=== PATIENT | male | born 1950 | race Caucasian/White ===

== ENCOUNTER → 2024-03-19 09:05 | Outpatient (REF) | payer MEDICARE, SELFPAY | LOC: HWRAD 09:05 | PROVIDERS: ATTENDING PHYSICIAN Internal Medicine Hematology & Oncology; FAMILY PHYSICIAN Family Medicine | DX: C25.3 Malignant neoplasm of pancreatic duct (principal) | CPT/HCPCS: 71260; 74177; Q9967 ==

== ENCOUNTER 2024-04-06 09:09 | Outpatient (REF) | payer MEDICARE, SELFPAY ==
[2024-04-06 10:00] VITALS: BP 138/79; BP_SYST 57
[2024-04-06 10:02] LABS: % Basophils 0.9 % (0-2); % Eosinophils 3.1 % (0-6); % Immature Granulocytes 0.4 % (0-0.5); % Lymphocytes 16.2 % (20.5-51.1); % Monocytes 9.3 % (1.7-9.3); % Neutrophils 70.1 % (42.2-75.2); Absolute Basophils 0.1 10^3/uL (0-0.2); Absolute Eosinophils 0.2 10^3/uL (0-0.7); Absolute Lymphocytes 1.3 10^3/uL (1.2-3.4); Absolute Monocytes 0.7 10^3/uL (0.1-0.6); Absolute Neutrophils 5.4 10^3/uL (1.4-6.5); Hematocrit 39.9 % (39.0-52.0); Hemoglobin 12.7 g/dL (13.0-18.0); Mean Corp Hgb Conc. 31.8 g/dL (33.0-37.0); Mean Corpuscular Hgb 28.9 pg (27.0-31.0); Mean Corpuscular Volume 90.9 fL (80.0-94.0); Mean Platelet Volume 9.2 fL (7.4-10.4); Nucleated Red Blood Cells % 0 % (-); Platelet Count 263 10^3/uL (130-400); Red Blood Cell Count 4.39 10^6/uL (4.70-6.10); Red Cell Dist. Width 13.2 % (11.5-14.5); White Blood Cell Count 7.7 10^3/uL (4.8-10.8)
[2024-04-06 10:07] LABS: INR 1.19; PT 14.9 Sec (11.4-14.6)
[2024-04-06 10:14] LABS: ALT (SGPT) 43 U/L (0-50); AST (SGOT) 41 U/L (17-59); Albumin 3.4 g/dl (3.5-5.0); Alkaline Phosphatase 192 U/L (38-126); Blood Urea Nitrogen 19 mg/dl (9-20); Calcium 8.8 mg/dl (8.4-10.2); Carbon Dioxide 25 mmol/L (22-30); Chloride 111 mmol/L (98-107); Glucose 90 mg/dl (70-99); Potassium 5.1 mmol/L (3.5-5.1); Sodium 139 mmol/L (135-145); Total Bilirubin 0.5 mg/dl (0.2-1.3); Total Protein 5.9 g/dl (6.3-8.2); eGFR > 60.00
[2024-04-06 12:02] VITALS: BP 128/69
[2024-04-06 12:10] VITALS: BP 120/73
[2024-04-06 12:40] VITALS: BP 135/68
[2024-04-06 13:45] VITALS: BP 126/70
== END 2024-04-06 14:30 | disposition home or self-care (01) ==
LOC: RADI 09:09
PROVIDERS: ATTENDING PHYSICIAN Internal Medicine Hematology & Oncology; FAMILY PHYSICIAN Family Medicine; REFERRING PHYSICIAN Physician Assistant
DX: C78.7 Secondary malignant neoplasm of liver and intrahepatic bile duct (principal); C25.3 Malignant neoplasm of pancreatic duct; D68.8 Other specified coagulation defects
CPT/HCPCS: 88307; 36415; 47000; 76942; 77012; 80053; 85025; 85610; 88333; 88341; 88342; 99152

== ENCOUNTER → 2024-04-30 10:45 | Outpatient (REF) | payer MEDICARE, SELFPAY ==
[2024-04-30 11:06] VITALS: BP 110/72; BP_SYST 59
[2024-04-30 11:20] VITALS: BMI 18.6
[2024-04-30] MEDS: ANCEF 10 IV (11:55)
[2024-04-30 12:49] VITALS: BP 120/61; BP_SYST 56
[2024-04-30 13:30] LABS: % Basophils 0.8 % (0-2); % Immature Granulocytes 0.3 % (0-0.5); % Lymphocytes 19.6 % (20.5-51.1); % Monocytes 9.2 % (1.7-9.3); % Neutrophils 67.1 % (42.2-75.2); Absolute Basophils 0.1 10^3/uL (0-0.2); Absolute Eosinophils 0.2 10^3/uL (0-0.7); Absolute Lymphocytes 1.4 10^3/uL (1.2-3.4); Absolute Monocytes 0.7 10^3/uL (0.1-0.6); Absolute Neutrophils 4.9 10^3/uL (1.4-6.5); Hematocrit 35.6 % (39.0-52.0); Hemoglobin 11.2 g/dL (13.0-18.0); Mean Corp Hgb Conc. 31.5 g/dL (33.0-37.0); Mean Corpuscular Hgb 27.8 pg (27.0-31.0); Mean Corpuscular Volume 88.3 fL (80.0-94.0); Mean Platelet Volume 9.5 fL (7.4-10.4); Nucleated Red Blood Cells % 0 % (-); Platelet Count 281 10^3/uL (130-400); Red Blood Cell Count 4.03 10^6/uL (4.70-6.10); Red Cell Dist. Width 13.5 % (11.5-14.5); White Blood Cell Count 7.3 10^3/uL (4.8-10.8)
[2024-04-30 13:39] LABS: ALT (SGPT) 45 U/L (0-50); AST (SGOT) 52 U/L (17-59); Albumin 3.1 g/dl (3.5-5.0); Alkaline Phosphatase 176 U/L (38-126); Blood Urea Nitrogen 30 mg/dl (9-20); Calcium 8.6 mg/dl (8.4-10.2); Carbon Dioxide 18 mmol/L (22-30); Chloride 111 mmol/L (98-107); Estimated Creatinine Clearance 43 ml/min; Glucose 97 mg/dl (70-99); Potassium 4.1 mmol/L (3.5-5.1); Sodium 138 mmol/L (135-145); Total Bilirubin 0.5 mg/dl (0.2-1.3); Total Protein 5.6 g/dl (6.3-8.2); eGFR 58.37
== END ==
LOC: RADI 10:45
PROVIDERS: ATTENDING PHYSICIAN Internal Medicine Hematology & Oncology; FAMILY PHYSICIAN Family Medicine
DX: C25.3 Malignant neoplasm of pancreatic duct (principal)
CPT/HCPCS: 36561; 76937; 77001; 80053; 85025; 99152; C1788

== ENCOUNTER 2024-05-01 14:38 | Emergency (ER) | payer MEDICARE, SELFPAY ==
[2024-05-01 14:41] VITALS: BP 158/64
[2024-05-01 14:42] VITALS: BP 158/62
[2024-05-01 15:00] VITALS: BP 118/55
--- NOTE | 2024-05-01 15:23 | ED.GENMED ---
History of Present Illness
General
Chief Complaint: Numbness
Source: patient and spouse
Exam Limitations: none
Time Seen by Provider: 05/01/24 14:59
Nursing documentation reviewed up to this point in time: agreed with
Travel History
Have you had any contact with someone who has COVID-19?: No
Do you have any symptoms of coronavirus? Fever > 100 degrees, chills, cough, shortness of breath, sore throat, loss of taste or smell, muscle aches, or headache?: No
History of Present Illness
History of Present Illness:
73-year-old male presents emergency department after receiving first time dose of irinotecan and leucovorin. He began to experience numbness in his mouth, and difficulty speaking. He feels he is having trouble controlling his mouth movements.
Infusion center gave him 25 mg Benadryl, 125 mg Solu-Medrol and an EpiPen at 1422 PM. Symptoms feel similar.
Past History
Past History
ED Past Medical History: Cancer (Pancreatic cancer)
ED Past Surgical History: Other (Whipple procedure, pilonidal cyst removed, hernia)
Social History
Tobacco: Non-smoker
Alcohol: None
Drug: None
Personal:
Living: with family
Review of Systems
Review of Systems
Allergies reviewed?: Yes
All Other Systems: Not applicable
Constitutional: Reports no symptoms
EENT: Reports no symptoms
Respiratory: Reports no symptoms
Cardiac: Reports no symptoms
: Reports no symptoms
Musculoskeletal: Reports no symptoms
Skin: Reports no symptoms
Neurological: Reports numbness
Endocrine: Reports no symptoms
Hematologic/Lymphatic: Reports no symptoms
Psychiatric: Reports no symptoms
Phy Exam
Physical Exam
Physical Exam:
Physical Exam
General: no apparent distress, not acutely ill
Neck: supple. no meningeal signs. normal posterior pharynx
Heart: s1/s2 regular rate and rhythm, no murmur. equal radial
pulses.
HEENT: Pupils equal round reactive to light, EOMI
Lungs: no acute respiratory distress. clear bilaterally
Abdomen: normal bowel sounds. not tender. no CVAT
Neuro: alert and oriented. no focal neurological deficits cranial nerves II through XII intact
Skin: no rash
Psychiatric: well kept. interactive and cooperative
Extremities: no edema. no calf tenderness. negative homans. good distal pulses
Course
Orders/Labs/Results
Orders:
Orders
05/01/24 15:16
Electrocardiogram (*1) Stat
Reason for Study: Vertigo / Dizzy
Electrocardiogram (*1) Urgent
Reason for Study: Fatigue / Weakness
EKG- Treatment ONCE
IV Insert/Care/Rem.- Treatment PRN
05/01/24 16:03
Complete Blood Count/With Diff Urgent
Comprehensive Metabolic Panel Urgent
Magnesium Urgent
Abnormal Lab Results
05/01/24
16:03
RBC 4.14 L 10^6/uL
(4.70-6.10)
Hgb 11.6 L g/dL
(13.0-18.0)
Hct 36.6 L %
(39.0-52.0)
MCHC 31.7 L g/dL
(33.0-37.0)
Absolute Neuts (auto) 7.3 H 10^3/uL
(1.4-6.5)
Absolute Lymphs (auto) 0.4 L 10^3/uL
(1.2-3.4)
Absolute Monos (auto) 0.0 L 10^3/uL
(0.1-0.6)
Neutrophils % 93.6 H %
(42.2-75.2)
Lymphocytes % 5.0 L %
(20.5-51.1)
Monocytes % 0.5 L %
(1.7-9.3)
Chloride 109 H mmol/L
(98-107)
Carbon Dioxide 18 L mmol/L
(22-30)
BUN 22 H mg/dl
(9-20)
Glucose 263 H mg/dl
(70-99)
Calcium 8.2 L mg/dl
(8.4-10.2)
Alkaline Phosphatase 212 H U/L
(38-126)
Total Protein 5.6 L g/dl
(6.3-8.2)
Albumin 3.1 L g/dl
(3.5-5.0)
05/01/24 16:03
05/01/24 16:03
Vital Signs
Initial and Last Documented VS:
Initial Vital Signs
BP
158/64
05/01/24 14:41
Last Documented Vital Signs
Temp Pulse Resp BP Pulse Ox
97.2 F 57 18 118/55 97
05/01/24 14:42 05/01/24 14:42 05/01/24 14:42 05/01/24 15:00 05/01/24 15:15
MDM/Problems Addressed
Differential Diagnosis Includes:
CVA, medication reaction
MDM/Problems Addressed:
73-year-old male with paresthesias and dysarthria from medication reaction of chemotherapeutics. Discussed with Dr. Jigna Kate, who agrees with this, and recommends observation. Do not suspect allergic reaction. Patient improved throughout
hospital observation, and stable for charge.
Chronic conditions affecting care: Cancer (Pancreatic cancer)
Acute Exacerbation and/or Progression of Chronic Illness: Cancer
*Pulse Oximetry
Patient hypoxic: no
*EKG
Interpreted by ED Provider?: Yes
EKG Intrepretation Date: 05/01/24
EKG Intrepretation Time: 15:34
Interpretation: normal
Comparison EKG: no comparison EKG present
Heart Rate: 61
Rate: normal
Rhythm: sinus
[place]worth: normal axis
Interval: normal interval
QRS Pattern: normal QRS
Ischemia: no ischemia
*Color Control Supervisor Interpretation
Rate: normal
Interpretation: normal
Heart Rate: 60
Rhythm: sinus
*Critical Care Note
Total Time (30-74mins, 75-104mins- exclusive of procedures): Not Applicable
Data Reviewed
Further Testing Considered But Not Given:
ct head not indicated
Patient Management
Discussion with other providers: Major Account Representative (oncology Dr. Samaria Kate)
Escalation/DeEscalation of care consider admission/obs:
admit not indicated
ED Attending Note
-
Portions of this chart may have been created with voice recognition software.� Occasional wrong word or��sound alike� substitutions may have occurred due to the inherent limitations of voice recognition software.
Discharge Plan
Departure
Patient Disposition: Home (Routine Discharge)
Date of Disposition: 05/01/24
Time of Disposition: 17:46
Patient with high blood pressure during this ER visit?: No
Condition: Good
Discharge Problem:
Chemotherapy adverse reaction
Instructions: Chemotherapy, Paresthesia (DC), BLOOD PRESSURE
Prescriptions:
No Action
Creon 24,000-76,000 -120,000 unit Capsule,Delayed Release(Dr/Ec)
1 cap PO BID
Probiotic 5 billion cell Capsule, Sprinkle
1 cap PO DAILY
Referrals:
Bronson Giraldo, [Active] - Keep scheduled appt
Alex Gunn MD [Family Provider] -
Interventions
Interventions:
*Risk Screen - Suicide Last Done: 05/01/24 14:42
*General Assessment Last Done: 05/01/24 14:42
*Neglect/Abuse Screening Last Done: 05/01/24 14:42
*ED COVID-19 Vaccine History Last Done: 05/01/24 14:42
ED- Neurological Assessment Last Done: 05/01/24 14:42
Discharge Date and Time
Print Language: HUNGARIAN
--- NOTE | 2024-05-01 16:03 | VATNOTE ---
called to draw labs from port accessed in [place] today. Noted 325 PSI negrete needle and port inserted yest. by IR. Unknown length of needle.
[2024-05-01 16:10] LABS: % Basophils 0.5 % (0-2); % Immature Granulocytes 0.4 % (0-0.5); % Monocytes 0.5 % (1.7-9.3); % Neutrophils 93.6 % (42.2-75.2); Absolute Lymphocytes 0.4 10^3/uL (1.2-3.4); Absolute Neutrophils 7.3 10^3/uL (1.4-6.5); Hematocrit 36.6 % (39.0-52.0); Hemoglobin 11.6 g/dL (13.0-18.0); Mean Corp Hgb Conc. 31.7 g/dL (33.0-37.0); Mean Corpuscular Volume 88.4 fL (80.0-94.0); Mean Platelet Volume 9.6 fL (7.4-10.4); Nucleated Red Blood Cells % 0 % (-); Platelet Count 256 10^3/uL (130-400); Red Blood Cell Count 4.14 10^6/uL (4.70-6.10); Red Cell Dist. Width 13.6 % (11.5-14.5); White Blood Cell Count 7.8 10^3/uL (4.8-10.8)
[2024-05-01 16:30] LABS: ALT (SGPT) 38 U/L (0-50); AST (SGOT) 46 U/L (17-59); Albumin 3.1 g/dl (3.5-5.0); Alkaline Phosphatase 212 U/L (38-126); Blood Urea Nitrogen 22 mg/dl (9-20); Calcium 8.2 mg/dl (8.4-10.2); Carbon Dioxide 18 mmol/L (22-30); Chloride 109 mmol/L (98-107); Glucose 263 mg/dl (70-99); Magnesium 1.9 mg/dl (1.6-2.3); Potassium 4.2 mmol/L (3.5-5.1); Sodium 136 mmol/L (135-145); Total Bilirubin 0.4 mg/dl (0.2-1.3); Total Protein 5.6 g/dl (6.3-8.2); eGFR > 60.00
--- NOTE | 2024-05-01 18:48 | VATNOTE ---
right port deaccessed per protocol. brisk blood return noted prior to.
== END 2024-05-01 18:11 | disposition home or self-care (01) ==
LOC: EMR 14:38
PROVIDERS: EMERGENCY PHYSICIAN Emergency Medicine; FAMILY PHYSICIAN Family Medicine
DX: N20.0 Calculus of kidney (principal); T45.1X5A Adverse effect of antineoplastic and immunosuppressive drugs, initial encounter; Z51.11 Encounter for antineoplastic chemotherapy; Z90.49 Acquired absence of other specified parts of digestive tract
CPT/HCPCS: 99283; 96374; 80053; 83735; 85025; 93005

== ENCOUNTER → 2024-05-14 15:33 | Outpatient (REF) | payer MEDICARE, SELFPAY ==
[2024-05-14 10:14] LABS: % Basophils 0.7 % (0-2); % Eosinophils 0.7 % (0-6); % Immature Granulocytes 6.8 % (0-0.5); % Lymphocytes 5.7 % (20.5-51.1); % Monocytes 9.5 % (1.7-9.3); % Neutrophils 76.6 % (42.2-75.2); Absolute Basophils 0.2 10^3/uL (0-0.2); Absolute Eosinophils 0.2 10^3/uL (0-0.7); Absolute Immature Granulocytes 1.6 10^3/uL (0-0.05); Absolute Lymphocytes 1.4 10^3/uL (1.2-3.4); Absolute Monocytes 2.3 10^3/uL (0.1-0.6); Absolute Neutrophils 18.4 10^3/uL (1.4-6.5); Hematocrit 33.4 % (39.0-52.0); Hemoglobin 11.1 g/dL (13.0-18.0); Mean Corp Hgb Conc. 33.2 g/dL (33.0-37.0); Mean Corpuscular Hgb 28.2 pg (27.0-31.0); Mean Platelet Volume 9.8 fL (7.4-10.4); Nucleated Red Blood Cells % 0 % (-); Platelet Count 192 10^3/uL (130-400); Red Blood Cell Count 3.93 10^6/uL (4.70-6.10); Red Cell Dist. Width 14.5 % (11.5-14.5); White Blood Cell Count 24.1 10^3/uL (4.8-10.8)
[2024-05-14 10:28] LABS: ALT (SGPT) 53 U/L (0-50); AST (SGOT) 37 U/L (17-59); Albumin 2.7 g/dl (3.5-5.0); Alkaline Phosphatase 287 U/L (38-126); Blood Urea Nitrogen 16 mg/dl (9-20); Calcium 7.4 mg/dl (8.4-10.2); Carbon Dioxide 23 mmol/L (22-30); Chloride 107 mmol/L (98-107); Glucose 96 mg/dl (70-99); Potassium 3.7 mmol/L (3.5-5.1); Sodium 138 mmol/L (135-145); Total Bilirubin 0.3 mg/dl (0.2-1.3); Total Protein 4.9 g/dl (6.3-8.2); eGFR 58.37
== END ==
LOC: OIDL 15:33
PROVIDERS: ATTENDING PHYSICIAN Internal Medicine Hematology & Oncology
DX: C25.3 Malignant neoplasm of pancreatic duct (principal)
CPT/HCPCS: 80053; 85025

== ENCOUNTER → 2024-05-16 10:36 | Outpatient (REF) | payer MEDICARE, SELFPAY ==
[2024-05-16 10:32] LABS: % Basophils 0.2 % (0-2); % Eosinophils 0.3 % (0-6); % Immature Granulocytes 2.6 % (0-0.5); % Lymphocytes 1.3 % (20.5-51.1); % Monocytes 9.2 % (1.7-9.3); % Neutrophils 86.4 % (42.2-75.2); Absolute Basophils 0.1 10^3/uL (0-0.2); Absolute Eosinophils 0.1 10^3/uL (0-0.7); Absolute Immature Granulocytes 0.9 10^3/uL (0-0.05); Absolute Lymphocytes 0.4 10^3/uL (1.2-3.4); Absolute Monocytes 3.1 10^3/uL (0.1-0.6); Hematocrit 33.9 % (39.0-52.0); Mean Corp Hgb Conc. 32.4 g/dL (33.0-37.0); Mean Corpuscular Hgb 27.7 pg (27.0-31.0); Mean Corpuscular Volume 85.4 fL (80.0-94.0); Mean Platelet Volume 9.5 fL (7.4-10.4); Platelet Count 238 10^3/uL (130-400); Red Blood Cell Count 3.97 10^6/uL (4.70-6.10); Red Cell Dist. Width 14.4 % (11.5-14.5); White Blood Cell Count 33.6 10^3/uL (4.8-10.8)
[2024-05-16 11:25] LABS: D-Dimer 1.28 ug/mlFEU (0.00-0.50)
[2024-05-16 11:29] LABS: ALT (SGPT) 36 U/L (0-50); AST (SGOT) 32 U/L (17-59); Albumin 2.8 g/dl (3.5-5.0); Alkaline Phosphatase 278 U/L (38-126); Blood Urea Nitrogen 18 mg/dl (9-20); Calcium 7.9 mg/dl (8.4-10.2); Carbon Dioxide 22 mmol/L (22-30); Chloride 103 mmol/L (98-107); Glucose 127 mg/dl (70-99); Sodium 135 mmol/L (135-145); Total Bilirubin 0.8 mg/dl (0.2-1.3); Total Protein 4.9 g/dl (6.3-8.2); eGFR 58.37
[2024-05-16 11:48] LABS: Urine Albumin 1+ (Neg - Trace); Urine Bilirubin 1+ (Negative); Urine Character Clear (Clear); Urine Color Yellow; Urine Glucose Negative (Negative); Urine Ketone Trace (Negative); Urine Leukocyte Trace (Negative); Urine Nitrite Negative (Negative); Urine Occult Blood 2+ (Negative); Urine Urobilinogen 1+ (Neg - 1+)
[2024-05-16 12:00] LABS: Urine Mucus Moderate
[2024-05-16 12:02] LABS: Urine Bacteria Moderate (Negative); Urine Red Blood Cell 0-2 /HPF (0-2)
== END ==
LOC: OIDL 10:36
PROVIDERS: ATTENDING PHYSICIAN Nurse Practitioner Adult Health
DX: C25.3 Malignant neoplasm of pancreatic duct (principal)
CPT/HCPCS: 80053; 81003; 81015; 85025; 85379; 87040; 87086

== ENCOUNTER → 2024-05-16 13:43 | Outpatient (REF) | payer MEDICARE, SELFPAY | LOC: RAD 13:43 | PROVIDERS: ATTENDING PHYSICIAN Nurse Practitioner Adult Health | DX: C25.3 Malignant neoplasm of pancreatic duct (principal) | CPT/HCPCS: 71275; Q9967 ==

== ENCOUNTER 2024-05-17 12:55 | Emergency (ER) | payer MEDICARE, SELFPAY ==
[2024-05-17] VITALS (8 sets, daily range): BP systolic 89–130; BP diastolic 50–93
--- NOTE | 2024-05-17 14:03 | ED.GENMED ---
History of Present Illness
General
Chief Complaint: Weakness
Time Seen by Provider: 05/17/24 14:03
History of Present Illness
History of Present Illness:
HPI: Patient has history of pancreatic cancer diagnosed 1 year ago status post Whipple and recently started chemo and had port placed. He was recently at Dr. Giraldo's office for chemo however they did not perform the chemo as he was hypotensive.
His white count continues to rise and he was sent here for further evaluation. The patient has had some chills without definite fever and feels generally weak. He says that the nurse from Dr. Giraldo's office wanted him to come in here for 'more
tests'. The patient did not necessarily want to come in here as he did not have any significant new symptoms.
EXAM:
GENERAL: Appears somewhat weak and debilitated
HEENT: Moist oral mucosa
CARDIOVASCULAR: No murmurs, normal heart rate, regular rhythm, No chest wall tenderness, port noted in the right anterior chest wall
PULMONARY: No respiratory distress, breath sounds are clear and equal
ABDOMEN: Soft with no peritoneal signs, no tenderness
NEUROLOGIC: Excellent strength all extremities, no coordination deficits
PSYCHIATRIC: Appropriate mental status, normal insight and judgement
EXTREMITIES: Nontender, no edema, moves all extremities equally
SKIN: Appears pale
TIME OF INITIAL ENCOUNTER: 2:20 PM
NUMBER AND COMPLEXITY OF PROBLEMS ADDRESSED AT THE ENCOUNTER
� Chronic conditions affecting care: Pancreatic cancer status post Whipple
� Acute Exacerbation and/or Progression of Chronic Illness: This is an acute problem
� Differential Diagnosis includes: Dehydration, electrolyte normality, bacteremia, sepsis
AMOUNT AND/OR COMPLEXITY OF DATA TO BE REVIEWED AND ANALYZED
� I performed an independent evaluation of and my interpretation is:
EKG:
CT:
X-rays:
Laboratory Studies: White count today is 25.6, which is lower than it was yesterday. Hemoglobin 9.0 (down from 11.0 yesterday)�I therefore performed a digital rectal examination which showed heme-negative brown stool. Renal
function has worsened with a creatinine of 1.7 and he was given IV fluids. Lactic 1.4.
Other:
� Review of other/old records: White count was normal on 05/01/2024, on 05/14/2024 was 24.1 and on 05/16/2024 it was 33.6. Yesterday (05/16/2024), CTA showed no PE/dissection and scarring was noted at the right base greater than left.
� Clinical information was obtained by an independent historian: I spoke to the at bedside
� Prescriptions/Medications Considered but not given:
� Further testing considered but not performed: Considered x-ray however the patient just had a CAT scan of the chest yesterday
RISK OF COMPLICATIONS AND/OR MORBIDITY OR MORTALITY OF PATIENT MANAGEMENT
� Social determinants of health affecting care:
� Discussion with other providers: Discussed case with Dr. Giraldo who suggested considering diagnosis of colitis however the patient has no abdominal symptoms; I also discussed case with HENRY Bailon who agrees with plan.
� Escalation of care including admission/observation vs risk of discharge considered: Renal function has worsened�I have given IV fluids. The patient has minimal symptoms he did not feel that he would need to come in here to
begin with.
Past History
Past History
ED Past Medical History: Cancer (Pancreatic cancer)
ED Past Surgical History: Other (Whipple procedure, pilonidal cyst removed, hernia)
Social History
Tobacco: Non-smoker
Alcohol: None
Drug: None
Personal:
Living: with family
Phy Exam
Physical Exam
Physical Exam:
See HPI
Course
Orders/Labs/Results
Orders:
Orders
05/17/24 14:03
Urinalysis Reflex To Culture Urgent
Date Specimen was Collected: 05/17/24
Time Specimen was Collected: 14:05
0.9% Sodium Chloride 1000 ml [Nss] 1,000 ml IV BOLUS
05/17/24 14:26
Complete Blood Count/With Diff Urgent
Comprehensive Metabolic Panel Urgent
Lactic Acid Q4H
Comment: CANCEL 2nd LACTIC ACID IF 1st LACTIC ACID IS LESS THAN 2
05/17/24 14:38
Blood Culture Q30M
MARY GRACE Source: Blood/Venous
Specimen Description:
Blood Culture Q30M
MARY GRACE Source: Blood/Venous
Specimen Description:
05/17/24 16:14
0.9% Sodium Chloride 1000 ml [Nss] 1,000 ml IV BOLUS
05/17/24 18:15
Lactic Acid Q4H
Comment: CANCEL 2nd LACTIC ACID IF 1st LACTIC ACID IS LESS THAN 2
Abnormal Lab Results
05/17/24
14:26
WBC 25.6 H 10^3/uL
(4.8-10.8)
RBC 3.25 L 10^6/uL
(4.70-6.10)
Hgb 9.0 L g/dL
(13.0-18.0)
Hct 28.0 L %
(39.0-52.0)
MCHC 32.1 L g/dL
(33.0-37.0)
RDW 14.7 H %
(11.5-14.5)
Abs Immat Gran (auto) 0.6 H 10^3/uL
(0-0.05)
Absolute Neuts (auto) 21.2 H 10^3/uL
(1.4-6.5)
Absolute Lymphs (auto) 1.0 L 10^3/uL
(1.2-3.4)
Absolute Monos (auto) 2.6 H 10^3/uL
(0.1-0.6)
Immature Gran % 2.5 H %
(0-0.5)
Neutrophils % 82.7 H %
(42.2-75.2)
Lymphocytes % 4.1 L %
(20.5-51.1)
Monocytes % 10.0 H %
(1.7-9.3)
BUN 21 H mg/dl
(9-20)
Creatinine 1.7 H mg/dL
(0.7-1.3)
Glucose 128 H mg/dl
(70-99)
Calcium 7.8 L mg/dl
(8.4-10.2)
Alkaline Phosphatase 214 H U/L
(38-126)
Total Protein 4.4 L g/dl
(6.3-8.2)
Albumin 2.4 L g/dl
(3.5-5.0)
05/17/24 14:26
05/17/24 14:26
Vital Signs
Blood pressure: 95/58
Initial and Last Documented VS:
Initial Vital Signs
Temp Pulse Resp BP Pulse Ox
98 F 85 18 90/50 98
05/17/24 13:16 05/17/24 13:16 05/17/24 13:16 05/17/24 13:16 05/17/24 13:16
Last Documented Vital Signs
Temp Pulse Resp BP Pulse Ox
98 F 63 20 101/60 97
05/17/24 13:16 05/17/24 16:00 05/17/24 16:00 05/17/24 16:00 05/17/24 16:00
*Critical Care Note
Total Time (30-74mins, 75-104mins- exclusive of procedures): Not Applicable
ED Attending Note
-
Portions of this chart may have been created with voice recognition software.� Occasional wrong word or��sound alike� substitutions may have occurred due to the inherent limitations of voice recognition software.
Discharge Plan
Departure
Patient Disposition: Home (Routine Discharge)
Date of Disposition: 05/17/24
Time of Disposition: 16:14
Patient with high blood pressure during this ER visit?: Yes
Discharge Problem:
Dehydration
Prescriptions:
No Action
Creon 24,000-76,000 -120,000 unit Capsule,Delayed Release(Dr/Ec)
1 cap PO AC
Probiotic 5 billion cell Capsule, Sprinkle
1 cap PO DAILY
ondansetron HCl [Zofran] 8 mg Tablet
8 mg PO [id number] PRN (Reason: nausea)
lidocaine-prilocaine 2.5-2.5 % Cream
1 applic TOPICAL DAILYPRN PRN (Reason: port access)
pantoprazole [Protonix] 40 mg Tablet,Delayed Release (Dr/Ec)
40 mg PO DAILY
ibuprofen [Advil] 200 mg Tablet
200 mg PO Q6HPRN PRN (Reason: headache)
loratadine [Claritin] 10 mg Tablet
10 mg PO DAILYPRN PRN (Reason: take for 5 days after chemo)
Referrals:
Garfield Fitzpatrick CRNP [Family Provider] -
Activity Restrictions/Additional Instructions:
Blood cultures from yesterday showed no growth for the first 24 hours. Urine culture from yesterday was negative. Blood cultures were really drawn today which are pending. White count from yesterday is 33.6 and currently is down to 25.6. Lactic
acid level (marker for severity of infectious illness) is normal . Your hemoglobin is a little bit lower than before at 9.0 so we did a rectal examination which showed heme-negative brown stool (no sign of GI bleeding). Creatinine is 1.7 (this
indicates abnormal renal function which can improve with IV fluids).
Interventions
Interventions:
*Risk Screen - Suicide Last Done: 05/17/24 13:16
*General Assessment Last Done: 05/17/24 13:16
*Neglect/Abuse Screening Last Done: 05/17/24 13:16
ED- Fall Risk Assessment Last Done: 05/17/24 14:16
ED- Pulmonary Assessment Last Done: 05/17/24 14:16
ED- Neurological Assessment Last Done: 05/17/24 14:16
ED- Cardiac Assessment Last Done: 05/17/24 14:16
Discharge Date and Time
Print Language: HEBREW
[2024-05-17 14:37] LABS: % Basophils 0.4 % (0-2); % Eosinophils 0.3 % (0-6); % Immature Granulocytes 2.5 % (0-0.5); % Lymphocytes 4.1 % (20.5-51.1); % Neutrophils 82.7 % (42.2-75.2); Absolute Basophils 0.1 10^3/uL (0-0.2); Absolute Eosinophils 0.1 10^3/uL (0-0.7); Absolute Immature Granulocytes 0.6 10^3/uL (0-0.05); Absolute Monocytes 2.6 10^3/uL (0.1-0.6); Absolute Neutrophils 21.2 10^3/uL (1.4-6.5); Mean Corp Hgb Conc. 32.1 g/dL (33.0-37.0); Mean Corpuscular Hgb 27.7 pg (27.0-31.0); Mean Corpuscular Volume 86.2 fL (80.0-94.0); Mean Platelet Volume 9.7 fL (7.4-10.4); Nucleated Red Blood Cells % 0 % (-); Platelet Count 234 10^3/uL (130-400); Red Blood Cell Count 3.25 10^6/uL (4.70-6.10); Red Cell Dist. Width 14.7 % (11.5-14.5); White Blood Cell Count 25.6 10^3/uL (4.8-10.8)
[2024-05-17] MEDS: NSS 1000 IV ×2 (14:48→16:19)
[2024-05-17 14:54] LABS: ALT (SGPT) 33 U/L (0-50); AST (SGOT) 30 U/L (17-59); Albumin 2.4 g/dl (3.5-5.0); Alkaline Phosphatase 214 U/L (38-126); Blood Urea Nitrogen 21 mg/dl (9-20); Calcium 7.8 mg/dl (8.4-10.2); Carbon Dioxide 22 mmol/L (22-30); Chloride 107 mmol/L (98-107); Glucose 128 mg/dl (70-99); Potassium 3.9 mmol/L (3.5-5.1); Sodium 135 mmol/L (135-145); Total Bilirubin 0.9 mg/dl (0.2-1.3); Total Protein 4.4 g/dl (6.3-8.2)
[2024-05-17 15:02] LABS: Lactic Acid 1.4 mmol/L (0.7-2.0)
--- NOTE | 2024-05-17 18:03 | VATNOTE ---
right subq port deaccessed per protocol. brisk blood return noted prior to. at bedside.
== END 2024-05-17 18:18 | disposition home or self-care (01) ==
LOC: EMR 12:55
PROVIDERS: EMERGENCY PHYSICIAN Emergency Medicine; FAMILY PHYSICIAN Nurse Practitioner Adult Health
DX: E86.0 Dehydration (principal); R53.1 Weakness; Z85.07 Personal history of malignant neoplasm of pancreas; Z90.411 Acquired partial absence of pancreas; Z90.49 Acquired absence of other specified parts of digestive tract
CPT/HCPCS: 99283; 96374; 96361; 80053; 83605; 85025; 87040

== ENCOUNTER 2024-05-20 10:54 | Emergency (ER) | payer MEDICARE, SELFPAY ==
[2024-05-20 11:03] VITALS: BP 87/53
[2024-05-20 11:11] VITALS: BP 95/65
[2024-05-20 11:12] VITALS: BMI 19.5
--- NOTE | 2024-05-20 11:21 | ED.GENMED ---
History of Present Illness
General
Chief Complaint: Dizziness
Source: patient, records and family
Exam Limitations: none
Time Seen by Provider: 05/20/24 11:13
Nursing documentation reviewed up to this point in time: agreed with
History of Present Illness
History of Present Illness:
73-year-old male presents to the emergency department complaining of weakness and lightheadedness.
Past History
Past History
ED Past Medical History: Cancer (Pancreatic cancer)
ED Past Surgical History: Other (Whipple procedure, pilonidal cyst removed, hernia)
Social History
Tobacco: Non-smoker
Alcohol: None
Drug: None
Personal:
Living: with family
Review of Systems
Review of Systems
Allergies reviewed?: Yes
All Other Systems: Not applicable
Constitutional: Reports no symptoms
EENT: Reports no symptoms
Respiratory: Reports no symptoms
Cardiac: Reports no symptoms
ABD/GI: Reports no symptoms
: Reports no symptoms
Musculoskeletal: Reports no symptoms
Skin: Reports no symptoms
Neurological: Reports weakness
Endocrine: Reports no symptoms
Hematologic/Lymphatic: Reports no symptoms
Psychiatric: Reports no symptoms
Phy Exam
Physical Exam
Physical Exam:
Physical Exam
General: no apparent distress, not acutely ill
Neck: supple. no meningeal signs. normal posterior pharynx
Heart: s1/s2 regular rate and rhythm, no murmur. equal radial
pulses. Port right upper chest
HEENT: Pupils equal round reactive to light, EOMI
Lungs: no acute respiratory distress. clear bilaterally
Abdomen: normal bowel sounds. not tender. no CVAT
Neuro: alert and oriented. no focal neurological deficits cranial nerves II through XII intact
Skin: no rash
Psychiatric: well kept. interactive and cooperative
Extremities: no edema. no calf tenderness. negative homans. good distal pulses
Course
Orders/Labs/Results
Orders:
Orders
05/20/24 11:20
IV Insert/Care/Rem.- Treatment PRN
0.9% Sodium Chloride 1000 ml [Nss] 1,000 ml IV BOLUS
05/20/24 12:00
Complete Blood Count/With Diff Urgent
Comprehensive Metabolic Panel Urgent
05/20/24 13:08
Heparin Pf [Heparin Lock Flush] 500 unit .ROUTE .STK-MED ONE
Abnormal Lab Results
05/20/24
12:00
WBC 17.4 H 10^3/uL
(4.8-10.8)
RBC 3.18 L 10^6/uL
(4.70-6.10)
Hgb 9.0 L g/dL
(13.0-18.0)
Hct 27.2 L %
(39.0-52.0)
RDW 14.6 H %
(11.5-14.5)
Abs Immat Gran (auto) 0.5 H 10^3/uL
(0-0.05)
Absolute Neuts (auto) 13.6 H 10^3/uL
(1.4-6.5)
Absolute Monos (auto) 2.0 H 10^3/uL
(0.1-0.6)
Immature Gran % 2.8 H %
(0-0.5)
Neutrophils % 78.2 H %
(42.2-75.2)
Lymphocytes % 6.7 L %
(20.5-51.1)
Monocytes % 11.4 H %
(1.7-9.3)
BUN 22 H mg/dl
(9-20)
Glucose 100 H mg/dl
(70-99)
Calcium 7.5 L mg/dl
(8.4-10.2)
Alkaline Phosphatase 227 H U/L
(38-126)
Total Protein 4.5 L g/dl
(6.3-8.2)
Albumin 2.3 L g/dl
(3.5-5.0)
05/20/24 12:00
05/20/24 12:00
Vital Signs
Initial and Last Documented VS:
Initial Vital Signs
Temp Pulse Resp BP Pulse Ox
98.0 F 79 16 87/53 98
05/20/24 11:03 05/20/24 11:03 05/20/24 11:03 05/20/24 11:03 05/20/24 11:03
Last Documented Vital Signs
Temp Pulse Resp BP Pulse Ox
98.0 F 69 20 107/53 95
05/20/24 11:03 05/20/24 13:15 05/20/24 13:15 05/20/24 13:00 05/20/24 13:15
MDM/Problems Addressed
Differential Diagnosis Includes:
Dehydration, electrolyte abnormality
MDM/Problems Addressed:
73-year-old male with mild hypovolemia. Improved after IV fluids. Stable for discharge.
Chronic conditions affecting care: Cancer (Pancreatic cancer)
Acute Exacerbation and/or Progression of Chronic Illness: Cancer (pancreatic cancer)
*Pulse Oximetry
Patient hypoxic: no
*EKG
Interpreted by ED Provider?: NA
*Catalogue Clerk Interpretation
Rate: Catalogue Clerk- N/A
*Critical Care Note
Total Time (30-74mins, 75-104mins- exclusive of procedures): Not Applicable
Data Reviewed
Review of Other/Old Records Reveals: Labs
Patient Management
Social determinants of health affecting care: Living situation
Escalation/DeEscalation of care consider admission/obs:
admit not indicated
ED Attending Note
-
Portions of this chart may have been created with voice recognition software.� Occasional wrong word or��sound alike� substitutions may have occurred due to the inherent limitations of voice recognition software.
Discharge Plan
Departure
Patient Disposition: Home (Routine Discharge)
Date of Disposition: 05/20/24
Time of Disposition: 13:29
Patient with high blood pressure during this ER visit?: No
Condition: Good
Discharge Problem:
Lightheaded, Hypovolemia
Instructions: Dizziness, Nonvertigo, (DC), Hypovolemia in adults
Prescriptions:
No Action
Creon 24,000-76,000 -120,000 unit Capsule,Delayed Release(Dr/Ec)
1 cap PO AC
Probiotic 5 billion cell Capsule, Sprinkle
1 cap PO DAILY
ondansetron HCl [Zofran] 8 mg Tablet
8 mg PO [id number] PRN (Reason: nausea)
lidocaine-prilocaine 2.5-2.5 % Cream
1 applic TOPICAL DAILYPRN PRN (Reason: port access)
pantoprazole [Protonix] 40 mg Tablet,Delayed Release (Dr/Ec)
40 mg PO DAILY
ibuprofen [Advil] 200 mg Tablet
200 mg PO Q6HPRN PRN (Reason: headache)
loratadine [Claritin] 10 mg Tablet
10 mg PO DAILYPRN PRN (Reason: take for 5 days after chemo)
Referrals:
Alex Gunn MD [Family Provider] - Call in 1-3 days for appt
Interventions
Interventions:
*Risk Screen - Suicide Last Done: 05/20/24 11:12
*General Assessment Last Done: 05/20/24 11:12
*Neglect/Abuse Screening Last Done: 05/20/24 11:12
ED- Fall Risk Assessment Last Done: 05/20/24 11:14
*ED COVID-19 Vaccine History Last Done: 05/20/24 11:03
ED- Neurological Assessment Last Done: 05/20/24 11:13
ED- Cardiac Assessment Last Done: 05/20/24 11:13
Discharge Date and Time
Print Language: SPANISH
[2024-05-20 12:00] VITALS: BP 99/61
[2024-05-20] MEDS: NSS 1000 IV (12:08)
[2024-05-20 12:22] LABS: % Basophils 0.6 % (0-2); % Eosinophils 0.3 % (0-6); % Immature Granulocytes 2.8 % (0-0.5); % Lymphocytes 6.7 % (20.5-51.1); % Monocytes 11.4 % (1.7-9.3); % Neutrophils 78.2 % (42.2-75.2); Absolute Basophils 0.1 10^3/uL (0-0.2); Absolute Eosinophils 0.1 10^3/uL (0-0.7); Absolute Immature Granulocytes 0.5 10^3/uL (0-0.05); Absolute Lymphocytes 1.2 10^3/uL (1.2-3.4); Absolute Neutrophils 13.6 10^3/uL (1.4-6.5); Hematocrit 27.2 % (39.0-52.0); Mean Corp Hgb Conc. 33.1 g/dL (33.0-37.0); Mean Corpuscular Hgb 28.3 pg (27.0-31.0); Mean Corpuscular Volume 85.5 fL (80.0-94.0); Mean Platelet Volume 9.8 fL (7.4-10.4); Nucleated Red Blood Cells % 0 % (-); Platelet Count 376 10^3/uL (130-400); Red Blood Cell Count 3.18 10^6/uL (4.70-6.10); Red Cell Dist. Width 14.6 % (11.5-14.5); White Blood Cell Count 17.4 10^3/uL (4.8-10.8)
[2024-05-20 12:30] LABS: ALT (SGPT) 37 U/L (0-50); AST (SGOT) 37 U/L (17-59); Albumin 2.3 g/dl (3.5-5.0); Alkaline Phosphatase 227 U/L (38-126); Blood Urea Nitrogen 22 mg/dl (9-20); Calcium 7.5 mg/dl (8.4-10.2); Carbon Dioxide 24 mmol/L (22-30); Chloride 107 mmol/L (98-107); Estimated Creatinine Clearance 47 ml/min; Glucose 100 mg/dl (70-99); Potassium 4.2 mmol/L (3.5-5.1); Sodium 135 mmol/L (135-145); Total Bilirubin 0.7 mg/dl (0.2-1.3); Total Protein 4.5 g/dl (6.3-8.2); eGFR > 60.00
[2024-05-20 13:00] VITALS: BP 107/53
== END 2024-05-20 14:16 | disposition home or self-care (01) ==
LOC: EMR 10:54
PROVIDERS: EMERGENCY PHYSICIAN Emergency Medicine; FAMILY PHYSICIAN Family Medicine
DX: R42 Dizziness and giddiness (principal); E86.1 Hypovolemia; R53.1 Weakness; Z90.49 Acquired absence of other specified parts of digestive tract
CPT/HCPCS: 99283; 96374; 96361; 80053; 85025

== ENCOUNTER → 2024-05-21 15:33 | Outpatient (REF) | payer MEDICARE, SELFPAY ==
[2024-05-21 11:41] LABS: % Basophils 0.6 % (0-2); % Eosinophils 0.8 % (0-6); % Immature Granulocytes 2.7 % (0-0.5); % Lymphocytes 7.5 % (20.5-51.1); % Monocytes 11.8 % (1.7-9.3); % Neutrophils 76.6 % (42.2-75.2); Absolute Basophils 0.1 10^3/uL (0-0.2); Absolute Eosinophils 0.1 10^3/uL (0-0.7); Absolute Immature Granulocytes 0.4 10^3/uL (0-0.05); Absolute Lymphocytes 1.2 10^3/uL (1.2-3.4); Absolute Monocytes 1.9 10^3/uL (0.1-0.6); Absolute Neutrophils 12.2 10^3/uL (1.4-6.5); Hematocrit 28.3 % (39.0-52.0); Hemoglobin 9.3 g/dL (13.0-18.0); Mean Corp Hgb Conc. 32.9 g/dL (33.0-37.0); Mean Corpuscular Hgb 27.8 pg (27.0-31.0); Mean Corpuscular Volume 84.7 fL (80.0-94.0); Mean Platelet Volume 10.1 fL (7.4-10.4); Nucleated Red Blood Cells % 0 % (-); Platelet Count 481 10^3/uL (130-400); Red Blood Cell Count 3.34 10^6/uL (4.70-6.10); Red Cell Dist. Width 14.9 % (11.5-14.5); White Blood Cell Count 15.9 10^3/uL (4.8-10.8)
[2024-05-21 11:47] LABS: ALT (SGPT) 42 U/L (0-50); AST (SGOT) 37 U/L (17-59); Albumin 2.5 g/dl (3.5-5.0); Alkaline Phosphatase 271 U/L (38-126); Blood Urea Nitrogen 18 mg/dl (9-20); Calcium 7.7 mg/dl (8.4-10.2); Carbon Dioxide 21 mmol/L (22-30); Chloride 109 mmol/L (98-107); Glucose 90 mg/dl (70-99); Sodium 138 mmol/L (135-145); Total Bilirubin 0.3 mg/dl (0.2-1.3); Total Protein 4.9 g/dl (6.3-8.2); eGFR > 60.00
== END ==
LOC: OIDL 15:33
PROVIDERS: ATTENDING PHYSICIAN Internal Medicine Hematology & Oncology
DX: C25.3 Malignant neoplasm of pancreatic duct (principal)
CPT/HCPCS: 80053; 85025

== ENCOUNTER → 2024-06-04 09:36 | Outpatient (REF) | payer MEDICARE, SELFPAY ==
[2024-06-04 10:10] LABS: % Basophils 1.3 % (0-2); % Eosinophils 1.9 % (0-6); % Immature Granulocytes 0.6 % (0-0.5); % Monocytes 8.6 % (1.7-9.3); % Neutrophils 76.6 % (42.2-75.2); Absolute Basophils 0.2 10^3/uL (0-0.2); Absolute Eosinophils 0.2 10^3/uL (0-0.7); Absolute Immature Granulocytes 0.1 10^3/uL (0-0.05); Absolute Lymphocytes 1.4 10^3/uL (1.2-3.4); Absolute Monocytes 1.1 10^3/uL (0.1-0.6); Absolute Neutrophils 9.6 10^3/uL (1.4-6.5); Hemoglobin 10.9 g/dL (13.0-18.0); Mean Corp Hgb Conc. 32.1 g/dL (33.0-37.0); Mean Corpuscular Hgb 27.5 pg (27.0-31.0); Mean Corpuscular Volume 85.9 fL (80.0-94.0); Mean Platelet Volume 9.2 fL (7.4-10.4); Nucleated Red Blood Cells % 0 % (-); Platelet Count 272 10^3/uL (130-400); Red Blood Cell Count 3.96 10^6/uL (4.70-6.10); Red Cell Dist. Width 14.8 % (11.5-14.5); White Blood Cell Count 12.5 10^3/uL (4.8-10.8)
[2024-06-04 10:48] LABS: ALT (SGPT) 50 U/L (0-50); AST (SGOT) 57 U/L (17-59); Albumin 3.3 g/dl (3.5-5.0); Alkaline Phosphatase 255 U/L (38-126); Blood Urea Nitrogen 24 mg/dl (9-20); Calcium 8.3 mg/dl (8.4-10.2); Carbon Dioxide 24 mmol/L (22-30); Chloride 107 mmol/L (98-107); Glucose 105 mg/dl (70-99); Potassium 4.1 mmol/L (3.5-5.1); Sodium 139 mmol/L (135-145); Total Bilirubin 0.4 mg/dl (0.2-1.3); Total Protein 5.8 g/dl (6.3-8.2); eGFR 58.37
== END ==
LOC: OIDL 09:36
PROVIDERS: ATTENDING PHYSICIAN Internal Medicine Hematology & Oncology
DX: C25.3 Malignant neoplasm of pancreatic duct (principal)
CPT/HCPCS: 80053; 85025

== ENCOUNTER → 2024-06-11 15:51 | Outpatient (REF) | payer MEDICARE, SELFPAY ==
[2024-06-11 12:12] LABS: ALT (SGPT) 98 U/L (0-50); AST (SGOT) 75 U/L (17-59); Albumin 2.8 g/dl (3.5-5.0); Alkaline Phosphatase 281 U/L (38-126); Blood Urea Nitrogen 19 mg/dl (9-20); Calcium 7.7 mg/dl (8.4-10.2); Carbon Dioxide 23 mmol/L (22-30); Chloride 107 mmol/L (98-107); Glucose 102 mg/dl (70-99); Magnesium 1.7 mg/dl (1.6-2.3); Potassium 3.9 mmol/L (3.5-5.1); Sodium 137 mmol/L (135-145); Total Bilirubin 0.2 mg/dl (0.2-1.3); Total Protein 5.1 g/dl (6.3-8.2); eGFR > 60.00
[2024-06-11 12:18] LABS: Hematocrit 31.9 % (39.0-52.0); Hemoglobin 10.5 g/dL (13.0-18.0); Mean Corp Hgb Conc. 32.9 g/dL (33.0-37.0); Mean Corpuscular Hgb 27.9 pg (27.0-31.0); Mean Corpuscular Volume 84.8 fL (80.0-94.0); Mean Platelet Volume 9.6 fL (7.4-10.4); Platelet Count 199 10^3/uL (130-400); Red Blood Cell Count 3.76 10^6/uL (4.70-6.10); Red Cell Dist. Width 15.6 % (11.5-14.5); White Blood Cell Count 28.5 10^3/uL (4.8-10.8)
[2024-06-11 12:30] LABS: Absolute Neutrophils -Man Diff 23.3 10^3/uL (1.4-6.5); Band Neutrophils 2 % (0-3); Lymphocytes 12 % (20-51); Monocytes 4 % (2-9); Segmented Neutrophils 80 % (42-75)
[2024-06-11 12:31] LABS: Eosinophils 2 % (0-6); Normal RBC Morphology No; Platelets Checked Yes
[2024-06-11 12:32] LABS: Anisocytosis Slight; Microcytosis Slight; Total Cells Counted 100
[2024-06-13 21:37] LABS: CA 19-9 39 U/mL (<=35)
== END ==
LOC: OIDL 15:51
PROVIDERS: ATTENDING PHYSICIAN Nurse Practitioner Adult Health
DX: C25.3 Malignant neoplasm of pancreatic duct (principal)
CPT/HCPCS: 80053; 83735; 85025; 86301

== ENCOUNTER → 2024-06-25 08:12 | Outpatient (REF) | payer MEDICARE, SELFPAY ==
[2024-06-25 09:17] LABS: % Basophils 0.4 % (0-2); % Eosinophils 1.3 % (0-6); % Immature Granulocytes 1.6 % (0-0.5); % Lymphocytes 10.2 % (20.5-51.1); % Monocytes 9.1 % (1.7-9.3); % Neutrophils 77.4 % (42.2-75.2); Absolute Basophils 0.1 10^3/uL (0-0.2); Absolute Eosinophils 0.2 10^3/uL (0-0.7); Absolute Immature Granulocytes 0.3 10^3/uL (0-0.05); Absolute Lymphocytes 1.7 10^3/uL (1.2-3.4); Absolute Monocytes 1.5 10^3/uL (0.1-0.6); Absolute Neutrophils 12.9 10^3/uL (1.4-6.5); Hematocrit 32.7 % (39.0-52.0); Hemoglobin 10.6 g/dL (13.0-18.0); Mean Corp Hgb Conc. 32.4 g/dL (33.0-37.0); Mean Corpuscular Hgb 27.4 pg (27.0-31.0); Mean Corpuscular Volume 84.5 fL (80.0-94.0); Mean Platelet Volume 9.4 fL (7.4-10.4); Nucleated Red Blood Cells % 0 % (-); Platelet Count 409 10^3/uL (130-400); Red Blood Cell Count 3.87 10^6/uL (4.70-6.10); Red Cell Dist. Width 16.3 % (11.5-14.5); White Blood Cell Count 16.6 10^3/uL (4.8-10.8)
[2024-06-25 09:42] LABS: ALT (SGPT) 33 U/L (0-50); AST (SGOT) 33 U/L (17-59); Albumin 3.1 g/dl (3.5-5.0); Alkaline Phosphatase 290 U/L (38-126); Blood Urea Nitrogen 23 mg/dl (9-20); Calcium 8.6 mg/dl (8.4-10.2); Carbon Dioxide 27 mmol/L (22-30); Chloride 104 mmol/L (98-107); Glucose 106 mg/dl (70-99); Sodium 138 mmol/L (135-145); Total Bilirubin 0.3 mg/dl (0.2-1.3); Total Protein 5.9 g/dl (6.3-8.2); eGFR > 60.00
== END ==
LOC: REG 08:12
PROVIDERS: ATTENDING PHYSICIAN Internal Medicine Hematology & Oncology; FAMILY PHYSICIAN Family Medicine
DX: C25.3 Malignant neoplasm of pancreatic duct (principal)
CPT/HCPCS: 36415; 80053; 85025

== ENCOUNTER → 2024-07-09 10:57 | Outpatient (REF) | payer MEDICARE, SELFPAY ==
[2024-07-09 12:39] LABS: % Basophils 0.8 % (0-2); % Eosinophils 2.9 % (0-6); % Immature Granulocytes 0.6 % (0-0.5); % Lymphocytes 11.2 % (20.5-51.1); % Neutrophils 72.5 % (42.2-75.2); Absolute Basophils 0.1 10^3/uL (0-0.2); Absolute Eosinophils 0.4 10^3/uL (0-0.7); Absolute Immature Granulocytes 0.1 10^3/uL (0-0.05); Absolute Lymphocytes 1.4 10^3/uL (1.2-3.4); Absolute Monocytes 1.5 10^3/uL (0.1-0.6); Absolute Neutrophils 9.2 10^3/uL (1.4-6.5); Hematocrit 35.6 % (39.0-52.0); Hemoglobin 11.3 g/dL (13.0-18.0); Mean Corp Hgb Conc. 31.7 g/dL (33.0-37.0); Mean Corpuscular Hgb 27.6 pg (27.0-31.0); Mean Corpuscular Volume 86.8 fL (80.0-94.0); Mean Platelet Volume 9.7 fL (7.4-10.4); Nucleated Red Blood Cells % 0 % (-); Platelet Count 241 10^3/uL (130-400); Red Cell Dist. Width 16.3 % (11.5-14.5); White Blood Cell Count 12.6 10^3/uL (4.8-10.8)
[2024-07-09 12:53] LABS: ALT (SGPT) 25 U/L (0-50); AST (SGOT) 35 U/L (17-59); Albumin 3.7 g/dl (3.5-5.0); Alkaline Phosphatase 191 U/L (38-126); Blood Urea Nitrogen 18 mg/dl (9-20); Carbon Dioxide 28 mmol/L (22-30); Chloride 103 mmol/L (98-107); Glucose 108 mg/dl (70-99); Iron 35 ug/dl (49-181); Potassium 5.5 mmol/L (3.5-5.1); Sodium 136 mmol/L (135-145); Total Bilirubin 0.4 mg/dl (0.2-1.3); Total Protein 6.3 g/dl (6.3-8.2); eGFR 58.37
[2024-07-09 13:02] LABS: Vitamin D, 25-OH*** 14.6 ng/mL (30-80)
[2024-07-09 13:03] LABS: Percent Saturation 10 % (20-50); Total Iron Binding Capacity 340 ug/dl (261-462)
[2024-07-09 13:13] LABS: TSH 0.34 uIU/ml (0.47-4.68)
[2024-07-09 13:48] LABS: Folate > 20.0 ng/ml (2.76-20); Vitamin B12 > 1000 pg/ml (239-931)
[2024-07-10 21:22] LABS: CA 19-9 19 U/mL (<=35)
== END ==
LOC: REG 10:57
PROVIDERS: ATTENDING PHYSICIAN Nurse Practitioner Adult Health; FAMILY PHYSICIAN Family Medicine
DX: C25.3 Malignant neoplasm of pancreatic duct (principal)
CPT/HCPCS: 36415; 80053; 82306; 82607; 82728; 82746; 83540; 83550; 84443; 85025; 86301

== ENCOUNTER → 2024-07-23 08:39 | Outpatient (REF) | payer MEDICARE, SELFPAY ==
[2024-07-23 09:45] LABS: % Basophils 0.5 % (0-2); % Eosinophils 4.2 % (0-6); % Immature Granulocytes 0.8 % (0-0.5); % Lymphocytes 7.7 % (20.5-51.1); % Monocytes 11.3 % (1.7-9.3); % Neutrophils 75.5 % (42.2-75.2); Absolute Basophils 0.1 10^3/uL (0-0.2); Absolute Eosinophils 0.7 10^3/uL (0-0.7); Absolute Immature Granulocytes 0.1 10^3/uL (0-0.05); Absolute Lymphocytes 1.3 10^3/uL (1.2-3.4); Absolute Monocytes 1.9 10^3/uL (0.1-0.6); Absolute Neutrophils 12.9 10^3/uL (1.4-6.5); Hematocrit 30.9 % (39.0-52.0); Hemoglobin 9.7 g/dL (13.0-18.0); Mean Corp Hgb Conc. 31.4 g/dL (33.0-37.0); Mean Corpuscular Hgb 26.8 pg (27.0-31.0); Mean Corpuscular Volume 85.4 fL (80.0-94.0); Mean Platelet Volume 9.5 fL (7.4-10.4); Nucleated Red Blood Cells % 0 % (-); Platelet Count 153 10^3/uL (130-400); Red Blood Cell Count 3.62 10^6/uL (4.70-6.10); Red Cell Dist. Width 16.8 % (11.5-14.5)
[2024-07-23 10:21] LABS: ALT (SGPT) 17 U/L (0-50); AST (SGOT) 25 U/L (17-59); Blood Urea Nitrogen 19 mg/dl (9-20); Calcium 8.5 mg/dl (8.4-10.2); Carbon Dioxide 25 mmol/L (22-30); Chloride 106 mmol/L (98-107); Glucose 126 mg/dl (70-99); Potassium 5.1 mmol/L (3.5-5.1); Sodium 139 mmol/L (135-145); Total Bilirubin 0.6 mg/dl (0.2-1.3)
[2024-07-23 10:32] LABS: Albumin 3.3 g/dl (3.5-5.0); Alkaline Phosphatase 180 U/L (38-126); Total Protein 5.9 g/dl (6.3-8.2)
== END ==
LOC: REG 08:39
PROVIDERS: ATTENDING PHYSICIAN Internal Medicine Hematology & Oncology; FAMILY PHYSICIAN Family Medicine
DX: C25.3 Malignant neoplasm of pancreatic duct (principal)
CPT/HCPCS: 36415; 80053; 85025

== ENCOUNTER → 2024-08-02 08:26 | Outpatient (REF) | payer MEDICARE, SELFPAY | LOC: RAD 08:26 | PROVIDERS: ATTENDING PHYSICIAN Internal Medicine Hematology & Oncology; FAMILY PHYSICIAN Family Medicine | DX: C25.3 Malignant neoplasm of pancreatic duct (principal) | CPT/HCPCS: 71260; 74177; Q9967 ==

== ENCOUNTER → 2024-08-06 13:55 | Outpatient (REF) | payer MEDICARE, SELFPAY ==
[2024-08-06 16:24] LABS: ALT (SGPT) 39 U/L (0-50); AST (SGOT) 48 U/L (17-59); Albumin 3.4 g/dl (3.5-5.0); Alkaline Phosphatase 197 U/L (38-126); Blood Urea Nitrogen 24 mg/dl (9-20); Calcium 8.4 mg/dl (8.4-10.2); Carbon Dioxide 24 mmol/L (22-30); Chloride 98 mmol/L (98-107); Glucose 111 mg/dl (70-99); Potassium 5.1 mmol/L (3.5-5.1); Sodium 135 mmol/L (135-145); Total Protein 6.3 g/dl (6.3-8.2)
[2024-08-06 16:59] LABS: % Basophils 0.3 % (0-2); % Eosinophils 1.7 % (0-6); % Immature Granulocytes 1.8 % (0-0.5); % Lymphocytes 7.4 % (20.5-51.1); % Monocytes 10.5 % (1.7-9.3); % Neutrophils 78.3 % (42.2-75.2); Absolute Basophils 0.1 10^3/uL (0-0.2); Absolute Eosinophils 0.5 10^3/uL (0-0.7); Absolute Immature Granulocytes 0.5 10^3/uL (0-0.05); Absolute Lymphocytes 1.9 10^3/uL (1.2-3.4); Absolute Monocytes 2.8 10^3/uL (0.1-0.6); Absolute Neutrophils 20.4 10^3/uL (1.4-6.5); Hematocrit 33.3 % (39.0-52.0); Hemoglobin 10.6 g/dL (13.0-18.0); Mean Corp Hgb Conc. 31.8 g/dL (33.0-37.0); Mean Corpuscular Hgb 26.6 pg (27.0-31.0); Mean Corpuscular Volume 83.7 fL (80.0-94.0); Mean Platelet Volume 10.2 fL (7.4-10.4); Nucleated Red Blood Cells % 0 % (-); Platelet Count 242 10^3/uL (130-400); Red Blood Cell Count 3.98 10^6/uL (4.70-6.10); Red Cell Dist. Width 17.4 % (11.5-14.5); White Blood Cell Count 26.1 10^3/uL (4.8-10.8)
== END ==
LOC: REG 13:55
PROVIDERS: ATTENDING PHYSICIAN Internal Medicine Hematology & Oncology; FAMILY PHYSICIAN Family Medicine
DX: C25.3 Malignant neoplasm of pancreatic duct (principal)
CPT/HCPCS: 36415; 80053; 85025

== ENCOUNTER → 2024-08-13 15:47 | Outpatient (REF) | payer MEDICARE, SELFPAY ==
[2024-08-13 10:31] LABS: % Basophils 0.3 % (0-2); % Eosinophils 2.8 % (0-6); % Immature Granulocytes 1.4 % (0-0.5); % Lymphocytes 10.4 % (20.5-51.1); % Monocytes 10.7 % (1.7-9.3); % Neutrophils 74.4 % (42.2-75.2); Absolute Basophils 0.1 10^3/uL (0-0.2); Absolute Eosinophils 0.5 10^3/uL (0-0.7); Absolute Immature Granulocytes 0.2 10^3/uL (0-0.05); Absolute Lymphocytes 1.7 10^3/uL (1.2-3.4); Absolute Monocytes 1.7 10^3/uL (0.1-0.6); Hematocrit 30.3 % (39.0-52.0); Hemoglobin 9.8 g/dL (13.0-18.0); Mean Corp Hgb Conc. 32.3 g/dL (33.0-37.0); Mean Corpuscular Hgb 27.3 pg (27.0-31.0); Mean Corpuscular Volume 84.4 fL (80.0-94.0); Mean Platelet Volume 9.4 fL (7.4-10.4); Nucleated Red Blood Cells % 0 % (-); Platelet Count 321 10^3/uL (130-400); Red Blood Cell Count 3.59 10^6/uL (4.70-6.10); Red Cell Dist. Width 17.2 % (11.5-14.5); White Blood Cell Count 16.2 10^3/uL (4.8-10.8)
[2024-08-13 10:49] LABS: ALT (SGPT) 27 U/L (0-50); AST (SGOT) 34 U/L (17-59); Albumin 3.1 g/dl (3.5-5.0); Alkaline Phosphatase 189 U/L (38-126); Blood Urea Nitrogen 19 mg/dl (9-20); Carbon Dioxide 23 mmol/L (22-30); Chloride 103 mmol/L (98-107); Glucose 111 mg/dl (70-99); Iron 29 ug/dl (49-181); Potassium 4.4 mmol/L (3.5-5.1); Sodium 139 mmol/L (135-145); Total Bilirubin 0.4 mg/dl (0.2-1.3); Total Protein 6.2 g/dl (6.3-8.2); eGFR 58.01
[2024-08-13 10:58] LABS: Percent Saturation 12 % (20-50); Total Iron Binding Capacity 240 ug/dl (261-462)
== END ==
LOC: OIDL 15:47
PROVIDERS: ATTENDING PHYSICIAN Internal Medicine Hematology & Oncology
DX: C25.3 Malignant neoplasm of pancreatic duct (principal)
CPT/HCPCS: 80053; 82728; 83540; 83550; 85025

== ENCOUNTER → 2024-08-20 15:43 | Outpatient (REF) | payer MEDICARE, SELFPAY ==
[2024-08-20 17:42] LABS: Hematocrit 32.5 % (39.0-52.0); Hemoglobin 10.4 g/dL (13.0-18.0); Mean Corpuscular Hgb 27.4 pg (27.0-31.0); Mean Corpuscular Volume 85.8 fL (80.0-94.0); Mean Platelet Volume 9.7 fL (7.4-10.4); Platelet Count 152 10^3/uL (130-400); Red Blood Cell Count 3.79 10^6/uL (4.70-6.10); Red Cell Dist. Width 17.1 % (11.5-14.5); White Blood Cell Count 11.5 10^3/uL (4.8-10.8)
[2024-08-20 17:56] LABS: % Basophils 0.3 % (0-2); % Eosinophils 2.3 % (0-6); % Immature Granulocytes 0.5 % (0-0.5); % Monocytes 2.9 % (1.7-9.3); Absolute Eosinophils 0.3 10^3/uL (0-0.7); Absolute Immature Granulocytes 0.1 10^3/uL (0-0.05); Absolute Lymphocytes 1.3 10^3/uL (1.2-3.4); Absolute Monocytes 0.3 10^3/uL (0.1-0.6); Absolute Neutrophils 9.5 10^3/uL (1.4-6.5); Nucleated Red Blood Cells % 0 % (-)
[2024-08-20 18:00] LABS: ALT (SGPT) 70 U/L (0-50); AST (SGOT) 46 U/L (17-59); Albumin 3.1 g/dl (3.5-5.0); Alkaline Phosphatase 166 U/L (38-126); Blood Urea Nitrogen 26 mg/dl (9-20); Calcium 8.5 mg/dl (8.4-10.2); Carbon Dioxide 22 mmol/L (22-30); Chloride 102 mmol/L (98-107); Glucose 121 mg/dl (70-99); Potassium 4.9 mmol/L (3.5-5.1); Sodium 139 mmol/L (135-145); Total Bilirubin 0.6 mg/dl (0.2-1.3); Total Protein 6.1 g/dl (6.3-8.2); eGFR 58.01
== END ==
LOC: REG 15:43
PROVIDERS: ATTENDING PHYSICIAN Internal Medicine Hematology & Oncology; FAMILY PHYSICIAN Family Medicine
DX: C25.3 Malignant neoplasm of pancreatic duct (principal); D64.81 Anemia due to antineoplastic chemotherapy
CPT/HCPCS: 36415; 80053; 85025

== ENCOUNTER → 2024-08-27 11:54 | Outpatient (REF) | payer MEDICARE, SELFPAY ==
[2024-08-27 13:00] LABS: % Basophils 0.7 % (0-2); % Eosinophils 8.6 % (0-6); % Immature Granulocytes 1.1 % (0-0.5); % Lymphocytes 17.5 % (20.5-51.1); % Monocytes 18.5 % (1.7-9.3); % Neutrophils 53.6 % (42.2-75.2); Absolute Basophils 0.1 10^3/uL (0-0.2); Absolute Eosinophils 0.7 10^3/uL (0-0.7); Absolute Immature Granulocytes 0.1 10^3/uL (0-0.05); Absolute Lymphocytes 1.4 10^3/uL (1.2-3.4); Absolute Monocytes 1.5 10^3/uL (0.1-0.6); Absolute Neutrophils 4.3 10^3/uL (1.4-6.5); Hematocrit 30.9 % (39.0-52.0); Hemoglobin 9.6 g/dL (13.0-18.0); Mean Corp Hgb Conc. 31.1 g/dL (33.0-37.0); Mean Corpuscular Hgb 26.3 pg (27.0-31.0); Mean Corpuscular Volume 84.7 fL (80.0-94.0); Mean Platelet Volume 9.2 fL (7.4-10.4); Nucleated Red Blood Cells % 0 % (-); Platelet Count 169 10^3/uL (130-400); Red Blood Cell Count 3.65 10^6/uL (4.70-6.10); Red Cell Dist. Width 17.9 % (11.5-14.5)
[2024-08-27 13:26] LABS: ALT (SGPT) 26 U/L (0-50); AST (SGOT) 20 U/L (17-59); Albumin 2.9 g/dl (3.5-5.0); Alkaline Phosphatase 191 U/L (38-126); Blood Urea Nitrogen 16 mg/dl (9-20); Calcium 8.2 mg/dl (8.4-10.2); Carbon Dioxide 27 mmol/L (22-30); Chloride 104 mmol/L (98-107); Glucose 113 mg/dl (70-99); Potassium 4.9 mmol/L (3.5-5.1); Sodium 140 mmol/L (135-145); Total Bilirubin 0.6 mg/dl (0.2-1.3); Total Protein 5.8 g/dl (6.3-8.2); eGFR > 60.00
== END ==
LOC: REG 11:54
PROVIDERS: ATTENDING PHYSICIAN Internal Medicine Hematology & Oncology; FAMILY PHYSICIAN Family Medicine
DX: C25.3 Malignant neoplasm of pancreatic duct (principal); D64.81 Anemia due to antineoplastic chemotherapy
CPT/HCPCS: 36415; 80053; 85025

== ENCOUNTER 2024-09-07 16:22 | Inpatient (IN) | payer MEDICARE, SELFPAY ==
[2024-09-07] VITALS (15 sets, daily range): BP systolic 84–152; BP diastolic 52–87; BMI 19.5; BMI 19.2
--- NOTE | 2024-09-07 12:14 | ED.GENMED ---
ED Provider Triage
<Onofre Jo PA-C - Last Filed: 09/07/24 12:16>
-
Patient seen by provider in Triage?: Seen in Triage
Attestation: A medical screening examination has been initiated by a qualified medical provider. Based on the assessment performed at this time, it has been determined that an emergent medical condition may exist and the patient has been informed
that further medical evaluation and possible additional diagnostic testing may be needed.
HPI: 74-year-old male presenting to the emergency department for evaluation after developing flulike symptoms last night, mild cough and fever with a Tmax of around 101. Patient still was feeling unwell today so decided come to the ER. Did take
some Motrin prior to arrival. Noting body aches and chills. Currently being treated for pancreatic cancer. Last chemotherapy session 2 weeks ago. No known sick contacts or recent travel. Patient did not do any testing prior to arrival to the ER.
GENERAL: Alert , in no apparent distress
VITAL SIGNS: Patient is hypotensive, notes baseline is usually around low 100 systolically.
EYE: No visual abnormalities.
NECK: Trachea midline
ENT: No visible abnormalities.
LUNGS: No acute respiratory distress
NEUROLOGICAL: Alert and oriented
SKIN: Skin intact. No visible changes.
MUSCULOSKELETAL: Moving extremities normally
PSYCH: Normal and appropriate interaction.
This is a medical evaluation conducted in person to initiate diagnostic evaluation and provide initial therapeutics. Please see further documentation by the treating clinician.
Labs including lactic acid and blood cultures ordered.
History of Present Illness
<Onofre Jo PA-C - Last Filed: 09/07/24 12:16>
General
Chief Complaint: Fever
Time Seen by Provider: 09/07/24 13:11
<Priyank Winter MD - Last Filed: 09/07/24 19:37>
General
Source: patient and spouse
Exam Limitations: none
History of Present Illness
History of Present Illness:
74-year-old male currently being treated for pancreatic cancer. Last treatment 10 days ago. Developed fever weakness this morning. Has had an ongoing slight cough but worse the last 24 hours. No shortness of breath no abdominal pain no urinary
symptoms.
Past History
<Onofre Jo PA-C - Last Filed: 09/07/24 12:16>
Past History
ED Past Medical History: Cancer (Pancreatic cancer)
ED Past Surgical History: Other (Whipple procedure, pilonidal cyst removed, hernia)
Social History
Tobacco: Non-smoker
Alcohol: None
Drug: None
Personal:
Living: with family
Review of Systems
<Priyank Winter MD - Last Filed: 09/07/24 19:37>
Review of Systems
All Other Systems: Not applicable
Constitutional: Reports fever and chills
Phy Exam
<Priyank Winter MD - Last Filed: 09/07/24 19:37>
Physical Exam
Physical Exam:
GENERAL: Alert and oriented. Initially standing in the room changing but appeared mildly weak
EYE: Orbits normal.
NECK: Supple, no significant adenopathy.
ENT: Pharynx without erythema
CARDIAC: Regular rate and rhythm without any obvious murmurs. Port right upper chest wall
LUNGS: Clear breath sounds,normal
ABDOMEN: Soft, without focal tenderness or distention
NEUROLOGICAL: Alert and oriented , grossly non-focal
SKIN: Warm and dry, no rash or lesion, no discoloration, skin intact.
MUSCULOSKELETAL: No edema,no deformity.Good color
PSYCH: Normal and appropriate interaction.
Course
<Onofre Jo PA-C - Last Filed: 09/07/24 12:16>
Orders/Labs/Results
Orders:
Orders
09/07/24 12:13
Urinalysis Reflex To Culture Urgent
Date Specimen was Collected: 09/07/24
Time Specimen was Collected: 19:20
09/07/24 12:41
CMP [Comprehensive Metabolic Panel] Urgent
COVID-19 Antigen Urgent
Source: Nasal Swab
Complete Blood Count/With Diff Urgent
Lactate Level [Lactic Acid] Urgent
Blood Culture Urgent
MARY GRACE Source: Blood/Venous
Specimen Description:
Influenza A+B Rapid Molecular Urgent
MARY GRACE Source: Nasal Swab
Specimen Description:
09/07/24 13:22
IV Insert/Care/Rem.- Treatment PRN
0.9% Sodium Chloride 1000 ml [Nss] 1,000 ml IV BOLUS
09/07/24 13:30
Piperacillin/Tazo 4.5 Gram [Zosyn] 4.5 gram in 100 ml IV NOW
09/07/24 13:43
Blood Culture Urgent
MARY GRACE Source: Blood/Venous
Specimen Description:
09/07/24 13:52
Blood Culture Routine
MARY GRACE Source: Blood/Venous
Specimen Description:
09/07/24 14:14
CXR Port [CR Chest Portable - 1 View] Urgent
Comment:
Reason For Exam: fever
Reason Study Needs to be Portable: Unable to Transport
09/07/24 14:19
Vancomycin [Vancocin] 1,500 mg 0.9% Sodium Chloride [Nss] 20 ml 0.9% Sodium Chloride 250 ml [Nss] 250 ml IV NOW
09/07/24 14:33
0.9% Sodium Chloride 1000 ml [Nss] 1,000 ml IV BOLUS
09/07/24 Dinner
Regular
At Your Request: Full Participation
09/07/24 15:47
Admit/Transfer Patient As Directed
Co-Sign Provider:
Level of Care: Inpatient admission
Assign to:: Medical/Surgical
Physician / Group: Dr Jakob Anders
Diagnosis: Sepsis/ Hx of pancreatic cancer with liver met
Reason for Hospitalization: Sepsis/ Hx of pancreatic cancer with liver met
Expected length of stay greater than two midnights?: Yes
ELOS- Estimated Length of Stay in days: 3
I certify the patient meets the requirements for IP care: Yes
PRN Pain Medication Management As Directed
May give lesser potent ordered pain med per pt: Yes
preference::
Protocol:: Medication orders for pain may be administered in a
manner that supports deferring to patient preference
when the pt is:
- Requesting an ordered lesser potent pain medication.
Least to most potent pain medications are defined
as: acetaminophen < NSAID < tramadol < opioids
(morphine, oxycodone, hydromorphone).
- Requesting a lesser dose of the same medication IF
ORDERED.
- Requesting a less intrusive route of administration
if both routes are prescribed by the provider (PO <
IV).
09/07/24 15:57
Code Status As Directed
Resuscitation Status: Full Code
09/07/24 17:31
Bisacodyl [Dulcolax] 10 mg RECTAL [id number] PRN
Docusate W/Senna [Senokot-S] 1 tablet PO BIDPRN PRN
Polyethylene Glycol Powder [Miralax] 17 grams PO DAILYPRN PRN
glucos sul [id number]-[id number]-C-Mn [Glucosamine Chondroitin] 1 cap PO DAILYPRN PRN
09/07/24 17:31
Consult Infectious Disease [INFECTIOUS DISEASE CONSULT] Routine
Consulting Provider: Annia Johnson
Was physician already notified: Yes
Procalcitonin Routine
PCT Algorithmm Indication: Sepsis
Sputum Culture [Respiratory Culture/Gram Stain] Routine
MARY GRACE Source: Sputum
Specimen Description:
Activity As Directed
Activity Level: Ambulate
Vital Signs As Directed
Frequency: Per unit guidelines
DX Deep Vein Thrombosis Video Routine
09/07/24 17:45
Pancrelipase [Zenpep Delayed Release Capsule] 1 capsule PO AC
09/07/24 18:00
Enoxaparin Sodium [Lovenox] 40 mg SC QPM
09/07/24 20:00
Cefepime HCl [Maxipime] 1,000 mg IV Q12H
Gabapentin [Neurontin] 300 mg PO BID
09/08/24 06:00
Complete Blood Count/No Diff IN AM
Comprehensive Metabolic Panel IN AM
PTT IN AM
Prothrombin Time IN AM
09/08/24 08:00
Cholecalciferol (Vitamin D3) [VITAMIN D3 (cholecalciferol)] 25 mcg PO DAILY
Lactobac/Bifidobac [Visbiome] 1 cap PO DAILY
Pantoprazole [Protonix] 40 mg PO DAILY
Psyllium [Metamucil, Konsyl] 1 packet PO DAILY
Abnormal Lab Results
09/07/24
12:41
WBC 34.5 H 10^3/uL
(4.8-10.8)
RBC 3.40 L 10^6/uL
(4.70-6.10)
Hgb 8.9 L g/dL
(13.0-18.0)
Hct 27.6 L %
(39.0-52.0)
MCH 26.2 L pg
(27.0-31.0)
MCHC 32.2 L g/dL
(33.0-37.0)
RDW 19.7 H %
(11.5-14.5)
Plt Count 71 L 10^3/uL
(130-400)
Abs Immat Gran (auto) 1.7 H 10^3/uL
(0-0.05)
Absolute Neuts (auto) 28.6 H 10^3/uL
(1.4-6.5)
Absolute Lymphs (auto) 0.5 L 10^3/uL
(1.2-3.4)
Absolute Monos (auto) 3.5 H 10^3/uL
(0.1-0.6)
Immature Gran % 4.9 H %
(0-0.5)
Neutrophils % 83.0 H %
(42.2-75.2)
Lymphocytes % 1.5 L %
(20.5-51.1)
Monocytes % 10.1 H %
(1.7-9.3)
Sodium 134 L mmol/L
(135-145)
Carbon Dioxide 20 L mmol/L
(22-30)
Glucose 169 H mg/dl
(70-99)
Lactic Acid 4.5 H* mmol/L
(0.7-2.0)
Calcium 7.8 L mg/dl
(8.4-10.2)
Alkaline Phosphatase 215 H U/L
(38-126)
Total Protein 5.2 L g/dl
(6.3-8.2)
Albumin 2.7 L g/dl
(3.5-5.0)
09/07/24 12:41
09/07/24 12:41
Vital Signs
Initial and Last Documented VS:
Initial Vital Signs
Temp Pulse Resp BP Pulse Ox
98.6 F 125 18 88/55 97
09/07/24 12:02 09/07/24 12:02 09/07/24 12:02 09/07/24 12:02 09/07/24 12:02
Last Documented Vital Signs
Temp Pulse Resp BP Pulse Ox
97.4 F 74 18 103/52 98
09/07/24 18:00 09/07/24 18:00 09/07/24 18:00 09/07/24 18:00 09/07/24 18:15
<Priyank Winter MD - Last Filed: 09/07/24 19:37>
Orders/Labs/Results
Orders:
Orders
09/07/24 12:13
Urinalysis Reflex To Culture Urgent
Date Specimen was Collected: 09/07/24
Time Specimen was Collected: 19:20
09/07/24 12:41
CMP [Comprehensive Metabolic Panel] Urgent
COVID-19 Antigen Urgent
Source: Nasal Swab
Complete Blood Count/With Diff Urgent
Lactate Level [Lactic Acid] Urgent
Blood Culture Urgent
MARY GRACE Source: Blood/Venous
Specimen Description:
Influenza A+B Rapid Molecular Urgent
MARY GRACE Source: Nasal Swab
Specimen Description:
09/07/24 13:22
IV Insert/Care/Rem.- Treatment PRN
0.9% Sodium Chloride 1000 ml [Nss] 1,000 ml IV BOLUS
09/07/24 13:30
Piperacillin/Tazo 4.5 Gram [Zosyn] 4.5 gram in 100 ml IV NOW
09/07/24 13:43
Blood Culture Urgent
MARY GRACE Source: Blood/Venous
Specimen Description:
09/07/24 13:52
Blood Culture Routine
MARY GRACE Source: Blood/Venous
Specimen Description:
09/07/24 14:14
CXR Port [CR Chest Portable - 1 View] Urgent
Comment:
Reason For Exam: fever
Reason Study Needs to be Portable: Unable to Transport
09/07/24 14:19
Vancomycin [Vancocin] 1,500 mg 0.9% Sodium Chloride [Nss] 20 ml 0.9% Sodium Chloride 250 ml [Nss] 250 ml IV NOW
09/07/24 14:33
0.9% Sodium Chloride 1000 ml [Nss] 1,000 ml IV BOLUS
09/07/24 Dinner
Regular
At Your Request: Full Participation
09/07/24 15:47
Admit/Transfer Patient As Directed
Co-Sign Provider:
Level of Care: Inpatient admission
Assign to:: Medical/Surgical
Physician / Group: Dr Jakob Anders
Diagnosis: Sepsis/ Hx of pancreatic cancer with liver met
Reason for Hospitalization: Sepsis/ Hx of pancreatic cancer with liver met
Expected length of stay greater than two midnights?: Yes
ELOS- Estimated Length of Stay in days: 3
I certify the patient meets the requirements for IP care: Yes
PRN Pain Medication Management As Directed
May give lesser potent ordered pain med per pt: Yes
preference::
Protocol:: Medication orders for pain may be administered in a
manner that supports deferring to patient preference
when the pt is:
- Requesting an ordered lesser potent pain medication.
Least to most potent pain medications are defined
as: acetaminophen < NSAID < tramadol < opioids
(morphine, oxycodone, hydromorphone).
- Requesting a lesser dose of the same medication IF
ORDERED.
- Requesting a less intrusive route of administration
if both routes are prescribed by the provider (PO <
IV).
09/07/24 15:57
Code Status As Directed
Resuscitation Status: Full Code
09/07/24 17:31
Bisacodyl [Dulcolax] 10 mg RECTAL [id number] PRN
Docusate W/Senna [Senokot-S] 1 tablet PO BIDPRN PRN
Polyethylene Glycol Powder [Miralax] 17 grams PO DAILYPRN PRN
glucos sul [id number]-xlx-hvxna-C-Mn [Glucosamine Chondroitin] 1 cap PO DAILYPRN PRN
09/07/24 17:31
Consult Infectious Disease [INFECTIOUS DISEASE CONSULT] Routine
Consulting Provider: Annia Johnson
Was physician already notified: Yes
Procalcitonin Routine
PCT Algorithmm Indication: Sepsis
Sputum Culture [Respiratory Culture/Gram Stain] Routine
MARY GRACE Source: Sputum
Specimen Description:
Activity As Directed
Activity Level: Ambulate
Vital Signs As Directed
Frequency: Per unit guidelines
DX Deep Vein Thrombosis Video Routine
09/07/24 17:45
Pancrelipase [Zenpep Delayed Release Capsule] 1 capsule PO AC
09/07/24 18:00
Enoxaparin Sodium [Lovenox] 40 mg SC QPM
09/07/24 20:00
Cefepime HCl [Maxipime] 1,000 mg IV Q12H
Gabapentin [Neurontin] 300 mg PO BID
09/08/24 06:00
Complete Blood Count/No Diff IN AM
Comprehensive Metabolic Panel IN AM
PTT IN AM
Prothrombin Time IN AM
09/08/24 08:00
Cholecalciferol (Vitamin D3) [VITAMIN D3 (cholecalciferol)] 25 mcg PO DAILY
Lactobac/Bifidobac [Visbiome] 1 cap PO DAILY
Pantoprazole [Protonix] 40 mg PO DAILY
Psyllium [Metamucil, Konsyl] 1 packet PO DAILY
Abnormal Lab Results
09/07/24
12:41
WBC 34.5 H 10^3/uL
(4.8-10.8)
RBC 3.40 L 10^6/uL
(4.70-6.10)
Hgb 8.9 L g/dL
(13.0-18.0)
Hct 27.6 L %
(39.0-52.0)
MCH 26.2 L pg
(27.0-31.0)
MCHC 32.2 L g/dL
(33.0-37.0)
RDW 19.7 H %
(11.5-14.5)
Plt Count 71 L 10^3/uL
(130-400)
Abs Immat Gran (auto) 1.7 H 10^3/uL
(0-0.05)
Absolute Neuts (auto) 28.6 H 10^3/uL
(1.4-6.5)
Absolute Lymphs (auto) 0.5 L 10^3/uL
(1.2-3.4)
Absolute Monos (auto) 3.5 H 10^3/uL
(0.1-0.6)
Immature Gran % 4.9 H %
(0-0.5)
Neutrophils % 83.0 H %
(42.2-75.2)
Lymphocytes % 1.5 L %
(20.5-51.1)
Monocytes % 10.1 H %
(1.7-9.3)
Sodium 134 L mmol/L
(135-145)
Carbon Dioxide 20 L mmol/L
(22-30)
Glucose 169 H mg/dl
(70-99)
Lactic Acid 4.5 H* mmol/L
(0.7-2.0)
Calcium 7.8 L mg/dl
(8.4-10.2)
Alkaline Phosphatase 215 H U/L
(38-126)
Total Protein 5.2 L g/dl
(6.3-8.2)
Albumin 2.7 L g/dl
(3.5-5.0)
09/07/24 12:41
09/07/24 12:41
Vital Signs
Initial and Last Documented VS:
Initial Vital Signs
Temp Pulse Resp BP Pulse Ox
98.6 F 125 18 88/55 97
09/07/24 12:02 09/07/24 12:02 09/07/24 12:02 09/07/24 12:02 09/07/24 12:02
Last Documented Vital Signs
Temp Pulse Resp BP Pulse Ox
97.4 F 74 18 103/52 98
09/07/24 18:00 09/07/24 18:00 09/07/24 18:00 09/07/24 18:00 09/07/24 18:15
<Priyank Winter MD - Last Filed: 09/07/24 19:37>
MDM/Problems Addressed
Differential Diagnosis Includes:
Patient with fever. History of chemotherapy. No obvious clinical source except for a mild cough. Blood pressure low. Lactic acid elevated. Sepsis workup. Clearly warrants admission. Will cover with antibiotics
<Priyank Winter MD - Last Filed: 09/07/24 19:37>
*Pulse Oximetry
Patient hypoxic: no
*Critical Care Note
Total Time (30-74mins, 75-104mins- exclusive of procedures): Not Applicable
Data Reviewed
Review of Other/Old Records Reveals: Labs, Records and Testing
ED Attending Note
<Onofre Jo PA-C - Last Filed: 09/07/24 12:16>
-
Portions of this chart may have been created with voice recognition software.� Occasional wrong word or��sound alike� substitutions may have occurred due to the inherent limitations of voice recognition software.
Discharge Plan
Departure
Patient Disposition: Admit
Date of Disposition: 09/07/24
Time of Disposition: 14:41
Presentation/result/management discussed w/ accepting MD/DO: Hospitalist
Discharge Problem:
Fever/sepsis, History of pancreatic CA
Interventions
Interventions:
*Risk Screen - Suicide Last Done: 09/07/24 17:52
*General Assessment Last Done: 09/07/24 12:05
*Neglect/Abuse Screening Last Done: 09/07/24 14:39
*ED COVID-19 Vaccine History Last Done: 09/07/24 17:52
*Nursing Disposition Last Done: 09/07/24 17:32
ED- Neurological Assessment Last Done: 09/07/24 14:48
ED-Skin Assessment Last Done: 09/07/24 14:49
Discharge Date and Time
Discharge Date/Time: 09/07/24 17:33
[2024-09-07 13:09] LABS: AST (SGOT) 24 U/L (17-59); Albumin 2.7 g/dl (3.5-5.0); Alkaline Phosphatase 215 U/L (38-126); Blood Urea Nitrogen 15 mg/dl (9-20); Calcium 7.8 mg/dl (8.4-10.2); Carbon Dioxide 20 mmol/L (22-30); Chloride 101 mmol/L (98-107); Glucose 169 mg/dl (70-99); Sodium 134 mmol/L (135-145); Total Protein 5.2 g/dl (6.3-8.2); eGFR > 60.00
[2024-09-07 13:11] LABS: COVID-19 Antigen Negative (Negative)
[2024-09-07 13:19] LABS: Hematocrit 27.6 % (39.0-52.0); Hemoglobin 8.9 g/dL (13.0-18.0); Mean Corp Hgb Conc. 32.2 g/dL (33.0-37.0); Mean Corpuscular Hgb 26.2 pg (27.0-31.0); Mean Corpuscular Volume 81.2 fL (80.0-94.0); Red Cell Dist. Width 19.7 % (11.5-14.5); White Blood Cell Count 34.5 10^3/uL (4.8-10.8)
[2024-09-07 13:28] LABS: Lactic Acid 4.5 mmol/L (0.7-2.0)
[2024-09-07] MEDS: NSS 1000 IV ×3 (13:40→21:55)
[2024-09-07] MEDS: ZOSYN 100 IV (13:40)
[2024-09-07 14:13] LABS: % Basophils 0.1 % (0-2); % Eosinophils 0.4 % (0-6); % Immature Granulocytes 4.9 % (0-0.5); % Lymphocytes 1.5 % (20.5-51.1); % Monocytes 10.1 % (1.7-9.3); Absolute Eosinophils 0.1 10^3/uL (0-0.7); Absolute Immature Granulocytes 1.7 10^3/uL (0-0.05); Absolute Lymphocytes 0.5 10^3/uL (1.2-3.4); Absolute Monocytes 3.5 10^3/uL (0.1-0.6); Absolute Neutrophils 28.6 10^3/uL (1.4-6.5); Mean Platelet Volume 8.7 fL (7.4-10.4); Nucleated Red Blood Cells % 0 % (-); Platelet Count 71 10^3/uL (130-400)
[2024-09-07] MEDS: VANCOCIN 300 ML IV (14:40)
[2024-09-07] MEDS: VANCOCIN 300 MG IV (14:40)
[2024-09-07 14:58] LABS: ALT (SGPT) 38 U/L (0-50)
--- NOTE | 2024-09-07 15:03 | W.PN.UPDATE ---
Update Note
Progress Note Update
I personally performed a history and physical exam of the patient and discussed management with the resident. I reviewed the resident's note and agree with the documented findings and plan of care HPI/CC. except changes in my documentation
74-year-old male presented to the ER with fever of 101 at home took Motrin prior to coming in.
Patient denies dysuria, abdomen pain, diarrhea, rashes, headache, nausea or vomiting. He has been feeling really weak
Chest x-ray no acute changes. COPD
# Fever With lactic acidosis
Recent
Leukocytosis could likely be secondary to Neulasta
COVID serology negative. Blood cultures, urinalysis and urine culture
No abdominal pain
If develops diarrhea check C. difficile
If no clear source then may need CT of the abdomen and pelvis
Give Vanco and Cefepime.
Infectious disease and hematology oncology consultation
# Pancreatic adenocarcinoma initially diagnosed 03/28/2023 8 did not follow-up with hematology oncology until 06/03/2023.
Then seen at [place] by Underwent Mini Whipple surgery with perforation of stomach on 07/27/2023
Start chemotherapy 6 months ago, 3 months ago found out about hepatic mets
Now with biopsy proven hepatic metastasis
Was on chemotherapy got it 2 weeks ago? FOLFIRINOX
# Emphysema
# Enlarged thyroid with nodules
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
# Thrombocytopenia-likely secondary to chemo
# Hypoalbuminemia
# ex-smoker
# DVT prophylaxis-Lovenox
# CODE STATUS-Full code
D/W ER attending
D/W at bed side
--- NOTE | 2024-09-07 16:46 | HPS.HSE ---
Family Physician
-
Family Physician: Alex Gunn
Chief Complaint
-
Feeling weakness, Coughing, fever
History of Present Illness
The patient is a 74 year-old male who has PMH of pancreatic cancer met to liver presented to ER complaining from coughing more, having a fever spike at 101 and feeling generalized weakness. The patient has his pancreatic cancer diagnosis about 1.5
year ago and had Whipple surgery and her pancreas removed. He has a port on his right side and was started on chemotherapeutic treatment about 6 months ago. He received his last chemo treatment about 10 days ago.
Medical History
Past Medical History
Past Medical History: Reports Other (Pancreatic cancer with liver met )
Past Surgical History: Reports Cholecystectomy
Additional Past Surgical History:
Whipple surgery
Social History
Tobacco: Non-smoker
Alcohol: None
Drug: None
Personal:
Living: With Family
Employment: Retired
Family History
Family History: Not pertinent
Allergies / Home Medications
Allergies reflects when Allergies were last updated in [facility].
Home Medications with original date entered in [facility]
Allergy/Medication List:
Allergies
Allergy/AdvReac Type Severity Reaction Status Date / Time
No Known Allergies Allergy Verified 09/07/24 12:05
Home Medications
Lactobacil.acidophilus-Bifido.animalis 5 billion cell sprinkle capsule (Probiotic) 1 cap PO DAILY 04/06/24
wgfmhr-rlsmvatk-njejexj 24,000-76,000-120,000 unit capsule,delayed rel (Creon) 1 cap PO AC 04/06/24
ibuprofen 200 mg tablet (Advil) 200 mg PO Q6HPRN PRN headache 05/17/24
pantoprazole 40 mg tablet,delayed release (Protonix) 40 mg PO DAILY 05/17/24
cholecalciferol (vitamin D3) 25 mcg (1,000 unit) tablet (Vitamin D3) 25 mcg PO DAILY 09/07/24
gabapentin 300 mg capsule 300 mg PO BID 09/07/24
glucosamine sulf dipot chlr,msm,chond 550 mg-C 30 mg-jeffrey 1 mg capsule (Glucosamine Chondroitin) 1 cap PO DAILYPRN PRN supplement 09/07/24
psyllium 1 packet PO DAILY 09/07/24
Review of Systems
-
History Source: Patient
EENT: Reports No Symptoms
Respiratory: Reports Cough
Cardiac: Reports No Symptoms
Abdomen/GI: Reports No Symptoms
: Reports No Symptoms
Musculoskeletal: Reports Other (Generalized weakness )
Skin: Reports No Symptoms
Neurological: Reports No Symptoms
Physical Exam
Vital Signs
Vital Signs
Temp Pulse Resp BP Pulse Ox
98.8 F 78 23 99/60 94
09/07/24 12:05 09/07/24 16:00 09/07/24 14:30 09/07/24 16:00 09/07/24 14:00
Physical Exam
General: Comfortable, Conversant and Appears Chronically Ill
HEENT: NormoCephalic
Respiratory: Clear
Cardiac: S1/S2 and Regular Rhythm
GI: Soft and Non Tender
Genito-urinary: Deferred by me
Musculoskeletal: No Clubbing, No Cyanosis and No Edema
Skin: Warm
Neuro: Awake, Alert, Oriented, AO x 3 and Nonfocal/grossly intact
Laboratory Results
-
09/07/24 12:41
09/07/24 12:41
Laboratory Results
Lactic Acid 4.5 mmol/L (0.7-2.0) H* 09/07/24 12:41
Total Bilirubin 1.0 mg/dl (0.2-1.3) 09/07/24 12:41
AST 24 U/L (17-59) 09/07/24 12:41
ALT 38 U/L (0-50) 09/07/24 12:41
Alkaline Phosphatase 215 U/L (38-126) H 09/07/24 12:41
Impression/Plan
-
IMPRESSION:
The patient is 74 year old male with a PMH of metastatic pancreatic cancer to liver presented ER complaining from one time fever this morning, generalized weakness and coughing. He denies other symptoms. Reports he started on chemotherapeutic
treatment about 6 months ago and his last taking was about 10 days ago through his port. Denies other symptoms like abdominal pain, diarrhea and dysuria.
PLAN:
# Fever With lactic acidosis
-Had fever one this morning
-Leukocytosis likely be secondary to Neulasta
-COVID serology negative. -Influenza was ordered
- Blood cultures, urinalysis and urine culture were ordered
-CXR: Non remarkable
-Procalcitonin was ordered
- He was started on prophylactic cefepime and vanco
-If develops diarrhea check C. difficile
-ID was consulted
-Hematology oncology was consulted
# Pancreatic adenocarcinoma
- initially diagnosed 03/28/2023 8 did not follow-up with hematology oncology until 06/03/2023.
Then seen at [place] by Underwent Mini Whipple surgery with perforation of stomach on 07/27/2023
-Start chemotherapy 6 months ago, 3 months ago found out about hepatic mets
-Was on chemotherapy got it 2 weeks ago? FOLFIRINOX
#Anemia
-Hgb 8.9
-Follow up CBC
#Hyponatremia
-Na: 134
-Follow CMP
#CKD
-Creatinine 1.2 ( Basal 1.3-1.4)
# Emphysema
# Enlarged thyroid with nodules
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
# Thrombocytopenia-likely secondary to chemo
# Hypoalbuminemia
# ex-smoker
# DVT prophylaxis-Lovenox
# CODE STATUS-Full code
D/W ER attending
D/W at bed side
--- NOTE | 2024-09-07 17:49 | PTCARENOTE ---
Received pt from ED, pt ambulated with minimal assistance of one with no assistive devices to scale/bed, VSS, pt resting comfortably in bed with at bedside.
--- NOTE | 2024-09-07 17:58 | PHA.VAN.IN ---
Assessment
- Assessment
Renal Function: Appears similar to baseline (08/27/24 BASELINE SCR: 08/27/24)
Concomitant Antimicrobials: CEFEPIME
- Previous Dosing Experience
Previous Regimen: NONE
AUC Dosing Plan
- Dosing Variables
Dosing Weight (kg): 70.7
Dosing CrCl (ml/min): 55
Vd coefficient (L/kg): 0.7
- Empiric Dosing
Initial / Loading Dose: 1500MG
Maintenance Regimen: 1250MG IV Q24H
Estimated AUC (mcg*h/mL): 524
Estimated Peak (mcg*h/mL): 36.1
Estimated Trough (mcg/ml): 11.7
Estimated Half Life (H): 13.8
Pharmacokinetics Vancomycin I
- -
Patient Age: 74
Patient Sex: Male
Vancomycin Day #: 1
Indication: Pulmonary/Respiratory
Requesting Provider: JEFEROSN
Height / Weight:
Height 5 ft 9 in
Actual Weight 58.922 kg
IBW in k.7
Pertinent Past Medical History: PANCREATIC CA WITH METS
- Vital Signs / Lab Results
Temp Pulse Resp BP Pulse Ox
98.8 F 71 19 90/53 94
09/07/24 12:05 09/07/24 17:30 09/07/24 17:30 09/07/24 17:00 09/07/24 14:00
Lab Results - Hematology
09/07/24
12:41
WBC 34.5 H
Lab Results - Chemistry
09/07/24
12:41
BUN 15
Creatinine 1.2
Albumin 2.7 L
09/07/24
12:41
Lactic Acid 4.5 H*
Microbiology Results
09/07/24 12:41 Influenza Types A & B (SARA) - Final
Nasal Swab Negative for Influenza A & B, NAAT
Negative results must be combined with clinical observations
and patient history.
Nucleic Acid Amplification test (NAAT)performed on the
[employer] platform.
[2024-09-07] MEDS: ZENPEP DELAYED RELEASE CAPSULE 1 CAPSULE PO (18:10)
[2024-09-07] MEDS: LOVENOX 40 MG SC (19:14)
[2024-09-07] MEDS: STERILE WATER FOR INJECTION 10 ML IV (19:15)
[2024-09-07] MEDS: MAXIPIME 1000 MG IV (19:15)
[2024-09-07] MEDS: NEURONTIN 300 MG PO (19:15)
[2024-09-07 19:46] LABS: Urine Albumin Negative (Neg - Trace); Urine Bilirubin Negative (Negative); Urine Character Clear (Clear); Urine Color Yellow; Urine Glucose Negative (Negative); Urine Ketone Negative (Negative); Urine Leukocyte Negative (Negative); Urine Nitrite Negative (Negative); Urine Occult Blood Trace (Negative); Urine Urobilinogen Negative (Neg - 1+)
[2024-09-07 19:54] LABS: Urine Bacteria Few (Negative)
--- NOTE | 2024-09-07 21:00 | PTCARENOTE ---
Pt noted very tremulous, c/o nausea w/o emesis, VS 152/87, 154, RR 26, Pox 93% RA, rectal temp 104.3. score caller SERVICE RIG OPERATOR made aware, new order to repeat lactic acid, IV tylenol and cooling blanket ordered. 2 boluses of 500 cc NSS given. Pt on telemetry
monitoring.
[2024-09-07 21:09] LABS: Procalcitonin 4.04 ng/ml (0.0-0.25)
--- NOTE | 2024-09-07 21:15 | PTCARENOTE ---
Procalcitonin results critical at 4.04 at this time. call center director [employer] made aware.
[2024-09-07] MEDS: OFIRMEV 100 IV (22:10)
[2024-09-07] MEDS: NSS 500 IV ×2 (22:10→22:46)
[2024-09-07 22:20] LABS: Lactic Acid 6.4 mmol/L (0.7-2.0)
[2024-09-08] VITALS (8 sets, daily range): BP systolic 97–148; BP diastolic 54–80
--- NOTE | 2024-09-08 03:38 | W.PN.UPDATE ---
Addendum entered and electronically signed by HENRY Ontiveros (Linda) 09/08/24 03:48:
0300 lactic 2.5
Original Note:
Update Note
Progress Note Update
Notified by RN patient's procal elevated at 4.04. Patient developed rigors and spiked temperature max of 104.3, with tachycardia in 150s. Rx STAT 1g IV Tylenol, 1L bolus + maintenance IVF NS 100ml/hr, and lactic acid.
Repeat lactic elevated at 6.4 from 4.5 earlier in the afternoon. Patient temperature down 98.9, HR 85 BP118/59. Another repeat Lactic ordered for 0300. Nursing continue to monitor.
[2024-09-08 03:45] LABS: Lactic Acid 2.5 mmol/L (0.7-2.0)
[2024-09-08] MEDS: VANCOCIN 275 MG IV (05:27)
[2024-09-08 07:28] LABS: APTT 42.5 Sec (23.4-35.0)
[2024-09-08 07:40] LABS: Hematocrit 24.8 % (39.0-52.0); Hemoglobin 7.9 g/dL (13.0-18.0); Mean Corp Hgb Conc. 31.9 g/dL (33.0-37.0); Mean Corpuscular Hgb 27.1 pg (27.0-31.0); Mean Corpuscular Volume 84.9 fL (80.0-94.0); Mean Platelet Volume 9.6 fL (7.4-10.4); Platelet Count 66 10^3/uL (130-400); Red Blood Cell Count 2.92 10^6/uL (4.70-6.10); Red Cell Dist. Width 19.7 % (11.5-14.5); White Blood Cell Count 32.3 10^3/uL (4.8-10.8)
[2024-09-08 07:55] LABS: ALT (SGPT) 23 U/L (0-50); AST (SGOT) 18 U/L (17-59); Albumin 2.3 g/dl (3.5-5.0); Alkaline Phosphatase 197 U/L (38-126); Blood Urea Nitrogen 16 mg/dl (9-20); Calcium 7.5 mg/dl (8.4-10.2); Carbon Dioxide 22 mmol/L (22-30); Chloride 109 mmol/L (98-107); Estimated Creatinine Clearance 46 ml/min; Glucose 145 mg/dl (70-99); Potassium 4.1 mmol/L (3.5-5.1); Sodium 141 mmol/L (135-145); Total Bilirubin 0.3 mg/dl (0.2-1.3); Total Protein 4.6 g/dl (6.3-8.2); eGFR > 60.00
[2024-09-08] MEDS: NSS 1000 IV ×2 (07:56→15:10)
[2024-09-08] MEDS: VISBIOME 1 CAP PO (07:58)
[2024-09-08] MEDS: NEURONTIN 300 MG PO ×2 (07:58→20:55)
[2024-09-08] MEDS: PROTONIX 40 MG PO (07:58)
[2024-09-08] MEDS: VITAMIN D3 (cholecalciferol) 25 MCG PO (07:58)
[2024-09-08] MEDS: ZENPEP DELAYED RELEASE CAPSULE 1 CAPSULE PO (07:58)
[2024-09-08] MEDS: METAMUCIL, KONSYL 1 PACKET PO (07:59)
--- NOTE | 2024-09-08 08:56 | PHA.VAN.FU ---
Vancomycin Assessment / Plan
- Assessment
Renal Function: Stable
WBC's are: Trending Down
In the past 24 hrs, patient has been: Febrile (Tmax = 104.3)
Concomitant Antimicrobials: Cefepime
- Dosing Plan
Continue: Vanc 1250mg IV Q24H
- Monitoring Plan
No level(s) ordered at this time: Consider levels after 09/10 1800 dose
- Follow Up
Pharmacy will continue to follow.
Vancomycin Follow UP
- -
Patient Age: 74
Patient Sex: Male
Vancomycin Day #: 2
Indication: Pulmonary/Respiratory
Requesting Provider: JEFERSON
Height / Weight:
Height 5 ft 9 in
Actual Weight 58.922 kg
IBW in k.7
Pertinent Past Medical History: PANCREATIC CA WITH METS
- Vital Signs / Lab Results
Temp Pulse Resp BP Pulse Ox
97.3 F 74 16 124/65 95
09/08/24 08:21 09/08/24 08:21 09/08/24 08:21 09/08/24 08:21 09/08/24 08:44
Lab Results - Hematology
09/07/24 09/08/24
12:41 06:25
WBC 34.5 H 32.3 H
Lab Results - Chemistry
09/07/24 09/08/24
12:41 06:25
BUN 15 16
Creatinine 1.2 1.2
Estimated Creat Clear 46
Albumin 2.7 L 2.3 L
09/07/24 09/07/24 09/08/24
12:41 22:02 03:25
Lactic Acid 4.5 H* 6.4 H* 2.5 H
Lab Results - Urine
09/07/24
19:23
Urine Nitrite (Reflex) Negative
Leukocyte Esterase Rfl Negative
Ur Squamous Epith Cells 6-10
Microbiology Results
09/07/24 12:41 Influenza Types A & B (SARA) - Final
Nasal Swab Negative for Influenza A & B, NAAT
Negative results must be combined with clinical observations
and patient history.
Nucleic Acid Amplification test (NAAT)performed on the
[employer] platform.
[2024-09-08] MEDS: ZOFRAN 4 MG IV (09:22)
[2024-09-08] MEDS: OFIRMEV 100 IV (09:43)
[2024-09-08] MEDS: STERILE WATER FOR INJECTION 10 ML IV ×2 (09:45→20:55)
[2024-09-08] MEDS: MAXIPIME 1000 MG IV ×2 (09:46→20:55)
--- NOTE | 2024-09-08 10:19 | CM ---
CM met with pt and spouse at bedside.
Confirmed PCP is Alex Gunn and pharmacy is [facility] in [place]. Reports + prescription plan.
Prior to admission pt lives with suppportive spouse in a 2[address] with 5 colette and a First Floor set up.
Ind with ambulation. Owns a RW but uses PRN. Ind with ADL's.
Has no HC or SNF history.
CM explained different levels of rehab at time of discharge. Pt agreeable to VN if recc'd however would like to see how hospital stay progresses.
CM to follow and watch for needs.
--- NOTE | 2024-09-08 10:34 | W.PN.HOSP.TC ---
Addendum entered and electronically signed by Jakob Anders MD 09/08/24 10:58:
Will obtain x-ray of the chest and abdomen
CT scan when patient is not nauseous later
EKG and troponins with chest pain which is likely secondary to acid reflux from vomiting
updated.
Original Note:
Today's Communication/Plan
-
Follow cultures
X-ray of the abdomen followed by CAT scan
Infectious disease consultation
Continue antibiotics
Hematology oncology evaluation
Assessment / Plan
Assessment / Plan
74-year-old male presented to the ER with fever of 101 at home took Motrin prior to coming in. has been having fevers
Patient denies dysuria, abdomen pain, diarrhea, rashes, headache, nausea or vomiting. He has been feeling really weak
Chest x-ray no acute changes. COPD
CVS: S1-S2 normal
Chest: CTA B/L
Abdomen: Soft, NT / Bowel sounds present
Extremities: No edema
# Fever With lactic acidosis
Sepsis picture-present on admission
Lactate trending down
Leukocytosis could likely be secondary to Neulasta
COVID serology negative. Blood cultures, urine culture pending
Urinalysis 6-10 white counts-antibiotic should cover If UTI ,wait for culture .
No abdominal pain
If develops diarrhea check C. difficile
If no clear source then may need CT of the abdomen and pelvis
Continue Vanco and Cefepime.
With vomiting check x-ray of the abdomen first followed by CT scan of the abdomen pelvis protein with p.o. and IV contrast
Zofran as needed
Infectious disease and hematology oncology consultation
# Pancreatic adenocarcinoma initially diagnosed 03/28/2023 8 did not follow-up with hematology oncology until 06/03/2023.
Then seen at [place] by Underwent Mini Whipple surgery with perforation of stomach on 07/27/2023
Start chemotherapy 6 months ago, 3 months ago found out about hepatic mets
Now with biopsy proven hepatic metastasis
Was on chemotherapy got it 2 weeks ago? FOLFIRINOX
# Emphysema-stable
# Enlarged thyroid with nodules
# Anemia likely secondary to malignancy/chemo-follow counts
# Thrombocytopenia-likely secondary to chemo
# Hypoalbuminemia
# Ex-smoker
# DVT prophylaxis-Lovenox
# CODE STATUS-Full code
D/W nursing at bedside
Anticipated Discharge: > 48 hours
Subjective/Interval History
-
Date of Service: September 08, 2024
Objective Data
-
Labs:
Laboratory Results
09/08/24
06:25
WBC 32.3 H
Hgb 7.9 L
Hct 24.8 L
Plt Count 66 L
PT 17.0 H
INR 1.40
APTT 42.5 H
Sodium 141
Potassium 4.1
Chloride 109 H
Carbon Dioxide 22
BUN 16
Creatinine 1.2
Glucose 145 H
Calcium 7.5 L
Total Bilirubin 0.3
AST 18
ALT 23
Alkaline Phosphatase 197 H
Vital Signs:
Vital Signs
Temp Pulse Resp BP Pulse Ox
102.7 F H 74 16 124/65 95
09/08/24 10:25 09/08/24 08:21 09/08/24 08:21 09/08/24 08:21 09/08/24 08:44
I&O
09/07/24 09/08/24 09/09/24
06:59 06:59 06:59
Intake Total 2555 / 2555
Output Total 650 / 650
Balance 1904 / 190
[2024-09-08 10:48] LABS: Glucose - Point of Care 169 mg/dl (70-99)
[2024-09-08] MEDS: NSS (PRESERVATIVE FREE) 10 ML IV (10:53)
[2024-09-08] MEDS: PROTONIX IV 40 MG IV (10:53)
--- NOTE | 2024-09-08 11:28 | CON.ID ---
Consultation
-
Date/Time Consultation Requested: September 07, 2024 1731
Date/Time Consultation Performed: September 08, 2024 1130
Requesting Provider: Dr. Jakob Anders
Performing Provider: Dr. Annia Johnson
Reason for Consultation: Fever
Chief Complaint / Past History
Chief Complaint
fever
History of Present Illness
History obtained from the patient as well as from his at bedside. He is a 74-year-old male with history of COPD, pancreatic cancer diagnosed in 2022 status post mini Whipple's August 2023, develop liver metastases diagnosed March 2024, port
placed April 2024, chemotherapy started last given August 29 followed by pegfilgrastim on 08/30 who came to the ER September 07 due to fever and malaise. Fever started yesterday with associated shaking chills. He also felt very weak. His called
his oncologist who recommended evaluation in the ER. In the ED white count 34.5, lactic acid 6.4. Chest x-ray negative. Patient started on vancomycin and cefepime. Last night he had rigors and temperature 104.3. He continued to be febrile
throughout the night. Patient with chronic cough from COPD which is stable, however he has worsening shortness of breath. Cough productive of light yellow sputum. No headache or sore throat. Positive rhinorrhea of clear fluid. Had episode of
emesis last night. No abdominal pain. No diarrhea. No urinary symptoms. No flank pain. No ill contacts. No recent travel. He feels a little bit better today.
Past History
Additional Past Medical History:
Pancreatic cancer s/p mini Whipple (06/2023), with liver mets on chemo
COPD
Port placement 04/2024
Allergy History:
No Known Allergies Allergy (Verified 09/07/24 12:05)
Medications Reviewed: Yes
Current Antibiotics:
Cefepime
Vancomycin
Social History
Tobacco: Former Smoker
Alcohol: None
Drug: None
Personal:
Living: With Family
Family History
Family History: Not Pertinent
Review of Systems
Review of Systems
General: Fever, Chills and Change in Appetite
HEENT: Negative Stiff Neck, Sinus Problems, Headache or Pharyngitis
Cardiovascular: Negative Chest Pain
Respiratory: Dyspnea
Gasteroenterology: Nausea and Vomiting; Negative Diarrhea
Endocrine: Weakness
Skin / Hair / Nails: Negative Rash
Neurological: Negative Headache or Dizziness
All systems: All other systems were reviewed and were negative
Vital Signs
Temp Pulse Resp BP Pulse Ox
102.5 F H 113 18 148/75 93
09/08/24 11:00 09/08/24 10:50 09/08/24 10:50 09/08/24 10:50 09/08/24 10:50
Physical Exam
Physical Exam
Constitutional: No Acute Distress and Comfortable
Head: Other (No frontal or max or sinus tenderness)
Eyes: No Conjunctival Hemorrhage and Sclera Anicteric
Pharynx: Benign
Cardiovascular: Regular Rate and S1/S2
Pulmonary: Clear
Gastrointestinal: Soft, Non Tender, Non Distended and Normal Bowel Sounds
Genito-Urinary: Negative CVA Tenderness
Extremities: Negative Edema
Skin: Negative Rash
Neurological: AO x 3
Lines: Port (Right chest wall without erythema)
Lab / Diagnostic Study Results
09/08/24 06:25
09/08/24 06:25
Abs Immat Gran (auto) 1.7 10^3/uL (0-0.05) H 09/07/24 12:41
Absolute Neuts (auto) 28.6 10^3/uL (1.4-6.5) H 09/07/24 12:41
Absolute Lymphs (auto) 0.5 10^3/uL (1.2-3.4) L 09/07/24 12:41
Absolute Monos (auto) 3.5 10^3/uL (0.1-0.6) H 09/07/24 12:41
Absolute Basos (auto) 0.0 10^3/uL (0-0.2) 09/07/24 12:41
Immature Gran % 4.9 % (0-0.5) H 09/07/24 12:41
Neutrophils % 83.0 % (42.2-75.2) H 09/07/24 12:41
Lymphocytes % 1.5 % (20.5-51.1) L 09/07/24 12:41
Monocytes % 10.1 % (1.7-9.3) H 09/07/24 12:41
Eosinophils % 0.4 % (0-6) 09/07/24 12:41
Basophils % 0.1 % (0-2) 09/07/24 12:41
PT 17.0 Sec (11.4-14.6) H 09/08/24 06:25
INR 1.40 09/08/24 06:25
Lactic Acid 2.5 mmol/L (0.7-2.0) H 09/08/24 03:25
Procalcitonin 4.04 ng/ml (0.0-0.25) H* 09/07/24 20:22
Ur Squamous Epith Cells 6-10 /LPF (Few) 09/07/24 19:23
Microbiology Results
Micro:
09/08/24 03:36 Respiratory Culture - Pending
Sputum Gram Stain - Pending
09/07/24 19:23 MRSA Screen - Pending
Nose
09/07/24 13:43 Blood Culture - Pending
Blood/Venous
09/07/24 12:41 Influenza Types A & B (SARA) - Final
Nasal Swab Negative for Influenza A & B, NAAT
Negative results must be combined with clinical observations
and patient history.
Nucleic Acid Amplification test (NAAT)performed on the
[employer] platform.
09/07/24 12:41 Blood Culture - Pending
Blood/Venous
09/07/24 CXR: No acute cardiopulmonary process. Chronic obstructive pulmonary disease.
Assessment / Plan
#Fever
#Leukocytosis, partially from recent pegfilgrastim
# Pancreatic CA with hepatic mets on chemo, last received 08/29
# thrombocytopenia
- Port can be potential source of sepsis
-Await blood cx's
- UA neg, CXR neg.
- Continue cefepime and Vancomycin pending further work-up.
- Trend temps/wbc.
[2024-09-08] MEDS: ZENPEP DELAYED RELEASE CAPSULE PO ×2 (11:46→17:41)
--- NOTE | 2024-09-08 11:50 | CON.ONC ---
Impression
Impression
Fever
metastatic pancreas cancer, last chemo 08/29 (gem/abraxane) and GCSF 08/30
leukocytosis, likely from GCSF + infection
Plan
Plan
Continue abx
ID consult pending
Monitor cultures, CBC, fever curve
Next chemo likely to be postponed (scheduled for 09/12 currently)
Patient History
History of Present Illness
This is a 74yo M w/ pancreas cancer, metastatic to liver, who recently started chemo with gem/abraxane/GCSF after progression on FOLFOX. He received C1D8 chemo on 08/29, with GCSF on 08/30. Yesterday, he developed fever and weakness, and was brought
to the ER for evaluation. CXR shows no acute findings. Hendrix cultures pending. No pain/redness at port. N/V this am after breakfast, no diarrhea, cough, rash, joint pain, sore throat. CT A/P has been ordered. Broad spectrum abx ordered.
Past-Medical/Surgical History
PMH/PSH - as per the HPI, also Whipple surgery
SH: former smoker, rare alcohol,
FH: N/C
Patient Medication
�Medication �Instructions �Recorded �Confirmed �Last Taken �Type
Lactobacil.acidophilus-Bifido.animalis 1 cap PO DAILY Supplement 04/06/24 09/07/24 09/07/24 History
5 billion cell sprinkle capsule
(Probiotic)
yedvur-punscrue-ekhijtv 1 cap PO AC DIGESTION 04/06/24 09/07/24 09/07/24 History
24,000-76,000-120,000 unit
capsule,delayed rel (Creon)
ibuprofen 200 mg tablet (Advil) 200 mg PO Q6HPRN PRN headache 05/17/24 09/07/24 05/17/24 History
pantoprazole 40 mg tablet,delayed 40 mg PO DAILY Gastrointestinal 05/17/24 09/07/24 09/07/24 History
release (Protonix) Issue
cholecalciferol (vitamin D3) 25 25 mcg PO DAILY Supplement 09/07/24 09/07/24 09/07/24 History
mcg (1,000 unit) tablet (Vitamin
D3)
gabapentin 300 mg capsule 300 mg PO BID Pain 09/07/24 09/07/24 09/07/24 History
glucosamine sulf dipot 1 cap PO DAILYPRN PRN supplement 09/07/24 09/07/24 Unknown History
chlr,msm,chond 550 mg-C 30 mg-jeffrey
1 mg capsule (Glucosamine
Chondroitin)
psyllium 1 packet PO DAILY Constipation 09/07/24 09/07/24 09/07/24 History
Active Medications
Generic Name Dose Route Start Last Admin
Trade Name Freq PRN Reason Stop Dose Admin
Acetaminophen 325 mg 09/07/24 16:45
Acetaminophen 325 Mg Tablet PO 10/05/24 16:44
Q4HPRN PRN
mild pain
Bisacodyl 10 mg 09/07/24 17:31
Bisacodyl 10 Mg Rectal Suppository RECTAL 10/05/24 17:30
[id number] PRN
constipation
Cefepime HCl 1,000 mg 09/07/24 20:00 09/08/24 09:46
Cefepime Hcl 1,000 Mg/11.3 Ml Vial IV 1,000 mg
Q12H SHERLEY Administration
Cholecalciferol 25 mcg 09/08/24 08:00 09/08/24 07:58
Cholecalciferol (Vitamin D3) 25 Mcg Tablet (1,000 Units) PO 10/06/24 07:59 25 mcg
DAILY SHERLEY Administration
Enoxaparin Sodium 40 mg 09/07/24 18:00 09/07/24 19:14
Enoxaparin Sodium 40 Mg/0.4 Ml Syringe SC 10/05/24 17:59 40 mg
QPM SHERLEY Administration
Gabapentin 300 mg 09/07/24 20:00 09/08/24 07:58
Gabapentin 300 Mg Capsule PO 10/05/24 19:59 300 mg
BID SHERLEY Administration
Heparin Sodium (Porcine) 500 unit 09/08/24 11:45
Heparin Flush Pf (100 Unit/Ml) 5 Ml Syringe IV 10/06/24 11:44
PER PROTOCOL SHERLEY
Vancomycin HCl 1,250 mg/ 275 mls @ 183.33 mls/hr 09/08/24 06:00 09/08/24 05:27
Sodium Chloride IV 275 mls
Q24H SHERLEY Administration
Protocol
Sodium Chloride 1,000 mls @ 100 mls/hr 09/07/24 21:45 09/08/24 07:56
Nss IV 1,000 mls
.Q10H SHERLEY Administration
Lactobacillus/Bifidobacterium 1 cap 09/08/24 08:00 09/08/24 07:58
Lactobac/Bifidobac (Visbiome) PO 10/06/24 07:59 1 cap
DAILY SHERLEY Administration
Ondansetron HCl 4 mg 09/08/24 10:32
Ondansetron 4 Mg/2 Ml Vial IV 10/06/24 10:31
Q6HPRN PRN
NAUSEA/VOMITING
Pancrelipase 1 capsule 09/07/24 17:45 09/08/24 11:46
Pancrelipase (Zenpep) Delayed Release Capsule PO 10/05/24 17:44 Not Given
AC SHERLEY
Pantoprazole Sodium 40 mg 09/08/24 08:00 09/08/24 07:58
Pantoprazole 40 Mg Delayed Release Tablet PO 10/06/24 07:59 40 mg
DAILY SHERLEY Administration
Polyethylene Glycol 17 grams 09/07/24 17:31
Polyethylene Glycol Powder 17 Grams Packet PO 10/05/24 17:30
DAILYPRN PRN
constipation
Psyllium Hydrophilic Mucilloid 1 packet 09/08/24 08:00 09/08/24 07:59
Psyllium Packet PO 10/06/24 07:59 1 packet
DAILY SHERLEY Administration
Senna/Docusate Sodium 1 tablet 09/07/24 17:31
Docusate W/Senna (Ebony-Colace) Tablet PO 10/05/24 17:30
BIDPRN PRN
constipation
Sodium Chloride 0 flush 09/07/24 17:00
Sodium Chloride 0.9% (Flush) Syringe IV 10/05/24 16:59
PER PROTOCOL SHERLEY
Sterile Water 10 ml 09/07/24 20:00 09/08/24 09:45
Sterile Water For Injection 10 Ml Vial IV 10/05/24 19:59 10 ml
Q12 SHERLEY Administration
Review of Systems
-
All Other Systems: Not reviewed unless documented
Physical Exam
-
General: Well Developed, Well Nourished, No Apparent Distress and Conversant
HEENT: Moist Mucous Membranes; Negative Jaundice
Cardiology: Normal Sinus Rhythm
Pulmonary: Clear
GI: Soft and Normal Bowel Sounds
Musculoskeletal: No Clubbing, No Cyanosis and No Edema
Extremities: No C/C/E
Neurology: Non Focal
Skin: Warm and Dry
Hematologic / Lymphatic: No Lymphadenopathy
Psych: Calm and Intact Judgement/Insight
Labs
Lab Results
WBC 32.3 10^3/uL (4.8-10.8) H 09/08/24 06:25
RBC 2.92 10^6/uL (4.70-6.10) L 09/08/24 06:25
Hgb 7.9 g/dL (13.0-18.0) L 09/08/24 06:25
Hct 24.8 % (39.0-52.0) L 09/08/24 06:25
MCV 84.9 fL (80.0-94.0) 09/08/24 06:25
MCH 27.1 pg (27.0-31.0) 09/08/24 06:25
MCHC 31.9 g/dL (33.0-37.0) L 09/08/24 06:25
RDW 19.7 % (11.5-14.5) H 09/08/24 06:25
Plt Count 66 10^3/uL (130-400) L 09/08/24 06:25
MPV 9.6 fL (7.4-10.4) 09/08/24 06:25
Abs Immat Gran (auto) 1.7 10^3/uL (0-0.05) H 09/07/24 12:41
Absolute Neuts (auto) 28.6 10^3/uL (1.4-6.5) H 09/07/24 12:41
Absolute Lymphs (auto) 0.5 10^3/uL (1.2-3.4) L 09/07/24 12:41
Absolute Monos (auto) 3.5 10^3/uL (0.1-0.6) H 09/07/24 12:41
Absolute Eos (auto) 0.1 10^3/uL (0-0.7) 09/07/24 12:41
Absolute Basos (auto) 0.0 10^3/uL (0-0.2) 09/07/24 12:41
Immature Gran % 4.9 % (0-0.5) H 09/07/24 12:41
Neutrophils % 83.0 % (42.2-75.2) H 09/07/24 12:41
Lymphocytes % 1.5 % (20.5-51.1) L 09/07/24 12:41
Monocytes % 10.1 % (1.7-9.3) H 09/07/24 12:41
Eosinophils % 0.4 % (0-6) 09/07/24 12:41
Basophils % 0.1 % (0-2) 09/07/24 12:41
Creatinine 1.2 mg/dL (0.7-1.3) 09/08/24 06:25
Vital Signs
Vital Signs
Temp Pulse Resp BP Pulse Ox
98.2 F 89 16 107/59 94
09/08/24 11:45 09/08/24 11:45 09/08/24 11:45 09/08/24 11:45 09/08/24 11:45
[2024-09-08 14:02] LABS: Lactic Acid 2.1 mmol/L (0.7-2.0)
--- NOTE | 2024-09-08 14:30 | W.PN.UPDATE ---
Addendum entered and electronically signed by Jakob Anders MD 09/08/24 14:35:
Patient still nauseous. I will hold off on abdominal pelvic CT as he is not able to drink p.o. contrast.
X-ray of the abdomen without any obstruction
Original Note:
Update Note
Progress Note Update
EKG without any ischemia.
Tachycardia noted but patient is febrile
Heart rate has improved
Troponin came back as 1.24
Check routine echo, cardiology consultation and follow troponin
I will also add a PE study
I did not order aspirin as his platelets are already low we will contact hematology oncology regarding opinion.
--- NOTE | 2024-09-08 15:45 | PTCARENOTE ---
Went in to pt call at 0900 to find pt shivering uncontrollably, nauseous and vomiting. Oral temp 97.9, HR sustaining in 140s, MD made aware. IV tylenol and zofran ordered, both medications administered. Pt ordered abd CT with PO and IV contrast,
rescheduled for tomorrow due to inability to tolerate PO contrast. Pt spiked fever of 102.7 rectally at 1000 after tylenol and zofran, MD made aware, cooling blanket reapplied at 1015. Pt then c/o burning chest pain, rectal temp risen to 103.0, RR
called on pt at 1035. Before RR team could arrive, MD on the floor (not the attending assigned to this pt) came in when they heard the rapid being called, spoke with pt, told this RN to cancel the rapid and that he was going to call the MD in charge
of this pt. Attending for this pt ordered xray of abdomen and chest as well as stat IV protonix. EKG performed, see reports. Accucheck 169, VSS with slight elevation in BP at 148/75. Pt's temperature came down to 99.6 rectally with cooling blanket
on, removed at 1500. Serial troponins/EKGs/echo/PE study all ordered following troponin critical of 1.24, MD aware. Pts current BP is 97/54, per this is his baseline BP. No new orders for this pt at this time.
[2024-09-08] MEDS: LOVENOX 40 MG SC (17:38)
[2024-09-08] MEDS: TYLENOL 325 MG PO (20:55)
[2024-09-08 21:58] LABS: Lactic Acid 5.1 mmol/L (0.7-2.0)
[2024-09-08] MEDS: NSS 500 IV (22:33)
[2024-09-09] VITALS (7 sets, daily range): BP systolic 97–160; BP diastolic 55–89
[2024-09-09 04:08] LABS: Lactic Acid 1.1 mmol/L (0.7-2.0)
--- NOTE | 2024-09-09 05:16 | PTCARENOTE ---
Patient w/elevated HR, no temp, patient shaking in bed. Repeat lactic drawn, result 5.1. Repeat troponin draw 2.080. House provider notified at 22:14. Repeat labs ordered, IV fluid bolus given, see MAR. Repeat labs at 0300, Lactic 1.1 and troponin
2.870, house provider notified at 5:15. Repeat labs ordered.
[2024-09-09] MEDS: VANCOCIN 275 MG IV (05:51)
[2024-09-09] MEDS: TYLENOL 650 MG PO ×3 (05:57→23:11)
[2024-09-09] MEDS: NSS 1000 IV ×2 (08:22→15:12)
[2024-09-09] MEDS: METAMUCIL, KONSYL 1 PACKET PO (08:23)
[2024-09-09] MEDS: STERILE WATER FOR INJECTION 10 ML IV ×3 (08:23→20:55)
[2024-09-09] MEDS: VITAMIN D3 (cholecalciferol) 25 MCG PO (08:23)
[2024-09-09] MEDS: ZENPEP DELAYED RELEASE CAPSULE 1 CAPSULE PO ×3 (08:23→17:18)
[2024-09-09] MEDS: NEURONTIN 300 MG PO ×2 (08:23→20:56)
[2024-09-09] MEDS: PROTONIX 40 MG PO (08:23)
[2024-09-09] MEDS: MAXIPIME 1000 MG IV ×3 (08:23→20:55)
[2024-09-09] MEDS: VISBIOME 1 CAP PO (08:23)
[2024-09-09 08:57] LABS: Hemoglobin 7.5 g/dL (13.0-18.0); Mean Corp Hgb Conc. 32.6 g/dL (33.0-37.0); Mean Corpuscular Hgb 26.5 pg (27.0-31.0); Mean Corpuscular Volume 81.3 fL (80.0-94.0); Mean Platelet Volume 11.6 fL (7.4-10.4); Platelet Count 109 10^3/uL (130-400); Red Blood Cell Count 2.83 10^6/uL (4.70-6.10); Red Cell Dist. Width 19.9 % (11.5-14.5); White Blood Cell Count 33.7 10^3/uL (4.8-10.8)
[2024-09-09 09:16] LABS: Blood Urea Nitrogen 17 mg/dl (9-20); Calcium 7.7 mg/dl (8.4-10.2); Carbon Dioxide 20 mmol/L (22-30); Chloride 111 mmol/L (98-107); Estimated Creatinine Clearance 50 ml/min; Glucose 87 mg/dl (70-99); Magnesium 1.4 mg/dl (1.6-2.3); Sodium 139 mmol/L (135-145); eGFR > 60.00
--- NOTE | 2024-09-09 09:53 | CON.CAR ---
Consultation
Consultation Request
Date/Time Consultation Requested: September 08, 2024
Date/Time Consultation Performed: September 09, 2024
Requesting Provider: Hospitalist
Performing Provider: Diane
Reason for Consultation: Chest burning and positive troponin
Medical History
-
Chief Complaint: Chest burning
History of Present Illness:
74-year-old male with metastatic pancreatic cancer status post Whipple in 2022 who we are him consulted for chest burning after vomiting and a positive troponin. His ECG is sinus rhythm and sinus tachycardia with nonspecific ST-T changes. When
seen the morning of September 09 he was chest pain-free and resting comfortably. His troponin has peaked so far at 3.0. Importantly he has no active chest pain or pressure. He has fever, marked leukocytosis, anemia and thrombocytopenia which is
likely related to his recent chemotherapy regimens as delineated. He also had a CT scan which did not demonstrate a pulmonary embolus.
Past medical history is extensive:
Current fever
Leukocytosis
Pancreatic cancer
Metastatic pancreatic cancer status post Whipple
Ongoing chemotherapy
Fever
Port for chemotherapy
Past Medical History
Past Medical History: Cancer
Past Surgical History: Bowel Resection
Social History
Tobacco: Non-Smoker
Alcohol: None
Drug: None
Personal:
Living: With Family
Employment: Not Employed
Family History
Family History: Reviewed & Not Pertinent
Allergies / Home Medications
Allergy/AdvReac Type Severity Reaction Status Date / Time
No Known Allergies Allergy Verified 09/07/24 12:05
�Medication �Instructions �Recorded �Confirmed �Type
Lactobacil.acidophilus-Bifido.animalis 1 cap PO DAILY Supplement 04/06/24 09/07/24 History
5 billion cell sprinkle capsule
(Probiotic)
qwjhnt-tbcaxade-cmaggao 1 cap PO AC DIGESTION 04/06/24 09/07/24 History
24,000-76,000-120,000 unit
capsule,delayed rel (Creon)
ibuprofen 200 mg tablet (Advil) 200 mg PO Q6HPRN PRN headache 05/17/24 09/07/24 History
pantoprazole 40 mg tablet,delayed 40 mg PO DAILY Gastrointestinal 05/17/24 09/07/24 History
release (Protonix) Issue
cholecalciferol (vitamin D3) 25 25 mcg PO DAILY Supplement 09/07/24 09/07/24 History
mcg (1,000 unit) tablet (Vitamin
D3)
gabapentin 300 mg capsule 300 mg PO BID Pain 09/07/24 09/07/24 History
glucosamine sulf dipot 1 cap PO DAILYPRN PRN supplement 09/07/24 09/07/24 History
chlr,msm,chond 550 mg-C 30 mg-jeffrey
1 mg capsule (Glucosamine
Chondroitin)
psyllium 1 packet PO DAILY Constipation 09/07/24 09/07/24 History
Review of Systems
-
All other systems: Negative unless noted
Cardiac: No Symptoms
Physical Exam
Vital Signs
Temp Pulse Resp BP Pulse Ox
98.0 F 80 14 103/60 94
09/09/24 07:35 09/09/24 07:35 09/09/24 07:35 09/09/24 07:35 09/09/24 07:35
Lab Results
09/09/24 08:11
09/09/24 08:11
Troponin I 3.030 ng/ml H* 09/09/24 08:11
Physical Exam
General: Well Developed and Well Nourished
HEENT: Normocephalic
Respiratory: Clear
Cardiac: S1/S2 and Regular Rhythm
Breast: Deferred by me
GI: Soft, Non Tender and Non Distended
Rectal: Deferred by Provider
Musculoskeletal: No Clubbing and No Cyanosis
Skin: Warm and Dry
Neuro: Awake, Alert and Oriented
Hematologic/Lymphatic: No Lymphadenopathy
Psych: Calm
Impression / Plan
-
Impression:
Fever
Lactic acidosis
Sepsis picture-present on admission
Lactate trending down
Leukocytosis could likely be secondary to Neulasta
COVID serology negative
Vomiting
Chest pain after vomiting
Nonspecific ST-T changes on ECG
Positive troponin
Pancreatic adenocarcinoma
Mini Whipple surgery with perforation of stomach on 07/27/2023
Hepatic metastasis despite FOLFOX
Emphysema-stable
Prior tobacco history
Enlarged thyroid with nodules
Anemia likely secondary to malignancy/chemo-follow counts
Thrombocytopenia-likely secondary to chemo
Hypoalbuminemia
PE CT scan negative for pulmonary embolus
Recommendations:
-Given his past medical history I would expect that he has significant coronary artery disease. Currently he is chest pain-free so we are not obligated to pursue ischemic workup on an urgent or emergent basis. He has nonspecific ST-T changes on
his ECGs in the setting of pain and would trend serial troponins for now
-Check echocardiogram
-I have no objection to aspirin if okay from an oncologic perspective
-If he has further pain would consider heparin drip for 48 to 72 hours
-I have no objection to low-dose metoprolol to decrease myocardial oxygen demand
-Aim to keep hemoglobin greater than 8 and I have no objection to transfusion if this is considered
-Maintain telemetry
-We will follow with you
Data Reviewed
-
EKG: Tracing Personally Visualized and interpreted
CT Scan: Report Reviewed by me
Medical Tests (Nuc Med, Echo etc): Report Reviewed by me
Labs: Labs Reviewed by me and Discussed with Physician
Old Records: Reviewed
[2024-09-09] MEDS: OMNIPAQUE 50 ML PO (09:57)
--- NOTE | 2024-09-09 10:01 | PHA.VAN.FU ---
Vancomycin Assessment / Plan
- Assessment
Renal Function: Stable
WBC's are: Trending Up
In the past 24 hrs, patient has been: Febrile (Tmax = 103)
Concomitant Antimicrobials: Cefepime
- Dosing Plan
Continue: Vanc 1250mg IV Q24H
- Monitoring Plan
Peak Level: 14 at 0900
Trough Level: 15 at 0530
- Follow Up
Pharmacy will continue to follow.
Vancomycin Follow UP
- -
Patient Age: 74
Patient Sex: Male
Vancomycin Day #: 3
Indication: Pulmonary/Respiratory
Requesting Provider: JEFERSON
Height / Weight:
Height 5 ft 9 in
Actual Weight 58.922 kg
IBW in k.7
Pertinent Past Medical History: PANCREATIC CA WITH METS
- Vital Signs / Lab Results
Temp Pulse Resp BP Pulse Ox
98.0 F 80 14 103/60 94
09/09/24 07:35 09/09/24 07:35 09/09/24 07:35 09/09/24 07:35 09/09/24 07:35
Lab Results - Hematology
09/07/24 09/08/24 09/09/24
12:41 06:25 08:11
WBC 34.5 H 32.3 H 33.7 H
Lab Results - Chemistry
09/07/24 09/08/24 09/09/24
12:41 06:25 08:11
BUN 15 16 17
Creatinine 1.2 1.2 1.1
Estimated Creat Clear 46 50
Albumin 2.7 L 2.3 L
09/07/24 09/07/24 09/08/24
12:41 22:02 03:25
Lactic Acid 4.5 H* 6.4 H* 2.5 H
09/08/24 09/08/24 09/09/24
13:36 21:04 03:27
Lactic Acid 2.1 H 5.1 H* 1.1
Microbiology Results
09/08/24 03:36 Respiratory Culture - Preliminary
Sputum Usual Respiratory Jeannine
Gram Stain - Preliminary
09/07/24 19:23 MRSA Screen - Final
Nose No Methicillin Resistant Staphylococcus aureus isolated.
09/07/24 13:43 Blood Culture - Preliminary
Blood/Venous No Growth in 24 hours- Final report to follow
09/07/24 12:41 Blood Culture - Preliminary
Blood/Venous No Growth in 24 hours- Final report to follow
09/07/24 12:41 Influenza Types A & B (SARA) - Final
Nasal Swab Negative for Influenza A & B, NAAT
Negative results must be combined with clinical observations
and patient history.
Nucleic Acid Amplification test (NAAT)performed on the
[employer] platform.
[2024-09-09] MEDS: MAGNESIUM SULFATE 50 IV (10:19)
[2024-09-09] MEDS: ASPIR LOW (ENTERIC COATED) 81 MG PO (10:24)
[2024-09-09] MEDS: TOPROL XL PO (10:38)
[2024-09-09 10:44] LABS: % Basophils 0.1 % (0-2); % Eosinophils 0.6 % (0-6); % Immature Granulocytes 3.8 % (0-0.5); % Lymphocytes 2.9 % (20.5-51.1); % Monocytes 6.9 % (1.7-9.3); % Neutrophils 85.7 % (42.2-75.2); Absolute Eosinophils 0.2 10^3/uL (0-0.7); Absolute Immature Granulocytes 1.3 10^3/uL (0-0.05); Absolute Monocytes 2.3 10^3/uL (0.1-0.6); Absolute Neutrophils 28.9 10^3/uL (1.4-6.5); Nucleated Red Blood Cells % 0 % (-)
--- NOTE | 2024-09-09 11:04 | W.PN.HOSP.TC ---
Today's Communication/Plan
-
continue Cefepime
ECHO in am
Watch symptoms
Assessment / Plan
Assessment / Plan
74-year-old male presented to the ER with fever of 101 at home took Motrin prior to coming in. has been having fevers
CT A/P-moderate elevation in right hemidiaphragm, small bilateral pleural effusions with adjacent atelectasis. Bullous changes in the both lower lungs. Status post reported seizure. Pneumobilia. Multiple hepatic metastatic lesions increased send
July 2024. Splenic metastatic disease increased. Right upper quadrant prominent air-fluid density. Delayed images awaited to make sure this is colon. Moderate subcutaneous edema. Focal lytic lesion medial iliac bone and L2 vertebra
PE study-no PE. Says severe centrilobular emphysema. Small right pleural effusion. Minimal left pleural effusion. Large hepatic tumor. Pneumobilia. Thyroid gland 2.5 cm mass in the left lobe
Late documentation
CVS: S1-S2 normal
Chest: CTA B/L
Abdomen: Soft, NT / Bowel sounds present
Extremities: No edema
# Elevated troponin. Cardiology feels this is nonischemic myocardial injury secondary to fever. Aspirin started after discussion with hematology oncology.
Plan is to hold off on heparin drip.
Echo routine
Troponin is trending down now
Cardiology evaluation appreciated
I discussed with the patient and regarding blood transfusion given elevated troponin and also hemoglobin of 7.5 this morning. Consent given to them to think about it and sign. Patient is hesitant in getting blood. Repeat hemoglobin came back
as 8.0 and troponin is trending down also. Benefits and risks of blood transfusion was discussed in detail with both of them.
Patient initially did not want to take beta-blockers either. After I explained the rationale he agreed.
# Fever With lactic acidosis
Sepsis picture-present on admission- but no clear source of infection.
Lactate trending down
Leukocytosis could likely be secondary to Neulasta
COVID serology negative. Blood cultures, urine culture pending
Urinalysis 6-10 white counts-antibiotic should cover If UTI ,wait for culture .
No abdominal pain
If develops diarrhea check C. difficile
Continue Cefepime. Vanco stopped
With vomiting check x-ray of the abdomen first followed by CT scan of the abdomen pelvis protein with p.o. and IV contrast
Zofran as needed
Infectious disease and hematology oncology following.
# Pancreatic adenocarcinoma initially diagnosed 03/28/2023 8 did not follow-up with hematology oncology until 06/03/2023.
Then seen at [place] by Underwent Mini Whipple surgery with perforation of stomach on 07/27/2023
Start chemotherapy 6 months ago, 3 months ago found out about hepatic mets
Now with biopsy proven hepatic metastasis
Was on chemotherapy got it 2 weeks ago? FOLFIRINOX
# Hypomagnesemia- Replace
# Emphysema-stable
# Enlarged thyroid with nodules. 2.5 cm mass in the left lobe. Family made aware. Needs ultrasound as outpatient
# Anemia likely secondary to malignancy/chemo-follow counts
# Thrombocytopenia-likely secondary to chemo
# Hypoalbuminemia
# Ex-smoker
# DVT prophylaxis-Lovenox
# CODE STATUS-Full code
D/W nursing at bedside
Discussed with cardiology and oncology
Discussed with patient's at bedside
Total time spent today more than 50 minutes
Anticipated Discharge: > 48 hours
Subjective/Interval History
-
Date of Service: September 09, 2024
Objective Data
-
Labs:
Laboratory Results
09/09/24
08:11
WBC 33.7 H
Hgb 7.5 L
Hct 23.0 L
Plt Count 109 L D
Sodium 139
Potassium 4.0
Chloride 111 H
Carbon Dioxide 20 L
BUN 17
Creatinine 1.1
Glucose 87
Calcium 7.7 L
Vital Signs:
Vital Signs
Temp Pulse Resp BP Pulse Ox
98.0 F 86 14 121/68 94
09/09/24 07:35 09/09/24 10:47 09/09/24 07:35 09/09/24 10:47 09/09/24 07:35
I&O
09/08/24 09/09/24 09/10/24
06:59 06:59 06:59
Intake Total 2555 / 2555 4450 / 4450
Output Total 650 / 650 200 / 200
Balance 1905 / 1905 4250 / 4250
--- NOTE | 2024-09-09 12:00 | W.PN.ID1 ---
Date of Service
Date of Service: September 09, 2024
Today's Communication
DC vanco. Continue cefepime.
Await CT a/p.
Assessment / Plan
#Fever- trending down
#Leukocytosis, partially from recent pegfilgrastim
# Pancreatic CA with hepatic mets on chemo, last received 08/29
# thrombocytopenia
# COPD
-blood cx's neg to date
- UA neg, CXR neg.
-CT chest no PE, no infiltrates
- For CT a/p
- Continue cefepime
-DC Vancomycin
- Trend temps/wbc.
Chief Complaint
-: Fever and Leukocytosis
Subjective / Review of Systems
Drinking oral contrast.
Having chills. Per , pt has chronic intermittent chills that last about 2 hours.
No new specific symptoms.
Vital Signs / Physical Exam
Vital Signs
Vital Signs
Temp Pulse Resp BP Pulse Ox
98.0 F 86 14 121/68 94
09/09/24 07:35 09/09/24 10:47 09/09/24 07:35 09/09/24 10:47 09/09/24 07:35
Physical Exam
Constitutional: No Acute Distress
Head: Other (No frontal or maxillary sinus tenderness)
Eyes: No Conjunctival Hemorrhage and Sclera Anicteric
Oropharyngeal: Exudate
Cardiovascular: Regular Rate and S1/S2
Pulmonary: Other (Decreased BS bases)
Gastrointestinal: Soft, Non Tender, Non Distended and Normal Bowel Sounds
Genito-Urinary: Negative CVA Tenderness
Extremities: Negative Edema
Musculoskeletal: Negative Spinal Tenderness
Neurological: AO x 3
Lines: Port (RCW no erythema)
Objective Data
Lab Data
Lab Results
09/09/24 08:11
PT 17.0 Sec (11.4-14.6) H 09/08/24 06:25
INR 1.40 09/08/24 06:25
APTT 42.5 Sec (23.4-35.0) H 09/08/24 06:25
Estimated Creat Clear 50 ml/min 09/09/24 08:11
Lactic Acid 1.1 mmol/L (0.7-2.0) 09/09/24 03:27
Total Bilirubin 0.3 mg/dl (0.2-1.3) 09/08/24 06:25
AST 18 U/L (17-59) 09/08/24 06:25
ALT 23 U/L (0-50) 09/08/24 06:25
Alkaline Phosphatase 197 U/L (38-126) H 09/08/24 06:25
Most recent labs reviewed.
Micro Results:
09/08/24 03:36 Respiratory Culture - Preliminary
Sputum Usual Respiratory Jeannine
Gram Stain - Preliminary
09/07/24 19:23 MRSA Screen - Final
Nose No Methicillin Resistant Staphylococcus aureus isolated.
09/07/24 13:43 Blood Culture - Preliminary
Blood/Venous No Growth in 24 hours- Final report to follow
09/07/24 12:41 Blood Culture - Preliminary
Blood/Venous No Growth in 24 hours- Final report to follow
09/07/24 12:41 Influenza Types A & B (SARA) - Final
Nasal Swab Negative for Influenza A & B, NAAT
Negative results must be combined with clinical observations
and patient history.
Nucleic Acid Amplification test (NAAT)performed on the
[employer] platform.
09/07/24 CXR: No acute cardiopulmonary process. Chronic obstructive pulmonary disease.
09/08/[address]: There is no pulmonary embolism. Severe centrilobular emphysema. Small right pleural effusion with compressive atelectasis at the right lung base. Minimal left pleural effusion. Large hepatic tumor. Pneumobilia
[2024-09-09] MEDS: TOPROL XL 12.5 MG PO (12:38)
[2024-09-09] MEDS: ZENPEP DELAYED RELEASE CAPSULE PO ×2 (12:39→13:49)
--- NOTE | 2024-09-09 13:50 | PTCARENOTE ---
Zenpep given at 1349. Patient requested at this time in order to eat his sandwhich his brought in.
[2024-09-09] MEDS: LOVENOX 40 MG SC (17:18)
[2024-09-10] VITALS (7 sets, daily range): BP systolic 99–149; BP diastolic 60–101; BMI 21.3
[2024-09-10 00:44] LABS: Glucose - Point of Care 120 mg/dl (70-99)
[2024-09-10] MEDS: MAXIPIME 1000 MG IV ×2 (02:25→08:54)
[2024-09-10] MEDS: STERILE WATER FOR INJECTION 10 ML IV ×2 (02:25→08:54)
[2024-09-10] MEDS: NSS 1000 IV (02:55)
--- NOTE | 2024-09-10 07:03 | W.PN.HOSP.TC ---
Addendum entered and electronically signed by Ezra Easley MD 09/10/24 14:55:
Pancytopenia due to chemo
Original Note:
Today's Communication/Plan
-
-Follow up BNP, Echo results
-Follow up Mg, BMP and diarrhea
Assessment / Plan
Assessment / Plan
Impression: 74-year-old male presented to the ER with fever of 101 at home took Motrin prior to coming in. has been having fever spikes since last day. Reported having chills last night but denied any new symptoms. Patient has fever spikes since
admission.
09/07/24 CXR: No acute cardiopulmonary process. Chronic obstructive pulmonary disease.
09/08/[address]: There is no pulmonary embolism. Severe centrilobular emphysema. Small right pleural effusion with compressive atelectasis at the right lung base. Minimal left pleural effusion. Large hepatic tumor. Pneumobilia
CT A/P on 09/09 -moderate elevation in right hemidiaphragm, small bilateral pleural effusions with adjacent atelectasis. Bullous changes in the both lower lungs. Status post reported seizure. Pneumobilia. Multiple hepatic metastatic lesions
increased send July 2024. Splenic metastatic disease increased. Right upper quadrant prominent air-fluid density. Delayed images awaited to make sure this is colon. Moderate subcutaneous edema. Focal lytic lesion medial iliac bone and L2
vertebra
PE study-no PE. Says severe centrilobular emphysema. Small right pleural effusion. Minimal left pleural effusion. Large hepatic tumor. Pneumobilia. Thyroid gland 2.5 cm mass in the left lobe
Assessment/Plan
# Elevated troponin
-Cardiology feels this is nonischemic myocardial injury secondary to fever.
-Aspirin started after discussion with hematology oncology.
-Plan is to hold off on heparin drip.
-Echo was ordered on 09/10
-Troponin is trending down now- ordered on 09/10 to follow up
-Bilateral lower extremity edema: Pro BNP was ordered, echo was ordered
-Cardiology evaluation appreciated
- Patient is hesitant in getting blood. Repeat hemoglobin came back as 8.1 on 09/10. Benefits and risks of blood transfusion was discussed in detail with both of them.
-Patient initially did not want to take beta-blockers either. After I explained the rationale he agreed.
# Fever With lactic acidosis
-Sepsis picture-present on admission- but no clear source of infection.
-Lactate trending down 1.1 on 09/09 / Fever- trending down
-Leukocytosis could likely be secondary to Neulasta WBC:34.2
-COVID serology negative
- Blood cultures: cx's neg to date / UA neg, no dysuria (Urinalysis 6-10 white counts-antibiotic should cover If UTI)
-No abdominal pain
-If develops diarrhea check C. difficile
-Continue Cefepime. Vanco stopped
-With vomiting check x-ray of the abdomen first followed by CT scan of the abdomen pelvis protein with p.o. and IV contrast
-Zofran as needed
-Infectious disease and hematology oncology following.
# Pancreatic adenocarcinoma
-initially diagnosed 03/28/2023 8 did not follow-up with hematology oncology until 06/03/2023. Then seen at [place] by Underwent Mini Whipple surgery with perforation of stomach on 07/27/2023
-Start chemotherapy 6 months ago, 3 months ago found out about hepatic mets
-Now with biopsy proven hepatic metastasis
-Was on chemotherapy got it 2 weeks ago? FOLFIRINOX
# Hypomagnesemia
- Follow up and Replace
# Emphysema-stable
# Enlarged thyroid with nodules. 2.5 cm mass in the left lobe. Family made aware. Needs ultrasound as outpatient
# Anemia likely secondary to malignancy/chemo-follow counts
# Thrombocytopenia-likely secondary to chemo
# Hypoalbuminemia
# Ex-smoker
# DVT prophylaxis-Lovenox
# CODE STATUS-Full code
Anticipated Discharge: 24 - 48 hours
Subjective/Interval History
-
Date of Service: September 10, 2024
The patient was seen in his bed, reporting he started to feel better today comparing to last 2 days. Reported having some burning sensation on his chest this morning. Denied SOB, urinary burning, abdominal/chest pain. Reported he developed diarrhea
which started yesterday evening and this morning he did not have any.
Objective Data
-
Labs:
Laboratory Results
09/10/24
06:00
WBC Pending
Hgb Pending
Hct Pending
Plt Count Pending
Sodium Pending
Potassium Pending
Chloride Pending
Carbon Dioxide Pending
BUN Pending
Creatinine Pending
Glucose Pending
Calcium Pending
Vital Signs:
Vital Signs
Temp Pulse Resp BP Pulse Ox
100.0 F 96 16 106/61 95
09/10/24 03:08 09/10/24 03:08 09/10/24 03:08 09/10/24 03:08 09/10/24 03:08
I&O
09/09/24 09/10/24 09/11/24
06:59 06:59 06:59
Intake Total 4450 / 4450 1920 / 1920
Output Total 200 / 200 400 / 400
Balance 4250 / 4250 1520 / 1520
Review of Systems
-
EENT: Reports No Symptoms Reported
Respiratory: Reports No Symptoms
Cardiac: Reports No Symptoms
Abdomen/GI: Reports No Symptoms
Genitourinary: Reports No Symptoms
Musculoskeletal: Reports Other (Generalized weakness)
Skin: Reports No Symptoms
Neuro: Reports No Symptoms
Physical Exam
-
General: Comfortable, Conversant and Appears Chronically Ill
HEENT: Normocephalic and Atraumatic
Respiratory: Clear to Auscultation
Cardiac: Regular Rhythm and S1/S2
GI: Soft, Nontender and Nondistended
Musculoskeletal: Edema, Right Lower Extrem and Edema, Left Lower Extrem
Neuro: Awake, Alert, Oriented, AO x 3 and Nonfocal/Grossly Intact
[2024-09-10 08:30] LABS: Hemoglobin 8.1 g/dL (13.0-18.0); Mean Corp Hgb Conc. 32.4 g/dL (33.0-37.0); Mean Corpuscular Volume 83.3 fL (80.0-94.0); Mean Platelet Volume 9.9 fL (7.4-10.4); Platelet Count 151 10^3/uL (130-400); Red Cell Dist. Width 19.8 % (11.5-14.5); White Blood Cell Count 34.2 10^3/uL (4.8-10.8)
[2024-09-10] MEDS: TOPROL XL 12.5 MG PO (08:44)
[2024-09-10] MEDS: ASPIR LOW (ENTERIC COATED) 81 MG PO (08:44)
[2024-09-10] MEDS: NEURONTIN 300 MG PO ×2 (08:44→20:43)
[2024-09-10] MEDS: ZENPEP DELAYED RELEASE CAPSULE 1 CAPSULE PO ×3 (08:45→17:21)
[2024-09-10] MEDS: VISBIOME 1 CAP PO (08:45)
[2024-09-10] MEDS: VITAMIN D3 (cholecalciferol) 25 MCG PO (08:45)
[2024-09-10] MEDS: PROTONIX 40 MG PO (08:45)
[2024-09-10 08:53] LABS: Blood Urea Nitrogen 17 mg/dl (9-20); Calcium 7.5 mg/dl (8.4-10.2); Carbon Dioxide 18 mmol/L (22-30); Chloride 111 mmol/L (98-107); Estimated Creatinine Clearance 50 ml/min; Glucose 84 mg/dl (70-99); Magnesium 1.9 mg/dl (1.6-2.3); Potassium 3.9 mmol/L (3.5-5.1); Sodium 139 mmol/L (135-145); eGFR > 60.00
[2024-09-10] MEDS: TYLENOL 650 MG PO ×2 (08:54→15:52)
[2024-09-10] MEDS: METAMUCIL, KONSYL 1 PACKET PO (08:55)
--- NOTE | 2024-09-10 09:10 | W.PN.UPDATE ---
Update Note
Progress Note Update
I saw and evaluated the patient. I reviewed the resident�s note and agree with findings and plan as documented in the resident�s note.
Denies chest pain, shortness breath, abdominal pain.
Gen: NAD, AAOx3.
Eyes: EOMI, PERRLA, no scleral icterus.
Neck: supple.
CV: tachy, reg rhythm, +S1/S2, no m/r/g.
Resp: CTAB, no rales, wheezes, or rhonchi.
Abd: +BS, soft, NT, ND
Skin: No rashes.
Neuro: CN 2-12 intact, non-focal.
Psych: Normal mood and affect.
09/07/24 13:43 Blood/Venous Blood Culture - Preliminary
No Growth in 48 hours- Final report to follow
09/07/24 12:41 Blood/Venous Blood Culture - Preliminary
No Growth in 48 hours- Final report to follow
09/08/24 03:36 Sputum Respiratory Culture - Preliminary
Usual Respiratory Jeannine
09/08/24 03:36 Sputum Gram Stain - Preliminary
09/07/24 19:23 Nose MRSA Screen - Final
No Methicillin Resistant Staphylococcus aureus isolated.
09/07/24 12:41 Nasal Swab Influenza Types A & B (SARA) - Final
Negative for Influenza A & B, NAAT
Negative results must be combined with clinical observations
and patient history.
Nucleic Acid Amplification test (NAAT)performed on the
[employer] platform.
CT A/P-moderate elevation in right hemidiaphragm, small bilateral pleural effusions with adjacent atelectasis. Bullous changes in the both lower lungs. Status post reported seizure. Pneumobilia. Multiple hepatic metastatic lesions increased send
July 2024. Splenic metastatic disease increased. Right upper quadrant prominent air-fluid density. Delayed images awaited to make sure this is colon. Moderate subcutaneous edema. Focal lytic lesion medial iliac bone and L2 vertebra
CTA chest: no PE. Severe centrilobular emphysema. Small right pleural effusion. Minimal left pleural effusion. Large hepatic tumor. Pneumobilia. Thyroid gland 2.5 cm mass in the left lobe.
Elevated troponin
-likely nonischemic myocardial injury secondary to fever
-ASA started
-cards following, no need for heparin gtt at this time
-check echo
-cont BB
SIRS:
-Fever, tachycardia, leukocytosis, lactic acidosis
-Leukocytosis could likely be secondary to Neulasta
-Currently no source of infection has been found
-COVID/Flu NEG
-all Cx data NEG today
-cont empiric Cefepime
Pancreatic adenocarcinoma:
-initially diagnosed 03/28/2023, pt did not follow-up with oncology until 06/03/23
-s/p Mini Whipple surgery with perforation of stomach on 07/27/23
-started chemotherapy 6 months ago, 3 months ago found to have hepatic mets (Bx proven)
-recent chemo approx 2 weeks [employer]
Hypomagnesemia, resolved
Emphysema, not in acute exac
Enlarged thyroid with nodules. 2.5 cm mass in the left lobe. Family made aware. Needs ultrasound as outpatient
Anemia, likely secondary to malignancy/chemo, follow counts
Thrombocytopenia, likely secondary to chemo
FULL/Lovenox
Total time spent on today's encounter was 51 minutes which included time spent in counseling the patient/family regarding diagnosis and treatment plan as listed above, goals of care, and symptom management. Case was discussed with nursing staff,
specialists, and care coordinators/case management. All labs and imaging personally reviewed by me. Remainder the time spent in detailed review of previous records, lab data, imaging, and other medical provider documentation.
[2024-09-10 10:00] LABS: NT-proBNP 17300 pg/ml
[2024-09-10 10:07] LABS: % Basophils 0.5 % (0-2); % Eosinophils 1.3 % (0-6); % Immature Granulocytes 3.3 % (0-0.5); % Lymphocytes 3.7 % (20.5-51.1); % Monocytes 7.5 % (1.7-9.3); % Neutrophils 83.7 % (42.2-75.2); Absolute Basophils 0.2 10^3/uL (0-0.2); Absolute Eosinophils 0.5 10^3/uL (0-0.7); Absolute Immature Granulocytes 1.1 10^3/uL (0-0.05); Absolute Lymphocytes 1.3 10^3/uL (1.2-3.4); Absolute Monocytes 2.6 10^3/uL (0.1-0.6); Absolute Neutrophils 28.6 10^3/uL (1.4-6.5); Nucleated Red Blood Cells % 0 % (-)
--- NOTE | 2024-09-10 10:20 | W.PN.CARDCBS ---
Addendum entered and electronically signed by Irwin Flowers MD 09/10/24 11:34:
74-year-old man now with a peak troponin of [address] segment elevation in the setting of metastatic pancreatic cancer following Whipple in 2022 with fever, leukocytosis and anemia/thrombocytopenia
Currently he feels better, no fever, may have mild dyspnea
PMH/PSH:Pancreatic cancer, now metastatic to liver, status post Whipple
Allergies: None
Outpatient medications: Reviewed
Current medications: Gabapentin, pancrelipase, pantoprazole, psyllium, heparin, aspirin 81 mg daily, metoprolol ER 12.5 mg daily
106/61, pulse 96, intake and output +2.1 L, weight is 58.9 kg, on July 08 current weight pending, no acute distress, head neck exam unremarkable, lungs with few crackles in bases, relatively tachycardic, no obvious murmurs, JVD may be somewhat
elevated, 1+ edema, abdomen benign
Hemoglobin 8.1, platelets 151, potassium 3.9, BUN and creatinine 17 and 1.1, proBNP and troponin are pending
EKG from the subtle ST segment elevation laterally, cannot rule out anterior WI
CT of abdomen and pelvis small effusions, hepatic mets, new splenic mets, subcu edema
Chest x-ray reviewed
Echo pending
Impression:
Acute heart failure related to fluid resuscitation, EF
Non-ST segment elevation WI
Metastatic pancreatic cancer
SIRS/clinical sepsis
COPD
Anemia/thrombocytopenia
Plan:
He seems relatively stable from the standpoint of his non ST segment elevation myocardial infarction. Subtle lateral ST segment elevation on his EKG from yesterday.
He may be volume overloaded, Intake and output is roughly 8 L positive over the last 3 days. proBNP is greater than 17,000
Will give furosemide 40 mg IV x 1 now
Increase carvedilol
Await echo
Cap IV fluid
He may need IV furosemide, await labs and echo
Will increase metoprolol ER
Original Note:
Today's Communication / Plan
-
Consider a dose of Lasix IV
Check CVE and consider starting statin
Consult cardiac rehab
Impression / Plan
-
PCP: Dr. Gunn
Cardiology: None prior to admission
Impression:
Admitted with fever 09/07/24
SIRS on admission
Leukocytosis s/p Neulasta
Lactic acidosis
Vomiting
Chest pain after vomiting
Elevated Troponin
Pancreatic adenocarcinoma
s/p Mini Whipple surgery with perforation of stomach on 07/27/2023
Hepatic metastasis despite FOLFOX
Emphysema
Prior tobacco history
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
Thrombocytopenia
Echo 09/10/24: Study pending
Plan:
-Patient came to [facility] with fever and was admitted with SIRS. ID following
-Heme/Onc also following for known pancreatic cancer with liver mets. Leukocytosis possibly from Neulasta
-From a cardiac standpoint, patient with chest pain after vomiting. ECG with nonspecific ST changes. Troponin peaked at 3.03. Will manage as a NSTEMI.
-New to aspirin 81 mg daily. Patient was not started on Plavix due to anemia
-Check CVE. Patient was not taking a statin prior to admission and should be started on high dose statin.
-New to Toprol XL 12.5 mg BID
-Will consult cardiac rehab, but patient might not be a candidate due to generalized weakness from pancreatic cancer and treatments.
-Hgb improved to 8.1 on 09/10/24. Recommend Hgb greater than 8 and transfuse as needed.
-Patient with risk factors for CAD. Invasive evaluation deferred currently due to pancreatic cancer, but pending echo results might reconsider.
-pro-BNP [id number] without previous for comparison. Small B/L pleural effusions on CT abd/pelvis 09/09/24. Cre 1.1 and BP 120/73. Patient was not taking a diuretic prior to admission.
Progress Note - [employer]
Subjective
Date of Service: September 10, 2024
No recurrence of chest pain
Objective
Labs:
09/10/24 08:10
09/10/24 08:10
Labs
Hgb 8.1 g/dL (13.0-18.0) L 09/10/24 08:10
Hct 25.0 % (39.0-52.0) L 09/10/24 08:10
Plt Count 151 10^3/uL (130-400) D 09/10/24 08:10
PT 17.0 Sec (11.4-14.6) H 09/08/24 06:25
INR 1.40 09/08/24 06:25
APTT 42.5 Sec (23.4-35.0) H 09/08/24 06:25
Sodium 139 mmol/L (135-145) 09/10/24 08:10
Potassium 3.9 mmol/L (3.5-5.1) 09/10/24 08:10
BUN 17 mg/dl (9-20) 09/10/24 08:10
Creatinine 1.1 mg/dL (0.7-1.3) 09/10/24 08:10
Glucose 84 mg/dl (70-99) 09/10/24 08:10
Troponins
09/08/24 09/08/24 09/08/24
11:00 13:36 21:04
Troponin I Cancelled 1.240 H* 2.080 H* D
09/09/24 09/09/24 09/09/24
03:27 08:11 13:25
Troponin I 2.870 H* D 3.030 H* 2.670 H*
09/10/24
09:06
Troponin I 1.210 H*
Vital Signs and I&O:
Vital Signs
Temp Pulse Resp BP Pulse Ox
99.7 F 87 16 120/73 95
09/10/24 07:35 09/10/24 07:35 09/10/24 07:35 09/10/24 08:44 09/10/24 09:02
Vital Signs
Temp Pulse Resp BP Pulse Ox
99.7 F 87 16 120/73 95
09/10/24 07:35 09/10/24 07:35 09/10/24 07:35 09/10/24 08:44 09/10/24 09:02
Intake & Output
09/08/24 09/09/24 09/10/24 09/11/24
06:59 06:59 06:59 06:59
Intake Total 2555 / 2555 4450 / 4450 2520 / 2520
Output Total 650 / 650 200 / 200 400 / 400
Balance 1905 / 1905 4250 / 4250 2120 / 2120
Physical Exam
Physical Exam
GEN: AAOx3
HEENT: MMM
LUNGS: No audible wheeze
CV: SR on tele
ABD: ND
EXT: +1 B/L LE edema
NEURO: Gross non-focal
SKIN: No rash
[2024-09-10] MEDS: KCL 40 MEQ PO (10:36)
[2024-09-10] MEDS: LASIX 40 MG IV (10:37)
--- NOTE | 2024-09-10 11:20 | PN.CDI ---
CDI
- -
CDI:
Physician Documentation Request
Admit Date: 09/07/24 16:22
Dear Doctor,
Please review the following and provide your response in the progress notes.
Clinical Indicators:
- Patient with history of pancreatic cancer
- 09/07 H&P 'started on chemotherapeutic treatment about 6 months ago. He received his last chemo treatment about 10 days ago.'
- 09/08 Oncology 'recently started chemo with gem/abraxane/GCSF after progression on FOLFOX'
Laboratory Tests
09/07/24 09/08/24 09/09/24
12:41 06:25 08:11
WBC 34.5 H 32.3 H 33.7 H
RBC 3.40 L 2.92 L 2.83 L
Plt Count 71 L 66 L 109 L D
Please provide a diagnosis that supports the above lab abnormalities and evaluation/monitoring.
Pancytopenia due to chemo
Pancytopenia due to other medication (please specify)
Pancytopenia
Other
Use of terms such as suspected, likely, concern for, or probable (associated with a specific diagnosis that is being evaluated, monitored, or treated as if it exists) are acceptable and can be coded in the inpatient setting, when documented at the
time of discharge.
Thank you,
Madeline Sotelo RN
CDI Specialist
Please use your independent medical judgment in providing your response.
--- NOTE | 2024-09-10 11:46 | W.PN.ID1 ---
Date of Service
Date of Service: September 10, 2024
Today's Communication
DC abx. See below.
Assessment / Plan
#Fever persists; likely tumor fever
#Leukocytosis, partially from recent pegfilgrastim
# Pancreatic CA with hepatic mets on chemo, last received 08/29.
-CT a/p shows progression of disease with increase in hepatic and splenic mets, and lytic lesions suspicious for bone mets
# thrombocytopenia - resolved
# COPD
- No infectious source identified.
blood cx's neg to date
UA neg, CXR neg.
CT chest no PE, no infiltrates
CT a/p, no abscess
COIVD/flu negative.
DC cefepime.
- Suspect tumor fevers (especially ins setting of heaptic mets)
Consider NSAID around the clock (or colchicine if unable to take NSAID)
- Pt contemplating stopping further treatment for metastatic pancreatic cancer.
Chief Complaint
-: Fever and Leukocytosis
Subjective / Review of Systems
+ chronic cough stable. Some SOB.
+ chills last night.
Vital Signs / Physical Exam
Vital Signs
Vital Signs
Temp Pulse Resp BP Pulse Ox
99.7 F 87 16 120/73 95
09/10/24 07:35 09/10/24 07:35 09/10/24 07:35 09/10/24 10:37 09/10/24 09:02
Selected Entries
09/09/24
23:36
Temp 102.8 F H
Physical Exam
Constitutional: Comfortable
Eyes: No Conjunctival Hemorrhage and Sclera Anicteric
Cardiovascular: Regular Rate, S1/S2 and Other
Pulmonary: Other (right base crackles, left base decreased breath sounds)
Gastrointestinal: Soft, Non Tender, Non Distended and Normal Bowel Sounds
Genito-Urinary: Negative CVA Tenderness
Extremities: Negative Edema
Neurological: AO x 3
Objective Data
Lab Data
Lab Results
09/10/24 08:10
09/10/24 08:10
PT 17.0 Sec (11.4-14.6) H 09/08/24 06:25
INR 1.40 09/08/24 06:25
APTT 42.5 Sec (23.4-35.0) H 09/08/24 06:25
Estimated Creat Clear 50 ml/min 09/10/24 08:10
Lactic Acid 1.1 mmol/L (0.7-2.0) 09/09/24 03:27
Total Bilirubin 0.3 mg/dl (0.2-1.3) 09/08/24 06:25
AST 18 U/L (17-59) 09/08/24 06:25
ALT 23 U/L (0-50) 09/08/24 06:25
Alkaline Phosphatase 197 U/L (38-126) H 09/08/24 06:25
Most recent labs reviewed.
Micro Results:
09/08/24 03:36 Respiratory Culture - Final
Sputum Usual Respiratory Jeannine
Gram Stain - Final
09/07/24 13:43 Blood Culture - Preliminary
Blood/Venous No Growth in 48 hours- Final report to follow
09/07/24 12:41 Blood Culture - Preliminary
Blood/Venous No Growth in 48 hours- Final report to follow
09/07/24 19:23 MRSA Screen - Final
Nose No Methicillin Resistant Staphylococcus aureus isolated.
09/07/24 12:41 Influenza Types A & B (SARA) - Final
Nasal Swab Negative for Influenza A & B, NAAT
Negative results must be combined with clinical observations
and patient history.
Nucleic Acid Amplification test (NAAT)performed on the
[employer] platform.
09/07/24 CXR: No acute cardiopulmonary process. Chronic obstructive pulmonary disease.
09/08/[address]: There is no pulmonary embolism. Severe centrilobular emphysema. Small right pleural effusion with compressive atelectasis at the right lung base. Minimal left pleural effusion. Large hepatic tumor. Pneumobilia
09/09/24 CT a/p: Multiple hepatic metastatic lesions. Dominant hepatic metastatic lesion has increased in size since examination of August 02, 2024. Splenic metastatic disease, also increased from previous examination. Focal lytic lesion within
the medial left iliac bone. Small focal lytic lesion within the right side of the L2 vertebral body. These are likely bony metastatic lesions.
Care Review
Plan reviewed with: Physician (Dr. Easley)
[2024-09-10 12:52] LABS: HDL Cholesterol 17 mg/dl; LDL Cholesterol, Calculated 28 mg/dl; Total Cholesterol 64 mg/dl (50-199); Triglyceride 97 mg/dl (10-149); Very Low Density Lipoprotein 19 mg/dl (0-30)
--- NOTE | 2024-09-10 15:54 | W.PN.ONC2 ---
Today's Communication / Plan
-
ordered NSAIDs qid - on PPI
US RLE
We reviewed palliative vs comfort focused care -he does not feel like he can make a decision at this time. He would like to maintain palliative care with restorative goals.
Impression
Impression
Fever unclear etiology, infectious w/u NTD, possible tumor fever
metastatic pancreas cancer, last chemo 08/29 (gem/abraxane) and GCSF 08/30
leukocytosis, likely from GCSF + infection
RLE edema
Plan
Plan
ABX per ID
Monitor cultures, CBC, fever curve
check RLE US
Next chemo likely to be postponed (scheduled for 09/12 currently)
Subjective/Objective
Chief Complaint
chills
Subjective
tmax 102.4F,no hypotension or hypoxia
using Tylenol q6 hours prn
Vital Signs:
Vital Signs
Temp Pulse Resp BP Pulse Ox
98.2 F 88 16 99/61 96
09/10/24 11:55 09/10/24 11:55 09/10/24 11:55 09/10/24 11:55 09/10/24 13:22
Lab Results:
Laboratory Data
WBC 34.2 10^3/uL (4.8-10.8) H 09/10/24 08:10
Hgb 8.1 g/dL (13.0-18.0) L 09/10/24 08:10
Plt Count 151 10^3/uL (130-400) D 09/10/24 08:10
PT 17.0 Sec (11.4-14.6) H 09/08/24 06:25
INR 1.40 09/08/24 06:25
APTT 42.5 Sec (23.4-35.0) H 09/08/24 06:25
eGFR > 60.00 09/10/24 08:10
Physical Exam
General: no acute distress
HEENT: Moist Mucous Membranes; Negative Jaundice
Cardiology: Normal Sinus Rhythm
Pulmonary: Clear
GI: Soft and Normal Bowel Sounds
Musculoskeletal: No Clubbing, No Cyanosis and No Edema
Extremities: RLE edema
Neurology: Non Focal
Hematologic / Lymphatic: No Lymphadenopathy
Psych: Calm and Intact Judgement/Insight
Refused to show me mediport
Review of Systems
Review of Systems
ROS notable for subjective, otherwise negative
--- NOTE | 2024-09-10 16:07 | CM ---
Reviewed the chart notes and spoke with the patient at the bedside. CM continues to be available to patient/family and is monitoring medical plan for needs at discharge.
Plan: Discharge plans will depend on the patient's progress. Discussed possibility of VN services, patient does not feel he will need at discharge.
[2024-09-10] MEDS: MOTRIN 200 MG PO ×2 (17:20→22:49)
[2024-09-10] MEDS: LOVENOX 40 MG SC (17:20)
[2024-09-11 02:47] VITALS: BP 107/58
[2024-09-11 06:00] VITALS: BMI 20.8
[2024-09-11] MEDS: MOTRIN 200 MG PO ×4 (06:05→22:40)
--- NOTE | 2024-09-11 06:54 | W.PN.HOSP.TC ---
Addendum entered and electronically signed by Angelica Simeon MD, Resident 09/11/24 16:00:
In clarification to my note,
The patient has presumably Acute heart failure due to fluid resuscitation.
Addendum entered and electronically signed by Ezra Easley MD 09/11/24 11:03:
I saw and evaluated the patient. I reviewed the resident�s note and agree with findings and plan as documented in the resident�s note.
Denies chest pain, shortness breath, abdominal pain.
Gen: NAD, AAOx3.
Eyes: EOMI, PERRLA, no scleral icterus.
Neck: supple.
CV: Remains tachy, reg rhythm, +S1/S2, no m/r/g.
Resp: Remains CTAB, no rales, wheezes, or rhonchi.
Abd: Remains +BS, soft, NT, ND
Skin: No rashes.
Neuro: CN 2-12 intact, non-focal.
Psych: Normal mood and affect.
09/07/24 13:43 Blood/Venous Blood Culture - Preliminary
No Growth in 72 hours- Final report to follow
09/07/24 12:41 Blood/Venous Blood Culture - Preliminary
No Growth in 72 hours- Final report to follow
09/08/24 03:36 Sputum Respiratory Culture - Final
Usual Respiratory Jeannine
09/08/24 03:36 Sputum Gram Stain - Final
09/07/24 19:23 Nose MRSA Screen - Final
No Methicillin Resistant Staphylococcus aureus isolated.
09/07/24 12:41 Nasal Swab Influenza Types A & B (SARA) - Final
Negative for Influenza A & B, NAAT
Negative results must be combined with clinical observations
and patient history.
Nucleic Acid Amplification test (NAAT)performed on the
[employer] platform.
CT A/P-moderate elevation in right hemidiaphragm, small bilateral pleural effusions with adjacent atelectasis. Bullous changes in the both lower lungs. Status post reported seizure. Pneumobilia. Multiple hepatic metastatic lesions increased send
July 2024. Splenic metastatic disease increased. Right upper quadrant prominent air-fluid density. Delayed images awaited to make sure this is colon. Moderate subcutaneous edema. Focal lytic lesion medial iliac bone and L2 vertebra
CTA chest: no PE. Severe centrilobular emphysema. Small right pleural effusion. Minimal left pleural effusion. Large hepatic tumor. Pneumobilia. Thyroid gland 2.5 cm mass in the left lobe.
Echo: Normal left ventricular size and wall thickness. Low normal to moderately
reduced left ventricular systolic function. Moderate hypokinesis of the mid to
distal anteroseptal, distal inferior, and distal inferoapical davis.. LV
ejection fraction is 45-50% by visual estimate. Stage I diastolic dysfunction
suggestive of abnormal relaxation. Global longitudinal strain -10.9%.
Normal right ventricular size and function.
Mild mitral regurgitation.
Aortic sclerosis without stenosis.
Mild tricuspid regurgitation. Estimated pulmonary artery pressure of 25-30
mmHg. Assuming a right atrial pressure of 3 mmHg.
No prior study available for comparison.
Acute NSTEMI
Acute heart failure due to fluid resuscitation
-ASA started
-cards following, no need for heparin gtt at this time
-Echo above, notable for EF 45-50%, moderate hypokinesis of the mid to distal anteroseptal, distal inferior, and distal inferoapical davis. G1DD. Mild MR/TR.
-cont BB with holding parameters
SIRS:
-Fever, tachycardia, leukocytosis, lactic acidosis
-Leukocytosis could likely be secondary to Neulasta
-Currently no source of infection has been found
-COVID/Flu NEG
-all Cx data NEG today
-empiric Cefepime stopped 09/10/24
-cont standing ibuprofen. If the patient continues on standing NSAID he will need weekly BMP. cont PPI for GI proph.
Pancreatic adenocarcinoma:
-initially diagnosed 03/28/2023, pt did not follow-up with oncology until 06/03/23
-s/p Mini Whipple surgery with perforation of stomach on 07/27/23
-started chemotherapy 6 months ago, 3 months ago found to have hepatic mets (Bx proven)
-recent chemo approx 2 weeks [employer]
Hypomagnesemia, resolved
Emphysema, not in acute exac
Enlarged thyroid with nodules. 2.5 cm mass in the left lobe. Family made aware. Needs ultrasound as outpatient
Anemia, likely secondary to malignancy/chemo, follow counts
Thrombocytopenia, likely secondary to chemo
Case discussed with oncology, cardiology, infectious disease.
Total time spent on today's encounter was 50 minutes which included time spent in counseling the patient/family regarding diagnosis and treatment plan as listed above, goals of care, and symptom management. Case was discussed with nursing staff,
specialists, and care coordinators/case management. All labs and imaging personally reviewed by me. Remainder the time spent in detailed review of previous records, lab data, imaging, and other medical provider documentation.
Original Note:
Today's Communication/Plan
-
-Follow BP/HR
Assessment / Plan
Assessment / Plan
Impression: 74-year-old male presented to the ER with fever of 101 at home took Motrin prior to coming in. has been having fever spikes since last day. Reported having chills last night but denied any new symptoms. Patient has fever spikes since
admission. He also reported chest pain after the admission and was seen by cardiology. Cardiology ordered echo and he was stated on beta-blockers, IV heparin and IV furosemide with a concern of acute heart failure and Non-ST segment elevated MT. He
was found bilateral lower 2+ pitting edema and was ordered bilateral lower Doppler US which did not show any DVT. He was obtained Echo on 09/10.
09/07/24 CXR: No acute cardiopulmonary process. Chronic obstructive pulmonary disease.
09/08/[address]: There is no pulmonary embolism. Severe centrilobular emphysema. Small right pleural effusion with compressive atelectasis at the right lung base. Minimal left pleural effusion. Large hepatic tumor. Pneumobilia
CT A/P on 09/09 -moderate elevation in right hemidiaphragm, small bilateral pleural effusions with adjacent atelectasis. Bullous changes in the both lower lungs. Status post reported seizure. Pneumobilia. Multiple hepatic metastatic lesions
increased send July 2024. Splenic metastatic disease increased. Right upper quadrant prominent air-fluid density. Delayed images awaited to make sure this is colon. Moderate subcutaneous edema. Focal lytic lesion medial iliac bone and L2
vertebra
PE study-no PE. Says severe centrilobular emphysema. Small right pleural effusion. Minimal left pleural effusion. Large hepatic tumor. Pneumobilia. Thyroid gland 2.5 cm mass in the left lobe
ECHO 09/10: Normal left ventricular size and wall thickness. Low normal to moderately reduced left ventricular systolic function. Moderate hypokinesis of the mid to distal anteroseptal, distal inferior, and distal inferoapical davis.LV ejection
fraction is 45-50% by visual estimate. Stage I diastolic dysfunction suggestive of abnormal relaxation.
BILATERAL LOWER EXTREMITY VENOUS DUPLEX on 09/10: No sonographic evidence for lower extremity venous thrombosis.
Assessment/Plan
# Elevated troponin
-Aspirin started after discussion with hematology oncology.
-Plan is to hold off on heparin drip.
-Echo:LV ejection fraction is 45-50% by visual estimate. Stage I diastolic dysfunction
-Troponin is trending down
-Cardiology evaluation appreciated: Intake and output is roughly 8 L positive over the last 3 days. proBNP is greater than 17,000,started furosemide 40 mg IV x 1 on 09/10, increased metoprolol
-Hemoglobin came back as 8.1 on 09/10. Benefits and risks of blood transfusion was discussed in detail. Patient is hesitant
-Patient initially did not want to take beta-blockers either. After I explained the rationale he agreed.
#Low BP
-Hold Lasix
-Hold metoprolol until SBP>90/60
-Continue IV
-Follow up I-O
# Fever With lactic acidosis
-Sepsis picture-present on admission- but no clear source of infection.
-Appreciate ID assessment: DC cefepime
-Leukocytosis could likely be secondary to Neulasta
-COVID serology negative
- Blood cultures: cx's neg to date / UA neg, no dysuria (Urinalysis 6-10 white counts-antibiotic should cover If UTI)
-Zofran as needed
-Infectious disease and hematology oncology following.
# Pancreatic adenocarcinoma
-initially diagnosed 03/28/2023 8 did not follow-up with hematology oncology until 06/03/2023. Then seen at [facility] by Underwent Mini Whipple surgery with perforation of stomach on 07/27/2023
-Start chemotherapy 6 months ago, 3 months ago found out about hepatic mets
-Now with biopsy proven hepatic metastasis
-Was on chemotherapy got it 2 weeks ago? FOLFIRINOX
# Hypomagnesemia
- Follow up and Replace
-M.6 on 09/11
# Emphysema-stable
# Enlarged thyroid with nodules. 2.5 cm mass in the left lobe. Family made aware. Needs ultrasound as outpatient
# Anemia likely secondary to malignancy/chemo-follow counts
# Thrombocytopenia
-Resolved
-PLT 233
# Hypoalbuminemia
# Ex-smoker
# DVT prophylaxis-Lovenox
# CODE STATUS-Full code
Anticipated Discharge: 24 - 48 hours
Subjective/Interval History
-
Date of Service: September 11, 2024
The patient reported that he is feels okay. He denied pain on chest or abdominal area. His NF reported low SBP and tachycardia which developed this morning.
Objective Data
-
Labs:
Laboratory Results
09/11/24
05:41
WBC Pending
Hgb Pending
Hct Pending
Plt Count Pending
Sodium Pending
Potassium Pending
Chloride Pending
Carbon Dioxide Pending
BUN Pending
Creatinine Pending
Glucose Pending
Calcium Pending
Total Bilirubin Pending
AST Pending
ALT Pending
Alkaline Phosphatase Pending
Vital Signs:
Vital Signs
Temp Pulse Resp BP Pulse Ox
97.3 F 69 16 107/58 96
09/11/24 02:47 09/11/24 02:47 09/11/24 02:47 09/11/24 02:47 09/11/24 04:43
I&O
09/09/24 09/10/24 09/11/24
06:59 06:59 06:59
Intake Total 4450 / 4450 2520 / 2520 1200 / 1200
Output Total 200 / 200 400 / 400 2175 / 2175
Balance 4250 / 4250 2120 / 2120 -975 / -975
Review of Systems
-
EENT: Reports No Symptoms Reported
Respiratory: Reports No Symptoms
Cardiac: Reports No Symptoms and Other
Abdomen/GI: Reports No Symptoms
Genitourinary: Reports No Symptoms
Musculoskeletal: Reports No Symptoms and Other (Generalized weakness)
Skin: Reports No Symptoms
Neuro: Reports No Symptoms
Physical Exam
-
General: Conversant and Appears Chronically Ill
HEENT: Normocephalic and Atraumatic
Respiratory: Clear to Auscultation
Cardiac: Regular Rhythm and S1/S2
GI: Soft and Nontender
Musculoskeletal: No Cyanosis, Edema, Right Lower Extrem and Edema, Left Lower Extrem
Skin: Warm
Neuro: Awake, Alert, Oriented and AO x 3
[2024-09-11 07:15] LABS: ALT (SGPT) 23 U/L (0-50); AST (SGOT) 22 U/L (17-59); Albumin 2.3 g/dl (3.5-5.0); Alkaline Phosphatase 233 U/L (38-126); Blood Urea Nitrogen 18 mg/dl (9-20); Calcium 7.7 mg/dl (8.4-10.2); Carbon Dioxide 18 mmol/L (22-30); Chloride 111 mmol/L (98-107); Estimated Creatinine Clearance 49 ml/min; Glucose 76 mg/dl (70-99); Potassium 3.7 mmol/L (3.5-5.1); Sodium 141 mmol/L (135-145); Total Bilirubin 0.8 mg/dl (0.2-1.3); Total Protein 4.8 g/dl (6.3-8.2); eGFR > 60.00
[2024-09-11 07:35] VITALS: BP 82/44
[2024-09-11 07:40] LABS: % Basophils 0.6 % (0-2); % Eosinophils 1.4 % (0-6); % Immature Granulocytes 2.9 % (0-0.5); % Lymphocytes 2.8 % (20.5-51.1); % Monocytes 5.6 % (1.7-9.3); % Neutrophils 86.7 % (42.2-75.2); Absolute Basophils 0.2 10^3/uL (0-0.2); Absolute Eosinophils 0.4 10^3/uL (0-0.7); Absolute Immature Granulocytes 0.8 10^3/uL (0-0.05); Absolute Lymphocytes 0.8 10^3/uL (1.2-3.4); Absolute Monocytes 1.6 10^3/uL (0.1-0.6); Absolute Neutrophils 23.9 10^3/uL (1.4-6.5); Hematocrit 25.6 % (39.0-52.0); Hemoglobin 8.1 g/dL (13.0-18.0); Mean Corp Hgb Conc. 31.6 g/dL (33.0-37.0); Mean Corpuscular Hgb 25.9 pg (27.0-31.0); Mean Corpuscular Volume 81.8 fL (80.0-94.0); Mean Platelet Volume 10.7 fL (7.4-10.4); Nucleated Red Blood Cells % 0 % (-); Platelet Count 223 10^3/uL (130-400); Red Blood Cell Count 3.13 10^6/uL (4.70-6.10); White Blood Cell Count 27.5 10^3/uL (4.8-10.8)
[2024-09-11 07:49] LABS: Magnesium 1.6 mg/dl (1.6-2.3)
[2024-09-11] MEDS: PROTONIX 40 MG PO (08:35)
[2024-09-11] MEDS: NEURONTIN 300 MG PO ×2 (08:35→19:48)
[2024-09-11] MEDS: ZENPEP DELAYED RELEASE CAPSULE 1 CAPSULE PO ×3 (08:35→16:56)
[2024-09-11] MEDS: ASPIR LOW (ENTERIC COATED) 81 MG PO (08:35)
[2024-09-11] MEDS: METAMUCIL, KONSYL 1 PACKET PO (08:35)
[2024-09-11] MEDS: VITAMIN D3 (cholecalciferol) 25 MCG PO (08:35)
[2024-09-11] MEDS: VISBIOME 1 CAP PO (08:35)
--- NOTE | 2024-09-11 11:23 | W.PN.CARDCBS ---
Addendum entered and electronically signed by Neil Salinas MD 09/11/24 15:14:
I saw and examined the patient.
The Men'S Designer's note was reviewed and I agree with the note.
Comment: Briefly, 74-year-old man past medical history of metastatic pancreatic cancer status post Whipple who presented with fever and nausea/vomiting found to have lactic acidosis (6.4).
Cardiology was consulted after troponin was found to be mildly elevated at 2.8 after patient reported chest burning. ECG around that time with nonspecific ST/T wave changes.
Subsequent transthoracic echocardiogram with mildly reduced left ventricular systolic function, EF 45 to 50%
Discussed with patient and , they are not planning to pursue further chemotherapy treatment. We discussed risk/benefits of invasive coronary angiography and agree that empiric medical therapy would be more appropriate at this time.
Given anemia and thrombocytopenia we are somewhat limited in his antiplatelet�platelet count 66 earlier this admission�plan to discharge on aspirin 81 mg daily
Start high intensity statin and beta-doug
Given his mildly reduced LVEF would ideally also be started on DAVINA inhibitor however his blood pressure is unlikely to tolerate this
Was receiving IV diuresis for acute heart failure with mildly reduced ejection fraction, okay to transition to oral Lasix from my perspective, plan for Lasix 20 mg daily as needed, I am hesitant to recommend standing diuretic given the risk for
dehydration with his nausea and vomiting and poor p.o. intake
We will sign off, please recall as needed
Outpatient follow-up to be arranged
Recommended cardiac meds on discharge:
Aspirin 81 mg daily
Toprol XL 12.5 mg daily
Atorvastatin 40 mg daily
Lasix 20 mg daily as needed for weight gain and edema
Original Note:
Today's Communication / Plan
-
med mgmt of NSTEMI with asa, statin
decrease toprol to 12.5mg daily and give when SBP>100
lasix 20mg po PRN for weight gain, SOB, worsening LE edema when SBP also >100
follow hgb
would not aggressively restrict fluid or salt
current plan for palliative care. will arrange OP follow up
Impression / Plan
-
PCP: Dr. Gunn
Cardiology: None prior to admission
Impression:
Admitted with fever 09/07/24
SIRS on admission
Leukocytosis s/p Neulasta
Lactic acidosis
Vomiting
NSTEMI
Pancreatic adenocarcinoma
s/p Mini Whipple surgery with perforation of stomach on 07/27/2023
Hepatic metastasis despite FOLFOX
Emphysema
Prior tobacco history
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
Thrombocytopenia
Echo 09/10/24: EF 45 to 50%, moderate hypokinesis of mid to distal anteroseptal, distal inferior, and distal inferoapical davis, stage I diastolic dysfunction, GLS -10.9%, mild MR, aortic sclerosis, mild TR, PAP 25 to 30 mmHg
Plan:
-Patient came to [facility] with fever and was admitted with SIRS. ID following
-he has metastatic pancreatic cancer to liver and bone. oncology following. patient has expressed he no longer wishes to continue chemotherapy.
-patient had chest pain after vomiting with ECG changes and trop up to 3. managing as NSTEMI, however not felt to be clinical laboratory assistant candidate given comorbid conditions including met cancer
-presently CP free
-New to aspirin 81 mg daily. Patient was not started on Plavix due to anemia. hgb 8.1. transfuse as needed
-LDL 28. lipitor 40mg QPM started 09/11
-New to Toprol XL 12.5 mg BID, however has not received any doses due to hypotension, will reduce to 12.5mg daily with hold parameters for DC
-patient not felt to be candidate for cardiac rehab
-pro-BNP [id number] without previous for comparison. Small B/L pleural effusions on CT abd/pelvis 09/09/24. Patient was not taking a diuretic prior to admission. Further diuresis presently limited by hypotension. would plan to DC on po lasix 20mg daily
PRN for weight gain of 2-3 pounds in 1 day or 5 pounds in 1 week or for worsening SOB/LE edema in setting of SBP>100. difficult scenario as unclear how much of edema is acute CHF and how much is cancer/third spacing.
-would not restrict fluid or salt heavily given reduced caloric intake in setting of metastatic cancer. could consider 4 gram sodium diet for DC.
-current plan for palliative care upon DC, however hospice would appear appropriate
-will arrange OP cardiac follow up
-d/w at bedside
Progress Note - Sustainable Landscape Architect
Subjective
Date of Service: September 11, 2024
No present chest pain. Reports no shortness of breath
Objective
Labs:
09/11/24 05:41
09/11/24 05:41
Labs
Hgb 8.1 g/dL (13.0-18.0) L 09/11/24 05:41
Hct 25.6 % (39.0-52.0) L 09/11/24 05:41
Plt Count 223 10^3/uL (130-400) D 09/11/24 05:41
PT 17.0 Sec (11.4-14.6) H 09/08/24 06:25
INR 1.40 09/08/24 06:25
APTT 42.5 Sec (23.4-35.0) H 09/08/24 06:25
Sodium 141 mmol/L (135-145) 09/11/24 05:41
Potassium 3.7 mmol/L (3.5-5.1) 09/11/24 05:41
BUN 18 mg/dl (9-20) 09/11/24 05:41
Creatinine 1.2 mg/dL (0.7-1.3) 09/11/24 05:41
Glucose 76 mg/dl (70-99) 09/11/24 05:41
Troponins
09/08/24 09/08/24 09/08/24
11:00 13:36 21:04
Troponin I Cancelled 1.240 H* 2.080 H* D
09/09/24 09/09/24 09/09/24
03:27 08:11 13:25
Troponin I 2.870 H* D 3.030 H* 2.670 H*
09/10/24
09:06
Troponin I 1.210 H*
Vital Signs and I&O:
Vital Signs
Temp Pulse Resp BP Pulse Ox
99.0 F 95 16 82/52 96
09/11/24 07:35 09/11/24 07:35 09/11/24 07:35 09/11/24 08:50 09/11/24 09:27
Vital Signs
Temp Pulse Resp BP Pulse Ox
99.0 F 95 16 82/52 96
09/11/24 07:35 09/11/24 07:35 09/11/24 07:35 09/11/24 08:50 09/11/24 09:27
Intake & Output
09/09/24 09/10/24 09/11/24 09/12/24
07:59 07:59 07:59 07:59
Intake Total 4450 / 4450 2520 / 2520 1200 / 1200
Output Total 200 / 200 400 / 400 2175 / 2175 200 / 200
Balance 4250 / 4250 2120 / 2120 -975 / -975 -200 / -200
Physical Exam
Physical Exam
GEN: No distress, awake, alert, oriented x3
HEENT: supple, anicteric, mmm, eomi
LUNGS: Few wheezes B/L bases
CV: Reg, S1/S2, no murmur
ABD: soft, BS+, NT/ND
EXT: No cyanosis, clubbing. 1+ edema of B/L LE
NEURO: Gross non-focal
SKIN: Warm, pink, dry. No rash. R chest port
--- NOTE | 2024-09-11 11:24 | W.PN.ID1 ---
Date of Service
Date of Service: September 11, 2024
Today's Communication
ID will sign off.
Assessment / Plan
#Tumor fever (especially in setting of hepatic mets)
#Leukocytosis, partially from recent pegfilgrastim, trending down
# Pancreatic CA with hepatic mets on chemo, last received 08/29.
-CT a/p shows progression of disease with increase in hepatic and splenic mets, and lytic lesions suspicious for bone mets
# thrombocytopenia - resolved
# COPD
- No infectious source identified.
blood cx's neg to date
UA neg, CXR neg.
CT chest no PE, no infiltrates
CT a/p, no abscess
COIVD/flu negative.
Observe off abx.
- Fever resolved on around the clock NSAID.
ID will sign off.
Chief Complaint
-: Fever and Leukocytosis
Subjective / Review of Systems
no new complaints.
Vital Signs / Physical Exam
Vital Signs
Vital Signs
Temp Pulse Resp BP Pulse Ox
99.0 F 95 16 82/52 96
09/11/24 07:35 09/11/24 07:35 09/11/24 07:35 09/11/24 08:50 09/11/24 09:27
Physical Exam
Constitutional: No Acute Distress and Comfortable
Eyes: No Conjunctival Hemorrhage and Sclera Anicteric
Cardiovascular: Regular Rate and S1/S2
Pulmonary: Other (right base crackles, left base decreased breath sounds)
Gastrointestinal: Soft, Non Tender, Non Distended and Normal Bowel Sounds
Genito-Urinary: Negative CVA Tenderness
Neurological: AO x 3
Objective Data
Lab Data
Lab Results
09/11/24 05:41
09/11/24 05:41
PT 17.0 Sec (11.4-14.6) H 09/08/24 06:25
INR 1.40 09/08/24 06:25
APTT 42.5 Sec (23.4-35.0) H 09/08/24 06:25
Estimated Creat Clear 49 ml/min 09/11/24 05:41
Lactic Acid 1.1 mmol/L (0.7-2.0) 09/09/24 03:27
Total Bilirubin 0.8 mg/dl (0.2-1.3) 09/11/24 05:41
AST 22 U/L (17-59) 09/11/24 05:41
ALT 23 U/L (0-50) 09/11/24 05:41
Alkaline Phosphatase 233 U/L (38-126) H 09/11/24 05:41
Most recent labs reviewed.
Micro Results:
09/07/24 13:43 Blood Culture - Preliminary
Blood/Venous No Growth in 72 hours- Final report to follow
09/07/24 12:41 Blood Culture - Preliminary
Blood/Venous No Growth in 72 hours- Final report to follow
09/08/24 03:36 Respiratory Culture - Final
Sputum Usual Respiratory Jeannine
Gram Stain - Final
09/07/24 19:23 MRSA Screen - Final
Nose No Methicillin Resistant Staphylococcus aureus isolated.
09/07/24 12:41 Influenza Types A & B (SARA) - Final
Nasal Swab Negative for Influenza A & B, NAAT
Negative results must be combined with clinical observations
and patient history.
Nucleic Acid Amplification test (NAAT)performed on the
[employer] platform.
09/07/24 CXR: No acute cardiopulmonary process. Chronic obstructive pulmonary disease.
09/08/[address]: There is no pulmonary embolism. Severe centrilobular emphysema. Small right pleural effusion with compressive atelectasis at the right lung base. Minimal left pleural effusion. Large hepatic tumor. Pneumobilia
09/09/24 CT a/p: Multiple hepatic metastatic lesions. Dominant hepatic metastatic lesion has increased in size since examination of August 02, 2024. Splenic metastatic disease, also increased from previous examination. Focal lytic lesion within
the medial left iliac bone. Small focal lytic lesion within the right side of the L2 vertebral body. These are likely bony metastatic lesions.
Care Review
Plan reviewed with: Physician (Dr. Easley)
[2024-09-11 11:44] VITALS: BP 101/59
--- NOTE | 2024-09-11 11:54 | W.PN.ONC ---
Today's Communication / Plan
-
Continue NSAIDs for tumor fever. Ibuprofen 200mg q6h seems to be helping.
He wants no further chemo. agrees.
Discussed hospice. /patient are not interested. states that she's praying and open to a miracle.
Discussed and recommended palliative care - /patient feel they don't need add'l support.
Will arrange f/u with Dr. Giraldo in next week or so, to continue Procrit as requested, and discuss further mgmt.
Okay for d/c
Impression
Impression
Fever unclear etiology, infectious w/u NTD, suspect tumor fever
metastatic pancreas cancer, last chemo 08/29 (gem/abraxane) and GCSF 08/30
leukocytosis, likely from GCSF + infection
RLE edema
Plan
Plan
Continue NSAIDs for tumor fever. Ibuprofen 200mg q6h seems to be helping.
He wants no further chemo. agrees.
Discussed hospice. /patient are not interested. states that she's praying and open to a miracle.
Discussed and recommended palliative care - /patient feel they don't need add'l support.
Will arrange f/u with Dr. Giraldo in next week or so, to continue Procrit as requested, and discuss further mgmt.
Okay for d/c
Subjective/Objective
Subjective/Objective
no new complaints, at bedside
Ibuprofen 200mg q6h is helping suppress tumor fevers
Vital Signs:
Vital Signs
Temp Pulse Resp BP Pulse Ox
98.1 F 81 16 101/59 95
09/11/24 11:44 09/11/24 11:44 09/11/24 11:44 09/11/24 11:44 09/11/24 11:44
Lab Results:
Laboratory Data
WBC 27.5 10^3/uL (4.8-10.8) H 09/11/24 05:41
Hgb 8.1 g/dL (13.0-18.0) L 09/11/24 05:41
Plt Count 223 10^3/uL (130-400) D 09/11/24 05:41
PT 17.0 Sec (11.4-14.6) H 09/08/24 06:25
INR 1.40 09/08/24 06:25
APTT 42.5 Sec (23.4-35.0) H 09/08/24 06:25
eGFR > 60.00 09/11/24 05:41
--- NOTE | 2024-09-11 13:49 | CM ---
Reviewed the chart notes and spoke with the patient and his spouse at the bedside. IMM reviewed. The patient declined VN services. Spouse is a nurse. CM continues to be available to patient/family and is monitoring medical plan for needs at
discharge.
Plan: Discharge to home when medically stable. No needs identified at this time.
--- NOTE | 2024-09-11 14:28 | PN.CDI ---
CDI
- -
CDI:
Physician Documentation Request
Admit Date: 09/07/24 16:22
Dear Doctor,
Please review the following and provide your response in the progress notes.
Clinical Indicators:
- 09/11 PN 'Acute heart failure due to fluid resuscitation'
- 09/10 Echo EF 45-50%
- proBNP 64129
- 40mg IV Lasix given x 1
Please provide further specificity regarding the most likely type of CHF you are evaluating, treating or monitoring.
Acute HFmrEF
Acute HFrEF
Other
Use of terms such as suspected, likely, concern for, or probable (associated with a specific diagnosis that is being evaluated, monitored, or treated as if it exists) are acceptable and can be coded in the inpatient setting, when documented at the
time of discharge.
Thank you,
Madeline Sotelo RN
CDI Specialist
Please use your independent medical judgment in providing your response.
[2024-09-11 15:00] VITALS: BP 101/59
[2024-09-11] MEDS: LIPITOR 40 MG PO (16:55)
[2024-09-11] MEDS: LOVENOX 40 MG SC (16:56)
[2024-09-11 19:19] VITALS: BP 136/73
[2024-09-11] MEDS: TYLENOL 650 MG PO (19:52)
[2024-09-11 23:12] VITALS: BP 99/61
[2024-09-12] MEDS: MOTRIN 200 MG PO ×4 (04:46→23:32)
--- NOTE | 2024-09-12 04:52 | DOWNTIME ---
There was a [employer] Downtime on 09/12/2024 from 0100 to 09/12/2024 at 0355. Downtime documentation of patient's care, including medication administrations, has been reconciled in the electronic record per guidelines. Refer to the
patient's paper chart under the miscellaneous tab to see printed paper medication records and downtime forms.
[2024-09-12 05:13] VITALS: BMI 21.1
[2024-09-12 06:31] LABS: % Basophils 0.4 % (0-2); % Eosinophils 1.6 % (0-6); % Immature Granulocytes 3.1 % (0-0.5); % Lymphocytes 3.6 % (20.5-51.1); % Monocytes 9.4 % (1.7-9.3); % Neutrophils 80.1 % (42.2-75.2); Absolute Basophils 0.1 10^3/uL (0-0.2); Absolute Eosinophils 0.3 10^3/uL (0-0.7); Absolute Immature Granulocytes 0.7 10^3/uL (0-0.05); Absolute Lymphocytes 0.8 10^3/uL (1.2-3.4); Absolute Monocytes 2.1 10^3/uL (0.1-0.6); Absolute Neutrophils 17.6 10^3/uL (1.4-6.5); Hematocrit 21.4 % (39.0-52.0); Hemoglobin 6.7 g/dL (13.0-18.0); Mean Corp Hgb Conc. 31.3 g/dL (33.0-37.0); Mean Corpuscular Hgb 25.6 pg (27.0-31.0); Mean Corpuscular Volume 81.7 fL (80.0-94.0); Mean Platelet Volume 10.2 fL (7.4-10.4); Nucleated Red Blood Cells % 0 % (-); Platelet Count 247 10^3/uL (130-400); Red Blood Cell Count 2.62 10^6/uL (4.70-6.10)
[2024-09-12 06:37] LABS: ALT (SGPT) 26 U/L (0-50); AST (SGOT) 37 U/L (17-59); Albumin 1.9 g/dl (3.5-5.0); Alkaline Phosphatase 226 U/L (38-126); Blood Urea Nitrogen 18 mg/dl (9-20); Calcium 7.3 mg/dl (8.4-10.2); Carbon Dioxide 20 mmol/L (22-30); Chloride 111 mmol/L (98-107); Estimated Creatinine Clearance 50 ml/min; Glucose 114 mg/dl (70-99); Sodium 140 mmol/L (135-145); Total Bilirubin 0.4 mg/dl (0.2-1.3); Total Protein 4.2 g/dl (6.3-8.2); eGFR > 60.00
--- NOTE | 2024-09-12 07:09 | W.PN.HOSP.TC ---
Addendum entered and electronically signed by Ezra Easley MD 09/12/24 12:27:
I saw and evaluated the patient. I reviewed the resident�s note and agree with findings and plan as documented in the resident�s note.
Denies chest pain, abdominal pain. State's SOB is at baseline.
Gen: NAD, AAOx3.
Eyes: EOMI, PERRLA, no scleral icterus.
Neck: supple.
CV: RRR, +S1/S2, no m/r/g.
Resp: CTAB anteriorly, no rales, wheezes, or rhonchi.
Abd: continues to remain +BS, soft, NT, ND
Skin: No rashes.
Neuro: CN 2-12 intact, non-focal.
Psych: Normal mood and affect.
09/07/24 13:43 Blood/Venous Blood Culture - Preliminary
No Growth in 4 days- Final report to follow
09/07/24 12:41 Blood/Venous Blood Culture - Preliminary
No Growth in 4 days- Final report to follow
09/08/24 03:36 Sputum Respiratory Culture - Final
Usual Respiratory Jeannine
09/08/24 03:36 Sputum Gram Stain - Final
09/07/24 19:23 Nose MRSA Screen - Final
No Methicillin Resistant Staphylococcus aureus isolated.
09/07/24 12:41 Nasal Swab Influenza Types A & B (SARA) - Final
Negative for Influenza A & B, NAAT
Negative results must be combined with clinical observations
and patient history.
Nucleic Acid Amplification test (NAAT)performed on the
[employer] platform.
CT A/P-moderate elevation in right hemidiaphragm, small bilateral pleural effusions with adjacent atelectasis. Bullous changes in the both lower lungs. Status post reported seizure. Pneumobilia. Multiple hepatic metastatic lesions increased send
July 2024. Splenic metastatic disease increased. Right upper quadrant prominent air-fluid density. Delayed images awaited to make sure this is colon. Moderate subcutaneous edema. Focal lytic lesion medial iliac bone and L2 vertebra
CTA chest: no PE. Severe centrilobular emphysema. Small right pleural effusion. Minimal left pleural effusion. Large hepatic tumor. Pneumobilia. Thyroid gland 2.5 cm mass in the left lobe.
Echo: Normal left ventricular size and wall thickness. Low normal to moderately
reduced left ventricular systolic function. Moderate hypokinesis of the mid to
distal anteroseptal, distal inferior, and distal inferoapical davis.. LV
ejection fraction is 45-50% by visual estimate. Stage I diastolic dysfunction
suggestive of abnormal relaxation. Global longitudinal strain -10.9%.
Normal right ventricular size and function.
Mild mitral regurgitation.
Aortic sclerosis without stenosis.
Mild tricuspid regurgitation. Estimated pulmonary artery pressure of 25-30
mmHg. Assuming a right atrial pressure of 3 mmHg.
No prior study available for comparison.
Acute NSTEMI
Acute heart failure due to fluid resuscitation
-ASA started
-cards following, no need for heparin gtt at this time
-Echo above, notable for EF 45-50%, moderate hypokinesis of the mid to distal anteroseptal, distal inferior, and distal inferoapical davis. G1DD. Mild MR/TR.
-cont BB with holding parameters
Sepsis secondary to PNA:
-Fever, tachycardia, leukocytosis, lactic acidosis
-Leukocytosis could likely be secondary to Neulasta
-COVID/Flu NEG
-all Cx data NEG to date
-empiric Cefepime stopped 09/10/24
-cont standing ibuprofen (he will need weekly BMP after discharge if he remains on standing NSAID). cont PPI for GI proph.
-CXR 09/12/24 with mild new interstitial airspace disease of the left lung base and mild- moderate worsening interstitial airspace disease of the right lung base suggesting bilateral pneumonia with small right pleural effusion
-case discussed with pulm and ID. Restarting broad spectrum abx.
-I suspect that based on these chest x-ray findings that sepsis was present on admission and due to pneumonia that was not visualized at that time.
Pancreatic adenocarcinoma:
-initially diagnosed 03/28/2023, pt did not follow-up with oncology until 06/03/23
-s/p Mini Whipple surgery with perforation of stomach on 07/27/23
-started chemotherapy 6 months ago, 3 months ago found to have hepatic mets (Bx proven)
-recent chemo approx 2 weeks [employer]
Hypomagnesemia, resolved
Emphysema, not in acute exac
Enlarged thyroid with nodules. 2.5 cm mass in the left lobe. Family made aware. Needs ultrasound as outpatient
Anemia, likely secondary to malignancy/chemo, follow counts
Thrombocytopenia, likely secondary to chemo
Case discussed with oncology and infectious disease.
Total time spent on today's encounter was 52 minutes which included time spent in counseling the patient/family regarding diagnosis and treatment plan as listed above, goals of care, and symptom management. Case was discussed with nursing staff,
specialists, and care coordinators/case management. All labs and imaging personally reviewed by me. Remainder the time spent in detailed review of previous records, lab data, imaging, and other medical provider documentation.
Original Note:
Today's Communication/Plan
-
-Follow up Hgb
-Chest X ray ordered
Assessment / Plan
Assessment / Plan
Impression: 74-year-old male presented to the ER with fever of 101 at home took Motrin prior to coming in. has been having fever spikes since last day. Reported having chills last night but denied any new symptoms. Patient has fever spikes since
admission. He also reported chest pain after the admission and was seen by cardiology. Cardiology ordered echo and he was stated on beta-blockers, IV heparin and IV furosemide with a concern of acute heart failure and Non-ST segment elevated OR. He
was found bilateral lower 2+ pitting edema and was ordered bilateral lower Doppler US which did not show any DVT. He was obtained Echo on 09/10. Cardio saw the patient on 09/11 and discussed with the patient risk/benefits of invasive coronary
angiography and patient agreed that empiric medical therapy would be more appropriate at this time. Given anemia and thrombocytopenia (plt:66) earlier this admission�planned to discharge on aspirin 81 mg daily. On 09/12, the Hgb level of the
patient resulted as 6.7 and another lab was resent. The patient was discussed for a possible RBC transfusion and he stated he will think about it.
09/07/24 CXR: No acute cardiopulmonary process. Chronic obstructive pulmonary disease.
09/08/[address]: There is no pulmonary embolism. Severe centrilobular emphysema. Small right pleural effusion with compressive atelectasis at the right lung base. Minimal left pleural effusion. Large hepatic tumor. Pneumobilia
CT A/P on 09/09 -moderate elevation in right hemidiaphragm, small bilateral pleural effusions with adjacent atelectasis. Bullous changes in the both lower lungs. Status post reported seizure. Pneumobilia. Multiple hepatic metastatic lesions
increased send July 2024. Splenic metastatic disease increased. Right upper quadrant prominent air-fluid density. Delayed images awaited to make sure this is colon. Moderate subcutaneous edema. Focal lytic lesion medial iliac bone and L2
vertebra
PE study-no PE. Says severe centrilobular emphysema. Small right pleural effusion. Minimal left pleural effusion. Large hepatic tumor. Pneumobilia. Thyroid gland 2.5 cm mass in the left lobe
ECHO 09/10: Normal left ventricular size and wall thickness. Low normal to moderately reduced left ventricular systolic function. Moderate hypokinesis of the mid to distal anteroseptal, distal inferior, and distal inferoapical davis.LV ejection
fraction is 45-50% by visual estimate. Stage I diastolic dysfunction suggestive of abnormal relaxation.
BILATERAL LOWER EXTREMITY VENOUS DUPLEX on 09/10: No sonographic evidence for lower extremity venous thrombosis.
Assessment/Plan
# Elevated troponin
-Aspirin started after discussion with hematology oncology.
-Plan is to hold off on heparin drip.
-Echo:LV ejection fraction is 45-50% by visual estimate. Stage I diastolic dysfunction
-Troponin is trending down
-Cardiology follow up and discharge recc appreciated:
Aspirin 81 mg daily
Toprol XL 12.5 mg daily
Atorvastatin 40 mg daily
Lasix 20 mg daily as needed for weight gain and edema
-Hemoglobin came back as 6.7 on 09/12. Benefits and risks of blood transfusion was discussed in detail. Patient is hesitant and will think about it.
# Anemia likely secondary to malignancy/chemo-follow counts
-Hgb on 09/12: 6.7 dropped from 81.
-Occult blood was ordered
-Patient denies stool color change/ vomiting/ sputum with blood
-Transfusion of RBC was discussed and another lab was ordered
#SOB due HF vs Atelectasis vs PNA
-The patient reported having SOB this morning
-Chest X ray ordered
-WBC trending down but still high at 22.0
-Diastolic Stage 1 HF
-Chest CT: 09/09/24:Small bilateral pleural effusions with adjacent atelectasis
#Low BP
-Hold Lasix
-Hold metoprolol until SBP>90/60
-Continue IV
-Follow up I-O
# Fever With lactic acidosis
-Sepsis picture-present on admission- but no clear source of infection.
-Appreciate ID assessment: DC cefepime
-Leukocytosis could likely be secondary to Neulasta
-COVID serology negative
- Blood cultures: cx's neg to date / UA neg, no dysuria (Urinalysis 6-10 white counts-antibiotic should cover If UTI)
-Infectious disease signed off: Tumor fever (especially in setting of hepatic mets)
# Pancreatic adenocarcinoma
-initially diagnosed 03/28/2023 8 did not follow-up with hematology oncology until 06/03/2023. Then seen at [facility] by Underwent Mini Whipple surgery with perforation of stomach on 07/27/2023
-Start chemotherapy 6 months ago, 3 months ago found out about hepatic mets
-Now with biopsy proven hepatic metastasis
-Was on chemotherapy got it 2 weeks ago? FOLFIRINOX
-Patient does not want further chemo. agrees.
-Discussed hospice. /patient are not interested
# Hypomagnesemia
-Follow up
-M.6 on 09/11
# Emphysema-stable
# Enlarged thyroid with nodules. 2.5 cm mass in the left lobe. Family made aware. Needs ultrasound as outpatient
# Thrombocytopenia
-Resolved
-PLT 247 on 09/12/24
# Hypoalbuminemia
# Ex-smoker
# DVT prophylaxis-Lovenox
# CODE STATUS-Full code
Anticipated Discharge: 24 - 48 hours
Subjective/Interval History
-
Date of Service: September 12, 2024
The patient reported some SOB which he started to feel this morning. His Hgb resulted as 6.7 which dropped from 8.1 since yesterday. A repeat test ordered. Patient denies any bleeding form rectal area and any color change with stool. He denies
abdominal pain, chest pain and feeling dizziness.
Objective Data
-
Labs:
Laboratory Results
09/12/24
05:38
WBC 22.0 H
Hgb 6.7 L*
Hct 21.4 L
Plt Count 247
Sodium 140
Potassium 4.0
Chloride 111 H
Carbon Dioxide 20 L
BUN 18
Creatinine 1.2
Glucose 114 H
Calcium 7.3 L
Total Bilirubin 0.4
AST 37
ALT 26
Alkaline Phosphatase 226 H
Vital Signs:
Vital Signs
Temp Pulse Resp BP Pulse Ox
100.0 F 99 16 99/61 94
09/11/24 23:12 09/11/24 23:12 09/11/24 23:12 09/11/24 23:12 09/11/24 23:12
I&O
09/11/24 09/12/24 09/13/24
06:59 06:59 06:59
Intake Total 1200 / 1200 960 / 960
Output Total 2175 / 2175 425 / 425
Balance -975 / -975 535 / 535
Review of Systems
-
EENT: Reports No Symptoms Reported
Respiratory: Reports Other (SOB )
Cardiac: Reports No Symptoms
Abdomen/GI: Reports No Symptoms
Genitourinary: Reports No Symptoms
Musculoskeletal: Reports Other (Generalized weakness)
Skin: Reports No Symptoms
Neuro: Reports No Symptoms
Physical Exam
-
General: No Apparent Distress, Conversant and Appears Chronically Ill
HEENT: Normocephalic and Atraumatic
Respiratory: Rales (On the right lung basal area )
Cardiac: Regular Rhythm and S1/S2
GI: Soft and Nontender
Musculoskeletal: Edema, Right Lower Extrem and Edema, Left Lower Extrem
Skin: Warm
Neuro: Awake, Alert, Oriented and AO x 3
Psych: Calm
--- NOTE | 2024-09-12 07:33 | W.PN.ONC2 ---
Today's Communication / Plan
-
Nothing further to do in hospital.
Reviewed that hospice appropriate as he is not wanting further chemo. Says 'that is what people do who are dying'. He is hopeful for a miracle.
Says 'I have a lot to think about.'
Support given.
D/C Home approved per my speciality.
Impression
Impression
Fever unclear etiology, infectious w/u NTD, suspect tumor fever
metastatic pancreas cancer, last chemo 08/29 (gem/abraxane) and GCSF 08/30
leukocytosis, likely from GCSF + infection
RLE edema
Plan
Plan
Continue NSAIDs for tumor fever. Ibuprofen 200mg q6h seems to be helping.
He wants no further chemo. agrees.
Discussed hospice. /patient are not interested. states that she's praying and open to a miracle.
Discussed and recommended palliative care - /patient feel they don't need add'l support.
Will arrange f/u with Dr. Giraldo in next week or so, to continue Procrit as requested, and discuss further mgmt.
Okay for d/c
Subjective/Objective
Chief Complaint
ACS Heme Onc
Subjective
Says he does not want any more chemotherapy. Says it is 'killing him.'
Vital Signs:
Vital Signs
Temp Pulse Resp BP Pulse Ox
100.0 F 99 16 99/61 94
09/11/24 23:12 09/11/24 23:12 09/11/24 23:12 09/11/24 23:12 09/11/24 23:12
Lab Results:
Laboratory Data
WBC 22.0 10^3/uL (4.8-10.8) H 09/12/24 05:38
Hgb 6.7 g/dL (13.0-18.0) L* 09/12/24 05:38
Plt Count 247 10^3/uL (130-400) 09/12/24 05:38
PT 17.0 Sec (11.4-14.6) H 09/08/24 06:25
INR 1.40 09/08/24 06:25
APTT 42.5 Sec (23.4-35.0) H 09/08/24 06:25
eGFR > 60.00 09/12/24 05:38
Physical Exam
Cardiology: S1 and S2
Pulmonary: Rhonchi and Other (pulmonary gurgling)
[2024-09-12 07:35] VITALS: BP 114/74
[2024-09-12] MEDS: METAMUCIL, KONSYL 1 PACKET PO (08:35)
[2024-09-12] MEDS: VISBIOME 1 CAP PO (08:36)
[2024-09-12] MEDS: NEURONTIN 300 MG PO ×2 (08:36→21:27)
[2024-09-12] MEDS: ASPIR LOW (ENTERIC COATED) 81 MG PO (08:36)
[2024-09-12] MEDS: ZENPEP DELAYED RELEASE CAPSULE 1 CAPSULE PO ×2 (08:36→17:16)
[2024-09-12] MEDS: TOPROL XL 12.5 MG PO (08:36)
[2024-09-12] MEDS: PROTONIX 40 MG PO (08:37)
[2024-09-12] MEDS: VITAMIN D3 (cholecalciferol) 25 MCG PO (08:37)
--- NOTE | 2024-09-12 11:02 | VATNOTE ---
After blood draw, port flushed with 500 units in 5 mL heparin per protocol. Unable to scan.
[2024-09-12 11:06] LABS: Magnesium 1.7 mg/dl (1.6-2.3)
[2024-09-12 11:10] LABS: Hematocrit 24.5 % (39.0-52.0); Hemoglobin 7.8 g/dL (13.0-18.0)
[2024-09-12 11:30] VITALS: BP 110/64
[2024-09-12] MEDS: ZENPEP DELAYED RELEASE CAPSULE PO (12:00)
--- NOTE | 2024-09-12 12:05 | W.DCSUMMARY ---
Discharge Summary
Discharge Data
Date of Admission: 09/07/24
Date of Discharge: 09/15/24
-
Pending Results: No
Additional Pending Results:
Discharging Physician : Ezra Easley MD
Disposition : Home
Primary care physician : Alex Gunn MD
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
Hospital Course : The patient is a 74-year-old male with a PMH of pancreatic adenocarcinoma, GERD, CKD, and keratoacanthoma s/p excision who presents with fevers, generalized weakness and cough. Patient has been on chemotherapy for pancreatic
cancer and last taking was about 2 weeks ago through his port. He had a fever at home to 101.8 �F and started to feel weakness and presented to ER on 09/07/24. In the ER he was afebrile to 98.6 �F, tachycardic to 125, breathing at 18 breaths
minute, hypotensive to 88/55 and saturating 97% on room air. Labs showed leukocytosis to 34.5, anemia to 8.9, thrombocytopenia to 71, mild hyponatremia to 134, low serum bicarbonate level of 20, lactate 4.5, ALP 215, albumin level 2.7, urinalysis
negative for UTI and COVID antigen came negative.He was initially given 2 L NS 0.9% in the ER in addition to Zosyn/vancomycin, and admitted to the hospitalist service for further care. Flu A/B swab was negative, and blood cultures resulted
negative. Initial CXR showed no acute cardiopulmonary process. ID recommended to discontinue antibiotic treatment. Oncology was also consulted and there was concern for tumor fever, and ibuprofen 200 mg every 6 hours was started to help reduce his
febrile syndrome. The patient developed bilateral lower extremity edema and Lower extremity duplex was performed on 09/10/2024 which was negative for DVT. He did develop burning chest pain and found to have an elevated troponin and cardiology was
consulted. Cardio saw the patient on 09/11 and discussed with the patient risk/benefits of invasive coronary angiography and patient agreed that empiric medical therapy would be more appropriate at this time. Given anemia and thrombocytopenia
(plt:[id number]) earlier this admission�planned to discharge on aspirin 81 mg daily. On 09/12, the Hgb level of the patient resulted as 6.7 and another lab was resent. The patient was discussed for a possible RBC transfusion and he stated he will think
about it. The repeated test for Hgb resulted as 7.8 on 09/12. On 09/12, The patient reported some worsening SOB on 09/12 and CXR was obtained which showed: worsening interstitial airspace disease of the right lung base suggesting bilateral
pneumonia with small right pleural effusion. Pulmonology and ID was consulted on 09/12. He was started on antibiotic with cefepime and Doxycycline due his new onset PNA. On 09.13 The patient reported having sore throat and had a temp of 100.8.
Ordered COVID19 ag test, rapid srep screen, throat cx, and bcx by ID. The patient had a follow up visit on 09/15 by ED with a recommendation to continue antibiotic treatment transitioning to levofloxacin 750mg po daily through 09/18/24. On
09/15/24, Patient`s hgb result came back 7.5 and he is not willing a RBC transfusion at this point. He is not interested in hospice/palliative care and willing to be discharged to home.
Important imaging findings :
09/07/24 Chest XR
FINDINGS:
Right Port-A-Cath with the catheter tip at the cavoatrial junction. The lungs are symmetrically hyperinflated. Subsegmental atelectasis versus scarring in the right lung base. Mild elevation of the right hemidiaphragm. No pleural effusion or
pneumothorax. The cardiomediastinal silhouette is normal. Chronic degenerative changes of the spine.
IMPRESSION:
No acute cardiopulmonary process. Chronic obstructive pulmonary disease.
Abd XR 09/08
IMPRESSION:
Nonspecific bowel gas pattern without evidence of obstruction or perforation
Small right pleural effusion
09/08/24 Chest XR
IMPRESSION:
Moderate emphysema
Minimal new right pleural effusion
09/08/[address]
IMPRESSION:
There is no pulmonary embolism
Severe centrilobular emphysema
Small right pleural effusion with compressive atelectasis at the right lung base
Minimal left pleural effusion
Large hepatic tumor
Pneumobilia
The thyroid gland is enlarged with 2.5 cm low-density mass in the left lobe of the thyroid which, if clinically indicated, could be best further evaluated and followed with thyroid ultrasound .
Abd CT 09/09/24
IMPRESSION: Moderate elevation right hemidiaphragm, stable.
Small bilateral pleural effusions with adjacent atelectasis. Bullous changes in both lower lungs.
Status post Whipple procedure. Pneumobilia is present.
Multiple hepatic metastatic lesions. Dominant hepatic metastatic lesion has increased in size since examination of August 02, 2024.
Splenic metastatic disease, also increased from previous examination.
In the right upper quadrant, there is prominent air and fluid density off the anterior margin of the liver, most likely within the right colon. I have asked for additional delayed images of the abdomen with attention to the right upper quadrant,
where hopefully GI luminal contrast agent reached the colon in the right upper quadrant, for better evaluation.
Normal appearance of the appendix.
Moderate subcutaneous edema, increased from examination of August 02, 2024.
Focal lytic lesion within the medial left iliac bone. Small focal lytic lesion within the right side of the L2 vertebral body. These are likely bony metastatic lesions.
US Periph Venous LOWER Ext Esteban 09/10/24
IMPRESSION:
No sonographic evidence for lower extremity venous thrombosis.
09/12/24 Chest XR
IMPRESSION:
There is mild new interstitial airspace disease of the left lung base and mild- moderate worsening interstitial airspace disease of the right lung base suggesting bilateral pneumonia with small right pleural effusion
Discharge Plan
-
Patient Disposition: Home (Routine Discharge)
Discharge Diagnosis/Procedures: Metastatic Pancreatic adenocarcinoma
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
Tumor fever
Leukocytosis (likely from pegfilgrastim)
Chronic Kidney Disease
Hyponatremia
Thyroid nodules
Emphysema
Diet: Regular
Activity: No restrictions and As tolerated
Driving Restrictions: As prior to admission
Bathing Restrictions: None
Specialty Instructions: Weigh Daily- Call MD for wt gain/loss 3 lbs overnight/5 lbs in 1 week
Activity Restrictions/Additional Instructions:
BMP and CBC in 1 week, script from PCP
Referrals:
Alex Gunn MD [Family Provider] -
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
Enlarged thyroid with nodules. 2.5 cm mass in the left lobe. Family made aware. Needs ultrasound as outpatient
Needs CBP and CMP repeat in 2-3 days upon discharge. )
José Crystal MD [Active] - in three to four weeks (full PFTs on day of office visit)
Casandra Zavala PA-C [Specified Professional Personl] - 09/28/24 1:40 pm (You have a cardiology follow up appointment at the [place] office. Please call with questions. )
Additional Discharge Medication Instructions: Take lasix 20mg once daily as needed for 3 pound weight gain in 24 hours or 5 pound weight gain in 1 week.
Take toprol 12.5mg daily so long as systolic blood pressure greater than 100.
Prescriptions:
New
aspirin 81 mg Tablet,Delayed Release (Dr/Ec)
81 mg PO DAILY 30 Days Qty: 30 0RF
atorvastatin 40 mg Tablet
40 mg PO QPM 30 Days Qty: 30 0RF
metoprolol succinate 25 mg Tablet Extended Release 24 Hr
12.5 mg PO DAILY 30 Days Qty: 15 0RF
ipratropium-albuterol 0.5 mg-3 mg(2.5 mg base)/3 mL Solution For Nebulization
3 ml inhalation R TID 20 Days Qty: 60 0RF
furosemide 20 mg Tablet
20 mg PO DAILY PRN (Reason: EDEMA) 30 Days Qty: 30 0RF
levofloxacin 750 mg tablet
750 mg PO DAILY MDD 750 mg Qty: 4 0RF
Continued
Creon 24,000-76,000 -120,000 unit Capsule,Delayed Release(Dr/Ec)
1 cap PO AC
Probiotic 5 billion cell Capsule, Sprinkle
1 cap PO DAILY
pantoprazole [Protonix] 40 mg Tablet,Delayed Release (Dr/Ec)
40 mg PO DAILY
ibuprofen [Advil] 200 mg Tablet
200 mg PO Q6HPRN PRN (Reason: headache)
Metamucil Packet
1 packet PO DAILY
gabapentin 300 mg Capsule
300 mg PO BID
cholecalciferol (vitamin D3) [Vitamin D3] 25 mcg (1,000 unit) Tablet
25 mcg PO DAILY
Glucosamine Chondroitin 550-30-1 mg Capsule
1 cap PO DAILYPRN PRN (Reason: supplement)
Discharge Date and Time
Print Language: ALGERIAN
--- NOTE | 2024-09-12 12:34 | PHA.VAN.IN ---
Assessment
- Assessment
Renal Function: Appears similar to baseline
Concomitant Antimicrobials: piperacillin/tazobactam
AUC Dosing Plan
- Dosing Variables
Dosing Weight (kg): 65
Dosing CrCl (ml/min): 50
Vd coefficient (L/kg): 0.7
- Empiric Dosing
Maintenance Regimen: Vanc 1000mg Q24H - first dose now then 0600 in lieu of loading dose
Estimated AUC (mcg*h/mL): 490
Estimated Peak (mcg*h/mL): 32.9
Estimated Trough (mcg/ml): 11.5
Estimated Half Life (H): 15.1
- Monitoring
No levels ordered at this time: consider levels in next few days
MRSA Screen: Ordered per protocol
Pharmacokinetics Vancomycin I
- -
Patient Age: 74
Patient Sex: Male
Vancomycin Day #: 1
Indication: Pulmonary/Respiratory
Requesting Provider: Dr. Simeon (resident)
Pertinent Antimicrobial Allergies:
NKDA
Height / Weight:
Height 5 ft 9 in
Actual Weight 64.773 kg
Pertinent Past Medical History: Metastatic pancreatic cancer
- Vital Signs / Lab Results
Temp Pulse Resp BP Pulse Ox
98.3 F 93 18 110/64 95
09/12/24 11:30 09/12/24 11:30 09/12/24 11:30 09/12/24 11:30 09/12/24 11:30
Lab Results - Hematology
09/10/24 09/11/24 09/12/24
08:10 05:41 05:38
WBC 34.2 H 27.5 H 22.0 H
Lab Results - Chemistry
09/10/24 09/11/24 09/12/24
08:10 05:41 05:38
BUN 17 18 18
Creatinine 1.1 1.2 1.2
Estimated Creat Clear 50 49 50
Albumin 2.3 L 1.9 L
Microbiology Results
09/07/24 13:43 Blood Culture - Preliminary
Blood/Venous No Growth in 4 days- Final report to follow
09/07/24 12:41 Blood Culture - Preliminary
Blood/Venous No Growth in 4 days- Final report to follow
09/08/24 03:36 Respiratory Culture - Final
Sputum Usual Respiratory Jeannine
Gram Stain - Final
--- NOTE | 2024-09-12 12:40 | W.PN.ID1 ---
Addendum entered and electronically signed by Annia Johnson MD 09/12/24 14:23:
IV team requesting if procalcitonin can be drawn in am. OK to draw in am.
In the meantime will add cefepime to doxy pending procal.
Original Note:
Date of Service
Date of Service: September 12, 2024
Today's Communication
See below.
Assessment / Plan
# Pancreatic CA with hepatic mets on chemo, last received 08/29.
-CT a/p shows progression of disease with increase in hepatic and splenic mets, and lytic lesions suspicious for bone mets
- Pt no longer wants further tx.
-Declined hospice and palliative care, per Hem/Onc.
#Tumor fever (especially in setting of hepatic mets)
-Fever resolved on around the clock NSAID.
-Infectious disease work-up negative.
#Leukocytosis, partially from recent pegfilgrastim
-Continues to trend down
# Worsening right base interstitial airspace infiltrates with small pleural effusion and new mild left base interstitial infiltrate. Previous chest CT also with minimal left pl effusion.
- Interstitial edema vs PNA.
EF 45 to 50%, BNP >39622, s/p Furosemide X1 on 09/10/24 as per Cardiology.
Pt reports cough has improved, WBC trending down; both whild off abx.
- Check procalcitonin. If neg, helpful in ruling out bacterial PNA. If positive, not specific test especially in setting of metastatic cancer with false positivity.
- Start empiric doxycycline for now pending procalcitonin result.
-DC Vanco and Zosyn.
# COPD
Chief Complaint
-: Fever and Leukocytosis
Subjective / Review of Systems
Reconsulted for CXR findings.
Today, pt reports chronic cough is better.
Per he had episode of increased work in breathing this am, which resolved.
No further fevers or chills on since being on round the clock ibuprofen.
Vital Signs / Physical Exam
Vital Signs
Vital Signs
Temp Pulse Resp BP Pulse Ox
98.3 F 93 18 110/64 95
09/12/24 11:30 09/12/24 11:30 09/12/24 11:30 09/12/24 11:30 09/12/24 11:30
Physical Exam
Constitutional: Comfortable
Eyes: No Conjunctival Hemorrhage and Sclera Anicteric
Cardiovascular: Regular Rate and S1/S2
Pulmonary: Coarse (mild crackles right base)
Gastrointestinal: Soft, Non Tender and Non Distended
Extremities: Edema (trace ankle edema bilaterally)
Neurological: AO x 3
Lines: Port (no erythema)
Objective Data
Lab Data
Lab Results
09/12/24 10:58
09/12/24 05:38
PT 17.0 Sec (11.4-14.6) H 09/08/24 06:25
INR 1.40 09/08/24 06:25
APTT 42.5 Sec (23.4-35.0) H 09/08/24 06:25
Estimated Creat Clear 50 ml/min 09/12/24 05:38
Lactic Acid 1.1 mmol/L (0.7-2.0) 09/09/24 03:27
Total Bilirubin 0.4 mg/dl (0.2-1.3) 09/12/24 05:38
AST 37 U/L (17-59) 09/12/24 05:38
ALT 26 U/L (0-50) 09/12/24 05:38
Alkaline Phosphatase 226 U/L (38-126) H 09/12/24 05:38
Most recent labs reviewed.
Micro Results:
09/07/24 13:43 Blood Culture - Preliminary
Blood/Venous No Growth in 4 days- Final report to follow
09/07/24 12:41 Blood Culture - Preliminary
Blood/Venous No Growth in 4 days- Final report to follow
09/08/24 03:36 Respiratory Culture - Final
Sputum Usual Respiratory Jeannine
Gram Stain - Final
09/07/24 19:23 MRSA Screen - Final
Nose No Methicillin Resistant Staphylococcus aureus isolated.
09/07/24 12:41 Influenza Types A & B (SARA) - Final
Nasal Swab Negative for Influenza A & B, NAAT
Negative results must be combined with clinical observations
and patient history.
Nucleic Acid Amplification test (NAAT)performed on the
[employer] platform.
09/07/24 CXR: No acute cardiopulmonary process. Chronic obstructive pulmonary disease.
09/08/[address]: There is no pulmonary embolism. Severe centrilobular emphysema. Small right pleural effusion with compressive atelectasis at the right lung base. Minimal left pleural effusion. Large hepatic tumor. Pneumobilia
09/09/24 CT a/p: Multiple hepatic metastatic lesions. Dominant hepatic metastatic lesion has increased in size since examination of August 02, 2024. Splenic metastatic disease, also increased from previous examination. Focal lytic lesion within
the medial left iliac bone. Small focal lytic lesion within the right side of the L2 vertebral body. These are likely bony metastatic lesions.
09/10/24 CXR: There is mild new interstitial airspace disease of the left lung base and mild- moderate worsening interstitial airspace disease of the right lung base suggesting bilateral pneumonia with small right pleural effusion
Care Review
Plan reviewed with: Physician (Dr. Easley)
--- NOTE | 2024-09-12 12:44 | CM ---
Reviewed the chart notes. The patient declined VN services. Spouse is a nurse. CM continues to be available to patient/family and is monitoring medical plan for needs at discharge.
Plan: Discharge to home when medically stable. No needs identified at this time.
[2024-09-12] MEDS: VIBRAMYCIN 100 MG PO ×2 (13:14→21:27)
--- NOTE | 2024-09-12 13:47 | CON.PUL ---
Consultation
Consultation Request
Date/Time Consultation Requested: 09/12/2024 - 1219
Date/Time Consultation Performed: 09/12/2024 - 2
Requesting Provider: Dr. Simeon
Performing Provider: Dr. Crystal
Reason for Consultation: Bilateral pneumonia
Medical History
-
Chief Complaint: Fever, generalized weakness and cough
History of Present Illness:
74-year-old male with a past medical history of pancreatic cancer, GERD and keratoacanthoma s/p excision who presents with fevers, generalized weakness and cough. Patient currently is on chemotherapy for pancreatic cancer. He had a fever at home
to 101.8 �F. In the ER he was afebrile to 98.6 �F, tachycardic to 125, breathing at 18 breaths minute, hypotensive to 88/55 and saturating 97% on room air. Labs showed leukocytosis to 34.5, anemia to 8.9, thrombocytopenia to 71, mild hyponatremia
to 134, low serum bicarbonate level of 20, lactate 4.5, ALP 215, albumin level 2.7, urinalysis negative for UTI and COVID antigen negative. Flu A/B swab was negative, and blood cultures were collected. Initial CXR showed no acute cardiopulmonary
process. He was initially given 2 L NS 0.9% in the ER in addition to Zosyn/vancomycin, and admitted to the hospitalist service for further care. Antibiotics were continued as he continued to spike fevers with lactic acidosis. He did develop
burning chest pain and found to have an elevated troponin and cardiology was consulted. Echo was obtained on 09/10/2024 showing mildly reduced LVEF at 45-50% with moderate hypokinesis of the mid to distal anteroseptal, distal inferior and distal
inferoapical davis. RV size and function was normal with mild pulmonary hypertension. Oncology was also consulted and there was concern for tumor fever, and ibuprofen 200 mg every 6 hours was started to help reduce his febrile syndrome. Hospice
was recommended however the patient is not ready for this yet. The patient does say that he is no longer interested in additional chemotherapy going forward. Lower extremity duplex was performed on 09/10/2024 which was negative for DVT. CXR
performed on 09/12/2024 which shows bilateral lower lobe opacification concerning for bilateral pneumonia. Pulmonary service now consulted for additional management/recommendations.
When I saw the patient, he was resting in bed in no acute distress with , Kennedi, at bedside - all questions were answered. Patient has been endorsing shortness of breath with activity and coughing up loose, yellow phlegm. He says he has been
feeling like this for about 1-1/2 years but it has been worsening over the last 5 days. He currently feels well with his breathing at rest but feels very weak overall. He is currently on room air breathing comfortably. He denies chest pain, KC,
abdominal pain, diarrhea, fevers or chills.
PMHx: History of pancreatic cancer s/p Whipple procedure, GERD, keratoacanthoma s/p excision
PSHx: Pancreatic biopsy, Whipple procedure
Past Medical History
Past Medical History: Other (Above as per HPI)
Past Surgical History: Other (Above as per HPI)
Social History
Tobacco: Former Smoker
Alcohol: None
Drug: None
Personal:
Living: With Family
Employment: Employed ([employer])
Family History
Family History: Cancer (Father: Colon cancer)
Allergies / Home Medications
Allergies
Allergy/AdvReac Type Severity Reaction Status Date / Time
No Known Allergies Allergy Verified 09/07/24 12:05
Home Medications
�Medication �Instructions �Recorded �Confirmed �Last Taken �Type
Lactobacil.acidophilus-Bifido.animalis 1 cap PO DAILY Supplement 04/06/24 09/07/24 09/07/24 History
5 billion cell sprinkle capsule
(Probiotic)
ywwzfc-fbidptml-vmkpqnu 1 cap PO AC DIGESTION 04/06/24 09/07/24 09/07/24 History
24,000-76,000-120,000 unit
capsule,delayed rel (Creon)
ibuprofen 200 mg tablet (Advil) 200 mg PO Q6HPRN PRN headache 06/20/24 10/11/24 06/20/24 History
pantoprazole 40 mg tablet,delayed 40 mg PO DAILY Gastrointestinal 05/17/24 09/07/24 09/07/24 History
release (Protonix) Issue
cholecalciferol (vitamin D3) 25 25 mcg PO DAILY Supplement 09/07/24 09/07/24 09/07/24 History
mcg (1,000 unit) tablet (Vitamin
D3)
gabapentin 300 mg capsule 300 mg PO BID Pain 09/07/24 09/07/24 09/07/24 History
glucosamine sulf dipot 1 cap PO DAILYPRN PRN supplement 09/07/24 09/07/24 Unknown History
chlr,msm,chond 550 mg-C 30 mg-jeffrey
1 mg capsule (Glucosamine
Chondroitin)
psyllium 1 packet PO DAILY Constipation 09/07/24 09/07/24 09/07/24 History
Review of Systems
-
History Source: Patient
All other systems: Negative unless noted
Vitals / Labs / Diagnostic Testing
Vital Signs
Temp Pulse Resp BP Pulse Ox
98.3 F 93 18 110/64 95
09/12/24 11:30 09/12/24 11:30 09/12/24 11:30 09/12/24 11:30 09/12/24 11:30
Lab Data
09/12/24 10:58
09/12/24 05:38
Microbiology
09/07/24 12:41 Blood/Venous Blood Culture - Final
No Growth - Final Report
09/07/24 13:43 Blood/Venous Blood Culture - Preliminary
No Growth in 4 days- Final report to follow
09/08/24 03:36 Sputum Respiratory Culture - Final
Usual Respiratory Jeannine
09/08/24 03:36 Sputum Gram Stain - Final
Diagnostic Testing:
Physical Exam
-
HEENT: Normocephalic and Anicteric
Cardiovascular: S1/S2, Peripheral Edema (+2 lower extremity pitting edema bilaterally) and Other (Distant heart sounds)
Respiratory: Wheeze (negative), Rales (Bibasilar), Rhonchi ([place] bilaterally during expiration) and Non-Labored Respirations
GI: Soft, Non Distended, Non Tender and Normal Bowel Sounds
Neurology: AO x 3 and Tremors (negative)
Skin: Warm and Dry
General: Respiratory Distress (negative), Comfortable, Fever (negative) and Chills (negative)
Assessment
-
Assessment: 74-year-old male with a PMHx of pancreatic cancer s/p Whipple procedure, GERD and keratoacanthoma s/p excision who presents with fevers, generalized weakness and cough. Patient currently is on chemotherapy for pancreatic cancer with
last chemo given on 08/29/2024. He had a fever at home to 101.8 �F. In the ER he was afebrile to 98.6 �F, tachycardic to 125, breathing at 18 breaths minute, hypotensive to 88/55 and saturating 97% on room air. Labs showed leukocytosis to 34.5,
anemia to 8.9, thrombocytopenia to 71, mild hyponatremia to 134, low serum bicarbonate level of 20, lactate 4.5, ALP 215, albumin level 2.7, urinalysis negative for UTI and COVID antigen negative. Flu A/B swab was negative, and blood cultures were
collected. Initial CXR showed no acute cardiopulmonary process. Antibiotics were started and he was admitted to the hospitalist service for further care. He continued to spike fevers, and had lactic acidosis. He also developed burning chest pain
with elevated troponin and cardiology was consulted. Found to have mildly reduced LVEF on echo with wall motion abnormalities. Oncology was consulted and given concern for tumor fever, q6hr Motrin was started. Hospice was discussed with the
patient however he is not ready to transition to comfort care/hospice at this point. CXR was performed on 09/12/2024 showing concern for bilateral pneumonia and now pulmonary service consulted for additional management/recommendations.
Chronic conditions C[employer]: History of pancreatic cancer s/p Whipple procedure, GERD, keratoacanthoma s/p excision
Impression:
#Abnormal CXR with linear/patchy infiltrate in the left lower lobe + consolidative opacity in the right middle lobe/right lower lobe concerning for bilateral pneumonia
#Sepsis without shock due to pneumonia
#Metabolic acidosis with normal anion gap
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
#Elevated ALP likely due to metastatic pancreatic cancer
#Hypoalbuminemia due to malnutrition/active malignancy
#Elevated troponin (peaked at 3.03 on 09/09/2024)
#COPD/centrilobular emphysema
#Acute on chronic anemia (baseline Hb 9.5 - 11g/L)
#Metastatic pancreatic cancer with liver mets on chemotherapy + G-CSF with Hx of mini Whipple surgery c/b stomach perforation (06/2023)
#Febrile illness suspected to be from tumor fever however given concern for pneumonia bilaterally, sepsis is also high on differential
#Immunocompromised state due to chemotherapy for pancreatic cancer (Dx about 1.5 years ago with last chemo on 08/29/2024)
Plan:
- He does have a history of linear scarring which was seen on CT chest from 08/02/2024, however these pleural effusions (albeit small) and bibasilar atelectasis is worsened compared to prior CT chest last month
- He appears to have increased fullness with worsening opacification in the RML + LLL seen on most recent CXR from 09/12/2024
- ID on board and defer antibiotics to them - currently on doxy s/p cefepime (09/07 - 09/10) and s/p Zosyn (given on 09/07), and IV vanco (09/07 - 09/09)
- Follow up procal
- Follow up sputum Cx and blood Cx X2 (collected 09/07/2024)
- Check urine antigens for Legionella + strep pneumonia
- Maintain SpO2 88-95% with supplemental O2 as needed - currently on room air
- Start DuoNebs with prn doses in between for breakthrough symptoms
- Mucolytics with mucinex and anitussants prn
- Patient not currently on oxygen and not bronchospastic so no need for systemic steroids. Continue to monitor with low threshold to start steroids if deteriorates respiratory-han
- Lactate has now normalized, hence no longer need to trend; troponin has also peaked at 3.03 on 09/09/2024, no longer need to trend this as well unless chest pain occurs/arrhythmia develops
- Keep MAP>65
- Defer GDMT to cardiology and monitor I/O and maintain net neutral-slightly net negative fluid balance as tolerated
- Incentive spirometer encouraged
- Monitor H/H and transfuse if needed to keep Hb>7g/dL
- Replete electrolytes with K>4, Mg>2
- Maintain euglycemia with goal BG >100 and <180
- DVT ppx: LMWH
Poor prognosis - he had previously declined hospice. Consider palliative care consult to discuss GOC
Pulmonary service will continue to follow along. He will need outpatient imaging with repeat CXR versus CT chest in 4 to 6 weeks to follow-up pneumonia resolution. I will arrange for outpatient follow-up for full PFTs and COPD management.
Data:
CXR 09/12/2024:
There is mild new interstitial airspace disease of the left lung base and mild- moderate worsening interstitial airspace disease of the right lung base suggesting bilateral pneumonia with small right pleural effusion
Transthoracic echocardiogram 09/10/2024:
Normal left ventricular size and wall thickness. Low normal to moderately
reduced left ventricular systolic function. Moderate hypokinesis of the mid to
distal anteroseptal, distal inferior, and distal inferoapical davis.. LV
ejection fraction is 45-50% by visual estimate. Stage I diastolic dysfunction
suggestive of abnormal relaxation. Global longitudinal strain -10.9%.
Normal right ventricular size and function.
Mild mitral regurgitation.
Aortic sclerosis without stenosis.
Mild tricuspid regurgitation. Estimated pulmonary artery pressure of 25-30
mmHg. Assuming a right atrial pressure of 3 mmHg.
No prior study available for comparison.
Total time spent today was 58 minutes for this encounter. Time includes reviewing laboratory test/imaging results, reviewing pertinent medical records, obtaining and reviewing medical history, performing an appropriate exam, ordering medications,
tests and procedures. Time also includes documentation of this encounter, coordinating patient care and communicating with other healthcare professionals. Total time does not include separately billed tests performed on this date of service.
[2024-09-12 15:40] VITALS: BP 137/68
[2024-09-12] MEDS: LOVENOX 40 MG SC (17:19)
[2024-09-12] MEDS: LIPITOR 40 MG PO (17:19)
[2024-09-12] MEDS: STERILE WATER FOR INJECTION 10 ML IV ×2 (17:22→23:33)
[2024-09-12] MEDS: MAXIPIME 1000 MG IV ×2 (17:22→23:34)
--- NOTE | 2024-09-12 18:28 | PTCARENOTE ---
wireless consultant hospitalist notified HR 110-120 no PRN available. pt offer no complaints. has had previous sinus tach periods with activity, although no sustained
[2024-09-12 19:36] VITALS: BP 129/68
[2024-09-12] MEDS: DUONEB 3 ML INH (21:07)
[2024-09-12] MEDS: MUCINEX 1200 MG PO (21:27)
[2024-09-12 23:12] VITALS: BP 126/71
[2024-09-13] VITALS (7 sets, daily range): BP systolic 115–130; BP diastolic 63–78; BMI 21.1
[2024-09-13 05:01] LABS: % Basophils 0.5 % (0-2); % Eosinophils 1.4 % (0-6); % Immature Granulocytes 3.3 % (0-0.5); % Lymphocytes 3.7 % (20.5-51.1); % Monocytes 11.3 % (1.7-9.3); % Neutrophils 79.8 % (42.2-75.2); Absolute Basophils 0.1 10^3/uL (0-0.2); Absolute Eosinophils 0.3 10^3/uL (0-0.7); Absolute Immature Granulocytes 0.8 10^3/uL (0-0.05); Absolute Lymphocytes 0.9 10^3/uL (1.2-3.4); Absolute Monocytes 2.8 10^3/uL (0.1-0.6); Absolute Neutrophils 19.5 10^3/uL (1.4-6.5); Hematocrit 21.7 % (39.0-52.0); Hemoglobin 7.2 g/dL (13.0-18.0); Mean Corp Hgb Conc. 33.2 g/dL (33.0-37.0); Mean Corpuscular Hgb 27.2 pg (27.0-31.0); Mean Corpuscular Volume 81.9 fL (80.0-94.0); Mean Platelet Volume 9.8 fL (7.4-10.4); Nucleated Red Blood Cells % 0 % (-); Platelet Count 262 10^3/uL (130-400); Red Blood Cell Count 2.65 10^6/uL (4.70-6.10); Red Cell Dist. Width 20.1 % (11.5-14.5); White Blood Cell Count 24.4 10^3/uL (4.8-10.8)
[2024-09-13] MEDS: MAXIPIME 1000 MG IV ×3 (05:16→17:32)
[2024-09-13] MEDS: MOTRIN 200 MG PO ×3 (05:16→17:31)
[2024-09-13] MEDS: STERILE WATER FOR INJECTION 10 ML IV ×3 (05:16→17:33)
[2024-09-13 05:27] LABS: ALT (SGPT) 34 U/L (0-50); AST (SGOT) 30 U/L (17-59); Alkaline Phosphatase 242 U/L (38-126); Blood Urea Nitrogen 16 mg/dl (9-20); Calcium 7.7 mg/dl (8.4-10.2); Carbon Dioxide 21 mmol/L (22-30); Chloride 109 mmol/L (98-107); Estimated Creatinine Clearance 60 ml/min; Glucose 94 mg/dl (70-99); Potassium 4.1 mmol/L (3.5-5.1); Sodium 138 mmol/L (135-145); Total Bilirubin 0.6 mg/dl (0.2-1.3); Total Protein 4.3 g/dl (6.3-8.2); eGFR > 60.00
[2024-09-13 05:43] LABS: Procalcitonin 3.77 ng/ml (0.0-0.25)
--- NOTE | 2024-09-13 05:45 | PTCARENOTE ---
House provider notified of pt's critical procalcitonin= 3.77.
--- NOTE | 2024-09-13 06:57 | W.PN.HOSP.TC ---
Addendum entered and electronically signed by Ezra Easley MD 09/13/24 10:12:
Gen: NAD, AAOx3.
Eyes: EOMI, PERRLA, no scleral icterus.
Neck: supple.
CV: remains RRR, +S1/S2, no m/r/g.
Resp: remains CTAB anteriorly, no rales, wheezes, or rhonchi.
Abd: +BS, soft, NT, ND
Skin: No rashes.
Neuro: remains CN 2-12 intact, non-focal.
Psych: Normal mood and affect.
09/07/24 13:43 Blood/Venous Blood Culture - Final
No Growth - Final Report
09/07/24 12:41 Blood/Venous Blood Culture - Final
No Growth - Final Report
09/08/24 03:36 Sputum Respiratory Culture - Final
Usual Respiratory Jeannine
09/08/24 03:36 Sputum Gram Stain - Final
09/07/24 19:23 Nose MRSA Screen - Final
No Methicillin Resistant Staphylococcus aureus isolated.
09/07/24 12:41 Nasal Swab Influenza Types A & B (SARA) - Final
Negative for Influenza A & B, NAAT
Negative results must be combined with clinical observations
and patient history.
Nucleic Acid Amplification test (NAAT)performed on the
[employer] NOW platform.
CT A/P-moderate elevation in right hemidiaphragm, small bilateral pleural effusions with adjacent atelectasis. Bullous changes in the both lower lungs. Status post reported seizure. Pneumobilia. Multiple hepatic metastatic lesions increased send
July 2024. Splenic metastatic disease increased. Right upper quadrant prominent air-fluid density. Delayed images awaited to make sure this is colon. Moderate subcutaneous edema. Focal lytic lesion medial iliac bone and L2 vertebra
CTA chest: no PE. Severe centrilobular emphysema. Small right pleural effusion. Minimal left pleural effusion. Large hepatic tumor. Pneumobilia. Thyroid gland 2.5 cm mass in the left lobe.
Echo: Normal left ventricular size and wall thickness. Low normal to moderately
reduced left ventricular systolic function. Moderate hypokinesis of the mid to
distal anteroseptal, distal inferior, and distal inferoapical davis.. LV
ejection fraction is 45-50% by visual estimate. Stage I diastolic dysfunction
suggestive of abnormal relaxation. Global longitudinal strain -10.9%.
Normal right ventricular size and function.
Mild mitral regurgitation.
Aortic sclerosis without stenosis.
Mild tricuspid regurgitation. Estimated pulmonary artery pressure of 25-30
mmHg. Assuming a right atrial pressure of 3 mmHg.
No prior study available for comparison.
Acute NSTEMI
Acute heart failure due to fluid resuscitation
-ASA started
-cards following, no need for heparin gtt at this time
-Echo above, notable for EF 45-50%, moderate hypokinesis of the mid to distal anteroseptal, distal inferior, and distal inferoapical davis. G1DD. Mild MR/TR.
-cont BB with holding parameters
Sepsis secondary to PNA:
-Fever, tachycardia, leukocytosis, lactic acidosis
-Leukocytosis could likely be secondary to Neulasta
-COVID/Flu NEG
-all Cx data NEG to date
-empiric Cefepime stopped 09/10/24
-cont standing ibuprofen (he will need weekly BMP after discharge if he remains on standing NSAID). cont PPI for GI proph.
-CXR 09/12/24 with mild new interstitial airspace disease of the left lung base and mild-moderate worsening interstitial airspace disease of the right lung base suggesting bilateral pneumonia with small right pleural effusion
-case discussed with pulm and ID and pt restarted on abx on 09/12/24, Doxy/Cefepime
-I suspect that based on these chest x-ray findings that sepsis was present on admission and due to pneumonia that was not visualized at that time.
Pancreatic adenocarcinoma:
-initially diagnosed 03/28/2023, pt did not follow-up with oncology until 06/03/23
-s/p Mini Whipple surgery with perforation of stomach on 07/27/23
-started chemotherapy 6 months ago, 3 months ago found to have hepatic mets (Bx proven)
-recent chemo approx 2 weeks [employer]
Hypomagnesemia, resolved
Emphysema, not in acute exac
Enlarged thyroid with nodules. 2.5 cm mass in the left lobe. Family made aware. Needs ultrasound as outpatient
Anemia, likely secondary to malignancy/chemo: transfuse 1U pRBCs
Thrombocytopenia, likely secondary to chemo
Case discussed with oncology.
Pt's updated at beside.
Original Note:
Today's Communication/Plan
-
-Trend fever
-Follow up Legionella Urinary Antigen, Strep pneumoniae Antigen
Assessment / Plan
Assessment / Plan
Impression: 74-year-old male presented to the ER with fever of 101 at home took Motrin prior to coming in. has been having fever spikes since last day. Reported having chills last night but denied any new symptoms. Patient has fever spikes since
admission. He also reported chest pain after the admission and was seen by cardiology. Cardiology ordered echo and he was stated on beta-blockers, IV heparin and IV furosemide with a concern of acute heart failure and Non-ST segment elevated WI. He
was found bilateral lower 2+ pitting edema and was ordered bilateral lower Doppler US which did not show any DVT. He was obtained Echo on 09/10. Cardio saw the patient on 09/11 and discussed with the patient risk/benefits of invasive coronary
angiography and patient agreed that empiric medical therapy would be more appropriate at this time. Given anemia and thrombocytopenia (plt:66) earlier this admission�planned to discharge on aspirin 81 mg daily. On 09/12, the Hgb level of the
patient resulted as 6.7 and another lab was resent. The patient was discussed for a possible RBC transfusion and he stated he will think about it. The repeated test for Hgb resulted as 7.8 on 09/12. The patient reported some worsening SOB on 09/12
and CXR was obtained which showed: worsening interstitial airspace disease of the right lung base suggesting bilateral pneumonia with small right pleural effusion. Pulmonology and ID was consulted on 09/12.
09/07/24 CXR: No acute cardiopulmonary process. Chronic obstructive pulmonary disease.
09/08/[address]: There is no pulmonary embolism. Severe centrilobular emphysema. Small right pleural effusion with compressive atelectasis at the right lung base. Minimal left pleural effusion. Large hepatic tumor. Pneumobilia
CT A/P on 09/09 -moderate elevation in right hemidiaphragm, small bilateral pleural effusions with adjacent atelectasis. Bullous changes in the both lower lungs. Status post reported seizure. Pneumobilia. Multiple hepatic metastatic lesions
increased send July 2024. Splenic metastatic disease increased. Right upper quadrant prominent air-fluid density. Delayed images awaited to make sure this is colon. Moderate subcutaneous edema. Focal lytic lesion medial iliac bone and L2
vertebra
PE study-no PE. Says severe centrilobular emphysema. Small right pleural effusion. Minimal left pleural effusion. Large hepatic tumor. Pneumobilia. Thyroid gland 2.5 cm mass in the left lobe
ECHO 09/10: Normal left ventricular size and wall thickness. Low normal to moderately reduced left ventricular systolic function. Moderate hypokinesis of the mid to distal anteroseptal, distal inferior, and distal inferoapical davis.LV ejection
fraction is 45-50% by visual estimate. Stage I diastolic dysfunction suggestive of abnormal relaxation.
CXR 09/12: There is mild new interstitial airspace disease of the left lung base and mild- moderate worsening interstitial airspace disease of the right lung base suggesting bilateral pneumonia with small right pleural effusion
BILATERAL LOWER EXTREMITY VENOUS DUPLEX on 09/10: No sonographic evidence for lower extremity venous thrombosis.
Assessment/Plan
# Elevated troponin
-Aspirin started after discussion with hematology oncology.
-Discontinued heparin
-Echo:LV ejection fraction is 45-50% by visual estimate. Stage I diastolic dysfunction
-Troponin trended down
-Cardiology follow up and discharge recc appreciated:
Aspirin 81 mg daily
Toprol XL 12.5 mg daily
Atorvastatin 40 mg daily
Lasix 20 mg daily as needed for weight gain and edema
-Hemoglobin came back as 7.2 on 09/13. Benefits and risks of blood transfusion was discussed in detail.
# Anemia likely secondary to malignancy/chemo-follow counts
-Hgb on 09/13 7.2
-Occult blood was ordered
-Patient denies stool color change/ vomiting/ sputum with blood
-Transfusion of RBC was discussed
#SOB due HF vs Atelectasis vs PNA
-The patient reported having SOB and not worsening
-Chest X R 09/12: worsening interstitial airspace disease of the right lung base suggesting bilateral pneumonia with small right pleural effusion.
--Chest CT: 09/09/24:Small bilateral pleural effusions with adjacent atelectasis
-Appreciated ID and pulmonology involvement:
-Preprocalcitonin: 3.77
-Legionella Urinary Antigen, Strep pneumoniae Antigen ordered
-Continue Cefepime
-WBC 22.4 on 09/13 could likely be secondary to Neulasta
-Diastolic Stage 1 HF
#Low BP
-Hold Lasix
-Hold metoprolol until SBP>90/60
-Continue IV
-Follow up I-O
# Fever With lactic acidosis at admission
-Sepsis picture-present on admission- but no clear source of infection.
-Appreciate ID assessment
-Leukocytosis could likely be secondary to Neulasta
-COVID serology negative
- Blood cultures: cx's neg to date / UA neg, no dysuria (Urinalysis 6-10 white counts-antibiotic should cover If UTI)
-Infectious disease signed off: Tumor fever (especially in setting of hepatic mets)
-ID was consulted again on 09/12 due possible PNA
# Pancreatic adenocarcinoma
-initially diagnosed 03/28/2023 8 did not follow-up with hematology oncology until 06/03/2023. Then seen at [place] by Underwent Mini Whipple surgery with perforation of stomach on 07/27/2023
-Start chemotherapy 6 months ago, 3 months ago found out about hepatic mets
-Now with biopsy proven hepatic metastasis
-Was on chemotherapy got it 2 weeks ago? FOLFIRINOX
-Patient does not want further chemo. agrees.
-Discussed hospice. /patient are not interested
# Hypomagnesemia
-Follow up
-M.7 on 09/12
# Emphysema-stable
# Enlarged thyroid with nodules. 2.5 cm mass in the left lobe. Family made aware. Needs ultrasound as outpatient
# Thrombocytopenia
-Resolved
-PLT 262 on 09/13/24
# Hypoalbuminemia
# Ex-smoker
# DVT prophylaxis-Lovenox
# CODE STATUS-Full code
Anticipated Discharge: 24 - 48 hours
Subjective/Interval History
-
Date of Service: September 13, 2024
The patient was seen in his bed resting and reported no worsening with his symptoms. He reported having some fever yesterday night. Denied chest pain, increased SOB, abdominal pain, diarrhea, stool color change.
Objective Data
-
Labs:
Laboratory Results
09/13/24
04:51
WBC 24.4 H
Hgb 7.2 L
Hct 21.7 L
Plt Count 262
Sodium 138
Potassium 4.1
Chloride 109 H
Carbon Dioxide 21 L
BUN 16
Creatinine 1.0
Glucose 94
Calcium 7.7 L
Total Bilirubin 0.6
AST 30
ALT 34
Alkaline Phosphatase 242 H
Vital Signs:
Vital Signs
Temp Pulse Resp BP Pulse Ox
100.2 F 97 18 126/70 92
09/13/24 03:31 09/13/24 03:31 09/13/24 03:31 09/13/24 03:31 09/13/24 03:31
I&O
09/11/24 09/12/24 09/13/24
06:59 06:59 06:59
Intake Total 1200 / 1200 960 / 960 960 / 960
Output Total 2175 / 2175 425 / 425 975 / 975
Balance -975 / -975 535 / 535 -15 / -15
Review of Systems
-
EENT: Reports No Symptoms Reported
Respiratory: Reports Other (SOB )
Cardiac: Reports No Symptoms
Abdomen/GI: Reports No Symptoms
Genitourinary: Reports No Symptoms
Musculoskeletal: Reports Other (Generalized weakness)
Skin: Reports No Symptoms
Neuro: Reports No Symptoms
Physical Exam
-
General: No Apparent Distress, Conversant and Appears Chronically Ill
HEENT: Normocephalic and Atraumatic
Respiratory: Rales (On the right lung basal area)
Cardiac: Regular Rhythm and S1/S2
GI: Soft and Nontender
Musculoskeletal: Edema, Right Lower Extrem and Edema, Left Lower Extrem
Skin: Warm and Dry
Neuro: Awake, Alert, Oriented and AO x 3
Psych: Calm
[2024-09-13] MEDS: DUONEB 3 ML INH ×3 (07:19→19:31)
--- NOTE | 2024-09-13 08:12 | W.PN.ONC2 ---
Today's Communication / Plan
-
continue antipyretics
agreeable to meet with palliative care
Impression
Impression
Fever unclear etiology, infectious w/u NTD, suspect tumor fever
metastatic pancreas cancer, last chemo 08/29 (gem/abraxane) and GCSF 08/30
leukocytosis, likely from GCSF + infection
RLE edema -LE US negative for DVT
suspected PNA on CXR
Plan
Plan
Continue NSAIDs for tumor fever. Ibuprofen 200mg q6h seems to be helping.
He wants no further chemo. agrees.
/patient are not interested in hospice at this time. states that she's praying and open to a miracle.
Recommended palliative care - /patient feel agreeable to meeting
PNA management per ID/pulmonary
Will arrange f/u with Dr. Giraldo in next week or so, to continue Procrit as requested, and discuss further mgmt.
Subjective/Objective
Chief Complaint
cough, 100.2F
Subjective
no hypoxia
taking acetaminophen and ibuprofen
Vital Signs:
Vital Signs
Temp Pulse Resp BP Pulse Ox
100.2 F 81 18 126/70 95
09/13/24 03:31 09/13/24 07:22 09/13/24 07:22 09/13/24 03:31 09/13/24 07:22
Lab Results:
Laboratory Data
WBC 24.4 10^3/uL (4.8-10.8) H 09/13/24 04:51
Hgb 7.2 g/dL (13.0-18.0) L 09/13/24 04:51
Plt Count 262 10^3/uL (130-400) 09/13/24 04:51
PT 17.0 Sec (11.4-14.6) H 09/08/24 06:25
INR 1.40 09/08/24 06:25
APTT 42.5 Sec (23.4-35.0) H 09/08/24 06:25
eGFR > 60.00 09/13/24 04:51
Physical Exam
General: no acute distress
HEENT: Moist Mucous Membranes; Negative Jaundice
Cardiology: Normal Sinus Rhythm
Pulmonary: Clear
GI: Soft and Normal Bowel Sounds
Musculoskeletal: No Clubbing, No Cyanosis and No Edema
Extremities: RLE edema
Neurology: Non Focal
Hematologic / Lymphatic: No Lymphadenopathy
Psych: Calm and Intact Judgement/Insight
Review of Systems
Review of Systems
ROS notable for subjective, otherwise negative
[2024-09-13] MEDS: ASPIR LOW (ENTERIC COATED) 81 MG PO (09:43)
[2024-09-13] MEDS: NEURONTIN 300 MG PO ×2 (09:43→21:05)
[2024-09-13] MEDS: TOPROL XL 12.5 MG PO (09:43)
[2024-09-13] MEDS: VIBRAMYCIN 100 MG PO ×2 (09:43→21:03)
[2024-09-13] MEDS: METAMUCIL, KONSYL 1 PACKET PO (09:43)
[2024-09-13] MEDS: PROTONIX 40 MG PO (09:43)
[2024-09-13] MEDS: ZENPEP DELAYED RELEASE CAPSULE PO ×2 (09:43→09:53)
[2024-09-13] MEDS: VITAMIN D3 (cholecalciferol) 25 MCG PO (09:44)
[2024-09-13] MEDS: VISBIOME 1 CAP PO (09:44)
[2024-09-13] MEDS: MUCINEX 1200 MG PO ×2 (09:44→21:04)
--- NOTE | 2024-09-13 09:51 | W.PN.ID1 ---
Date of Service
Date of Service: September 13, 2024
Today's Communication
At time of discharge, can transition to levofloxacin 750mg po daily through 09/18/24.
Assessment / Plan
# Pancreatic CA with hepatic mets on chemo, last received 08/29.
-CT a/p shows progression of disease with increase in hepatic and splenic mets, and lytic lesions suspicious for bone mets
- Pt no longer wants further tx.
-Declined hospice and palliative care, per Hem/Onc.
#Tumor fever (especially in setting of hepatic mets)
-Fever resolved on around the clock NSAID.
-Infectious disease work-up was negative.
#Leukocytosis, partially from recent pegfilgrastim
-Overall trending down
# Possible PNA, new
-Worsening right base interstitial airspace infiltrates with small pleural effusion and new mild left base interstitial infiltrate. Previous chest CT also with minimal left pl effusion.
- Procalcitonin positive but not specific test for bacterial PNA in setting of metastatic cancer with high false positivity rate
- Can continue doxycycline and cefepime day 2
- At time of discharge, can transition to levofloxacin 750mg po daily through 09/18/24.
# COPD
Chief Complaint
-: Fever and Leukocytosis
Subjective / Review of Systems
Asking if he can go home.
He feels well today. No SOB. +cough
Vital Signs / Physical Exam
Vital Signs
Vital Signs
Temp Pulse Resp BP Pulse Ox
98.4 F 87 16 119/63 92
09/13/24 07:35 09/13/24 07:35 09/13/24 07:35 09/13/24 07:35 09/13/24 07:35
Physical Exam
Constitutional: No Acute Distress and Comfortable
Pulmonary: Coarse (right crackles)
Gastrointestinal: Soft, Non Tender and Non Distended
Extremities: Edema (bilateral ankle and hand edema)
Neurological: AO x 3
Lines: Port (RCW no erythema)
Objective Data
Lab Data
Lab Results
09/13/24 04:51
09/13/24 04:51
PT 17.0 Sec (11.4-14.6) H 09/08/24 06:25
INR 1.40 09/08/24 06:25
APTT 42.5 Sec (23.4-35.0) H 09/08/24 06:25
Estimated Creat Clear 60 ml/min 09/13/24 04:51
Lactic Acid 1.1 mmol/L (0.7-2.0) 09/09/24 03:27
Total Bilirubin 0.6 mg/dl (0.2-1.3) 09/13/24 04:51
AST 30 U/L (17-59) 09/13/24 04:51
ALT 34 U/L (0-50) 09/13/24 04:51
Alkaline Phosphatase 242 U/L (38-126) H 09/13/24 04:51
Most recent labs reviewed.
Micro Results:
09/07/24 13:43 Blood Culture - Final
Blood/Venous No Growth - Final Report
09/07/24 12:41 Blood Culture - Final
Blood/Venous No Growth - Final Report
09/08/24 03:36 Respiratory Culture - Final
Sputum Usual Respiratory Jeannine
Gram Stain - Final
09/07/24 19:23 MRSA Screen - Final
Nose No Methicillin Resistant Staphylococcus aureus isolated.
09/07/24 12:41 Influenza Types A & B (SARA) - Final
Nasal Swab Negative for Influenza A & B, NAAT
Negative results must be combined with clinical observations
and patient history.
Nucleic Acid Amplification test (NAAT)performed on the
[employer] platform.
09/07/24 CXR: No acute cardiopulmonary process. Chronic obstructive pulmonary disease.
09/08/[address]: There is no pulmonary embolism. Severe centrilobular emphysema. Small right pleural effusion with compressive atelectasis at the right lung base. Minimal left pleural effusion. Large hepatic tumor. Pneumobilia
09/09/24 CT a/p: Multiple hepatic metastatic lesions. Dominant hepatic metastatic lesion has increased in size since examination of August 02, 2024. Splenic metastatic disease, also increased from previous examination. Focal lytic lesion within
the medial left iliac bone. Small focal lytic lesion within the right side of the L2 vertebral body. These are likely bony metastatic lesions.
09/10/24 CXR: There is mild new interstitial airspace disease of the left lung base and mild- moderate worsening interstitial airspace disease of the right lung base suggesting bilateral pneumonia with small right pleural effusion
[2024-09-13] MEDS: ZENPEP DELAYED RELEASE CAPSULE 1 CAPSULE PO ×2 (11:57→17:32)
--- NOTE | 2024-09-13 12:28 | W.CON.PAL ---
Consultation
-
Date/Time Consultation Requested: 09/13
Date/Time Consultation Performed: 09/13
Requesting Provider: Oncology
Performing Provider: Clarita FIGUEROA
Reason for Consult: Goals of Care Discussion, Advanced Care Planning and Symptom & Pain Management
Primary Diagnosis: metastatic pancreatic cancer to liver
Consult Requested By: Patient's Physician
Reason for Admission
Illness Course/HPI
74 year old M with PMH of metastatic pancreatic cancer to the liver s/p whipple and chemotherapy admitted with fevers, lethargy. Upon admission had imaging concerning for POD in the liver as well as new lytic lesions. Was planned for next treatment
09/12.
Infectious workup initially negative. Fevers thought 2/2 to tumor fever. Now with suspicion for PNA and back on antibiotics.
Oncology discussed plans moving forward. Patient no longer interested in further chemotherapy, also not interested in hospice at this time. Planned for discharge today vs tomorrow.
Pain & Symptom Assessment
Patient Symptoms
Patient Symptoms: Fatigue
Objective Data
-
Objective Data:
Vital Signs
Temp Pulse Resp BP Pulse Ox
98.4 F 91 16 115/63 96
09/13/24 12:06 09/13/24 12:06 09/13/24 12:06 09/13/24 12:06 09/13/24 12:06
Laboratory Results
09/13/24 04:51
09/13/24 04:51
PT 17.0 Sec (11.4-14.6) H 09/08/24 06:25
INR 1.40 09/08/24 06:25
APTT 42.5 Sec (23.4-35.0) H 09/08/24 06:25
Total Protein 4.3 g/dl (6.3-8.2) L 09/13/24 04:51
Albumin 2.0 g/dl (3.5-5.0) L 09/13/24 04:51
Urine Color Yellow 09/07/24 19:23
Urine Clarity Clear (Clear) 09/07/24 19:23
Urine pH 6.0 (5.0-9.0) 09/07/24 19:23
Ur Specific [place] 1.010 (<1.030) 09/07/24 19:23
Urine Ketones Negative (Negative) 09/07/24 19:23
Urine Bilirubin Negative (Negative) 09/07/24 19:23
Palliative Performance Scale
Palliative Performance Scale:
PPS Level Ambulation Activity & Evidence of Disease Self Care Intake Conscious Level
100% Full Normal Activity & Work; Full Intake Full
No Evidence of Disease
90% Full Normal Activity & Work; Full Normal Full
Some Evidence of Disease
80% Full Normal Activity with Effort Full Normal or Full
Some Evidence of Disease Reduced
70% Reduced Unable Normal Job/Work Full Normal or Full
Significant Disease Reduced
60% Reduced Unable Hobby/Housework Occasional Normal or Full or Confusion
Significant Disease Assistance Reduced
50% Mainly Sit/Lie Unable to do Any Work Considerable Normal or Full or Confusion
Extensive Disease Assistance Req'd Reduced
40% Mainly in Bed Unable to do Most Activity Mainly Assistance Normal or Full or Drowsy;
Extensive Disease Reduced +/- Confusion
30% Totally Bed Unable to do Any Activity Total Care Normal or Full or Drowsy;
Bound Extensive Disease Reduced +/- Confusion
20% Totally Bed Bound Unable to do Any Activity Total Care Minimal to Full or Drowsy;
Extensive Disease Sips +/- Confusion
10% Totally Bed Bound Unable to do Any Activity Total Care Mouth Care Drowsy or Coma;
Extensive Disease Only +/- Confusion
0%
PPS Score Level:
Palliative Performance Score Response
Palliative Performance Score Response: 60%
Physical Exam
-
General: Appears Chronically Ill
HEENT: Normocephalic
Respiratory: Clear to Auscultation
Cardiac: Regular Rhythm
Peripheral Vascular: No Edema
GI: Soft and Normal Bowel Sounds
Skin: Warm
Neuro: AO x 3
Psych: Calm
Assessment / Plan
-
Assessment/Plan:
74 year old M with metastatic pancreatic cancer admitted with fevers found to have POD and new bone mets. No longer interested in treatment, or hospice. Treating for PNA.
Encounter for Palliative Care
- spoke with patient and at bedside this AM. Interested in palliative care follow up as an outpatient. They are feeling overwhelmed, hoping for a miracle. Planned for discharge today vs tomorrow given new PNA diagnosis.
- info provided for outpatient follow up. Office will call patient next week to schedule follow up as an outpatient
- has onc follow up in [address] Giraldo.
Care Reviewed
Data Reviewed
Medical Tests: I reviewed
Reviewed with: Patient and Family
--- NOTE | 2024-09-13 13:39 | W.PN.PUL3 ---
Today's Communication / Plan
-
Continue nebulizers DuoNebs [id number] upon discharge
Antibiotics per infectious disease
O2 supplementation to maintain pulse ox above 90%
Palliative care in regards to metastatic pancreatic cancer.
Agree with discharge planning
No additional recommendation, sign off
Assessment
-
Assessment: 74-year-old male with a PMHx of pancreatic cancer s/p Whipple procedure, GERD and keratoacanthoma s/p excision who presents with fevers, generalized weakness and cough. Patient currently is on chemotherapy for pancreatic cancer with
last chemo given on 08/29/2024. He had a fever at home to 101.8 �F. In the ER he was afebrile to 98.6 �F, tachycardic to 125, breathing at 18 breaths minute, hypotensive to 88/55 and saturating 97% on room air. Labs showed leukocytosis to 34.5,
anemia to 8.9, thrombocytopenia to 71, mild hyponatremia to 134, low serum bicarbonate level of 20, lactate 4.5, ALP 215, albumin level 2.7, urinalysis negative for UTI and COVID antigen negative. Flu A/B swab was negative, and blood cultures were
collected. Initial CXR showed no acute cardiopulmonary process. Antibiotics were started and he was admitted to the hospitalist service for further care. He continued to spike fevers, and had lactic acidosis. He also developed burning chest pain
with elevated troponin and cardiology was consulted. Found to have mildly reduced LVEF on echo with wall motion abnormalities. Oncology was consulted and given concern for tumor fever, q6hr Motrin was started. Hospice was discussed with the
patient however he is not ready to transition to comfort care/hospice at this point. CXR was performed on 09/12/2024 showing concern for bilateral pneumonia and now pulmonary service consulted for additional management/recommendations.
Chronic conditions INSURANCE VERIFICATION REP: History of pancreatic cancer s/p Whipple procedure, GERD, keratoacanthoma s/p excision
Impression:
#Abnormal CXR with linear/patchy infiltrate in the left lower lobe + consolidative opacity in the right middle lobe/right lower lobe concerning for bilateral pneumonia
#Sepsis without shock due to pneumonia
#Metabolic acidosis with normal anion gap
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
#Elevated ALP likely due to metastatic pancreatic cancer
#Hypoalbuminemia due to malnutrition/active malignancy
#Elevated troponin (peaked at 3.03 on 09/09/2024)
#COPD/centrilobular emphysema
#Acute on chronic anemia (baseline Hb 9.5 - 11g/L)
#Metastatic pancreatic cancer with liver mets on chemotherapy + G-CSF with Hx of mini Whipple surgery c/b stomach perforation (06/2023)
#Febrile illness suspected to be from tumor fever however given concern for pneumonia bilaterally, sepsis is also high on differential
#Immunocompromised state due to chemotherapy for pancreatic cancer (Dx about 1.5 years ago with last chemo on 08/29/2024)
Plan:
- He does have a history of linear scarring which was seen on CT chest from 08/02/2024, however these pleural effusions (albeit small) and bibasilar atelectasis is worsened compared to prior CT chest last month
- He appears to have increased fullness with worsening opacification in the RML + LLL seen on most recent CXR from 09/12/2024
-Fever resolved. Likely related to malignancy.
-Sputum culture usual respiratory fany. MRSA screening negative. Blood culture negative. Influenza negative.
-Infectious disease following, correspondence reviewed. Eventually will be transition to Levaquin through 09/18/2024
-COPD/emphysema-not in acute exacerbation
Maintain SpO2 88-95% with supplemental O2 as needed - currently on room air
Continue DuoNebs with prn doses in between for breakthrough symptoms-patient may continue this upon discharge if desired.
- Mucolytics with mucinex and anitussants prn
- Patient not currently on oxygen and not bronchospastic so no need for systemic steroids.
- Defer GDMT to cardiology and monitor I/O and maintain net neutral-slightly net negative fluid balance as tolerated
- Incentive spirometer encouraged
-Metastatic pancreatic cancer. Patient declined any further therapy.
Palliative care has been consulted 09/13/2024.
- DVT ppx: LMWH
Poor prognosis.
Agree with discharge planning in the next 24 hours.
From the pulmonary perspective no additional recommendations per
He may follow-up in the outpatient setting for further COPD therapy/evaluation be desired. Information will be left in the chart.
Sign off

Data:
CXR 09/12/2024:
There is mild new interstitial airspace disease of the left lung base and mild- moderate worsening interstitial airspace disease of the right lung base suggesting bilateral pneumonia with small right pleural effusion
Transthoracic echocardiogram 09/10/2024:
Normal left ventricular size and wall thickness. Low normal to moderately
reduced left ventricular systolic function. Moderate hypokinesis of the mid to
distal anteroseptal, distal inferior, and distal inferoapical davis.. LV
ejection fraction is 45-50% by visual estimate. Stage I diastolic dysfunction
suggestive of abnormal relaxation. Global longitudinal strain -10.9%.
Normal right ventricular size and function.
Mild mitral regurgitation.
Aortic sclerosis without stenosis.
Mild tricuspid regurgitation. Estimated pulmonary artery pressure of 25-30
mmHg. Assuming a right atrial pressure of 3 mmHg.
No prior study available for comparison.
Total time spent today was 58 minutes for this encounter. Time includes reviewing laboratory test/imaging results, reviewing pertinent medical records, obtaining and reviewing medical history, performing an appropriate exam, ordering medications,
tests and procedures. Time also includes documentation of this encounter, coordinating patient care and communicating with other healthcare professionals. Total time does not include separately billed tests performed on this date of service.
Subjective Data
-
Date of Service:
Date of Service: September 13, 2024
Chief Complaint: Pulmonary Follow Up
Objective Data
Data Reviewed
Vital Signs / I&O / Oxygen:
Vital Signs
Temp Pulse Resp BP Pulse Ox
98.4 F 91 16 115/63 96
09/13/24 12:06 09/13/24 12:06 09/13/24 12:06 09/13/24 12:06 09/13/24 13:31
Intake and Output
09/12/24 09/13/24 09/14/24
06:59 06:59 06:59
Intake Total 960 / 960 960 / 960
Output Total 425 / 425 975 / 975
Balance 535 / 535 -15 / -15
SaO2 96
Labs/Micro/Reports
Lab Data
09/13/24 04:51
09/13/24 04:51
Microbiology
09/07/24 13:43 Blood/Venous Blood Culture - Final
No Growth - Final Report
09/07/24 12:41 Blood/Venous Blood Culture - Final
No Growth - Final Report
09/08/24 03:36 Sputum Respiratory Culture - Final
Usual Respiratory Fany
09/08/24 03:36 Sputum Gram Stain - Final
--- NOTE | 2024-09-13 15:45 | PTCARENOTE ---
pt refused cooling blanket. pt c/o sore throat. dr. Jonhson aware. wants to try Motrin and tyl first as ordered.temp 100.2.
--- NOTE | 2024-09-13 15:46 | CM ---
Reviewed the chart notes. The patient declined VN services. CM continues to be available to patient/family and is monitoring medical plan for needs at discharge.
Plan: Discharge to home when medically stable. No needs identified at this time.
--- NOTE | 2024-09-13 16:00 | PTCARENOTE ---
pt refused his tyl for fever of 100.8. pt educated.
[2024-09-13] MEDS: LOVENOX 40 MG SC (17:29)
[2024-09-13] MEDS: LIPITOR 40 MG PO (17:32)
--- NOTE | 2024-09-13 17:56 | W.PN.UPDATE ---
Update Note
Progress Note Update
Received text from nurse that Pt complaining of sore throat and temp of 100.8. Ordered COVID19 ag test, rapid srep screen, throat cx, and bcx.
[2024-09-13] MEDS: TYLENOL 650 MG PO (18:10)
--- NOTE | 2024-09-13 18:43 | PTCARENOTE ---
pt refused cooling blanket. wants to try Motrin and tyl. c/o of sore throat. dr. Johnson aware. no s/s of distress noted at this time. temp 100.2
[2024-09-13 19:35] LABS: COVID-19 Antigen Negative (Negative)
[2024-09-14] MEDS: MAXIPIME 1000 MG IV ×5 (00:18→23:01)
[2024-09-14] MEDS: STERILE WATER FOR INJECTION 10 ML IV ×5 (00:19→23:01)
[2024-09-14] MEDS: ROBITUSSIN AC 10 ML PO (00:20)
[2024-09-14 03:07] VITALS: BP 125/73
[2024-09-14 05:38] VITALS: BMI 21.3
[2024-09-14] MEDS: MOTRIN 200 MG PO ×5 (06:00→23:00)
[2024-09-14 06:09] LABS: % Basophils 0.6 % (0-2); % Immature Granulocytes 4.3 % (0-0.5); % Lymphocytes 4.4 % (20.5-51.1); % Monocytes 11.1 % (1.7-9.3); % Neutrophils 77.6 % (42.2-75.2); Absolute Basophils 0.1 10^3/uL (0-0.2); Absolute Eosinophils 0.5 10^3/uL (0-0.7); Absolute Monocytes 2.5 10^3/uL (0.1-0.6); Absolute Neutrophils 17.6 10^3/uL (1.4-6.5); Hematocrit 22.2 % (39.0-52.0); Mean Corp Hgb Conc. 31.5 g/dL (33.0-37.0); Mean Corpuscular Hgb 25.4 pg (27.0-31.0); Mean Corpuscular Volume 80.4 fL (80.0-94.0); Mean Platelet Volume 9.7 fL (7.4-10.4); Nucleated Red Blood Cells % 0 % (-); Platelet Count 302 10^3/uL (130-400); Red Blood Cell Count 2.76 10^6/uL (4.70-6.10); Red Cell Dist. Width 20.6 % (11.5-14.5); White Blood Cell Count 22.7 10^3/uL (4.8-10.8)
[2024-09-14] MEDS: LASIX 20 MG PO (06:25)
[2024-09-14 06:34] LABS: ALT (SGPT) 35 U/L (0-50); AST (SGOT) 31 U/L (17-59); Alkaline Phosphatase 250 U/L (38-126); Blood Urea Nitrogen 17 mg/dl (9-20); Calcium 7.7 mg/dl (8.4-10.2); Carbon Dioxide 22 mmol/L (22-30); Chloride 109 mmol/L (98-107); Estimated Creatinine Clearance 55 ml/min; Glucose 84 mg/dl (70-99); Magnesium 1.7 mg/dl (1.6-2.3); Potassium 4.3 mmol/L (3.5-5.1); Sodium 139 mmol/L (135-145); Total Bilirubin 0.4 mg/dl (0.2-1.3); Total Protein 4.4 g/dl (6.3-8.2); eGFR > 60.00
--- NOTE | 2024-09-14 07:06 | W.PN.HOSP.TC ---
Addendum entered and electronically signed by Ezra Easley MD 09/14/24 10:59:
Gen: NAD, AAOx3.
Eyes: EOMI, PERRLA, no scleral icterus.
Neck: supple.
CV: continues to remain RRR, +S1/S2, no m/r/g.
Resp: continues to remain CTAB anteriorly, no rales, wheezes, or rhonchi.
Abd: +BS, soft, NT, ND
Skin: No rashes.
Neuro: continues to remain CN 2-12 intact, non-focal.
Psych: Normal mood and affect.
09/07/24 13:43 Blood/Venous Blood Culture - Final
No Growth - Final Report
09/07/24 12:41 Blood/Venous Blood Culture - Final
No Growth - Final Report
09/08/24 03:36 Sputum Respiratory Culture - Final
Usual Respiratory Jeannine
09/08/24 03:36 Sputum Gram Stain - Final
09/07/24 19:23 Nose MRSA Screen - Final
No Methicillin Resistant Staphylococcus aureus isolated.
09/07/24 12:41 Nasal Swab Influenza Types A & B (SARA) - Final
Negative for Influenza A & B, NAAT
Negative results must be combined with clinical observations
and patient history.
Nucleic Acid Amplification test (NAAT)performed on the
[employer] platform.
CT A/P-moderate elevation in right hemidiaphragm, small bilateral pleural effusions with adjacent atelectasis. Bullous changes in the both lower lungs. Status post reported seizure. Pneumobilia. Multiple hepatic metastatic lesions increased send
July 2024. Splenic metastatic disease increased. Right upper quadrant prominent air-fluid density. Delayed images awaited to make sure this is colon. Moderate subcutaneous edema. Focal lytic lesion medial iliac bone and L2 vertebra
CTA chest: no PE. Severe centrilobular emphysema. Small right pleural effusion. Minimal left pleural effusion. Large hepatic tumor. Pneumobilia. Thyroid gland 2.5 cm mass in the left lobe.
Echo: Normal left ventricular size and wall thickness. Low normal to moderately
reduced left ventricular systolic function. Moderate hypokinesis of the mid to
distal anteroseptal, distal inferior, and distal inferoapical davis.. LV
ejection fraction is 45-50% by visual estimate. Stage I diastolic dysfunction
suggestive of abnormal relaxation. Global longitudinal strain -10.9%.
Normal right ventricular size and function.
Mild mitral regurgitation.
Aortic sclerosis without stenosis.
Mild tricuspid regurgitation. Estimated pulmonary artery pressure of 25-30
mmHg. Assuming a right atrial pressure of 3 mmHg.
No prior study available for comparison.
Acute NSTEMI
Acute heart failure due to fluid resuscitation
-ASA started
-cards following, no need for heparin gtt at this time
-Echo above, notable for EF 45-50%, moderate hypokinesis of the mid to distal anteroseptal, distal inferior, and distal inferoapical davis. G1DD. Mild MR/TR.
-cont BB with holding parameters
Sepsis secondary to PNA:
-Fever, tachycardia, leukocytosis, lactic acidosis
-Leukocytosis could likely be secondary to Neulasta
-COVID/Flu NEG
-all Cx data NEG to date
-empiric Cefepime stopped 09/10/24
-cont standing ibuprofen (he will need weekly BMP after discharge if he remains on standing NSAID). cont PPI for GI proph.
-CXR 09/12/24 with mild new interstitial airspace disease of the left lung base and mild-moderate worsening interstitial airspace disease of the right lung base suggesting bilateral pneumonia with small right pleural effusion
-case discussed with pulm and ID and pt restarted on abx on 09/12/24, Doxy/Cefepime
-I suspect that based on these chest x-ray findings that sepsis was present on admission and due to pneumonia that was not visualized at that time.
-COVID NEG 09/13/24 (and 09/07/24)
-Legionella and streptococcal urinary antigens negative, rapid strep
-throat Cx and repeat BCx pending
Pancreatic adenocarcinoma:
-initially diagnosed 03/28/2023, pt did not follow-up with oncology until 06/03/23
-s/p Mini Whipple surgery with perforation of stomach on 07/27/23
-started chemotherapy 6 months ago, 3 months ago found to have hepatic mets (Bx proven)
-recent chemo approx 2 weeks [employer]
Hypomagnesemia, resolved
Emphysema, not in acute exac
Enlarged thyroid with nodules. 2.5 cm mass in the left lobe. Family made aware. Needs ultrasound as outpatient
Anemia, likely secondary to malignancy/chemo: transfuse 1U pRBCs (if pt is agreeable as her refused yesterday)
Thrombocytopenia, likely secondary to chemo
Total time spent on today's encounter was 50 minutes which included time spent in counseling the patient/family regarding diagnosis and treatment plan as listed above, goals of care, and symptom management. Case was discussed with nursing staff,
specialists, and care coordinators/case management. All labs and imaging personally reviewed by me. Remainder the time spent in detailed review of previous records, lab data, imaging, and other medical provider documentation.
Original Note:
Today's Communication/Plan
-
-Follow up blood/throat culture
-RBC transfusion will be considered
Assessment / Plan
Assessment / Plan
Impression: 74-year-old male presented to the ER with fever of 101 at home took Motrin prior to coming in. has been having fever spikes since last day. Reported having chills last night but denied any new symptoms. Patient has fever spikes since
admission. He also reported chest pain after the admission and was seen by cardiology. Cardiology ordered echo and he was stated on beta-blockers, IV heparin and IV furosemide with a concern of acute heart failure and Non-ST segment elevated ME. He
was found bilateral lower 2+ pitting edema and was ordered bilateral lower Doppler US which did not show any DVT. He was obtained Echo on 09/10. Cardio saw the patient on 09/11 and discussed with the patient risk/benefits of invasive coronary
angiography and patient agreed that empiric medical therapy would be more appropriate at this time. Given anemia and thrombocytopenia (plt:66) earlier this admission�planned to discharge on aspirin 81 mg daily. On 09/12, the Hgb level of the
patient resulted as 6.7 and another lab was resent. The patient was discussed for a possible RBC transfusion and he stated he will think about it. The repeated test for Hgb resulted as 7.8 on 09/12. The patient reported some worsening SOB on 09/12
and CXR was obtained which showed: worsening interstitial airspace disease of the right lung base suggesting bilateral pneumonia with small right pleural effusion. Pulmonology and ID was consulted on 09/12. He was started o cefepime and doxycycline
and Duoneb after he was seen by ID and Pulmonology team. On 09/13 afternoon, he complained having sore throat and fever at 100.8 and ID was updated about it. COVID19 ag test, rapid strep screen, throat cx, and bcx were ordered.
09/07/24 CXR: No acute cardiopulmonary process. Chronic obstructive pulmonary disease.
09/08/[address]: There is no pulmonary embolism. Severe centrilobular emphysema. Small right pleural effusion with compressive atelectasis at the right lung base. Minimal left pleural effusion. Large hepatic tumor. Pneumobilia
CT A/P on 09/09 -moderate elevation in right hemidiaphragm, small bilateral pleural effusions with adjacent atelectasis. Bullous changes in the both lower lungs. Status post reported seizure. Pneumobilia. Multiple hepatic metastatic lesions
increased send July 2024. Splenic metastatic disease increased. Right upper quadrant prominent air-fluid density. Delayed images awaited to make sure this is colon. Moderate subcutaneous edema. Focal lytic lesion medial iliac bone and L2
vertebra
PE study-no PE. Says severe centrilobular emphysema. Small right pleural effusion. Minimal left pleural effusion. Large hepatic tumor. Pneumobilia. Thyroid gland 2.5 cm mass in the left lobe
ECHO 09/10: Normal left ventricular size and wall thickness. Low normal to moderately reduced left ventricular systolic function. Moderate hypokinesis of the mid to distal anteroseptal, distal inferior, and distal inferoapical davis.LV ejection
fraction is 45-50% by visual estimate. Stage I diastolic dysfunction suggestive of abnormal relaxation.
CXR 09/12: There is mild new interstitial airspace disease of the left lung base and mild- moderate worsening interstitial airspace disease of the right lung base suggesting bilateral pneumonia with small right pleural effusion
BILATERAL LOWER EXTREMITY VENOUS DUPLEX on 09/10: No sonographic evidence for lower extremity venous thrombosis.
Assessment/Plan
# Elevated troponin
-Aspirin started after discussion with hematology oncology.
-Discontinued heparin
-Echo:LV ejection fraction is 45-50% by visual estimate. Stage I diastolic dysfunction
-Troponin trended down
-Cardiology follow up and discharge recc appreciated:
Aspirin 81 mg daily
Toprol XL 12.5 mg daily
Atorvastatin 40 mg daily
Lasix 20 mg daily as needed for weight gain and edema
-Hemoglobin came back as 7.0 on 09/14. Benefits and risks of blood transfusion was discussed in detail.
# Anemia likely secondary to malignancy/chemo-follow counts
-Hgb on 09/14 7.0
-Occult blood was ordered
-Patient denies stool color change/ vomiting/ sputum with blood
-Transfusion of RBC was discussed
#SOB due HF vs Atelectasis vs PNA
-The patient reported having SOB 2 days ago and reports improvement with breathing this morning
-Chest X R 09/12: worsening interstitial airspace disease of the right lung base suggesting bilateral pneumonia with small right pleural effusion.
-Chest CT: 09/09/24:Small bilateral pleural effusions with adjacent atelectasis
-Appreciated ID and pulmonology involvement:
-From 09/12: Legionella Urinary Antigen, Strep pneumoniae Antigen ordered: negative
-Continue Cefepime+Doxycycline
#Throat sore with Fever
-From 09/13 throat sore and fever: throat culture/blood culture pending Covid negative
-Currently on Cefepime+Doxycycline due PNA
-WBC 22.7 on 09/14 could likely be secondary to Neulasta
-Diastolic Stage 1 HF
#Low BP
-Hold Lasix
-Hold metoprolol until SBP>90/60
-Continue IV
-Follow up I-O
# Fever With lactic acidosis at admission
-Sepsis picture-present on admission- but no clear source of infection.
-Appreciate ID assessment
-Leukocytosis could likely be secondary to Neulasta
-COVID serology negative
- Blood cultures: cx's neg / UA neg, no dysuria (Urinalysis 6-10 white counts-antibiotic should cover If UTI)
-Infectious disease signed off for admission presentation fever due possibly Tumor fever (especially in setting of hepatic mets)
-ID was consulted again on 09/12 due possible PNA
# Pancreatic adenocarcinoma
-initially diagnosed 03/28/2023 8 did not follow-up with hematology oncology until 06/03/2023. Then seen at [facility] by Underwent Mini Whipple surgery with perforation of stomach on 07/27/2023
-Start chemotherapy 6 months ago, 3 months ago found out about hepatic mets
-Now with biopsy proven hepatic metastasis
-Was on chemotherapy got it 2 weeks ago? FOLFIRINOX
-Patient does not want further chemo. agrees.
-Discussed hospice. /patient are not interested
# Hypomagnesemia
-Follow up
-M.7 on 09/14
# Emphysema-stable
# Enlarged thyroid with nodules. 2.5 cm mass in the left lobe. Family made aware. Needs ultrasound as outpatient
# Thrombocytopenia
-Resolved
-PLT 262 on 09/13/24
# Hypoalbuminemia
# Ex-smoker
# DVT prophylaxis-Lovenox
# CODE STATUS-Full code
Anticipated Discharge: 24 - 48 hours
Subjective/Interval History
-
Date of Service: September 14
Patient reported feeling better and denied throat pain this morning. He denied SOB and reports he had a great sleep yesterday night. Denies SOB, chest pain, abdominal pain, dysuria and color/form change with his tool. Last bowel movement was
yesterday morning.
Objective Data
-
Labs:
Laboratory Results
09/14/24
05:49
WBC 22.7 H
Hgb 7.0 L
Hct 22.2 L
Plt Count 302
Sodium 139
Potassium 4.3
Chloride 109 H
Carbon Dioxide 22
BUN 17
Creatinine 1.1
Glucose 84
Calcium 7.7 L
Total Bilirubin 0.4
AST 31
ALT 35
Alkaline Phosphatase 250 H
Vital Signs:
Vital Signs
Temp Pulse Resp BP Pulse Ox
97.5 F 91 16 125/73 95
09/14/24 06:23 09/14/24 03:07 09/14/24 03:07 09/14/24 03:07 09/14/24 03:07
I&O
09/13/24 09/14/24 09/15/24
06:59 06:59 06:59
Intake Total 960 / 960 660 / 660
Output Total 975 / 975 1050 / 1050
Balance -15 / -15 -390 / -390
Review of Systems
-
EENT: Reports No Symptoms Reported
Respiratory: Reports No Symptoms
Cardiac: Reports No Symptoms
Abdomen/GI: Reports No Symptoms
Genitourinary: Reports No Symptoms
Musculoskeletal: Reports Other (generalized weakness )
Skin: Reports No Symptoms
Neuro: Reports No Symptoms
Physical Exam
-
General: No Apparent Distress, Conversant and Appears Chronically Ill
HEENT: Normocephalic and Atraumatic
Respiratory: Rales (On the right lung basal area)
Cardiac: Regular Rhythm and S1/S2
GI: Soft and Nontender
Musculoskeletal: Edema, Right Lower Extrem and Edema, Left Lower Extrem
Skin: Warm
Neuro: Awake, Alert, Oriented and AO x 3
[2024-09-14] MEDS: DUONEB 3 ML INH ×3 (07:10→18:08)
[2024-09-14 07:35] VITALS: BP 125/71
[2024-09-14] MEDS: VIBRAMYCIN 100 MG PO ×2 (08:00→20:47)
[2024-09-14] MEDS: TOPROL XL 12.5 MG PO (08:00)
[2024-09-14] MEDS: MUCINEX 1200 MG PO ×2 (08:00→20:47)
[2024-09-14] MEDS: VITAMIN D3 (cholecalciferol) 25 MCG PO (08:00)
[2024-09-14] MEDS: PROTONIX 40 MG PO (08:00)
[2024-09-14] MEDS: NEURONTIN 300 MG PO ×2 (08:00→20:47)
[2024-09-14] MEDS: ASPIR LOW (ENTERIC COATED) 81 MG PO (08:00)
[2024-09-14] MEDS: ZENPEP DELAYED RELEASE CAPSULE 1 CAPSULE PO ×3 (08:00→17:58)
[2024-09-14] MEDS: METAMUCIL, KONSYL 1 PACKET PO (08:01)
[2024-09-14] MEDS: VISBIOME 1 CAP PO (08:01)
[2024-09-14 11:50] VITALS: BP 123/69
--- NOTE | 2024-09-14 11:54 | W.PN.ID1 ---
Date of Service
Date of Service: September 14, 2024
Today's Communication
Continue antibiotics.
Assessment / Plan
# Pancreatic CA with hepatic mets on chemo, last received 08/29.
-CT a/p shows progression of disease with increase in hepatic and splenic mets, and lytic lesions suspicious for bone mets
- Pt no longer wants further tx.
- Declined hospice and palliative care, per Hem/Onc.
#Tumor fever (especially in setting of hepatic mets)
-Fever resolved on around the clock NSAID.
-Infectious disease work-up negative.
#Leukocytosis, partially from recent pegfilgrastim
-Overall trending down
# Possible PNA, new
- Worsening right base interstitial airspace infiltrates with small pleural effusion and new mild left base interstitial infiltrate.
- Previous chest CT also with minimal left pl effusion.
- Procalcitonin positive but not specific test for bacterial PNA in setting of metastatic cancer with high false positivity rate
- Continue doxycycline and cefepime (d#3)
--> At time of discharge, can transition to levofloxacin 750mg po daily through 09/18/24.
# COPD
Chief Complaint
-: Fever and Leukocytosis
Subjective / Review of Systems
Patient seen and examined. Reported pharyngitis and fever yesterday. Notes some improvement in pharyngitis, although still persists to a mild degree. Fevers improved. Minimal cough.
Vital Signs / Physical Exam
Vital Signs
Vital Signs
Temp Pulse Resp BP Pulse Ox
98.3 F 84 16 123/69 96
09/14/24 11:50 09/14/24 11:50 09/14/24 11:50 09/14/24 11:50 09/14/24 11:50
Physical Exam
Constitutional: No Acute Distress and Comfortable
Eyes: Sclera Anicteric
Cardiovascular: S1/S2; Negative S3/S4
Pulmonary: Coarse (right crackles) and Non Labored
Gastrointestinal: Soft, Non Tender, Non Distended, Normal Bowel Sounds, No Rebound and No Guarding
Extremities: Edema (bilateral ankle and hand edema)
Neurological: Awake, Alert and AO x 3
Psychological: Calm
Lines: Port (RCW; no erythema or tenderness)
Objective Data
Lab Data
Lab Results
09/14/24 05:49
09/14/24 05:49
PT 17.0 Sec (11.4-14.6) H 09/08/24 06:25
INR 1.40 09/08/24 06:25
APTT 42.5 Sec (23.4-35.0) H 09/08/24 06:25
Estimated Creat Clear 55 ml/min 09/14/24 05:49
Lactic Acid 1.1 mmol/L (0.7-2.0) 09/09/24 03:27
Total Bilirubin 0.4 mg/dl (0.2-1.3) 09/14/24 05:49
AST 31 U/L (17-59) 09/14/24 05:49
ALT 35 U/L (0-50) 09/14/24 05:49
Alkaline Phosphatase 250 U/L (38-126) H 09/14/24 05:49
Most recent labs reviewed.
Micro Results:
09/13/24 23:54 Legionella Urinary Antigen - Final
Urine Negative for Legionella pneumophila Serogroup 1 antigen.
A negative result does not rule out the possiblity of
Legionella infection due to other serogroups or species of
Legionella. Clinical correlation is recommended.
Streptococcus pneumoniae Antigen (M - Final
Negative for Streptococcus pneumoniae antigen.
A negative result does not exclude infection with
Streptococcus pneumoniae. Clinical correlation is
recommended.
09/13/24 23:54 Blood Culture - Pending
Blood/Venous
09/13/24 21:16 Streptococcus Screen ([facility]) - Pending
Throat/Pharynx Streptococcus Rapid Screen - Final
Rapid Strep Screen (Group A) Negative
09/13/24 21:16 Throat Culture - Pending
Throat/Pharynx
09/07/24 13:43 Blood Culture - Final
Blood/Venous No Growth - Final Report
09/07/24 12:41 Blood Culture - Final
Blood/Venous No Growth - Final Report
09/08/24 03:36 Respiratory Culture - Final
Sputum Usual Respiratory Jeannine
Gram Stain - Final
09/07/24 19:23 MRSA Screen - Final
Nose No Methicillin Resistant Staphylococcus aureus isolated.
09/07/24 12:41 Influenza Types A & B (SARA) - Final
Nasal Swab Negative for Influenza A & B, NAAT
Negative results must be combined with clinical observations
and patient history.
Nucleic Acid Amplification test (NAAT)performed on the
[employer] platform.
09/13/24
18:59
SARS-CoV-2 Antigen Negative
09/07/24 CXR: No acute cardiopulmonary process. Chronic obstructive pulmonary disease.
09/08/[address]: There is no pulmonary embolism. Severe centrilobular emphysema. Small right pleural effusion with compressive atelectasis at the right lung base. Minimal left pleural effusion. Large hepatic tumor. Pneumobilia
09/09/24 CT a/p: Multiple hepatic metastatic lesions. Dominant hepatic metastatic lesion has increased in size since examination of August 02, 2024. Splenic metastatic disease, also increased from previous examination. Focal lytic lesion within
the medial left iliac bone. Small focal lytic lesion within the right side of the L2 vertebral body. These are likely bony metastatic lesions.
09/10/24 CXR: There is mild new interstitial airspace disease of the left lung base and mild- moderate worsening interstitial airspace disease of the right lung base suggesting bilateral pneumonia with small right pleural effusion
[2024-09-14 15:30] VITALS: BP 132/74
--- NOTE | 2024-09-14 16:04 | CM ---
Reviewed the chart notes and spoke with patient at the bedside. IMM reviewed and placed on chart. CM continues to be available to patient/family and is monitoring medical plan for needs at discharge.
Plan: Discharge to home when medically stable.
[2024-09-14] MEDS: LIPITOR 40 MG PO ×2 (17:57)
[2024-09-14] MEDS: LOVENOX 40 MG SC (17:58)
[2024-09-14 23:04] VITALS: BP 146/89
[2024-09-15] MEDS: MOTRIN 200 MG PO (05:22)
[2024-09-15] MEDS: STERILE WATER FOR INJECTION 10 ML IV (05:25)
[2024-09-15] MEDS: MAXIPIME 1000 MG IV (05:26)
[2024-09-15 05:29] LABS: % Basophils 0.7 % (0-2); % Eosinophils 2.1 % (0-6); % Immature Granulocytes 4.2 % (0-0.5); % Lymphocytes 5.1 % (20.5-51.1); % Monocytes 11.9 % (1.7-9.3); Absolute Basophils 0.2 10^3/uL (0-0.2); Absolute Eosinophils 0.5 10^3/uL (0-0.7); Absolute Immature Granulocytes 0.9 10^3/uL (0-0.05); Absolute Lymphocytes 1.2 10^3/uL (1.2-3.4); Absolute Monocytes 2.7 10^3/uL (0.1-0.6); Hematocrit 23.2 % (39.0-52.0); Hemoglobin 7.5 g/dL (13.0-18.0); Mean Corp Hgb Conc. 32.3 g/dL (33.0-37.0); Mean Corpuscular Hgb 26.8 pg (27.0-31.0); Mean Corpuscular Volume 82.9 fL (80.0-94.0); Mean Platelet Volume 9.9 fL (7.4-10.4); Nucleated Red Blood Cells % 0 % (-); Platelet Count 313 10^3/uL (130-400); Red Cell Dist. Width 20.3 % (11.5-14.5); White Blood Cell Count 22.4 10^3/uL (4.8-10.8)
[2024-09-15 05:42] LABS: ALT (SGPT) 37 U/L (0-50); AST (SGOT) 35 U/L (17-59); Albumin 2.2 g/dl (3.5-5.0); Alkaline Phosphatase 247 U/L (38-126); Blood Urea Nitrogen 18 mg/dl (9-20); Calcium 7.8 mg/dl (8.4-10.2); Carbon Dioxide 23 mmol/L (22-30); Chloride 108 mmol/L (98-107); Estimated Creatinine Clearance 61 ml/min; Glucose 82 mg/dl (70-99); Potassium 4.6 mmol/L (3.5-5.1); Sodium 140 mmol/L (135-145); Total Bilirubin 0.6 mg/dl (0.2-1.3); Total Protein 4.8 g/dl (6.3-8.2); eGFR > 60.00
[2024-09-15 06:00] VITALS: BMI 20.7
[2024-09-15] MEDS: ZENPEP DELAYED RELEASE CAPSULE 1 CAPSULE PO (06:31)
[2024-09-15 07:15] VITALS: BP 128/71
--- NOTE | 2024-09-15 07:39 | W.PN.HOSP.TC ---
Addendum entered and electronically signed by Ezra Easley MD 09/15/24 09:31:
I saw and evaluated the patient. I reviewed the resident�s note and agree with findings and plan as documented in the resident�s note.
Gen: remains NAD, AAOx3.
Eyes: remains EOMI, PERRLA, no scleral icterus.
Neck: supple.
CV: RRR, +S1/S2, no m/r/g.
Resp: dec BS R base
Abd: +BS, soft, NT, ND
Skin: No rashes.
Neuro: CN 2-12 intact, non-focal.
Psych: Normal mood and affect.
09/13/24 23:54 Blood/Venous Blood Culture - Preliminary
No Growth in 24 hours- Final report to follow
09/13/24 21:16 Throat/Pharynx Throat Culture - Preliminary
Usual Respiratory Fany
09/13/24 21:16 Throat/Pharynx Streptococcus Screen ([facility]) - Preliminary
Culture in Progress
09/13/24 21:16 Throat/Pharynx Streptococcus Rapid Screen - Final
Rapid Strep Screen (Group A) Negative
09/13/24 23:54 Urine Legionella Urinary Antigen - Final
Negative for Legionella pneumophila Serogroup 1 antigen.
A negative result does not rule out the possiblity of
Legionella infection due to other serogroups or species of
Legionella. Clinical correlation is recommended.
09/13/24 23:54 Urine Streptococcus pneumoniae Antigen (M - Final
Negative for Streptococcus pneumoniae antigen.
A negative result does not exclude infection with
Streptococcus pneumoniae. Clinical correlation is
recommended.
09/07/24 13:43 Blood/Venous Blood Culture - Final
No Growth - Final Report
09/07/24 12:41 Blood/Venous Blood Culture - Final
No Growth - Final Report
09/08/24 03:36 Sputum Respiratory Culture - Final
Usual Respiratory Fany
09/08/24 03:36 Sputum Gram Stain - Final
09/07/24 19:23 Nose MRSA Screen - Final
No Methicillin Resistant Staphylococcus aureus isolated.
09/07/24 12:41 Nasal Swab Influenza Types A & B ([facility]) - Final
Negative for Influenza A & B, NAAT
Negative results must be combined with clinical observations
and patient history.
Nucleic Acid Amplification test (NAAT)performed on the
[employer] platform.
CT A/P-moderate elevation in right hemidiaphragm, small bilateral pleural effusions with adjacent atelectasis. Bullous changes in the both lower lungs. Status post reported seizure. Pneumobilia. Multiple hepatic metastatic lesions increased send
July 2024. Splenic metastatic disease increased. Right upper quadrant prominent air-fluid density. Delayed images awaited to make sure this is colon. Moderate subcutaneous edema. Focal lytic lesion medial iliac bone and L2 vertebra
CTA chest: no PE. Severe centrilobular emphysema. Small right pleural effusion. Minimal left pleural effusion. Large hepatic tumor. Pneumobilia. Thyroid gland 2.5 cm mass in the left lobe.
Echo: Normal left ventricular size and wall thickness. Low normal to moderately
reduced left ventricular systolic function. Moderate hypokinesis of the mid to
distal anteroseptal, distal inferior, and distal inferoapical davis.. LV
ejection fraction is 45-50% by visual estimate. Stage I diastolic dysfunction
suggestive of abnormal relaxation. Global longitudinal strain -10.9%.
Normal right ventricular size and function.
Mild mitral regurgitation.
Aortic sclerosis without stenosis.
Mild tricuspid regurgitation. Estimated pulmonary artery pressure of 25-30
mmHg. Assuming a right atrial pressure of 3 mmHg.
No prior study available for comparison.
Acute NSTEMI
Acute heart failure due to fluid resuscitation
-ASA started
-cards following, no need for heparin gtt at this time
-Echo above, notable for EF 45-50%, moderate hypokinesis of the mid to distal anteroseptal, distal inferior, and distal inferoapical davis. G1DD. Mild MR/TR.
-cont BB with holding parameters
Sepsis secondary to PNA:
-Fever, tachycardia, leukocytosis, lactic acidosis
-Leukocytosis could likely be secondary to Neulasta
-COVID/Flu NEG
-all Cx data NEG to date
-empiric Cefepime stopped 09/10/24
-cont standing ibuprofen (he will need weekly BMP after discharge if he remains on standing NSAID). cont PPI for GI proph.
-CXR 09/12/24 with mild new interstitial airspace disease of the left lung base and mild-moderate worsening interstitial airspace disease of the right lung base suggesting bilateral pneumonia with small right pleural effusion
-case discussed with pulm and ID and pt restarted on abx on 09/12/24, Doxy/Cefepime
-I suspect that based on these chest x-ray findings that sepsis was present on admission and due to pneumonia that was not visualized at that time.
-COVID NEG 09/13/24 (and 09/07/24)
-Legionella and streptococcal urinary antigens negative, rapid strep
-throat Cx normal respiratory fany and repeat BCx NGTD
-ID recommends d/c on PO Levaquin
Pancreatic adenocarcinoma:
-initially diagnosed 03/28/2023, pt did not follow-up with oncology until 06/03/23
-s/p Mini Whipple surgery with perforation of stomach on 07/27/23
-started chemotherapy 6 months ago, 3 months ago found to have hepatic mets (Bx proven)
-recent chemo approx 2 weeks [employer]
Hypomagnesemia, resolved
Emphysema, not in acute exac
Enlarged thyroid with nodules. 2.5 cm mass in the left lobe. Family made aware. Needs ultrasound as outpatient
Anemia, likely secondary to malignancy/chemo: transfuse 1U pRBCs (if pt is agreeable as her refused yesterday)
Thrombocytopenia, likely secondary to chemo
Medically cleared for discharge. Overall prognosis is terminal. The patient reports that he is not having any more chemotherapy/cancer directed therapy.
Total time spent on d/c = 34 min. This included today's physical exam, progress note, review of laboratory and diagnostic data, preparation of discharge documents and prescriptions, and discussions about the pt's hospital course and discharge plan
with the patient and other medical office assistant instructor involved in the patient's care.
Original Note:
Today's Communication/Plan
-
-Discharge
Assessment / Plan
Assessment / Plan
Impression: 74-year-old male presented to the ER with fever of 101 at home took Motrin prior to coming in. has been having fever spikes since last day. Reported having chills last night but denied any new symptoms. Patient has fever spikes since
admission. He also reported chest pain after the admission and was seen by cardiology. Cardiology ordered echo and he was stated on beta-blockers, IV heparin and IV furosemide with a concern of acute heart failure and Non-ST segment elevated ID. He
was found bilateral lower 2+ pitting edema and was ordered bilateral lower Doppler US which did not show any DVT. He was obtained Echo on 09/10. Cardio saw the patient on 09/11 and discussed with the patient risk/benefits of invasive coronary
angiography and patient agreed that empiric medical therapy would be more appropriate at this time. Given anemia and thrombocytopenia (plt:66) earlier this admission�planned to discharge on aspirin 81 mg daily. On 09/12, the Hgb level of the
patient resulted as 6.7 and another lab was resent. The patient was discussed for a possible RBC transfusion and he stated he will think about it. The repeated test for Hgb resulted as 7.8 on 09/12. The patient reported some worsening SOB on 09/12
and CXR was obtained which showed: worsening interstitial airspace disease of the right lung base suggesting bilateral pneumonia with small right pleural effusion. Pulmonology and ID was consulted on 09/12. He was started o cefepime and doxycycline
and Duoneb after he was seen by ID and Pulmonology team. On 09/13 afternoon, he complained having sore throat and fever at 100.8 and ID was updated about it. COVID19 ag test, rapid strep screen, throat cx, and bcx were ordered. He was seen on 09/14
fro follow up by ID with recommendation to switch oral antibiotic at discharge.
09/07/24 CXR: No acute cardiopulmonary process. Chronic obstructive pulmonary disease.
09/08/[address]: There is no pulmonary embolism. Severe centrilobular emphysema. Small right pleural effusion with compressive atelectasis at the right lung base. Minimal left pleural effusion. Large hepatic tumor. Pneumobilia
CT A/P on 09/09 -moderate elevation in right hemidiaphragm, small bilateral pleural effusions with adjacent atelectasis. Bullous changes in the both lower lungs. Status post reported seizure. Pneumobilia. Multiple hepatic metastatic lesions
increased send July 2024. Splenic metastatic disease increased. Right upper quadrant prominent air-fluid density. Delayed images awaited to make sure this is colon. Moderate subcutaneous edema. Focal lytic lesion medial iliac bone and L2
vertebra
PE study-no PE. Says severe centrilobular emphysema. Small right pleural effusion. Minimal left pleural effusion. Large hepatic tumor. Pneumobilia. Thyroid gland 2.5 cm mass in the left lobe
ECHO 09/10: Normal left ventricular size and wall thickness. Low normal to moderately reduced left ventricular systolic function. Moderate hypokinesis of the mid to distal anteroseptal, distal inferior, and distal inferoapical davis.LV ejection
fraction is 45-50% by visual estimate. Stage I diastolic dysfunction suggestive of abnormal relaxation.
CXR 09/12: There is mild new interstitial airspace disease of the left lung base and mild- moderate worsening interstitial airspace disease of the right lung base suggesting bilateral pneumonia with small right pleural effusion
BILATERAL LOWER EXTREMITY VENOUS DUPLEX on 09/10: No sonographic evidence for lower extremity venous thrombosis.
Assessment/Plan
# Elevated troponin
-Aspirin started after discussion with hematology oncology.
-Discontinued heparin
-Echo:LV ejection fraction is 45-50% by visual estimate. Stage I diastolic dysfunction
-Troponin trended down
-Cardiology follow up and discharge recc appreciated:
Aspirin 81 mg daily
Toprol XL 12.5 mg daily
Atorvastatin 40 mg daily
Lasix 20 mg daily as needed for weight gain and edema
-Hemoglobin came back as 7.0 on 09/14 and 7.5 on 09/15. Benefits and risks of blood transfusion was discussed in detail.
# Anemia likely secondary to malignancy/chemo-follow counts
-Hgb on 09/15: 7.5
-Occult blood was ordered
-Patient denies stool color change/ vomiting/ sputum with blood
-Transfusion of RBC was discussed and patient did not agree transfusion.
#SOB due HF vs Atelectasis vs PNA
-The patient reported having SOB 2 days ago and reports improvement with breathing this morning
-Chest X R 09/12: worsening interstitial airspace disease of the right lung base suggesting bilateral pneumonia with small right pleural effusion.
-Chest CT: 09/09/24:Small bilateral pleural effusions with adjacent atelectasis
-Appreciated ID and pulmonology involvement:
-From 09/12: Legionella Urinary Antigen, Strep pneumoniae Antigen ordered: negative
-Continue Cefepime+Doxycycline and switch to PO levofloxacin until 09/18
-Diastolic Stage 1 HF
#Throat sore with Fever
-Patient reports no pain since yesterday
-From 09/13 throat sore and fever: throat culture: pending ----repeat blood culture final pending:Prelim in 24 hour no growth --- Covid negative
-Currently on Cefepime+Doxycycline due PNA
-WBC 22.4 on 09/15 could likely be secondary to Neulasta
#Low BP
- Lasix hold for low BP
-Hold metoprolol until SBP>90/60
-Continue IV
-Follow up I-O
# Fever With lactic acidosis at admission
-Sepsis picture-present on admission- but no clear source of infection.
-Appreciate ID assessment
-Leukocytosis could likely be secondary to Neulasta
-COVID serology negative
- Blood cultures: cx's neg / UA neg, no dysuria (Urinalysis 6-10 white counts-antibiotic should cover If UTI)
-Infectious disease signed off for admission presentation fever due possibly Tumor fever (especially in setting of hepatic mets)
-ID was consulted again on 09/12 due possible PNA
# Pancreatic adenocarcinoma
-initially diagnosed 03/28/2023 8 did not follow-up with hematology oncology until 06/03/2023. Then seen at [facility] by Underwent Mini Whipple surgery with perforation of stomach on 07/27/2023
-Start chemotherapy 6 months ago, 3 months ago found out about hepatic mets
-Now with biopsy proven hepatic metastasis
-Was on chemotherapy got it 2 weeks ago? FOLFIRINOX
-Patient does not want further chemo. agrees.
-Discussed hospice. /patient are not interested
# Hypomagnesemia
-Follow up
-M.7 on 09/14
# Emphysema-stable
# Enlarged thyroid with nodules. 2.5 cm mass in the left lobe. Family made aware. Needs ultrasound as outpatient
# Thrombocytopenia
-Resolved
-PLT 313 on 09/15/24
# Hypoalbuminemia
# Ex-smoker
# DVT prophylaxis-Lovenox
# CODE STATUS-Full code
Anticipated Discharge: Today
Subjective/Interval History
-
Date of Service: September 15, 2024
Patient was seen in his bed reporting no worsening symptoms. He denies SOB, chest pain, diarrhea, dysuria, abdominal pain.
Objective Data
-
Labs:
Laboratory Results
09/15/24 09/15/24
04:57 04:58
WBC 22.4 H
Hgb 7.5 L
Hct 23.2 L
Plt Count 313
Sodium 140
Potassium 4.6
Chloride 108 H
Carbon Dioxide 23
BUN 18
Creatinine 1.0
Glucose 82
Calcium 7.8 L
Total Bilirubin 0.6
AST 35
ALT 37
Alkaline Phosphatase 247 H
Vital Signs:
Vital Signs
Temp Pulse Resp BP Pulse Ox
99.2 F 115 20 146/89 96
09/14/24 23:04 09/14/24 23:04 09/14/24 23:04 09/14/24 23:04 09/15/24 02:00
I&O
09/14/24 09/15/24 09/16/24
06:59 06:59 06:59
Intake Total 660 / 660 1440 / 1440
Output Total 1050 / 1050 1880 / 1880
Balance -390 / -390 -440 / -440
Review of Systems
-
EENT: Reports No Symptoms Reported
Respiratory: Reports No Symptoms
Cardiac: Reports No Symptoms
Abdomen/GI: Reports No Symptoms
Genitourinary: Reports No Symptoms
Musculoskeletal: Reports No Symptoms and Other (generalized weakness )
Neuro: Reports No Symptoms
Hematologic / Lymphatic: Reports No Symptoms
Physical Exam
-
General: No Apparent Distress, Comfortable and Appears Chronically Ill
HEENT: Normocephalic and Atraumatic
Respiratory: Other (On the right lung basal area)
Cardiac: Regular Rhythm and S1/S2
GI: Soft, Nontender and Nondistended
Musculoskeletal: Edema, Right Lower Extrem and Edema, Left Lower Extrem
Skin: Warm
Neuro: Awake, Alert, Oriented and AO x 3
[2024-09-15] MEDS: DUONEB 3 ML INH (07:53)
[2024-09-15] MEDS: VISBIOME 1 CAP PO (08:58)
[2024-09-15] MEDS: NEURONTIN 300 MG PO (08:58)
[2024-09-15] MEDS: PROTONIX 40 MG PO (08:58)
[2024-09-15] MEDS: MUCINEX 1200 MG PO (08:58)
[2024-09-15] MEDS: VITAMIN D3 (cholecalciferol) 25 MCG PO (08:58)
[2024-09-15] MEDS: ASPIR LOW (ENTERIC COATED) 81 MG PO (08:58)
[2024-09-15] MEDS: VIBRAMYCIN 100 MG PO (08:59)
[2024-09-15] MEDS: METAMUCIL, KONSYL 1 PACKET PO (08:59)
[2024-09-15] MEDS: TOPROL XL 12.5 MG PO (08:59)
--- NOTE | 2024-09-15 10:56 | W.DCSUMMARY ---
Addendum entered and electronically signed by Ezra Easley MD 09/15/24 13:58:
Read, reviewed, and agree. See same day progress note for additional details.
Original Note:
Discharge Summary
Discharge Data
Date of Admission: 09/07/24
Date of Discharge: 09/15/24
-
Pending Results: No
Additional Pending Results:
Discharging Physician : Ezra Easley MD
Disposition : Home
Primary care physician : Alex Gunn MD
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
Hospital Course : The patient is a 74-year-old male with a PMH of pancreatic adenocarcinoma, GERD, CKD, and keratoacanthoma s/p excision who presents with fevers, generalized weakness and cough. Patient has been on chemotherapy for pancreatic
cancer and last taking was about 2 weeks ago through his port. He had a fever at home to 101.8 �F and started to feel weakness and presented to ER on 09/07/24. In the ER he was afebrile to 98.6 �F, tachycardic to 125, breathing at 18 breaths
minute, hypotensive to 88/55 and saturating 97% on room air. Labs showed leukocytosis to 34.5, anemia to 8.9, thrombocytopenia to 71, mild hyponatremia to 134, low serum bicarbonate level of 20, lactate 4.5, ALP 215, albumin level 2.7, urinalysis
negative for UTI and COVID antigen came negative.He was initially given 2 L NS 0.9% in the ER in addition to Zosyn/vancomycin, and admitted to the hospitalist service for further care. Flu A/B swab was negative, and blood cultures resulted
negative. Initial CXR showed no acute cardiopulmonary process. ID recommended to discontinue antibiotic treatment. Oncology was also consulted and there was concern for tumor fever, and ibuprofen 200 mg every 6 hours was started to help reduce his
febrile syndrome. The patient developed bilateral lower extremity edema and Lower extremity duplex was performed on 09/10/2024 which was negative for DVT. He did develop burning chest pain and found to have an elevated troponin and cardiology was
consulted. Cardio saw the patient on 09/11 and discussed with the patient risk/benefits of invasive coronary angiography and patient agreed that empiric medical therapy would be more appropriate at this time. Given anemia and thrombocytopenia
(plt:66) earlier this admission�planned to discharge on aspirin 81 mg daily. On 09/12, the Hgb level of the patient resulted as 6.7 and another lab was resent. The patient was discussed for a possible RBC transfusion and he stated he will think
about it. The repeated test for Hgb resulted as 7.8 on 09/12. On 09/12, The patient reported some worsening SOB on 09/12 and CXR was obtained which showed: worsening interstitial airspace disease of the right lung base suggesting bilateral
pneumonia with small right pleural effusion. Pulmonology and ID was consulted on 09/12. He was started on antibiotic with cefepime and Doxycycline due his new onset PNA. On 09.13 The patient reported having sore throat and had a temp of 100.8.
Ordered COVID19 ag test, rapid srep screen, throat cx, and bcx by ID. The patient had a follow up visit on 09/15 by ED with a recommendation to continue antibiotic treatment transitioning to levofloxacin 750mg po daily through 09/18/24. On
09/15/24, Patient`s hgb result came back 7.5 and he is not willing a RBC transfusion at this point. He is not interested in hospice/palliative care and willing to be discharged to home.
Important imaging findings :
09/07/24 Chest XR
FINDINGS:
Right Port-A-Cath with the catheter tip at the cavoatrial junction. The lungs are symmetrically hyperinflated. Subsegmental atelectasis versus scarring in the right lung base. Mild elevation of the right hemidiaphragm. No pleural effusion or
pneumothorax. The cardiomediastinal silhouette is normal. Chronic degenerative changes of the spine.
IMPRESSION:
No acute cardiopulmonary process. Chronic obstructive pulmonary disease.
Abd XR 09/08
IMPRESSION:
Nonspecific bowel gas pattern without evidence of obstruction or perforation
Small right pleural effusion
09/08/24 Chest XR
IMPRESSION:
Moderate emphysema
Minimal new right pleural effusion
09/08/[address]
IMPRESSION:
There is no pulmonary embolism
Severe centrilobular emphysema
Small right pleural effusion with compressive atelectasis at the right lung base
Minimal left pleural effusion
Large hepatic tumor
Pneumobilia
The thyroid gland is enlarged with 2.5 cm low-density mass in the left lobe of the thyroid which, if clinically indicated, could be best further evaluated and followed with thyroid ultrasound .
Abd CT 09/09/24
IMPRESSION: Moderate elevation right hemidiaphragm, stable.
Small bilateral pleural effusions with adjacent atelectasis. Bullous changes in both lower lungs.
Status post Whipple procedure. Pneumobilia is present.
Multiple hepatic metastatic lesions. Dominant hepatic metastatic lesion has increased in size since examination of August 02, 2024.
Splenic metastatic disease, also increased from previous examination.
In the right upper quadrant, there is prominent air and fluid density off the anterior margin of the liver, most likely within the right colon. I have asked for additional delayed images of the abdomen with attention to the right upper quadrant,
where hopefully GI luminal contrast agent reached the colon in the right upper quadrant, for better evaluation.
Normal appearance of the appendix.
Moderate subcutaneous edema, increased from examination of August 02, 2024.
Focal lytic lesion within the medial left iliac bone. Small focal lytic lesion within the right side of the L2 vertebral body. These are likely bony metastatic lesions.
US Periph Venous LOWER Ext Esteban 09/10/24
IMPRESSION:
No sonographic evidence for lower extremity venous thrombosis.
09/12/24 Chest XR
IMPRESSION:
There is mild new interstitial airspace disease of the left lung base and mild- moderate worsening interstitial airspace disease of the right lung base suggesting bilateral pneumonia with small right pleural effusion
Discharge Plan
-
Patient Disposition: Home (Routine Discharge)
Discharge Diagnosis/Procedures: Metastatic Pancreatic adenocarcinoma
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
Tumor fever
Leukocytosis (likely from pegfilgrastim)
Chronic Kidney Disease
Hyponatremia
Thyroid nodules
Emphysema
Diet: Regular
Activity: No restrictions and As tolerated
Driving Restrictions: As prior to admission
Bathing Restrictions: None
Specialty Instructions: Weigh Daily- Call MD for wt gain/loss 3 lbs overnight/5 lbs in 1 week
Activity Restrictions/Additional Instructions:
BMP and CBC in 1 week, script from PCP
Referrals:
Alex Gunn MD [Family Provider] -
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
Enlarged thyroid with nodules. 2.5 cm mass in the left lobe. Family made aware. Needs ultrasound as outpatient
Needs CBP and CMP repeat in 2-3 days upon discharge. )
José Crystal MD [Active] - in three to four weeks (full PFTs on day of office visit)
Casandra Zavala PA-C [Specified Professional Personl] - 09/28/24 1:40 pm (You have a cardiology follow up appointment at the [place] office. Please call with questions. )
Additional Discharge Medication Instructions: Take lasix 20mg once daily as needed for 3 pound weight gain in 24 hours or 5 pound weight gain in 1 week.
Take toprol 12.5mg daily so long as systolic blood pressure greater than 100.
Prescriptions:
New
aspirin 81 mg Tablet,Delayed Release (Dr/Ec)
81 mg PO DAILY 30 Days Qty: 30 0RF
atorvastatin 40 mg Tablet
40 mg PO QPM 30 Days Qty: 30 0RF
furosemide 20 mg Tablet
20 mg PO DAILY PRN (Reason: EDEMA) 30 Days Qty: 30 0RF
metoprolol succinate 25 mg Tablet Extended Release 24 Hr
12.5 mg PO DAILY 30 Days Qty: 15 0RF
levofloxacin 750 mg tablet
750 mg PO DAILY MDD 750 mg Qty: 4 0RF
albuterol sulfate 90 mcg/actuation HFA aerosol inhaler
3 puff inhalation Q6H PRN (Reason: shortness of breath or wheezing) Qty: 8.5 0RF
Continued
Creon 24,000-76,000 -120,000 unit Capsule,Delayed Release(Dr/Ec)
1 cap PO AC
Probiotic 5 billion cell Capsule, Sprinkle
1 cap PO DAILY
pantoprazole [Protonix] 40 mg Tablet,Delayed Release (Dr/Ec)
40 mg PO DAILY
ibuprofen [Advil] 200 mg Tablet
200 mg PO Q6HPRN PRN (Reason: headache)
psyllium Packet
1 packet PO DAILY
gabapentin 300 mg Capsule
300 mg PO BID
cholecalciferol (vitamin D3) [Vitamin D3] 25 mcg (1,000 unit) Tablet
25 mcg PO DAILY
Glucosamine Chondroitin 550-30-1 mg Capsule
1 cap PO DAILYPRN PRN (Reason: supplement)
Discharge Orders:
Discharge Patient (As Directed); Ordered 09/15/24
Ordered By: Ezra Easley
Discharge Date and Time
Discharge Date/Time: 09/15/24 12:09
Print Language: MALTESE
[2024-09-15] MEDS: MOTRIN PO (11:21)
[2024-09-15] MEDS: MAXIPIME IV (11:22)
[2024-09-15] MEDS: STERILE WATER FOR INJECTION IV (11:22)
[2024-09-15] MEDS: ZENPEP DELAYED RELEASE CAPSULE PO (11:22)
--- NOTE | 2024-09-15 12:41 | CM ---
Patient seen at bedside with patient present. Patient with no concerns at this time and patient indicated they were eager to go home. CM will continue to follow for discharge planning needs.
Plan; home with no needs
== END 2024-09-15 12:09 | disposition home or self-care (01) | DRG 871 ==
LOC: 2 NORTH 16:22
PROVIDERS: Emergency Medicine; Internal Medicine Cardiovascular Disease; Nurse Practitioner Family; Nurse Practitioner Gerontology; Physician Assistant Medical; Student in an Organized Health Care Education/Training Program; ADMITTING PHYSICIAN Hospitalist; ATTENDING PHYSICIAN Internal Medicine; CONSULT PHYSICIAN Internal Medicine Cardiovascular Disease; CONSULT PHYSICIAN Internal Medicine Critical Care Medicine; CONSULT PHYSICIAN Internal Medicine Hematology & Oncology; CONSULT PHYSICIAN Internal Medicine Hospice and Palliative Medicine; CONSULT PHYSICIAN Internal Medicine Infectious Disease; EMERGENCY PHYSICIAN Emergency Medicine; FAMILY PHYSICIAN Family Medicine
DX: A41.9 Sepsis, unspecified organism (principal); D61.810 Antineoplastic chemotherapy induced pancytopenia; J18.9 Pneumonia, unspecified organism; I50.21 Acute systolic (congestive) heart failure; C78.7 Secondary malignant neoplasm of liver and intrahepatic bile duct; C25.9 Malignant neoplasm of pancreas, unspecified; E87.1 Hypo-osmolality and hyponatremia; E87.20 Acidosis, unspecified; I5A Non-ischemic myocardial injury (non-traumatic); J44.0 Chronic obstructive pulmonary disease with (acute) lower respiratory infection; J98.11 Atelectasis; R65.10 Systemic inflammatory response syndrome (SIRS) of non-infectious origin without acute organ dysfunction
CPT/HCPCS: 71045; 71046; 71275; 74019; 74177; 80048; 80053; 80061; 81003; 81015; 82962; 83605; 83735; 83880; 84145; 84484; 85014; 85018; 85025; 85027; 85610; 85730; 86850; 86900; 86901; 87040; 87070; 87205; 87449; 87502; 87811; 87880; 87899; 93005; 93306; 93356; 93970; 94640; 96361; 96374; 96375; 99284; Q9967

== ENCOUNTER → 2024-09-18 15:18 | Outpatient (REF) | payer MEDICARE, SELFPAY ==
[2024-09-18 17:12] LABS: % Basophils 0.7 % (0-2); % Eosinophils 1.1 % (0-6); % Immature Granulocytes 4.3 % (0-0.5); % Lymphocytes 4.6 % (20.5-51.1); % Monocytes 8.8 % (1.7-9.3); % Neutrophils 80.5 % (42.2-75.2); Absolute Basophils 0.2 10^3/uL (0-0.2); Absolute Eosinophils 0.3 10^3/uL (0-0.7); Absolute Immature Granulocytes 1.1 10^3/uL (0-0.05); Absolute Lymphocytes 1.1 10^3/uL (1.2-3.4); Absolute Monocytes 2.2 10^3/uL (0.1-0.6); Absolute Neutrophils 19.9 10^3/uL (1.4-6.5); Hematocrit 26.5 % (39.0-52.0); Hemoglobin 8.3 g/dL (13.0-18.0); Mean Corp Hgb Conc. 31.3 g/dL (33.0-37.0); Mean Corpuscular Hgb 26.1 pg (27.0-31.0); Mean Corpuscular Volume 83.3 fL (80.0-94.0); Mean Platelet Volume 10.5 fL (7.4-10.4); Nucleated Red Blood Cells % 0 % (-); Platelet Count 368 10^3/uL (130-400); Red Blood Cell Count 3.18 10^6/uL (4.70-6.10); Red Cell Dist. Width 20.5 % (11.5-14.5); White Blood Cell Count 24.8 10^3/uL (4.8-10.8)
[2024-09-18 17:42] LABS: Blood Urea Nitrogen 14 mg/dl (9-20); Calcium 7.5 mg/dl (8.4-10.2); Carbon Dioxide 20 mmol/L (22-30); Chloride 104 mmol/L (98-107); Glucose 134 mg/dl (70-99); Potassium 3.9 mmol/L (3.5-5.1); Sodium 138 mmol/L (135-145); eGFR > 60.00
== END ==
LOC: REG 15:18
PROVIDERS: ATTENDING PHYSICIAN Nurse Practitioner Family; FAMILY PHYSICIAN Family Medicine
DX: C25.0 Malignant neoplasm of head of pancreas (principal); D72.829 Elevated white blood cell count, unspecified; E87.1 Hypo-osmolality and hyponatremia
CPT/HCPCS: 36415; 80048; 85025

== ENCOUNTER 2024-09-19 23:42 | Inpatient (IN) | payer MEDICARE, SELFPAY ==
[2024-09-19] VITALS (7 sets, daily range): BP systolic 103–120; BP diastolic 62–90; BMI 21.0
--- NOTE | 2024-09-19 19:34 | ED.GENMED ---
History of Present Illness
General
Chief Complaint: Fever
Source: patient and spouse
Exam Limitations: none
Time Seen by Provider: 09/19/24 18:47
History of Present Illness
History of Present Illness:
This is a 74 year old male that comes in with c/o fever. states that he was just discharged from the hospital on Tuesday. States that today they went to the PCP office for follow up. States that there he had a fever of 102.9 and elevated heart
rate and respiratory rate. Patient states that he has had chills, SOB with exertion. Denies any chest pain, abd pain, nausea, vomiting, diarrhea, headache, dizziness, urinary burning.
Past History
Past History
ED Past Medical History: Cancer (Pancreatic cancer), CHF, VT and Other (Emphysema, PNA, Anemia, )
ED Past Surgical History: Cholecystectomy and Other (Whipple procedure, pilonidal cyst removed, hernia)
Social History
Tobacco: Former smoker
Alcohol: None
Drug: None
Personal:
Living: with family
Review of Systems
Review of Systems
All Other Systems: ROS reviewed and negative except as documented in HPI and ROS
Constitutional: Reports fever and chills
EENT: Reports no symptoms
Respiratory: Reports trouble breathing (with exertion); Denies cough
Cardiac: Reports no symptoms; Denies chest pain
ABD/GI: Reports no symptoms; Denies abdominal pain, nausea, vomiting or diarrhea
: Reports no symptoms; Denies dysuria, frequency or urgency
Musculoskeletal: Reports no symptoms
Skin: Reports no symptoms
Neurological: Reports no symptoms; Denies dizzy or headache
Psychiatric: Reports no symptoms
Phy Exam
General Physical Exam
General Presentation: no apparent distress
General age: appears stated age
General Skin: warm, dry and pale
General Habitus: elderly
General Mental: alert
General Hydration: dry mucous membranes
ENT Exam
ENT Exam: TM's normal, pharynx normal and neck supple
Eye Exam
Eye Exam: EOMI
Cardiovascular Exam
Cardiovascular Exam: regular rate/rhythm and normal peripheral pulses
Pulmonary Exam
Pulmonary Exam: lungs clear, no respiratory distress, no rales, chest non tender, no crackles, no rhonchi, no wheezing and no cough
Gastrointestinal Exam
Gastrointestinal Exam: normal bowel sounds, soft, no organomegaly, no pulsatile mass, non distended, tender (Slight epigastric tenderness with palpation) and other (Rectal exam stool hem negative)
Musculoskeletal Exam
Musculoskeletal Exam: full ROM and edema (+2 pitting edema of ankles and feet)
Skin Exam
Skin Exam: warm/dry, no rash, no petechia and pallor
Psychiatric Exam
Psychiatric Exam: normal mood/affect
Sepsis
Sepsis Screening
Sepsis Assessment: Sepsis Ruled Out
Sepsis Screen
Sepsis Screen: Sepsis Ruled Out
Date: 09/19/24
Time: 22:08
Course
Orders/Labs/Results
Orders:
Orders
09/19/24 19:33
CR Chest - 2 Views Urgent
Comment:
Reason For Exam: Fever
09/19/24 19:34
Acetaminophen [Tylenol] 1,000 mg PO NOW STA
09/19/24 19:41
0.9% Sodium Chloride 500 ml [Nss] 500 ml IV BOLUS
09/19/24 19:42
Complete Blood Count/With Diff Urgent
Comprehensive Metabolic Panel Urgent
Lactic Acid Q4H
Comment: CANCEL 2nd LACTIC ACID IF 1st LACTIC ACID IS LESS THAN 2
Blood Culture Urgent
MARY GRACE Source: Blood/Venous
Specimen Description:
Blood Culture Urgent
MARY GRACE Source: Blood/Venous
Specimen Description:
09/19/24 19:43
Electrocardiogram (*1) Urgent
Reason for Study: Shortness of Breath
EKG- Treatment ONCE
09/19/24 20:10
Urinalysis Reflex To Culture Urgent
Date Specimen was Collected: 09/19/24
Time Specimen was Collected: 20:08
Urine Microscopic Reflex Cult Urgent
Urine Culture Urgent
MARY GRACE Source: U
Specimen Description:
Date Specimen was Collected: 09/19/24
Time Specimen was Collected: 20:08
09/19/24 20:55
Type And Crossmatch Urgent
Abnormal Lab Results
09/19/24 09/19/24
19:42 20:10
WBC 21.3 H 10^3/uL
(4.8-10.8)
RBC 2.74 L 10^6/uL
(4.70-6.10)
Hgb 7.3 L g/dL
(13.0-18.0)
Hct 23.1 L %
(39.0-52.0)
MCH 26.6 L pg
(27.0-31.0)
MCHC 31.6 L g/dL
(33.0-37.0)
RDW 20.4 H %
(11.5-14.5)
Abs Immat Gran (auto) 0.6 H 10^3/uL
(0-0.05)
Absolute Neuts (auto) 17.6 H 10^3/uL
(1.4-6.5)
Absolute Lymphs (auto) 0.8 L 10^3/uL
(1.2-3.4)
Absolute Monos (auto) 1.9 H 10^3/uL
(0.1-0.6)
Immature Gran % 2.9 H %
(0-0.5)
Neutrophils % 82.5 H %
(42.2-75.2)
Lymphocytes % 3.5 L %
(20.5-51.1)
Glucose 110 H mg/dl
(70-99)
Calcium 7.2 L mg/dl
(8.4-10.2)
Alkaline Phosphatase 208 H U/L
(38-126)
Total Protein 4.9 L g/dl
(6.3-8.2)
Albumin 2.2 L g/dl
(3.5-5.0)
Ur Occult Blood Reflex 2+ A
(Negative)
Urine RBC 3-6 A /HPF
(0-2)
Urine Bacteria (Reflex) Moderate A
(Negative)
09/19/24 19:42
09/19/24 19:42
Leukocytosis but decreased from Prior labs, H/H low has dropped 1 gram in 24 hours, Hyperglycemia, Hypocalcemia, Alk phos elevation Total protein very low, Albumin low. Urine negative for infection. Lactic acid 1.5,
Vital Signs
Initial and Last Documented VS:
Initial Vital Signs
Temp Pulse Resp Pulse Ox
98.6 F 114 20 95
09/19/24 17:17 09/19/24 17:17 09/19/24 17:17 09/19/24 17:17
Last Documented Vital Signs
Temp Pulse Resp BP Pulse Ox
98.6 F 70 17 120/90 96
09/19/24 17:17 09/19/24 21:45 09/19/24 21:45 09/19/24 21:12 09/19/24 21:45
MDM/Problems Addressed
Differential Diagnosis Includes:
Sepsis, PNA,
MDM/Problems Addressed:
This is a 74 year old male that comes in with c/o fever. states that he was just discharged on Tuesday and today they went to the PCP office. Patient had a fever of 102.9, increased BP and pulse.
Will do septic work up. Medicate for his fever.
Into see patient and . Explained that his Hgb has dropped a gram since yesterday. rectal exam negative. Will order blood as patient is SOB with exertion. Patient is aware the he will be admitted. Explained that his chest x-xray shows Pneumonia
and antibiotics have been ordered. Will also give antibiotics as chest x-ray shows a Pneumonia. Hospitalist notified.
Chronic conditions affecting care: Cancer
Acute Exacerbation and/or Progression of Chronic Illness: Cancer
*Radiology
Radiology exam reviewed: radiology read reviewed (Chest-Increased moderate right, possibly loculated, pleural effusion with right basilar airspace opacities. Which may represent right lower lobe pneumonia with parapneumonic effusion. There is
lucency projecting over the right lung base, likely related to emphysematous changes. )
*Pulse Oximetry
Patient hypoxic: no
*EKG
Interpreted by ED Provider?: Yes
Heart Rate: 74
Rate: normal
Rhythm: sinus
Tucker: normal axis
Interval: normal interval
QRS Pattern: normal QRS
Ischemia: T-wave inversion (aVR, V2, V3, V4, V5, Checked by DR. Pyle)
*Husbandry Technician Interpretation
Rate: normal
Heart Rate: 84
Rhythm: sinus
*Critical Care Note
Total Time (30-74mins, 75-104mins- exclusive of procedures): Not Applicable
ED Attending Note
-
Portions of this chart may have been created with voice recognition software.� Occasional wrong word or��sound alike� substitutions may have occurred due to the inherent limitations of voice recognition software.
Discharge Plan
Departure
Patient Disposition: Admit
Date of Disposition: 09/19/24
Time of Disposition: 22:07
Admit to: Med/Surg
Presentation/result/management discussed w/ accepting MD/DO: Hospitalist
Patient with high blood pressure during this ER visit?: No
Condition: Good
Covid-19: Not Applicable
Discharge Problem:
Fever, Pneumonia, Hemoglobin low
Prescriptions:
No Action
Creon 24,000-76,000 -120,000 unit Capsule,Delayed Release(Dr/Ec)
1 cap PO AC
pantoprazole [Protonix] 40 mg Tablet,Delayed Release (Dr/Ec)
40 mg PO DAILY
ibuprofen [Advil] 200 mg Tablet
200 mg PO Q6HPRN PRN (Reason: headache)
psyllium Packet
1 packet PO DAILY
gabapentin 300 mg Capsule
300 mg PO BID
cholecalciferol (vitamin D3) [Vitamin D3] 25 mcg (1,000 unit) Tablet
25 mcg PO DAILY
Glucosamine Chondroitin 550-30-1 mg Capsule
1 cap PO DAILYPRN PRN (Reason: supplement)
aspirin 81 mg Tablet,Delayed Release (Dr/Ec)
81 mg PO DAILY 30 Days Qty: 30 0RF
atorvastatin 40 mg Tablet
40 mg PO QPM 30 Days Qty: 30 0RF
metoprolol succinate 25 mg Tablet Extended Release 24 Hr
12.5 mg PO DAILY 30 Days Qty: 15 0RF
Visbiome 112.5 billion cell Capsule
1 cap PO DAILY
furosemide 20 mg tablet
20 mg PO DAILYPRN PRN (Reason: EDEMA)
albuterol sulfate 90 mcg/actuation HFA aerosol inhaler
3 puff inhalation R Q6HPRN PRN (Reason: shortness of breath or wheezing)
Referrals:
Alex Gunn MD [Family Provider] -
Interventions
Interventions:
*Risk Screen - Suicide Last Done: 09/19/24 20:48
*General Assessment Last Done: 09/19/24 20:48
*Neglect/Abuse Screening Last Done: 09/19/24 20:48
ED- Fall Risk Assessment Last Done: 09/19/24 20:47
*ED COVID-19 Vaccine History Last Done: 09/19/24 20:48
ED- Neurological Assessment Last Done: 09/19/24 20:47
ED-Skin Assessment Last Done: 09/19/24 20:47
Discharge Date and Time
Print Language: BELARUSIAN
[2024-09-19] MEDS: TYLENOL 1000 MG PO (19:45)
[2024-09-19] MEDS: NSS 500 IV (19:46)
[2024-09-19 20:10] LABS: % Basophils 0.7 % (0-2); % Eosinophils 1.3 % (0-6); % Immature Granulocytes 2.9 % (0-0.5); % Lymphocytes 3.5 % (20.5-51.1); % Monocytes 9.1 % (1.7-9.3); % Neutrophils 82.5 % (42.2-75.2); Absolute Basophils 0.2 10^3/uL (0-0.2); Absolute Eosinophils 0.3 10^3/uL (0-0.7); Absolute Immature Granulocytes 0.6 10^3/uL (0-0.05); Absolute Lymphocytes 0.8 10^3/uL (1.2-3.4); Absolute Monocytes 1.9 10^3/uL (0.1-0.6); Absolute Neutrophils 17.6 10^3/uL (1.4-6.5); Hematocrit 23.1 % (39.0-52.0); Hemoglobin 7.3 g/dL (13.0-18.0); Mean Corp Hgb Conc. 31.6 g/dL (33.0-37.0); Mean Corpuscular Hgb 26.6 pg (27.0-31.0); Mean Corpuscular Volume 84.3 fL (80.0-94.0); Mean Platelet Volume 10.1 fL (7.4-10.4); Nucleated Red Blood Cells % 0 % (-); Platelet Count 287 10^3/uL (130-400); Red Blood Cell Count 2.74 10^6/uL (4.70-6.10); Red Cell Dist. Width 20.4 % (11.5-14.5); White Blood Cell Count 21.3 10^3/uL (4.8-10.8)
[2024-09-19 20:17] LABS: Lactic Acid 1.5 mmol/L (0.7-2.0)
[2024-09-19 20:27] LABS: ALT (SGPT) 49 U/L (0-50); AST (SGOT) 58 U/L (17-59); Albumin 2.2 g/dl (3.5-5.0); Alkaline Phosphatase 208 U/L (38-126); Blood Urea Nitrogen 14 mg/dl (9-20); Calcium 7.2 mg/dl (8.4-10.2); Carbon Dioxide 22 mmol/L (22-30); Chloride 106 mmol/L (98-107); Estimated Creatinine Clearance 58 ml/min; Glucose 110 mg/dl (70-99); Potassium 4.6 mmol/L (3.5-5.1); Sodium 137 mmol/L (135-145); Total Bilirubin 0.3 mg/dl (0.2-1.3); Total Protein 4.9 g/dl (6.3-8.2); eGFR > 60.00
[2024-09-19 20:37] LABS: Urine Albumin Trace (Neg - Trace); Urine Bilirubin Negative (Negative); Urine Character Clear (Clear); Urine Color Yellow; Urine Glucose Negative (Negative); Urine Ketone Negative (Negative); Urine Leukocyte Negative (Negative); Urine Nitrite Negative (Negative); Urine Occult Blood 2+ (Negative); Urine Urobilinogen Negative (Neg - 1+)
[2024-09-19 21:02] LABS: Urine Mucus Moderate
[2024-09-19 21:04] LABS: Urine Bacteria Moderate (Negative)
[2024-09-19] MEDS: ZOSYN 50 IV (22:10)
[2024-09-19] MEDS: VANCOCIN 200 IV (22:25)
--- NOTE | 2024-09-19 23:19 | HPS.HSE ---
Family Physician
-
Family Physician: Alex Gunn
Chief Complaint
-
Fever, SOB
History of Present Illness
Patient is a 74y M with PMH significant for metastatic pancreatic cancer and recent hospitalization for fever who presents to ED complaining of fever and SOB. Patient was recently hospitalized from 09/07 - 09/15 for fever. Work-up at that time
including imaging and multiple cultures was unrevealing. Patient was maintained on abx during his stay however and he was discharged on oral levofloxacin through 09/18. CXR suggested possibility of R base pneumonia; however, this was somewhat
inconclusive.
Patient states that he felt fairly well after discharge. He remained afebrile at home. His monitored his temperature and gave Motrin 200mg if his temp was 99 or higher.
Yesterday patient presented to the hospital for outpatient studies. He walked a fair distance through the parking lots to the building and had no dyspnea, chest pain, etc.
Today he went to see his PCP and became significantly SOB after walking through the parking lot.
In the office, he was noted to have fever to 102.9. He was initially hypoxemic and was placed on supplemental O2 in the office - but this quickly recovered. He took 200mg of Motrin and presented to the ED for further evaluation.
Patient denies any changes in cough / mucus production / etc.
He denies any N/V/D or urinary complaints.
He admits to some pain 'under the R ribs' at times.
Medical History
Past Medical History
Past Medical History: Reports Other
Additional Past Medical History:
Metastatic Pancreatic Cancer
Chronic HFpEF
Anemia of Chronic Disease
Past Surgical History: Reports Other
Additional Past Surgical History:
Cholecystectomy
Whipple
Social History
Tobacco: Non-smoker
Alcohol: None
Drug: None
Personal:
Living: With Family
Employment: Retired
Family History
Family History: Not pertinent
Allergies / Home Medications
Allergies reflects when Allergies were last updated in [employer].
Home Medications with original date entered in [employer]
Allergy/Medication List:
Allergies
Allergy/AdvReac Type Severity Reaction Status Date / Time
irinotecan Allergy angioedema Verified 09/19/24 17:23
Home Medications
qtqajq-jyffsfhe-vvmenvn 24,000-76,000-120,000 unit capsule,delayed rel (Creon) 1 cap PO AC DIGESTION 04/06/24
ibuprofen 200 mg tablet (Advil) 200 mg PO Q6HPRN PRN headache 05/17/24
pantoprazole 40 mg tablet,delayed release (Protonix) 40 mg PO DAILY Gastrointestinal Issue 05/17/24
cholecalciferol (vitamin D3) 25 mcg (1,000 unit) tablet (Vitamin D3) 25 mcg PO DAILY Supplement 09/07/24
gabapentin 300 mg capsule 300 mg PO BID Pain 09/07/24
glucosamine sulf dipot chlr,msm,chond 550 mg-C 30 mg-jeffrey 1 mg capsule (Glucosamine Chondroitin) 1 cap PO DAILYPRN PRN supplement 09/07/24
psyllium 1 packet PO DAILY Constipation 09/07/24
aspirin 81 mg tablet,delayed release 81 mg PO DAILY Arrhythmia 30 days #30 tabs 09/15/24
atorvastatin 40 mg tablet 40 mg PO QPM hyperlipidemia 30 days #30 tabs 09/15/24
metoprolol succinate 25 mg tablet,extended release 24 hr 12.5 mg (1/2 x 25 mg) PO DAILY 30 days #15 tabs 09/15/24
Lactobac no.2-Bifidobac no.1-S. thermo 112.5 billion cell capsule (Visbiome) 1 cap PO DAILY 09/19/24
albuterol sulfate 90 mcg/actuation aerosol inhaler 3 puff inhalation R Q6HPRN PRN shortness of breath or wheezing 09/19/24
furosemide 20 mg tablet 20 mg PO DAILYPRN PRN EDEMA 09/19/24
Review of Systems
-
History Source: Patient and Family
A 12 point ROS was completed and negative except as noted: Yes
Constitutional: Reports Fever, Fatigue and Chills
EENT: Denies Sore Throat
Respiratory: Reports Cough and Trouble Breathing; Denies Hemoptysis
Cardiac: Reports Chest Pain; Denies Diaphoresis, Palpitations or Syncope
Abdomen/GI: Denies Abdominal Pain, Nausea, Vomiting or Diarrhea
: Denies Dysuria, Frequency or Flank Pain
Neurological: Denies Dizzy or Headache
Psych: Denies Depression or Anxiety
Physical Exam
Vital Signs
Vital Signs
Temp Pulse Resp BP Pulse Ox
98.6 F 65 17 103/65 95
09/19/24 17:17 09/19/24 22:45 09/19/24 22:45 09/19/24 22:00 09/19/24 22:45
Physical Exam
General: Other (Pale, thin 74y M in no acute distress.)
HEENT: Moist mucous membranes, PERRLA and Other (No JVD.)
Respiratory: Clear; No Wheezes, Rales or Rhonchi
Cardiac: S1/S2 and Regular Rhythm; No Murmur
GI: Soft, Non Distended, Normal Bowel Sounds and Other (Mild epigastric tenderness. No rebound / guarding.)
Musculoskeletal: No Clubbing, No Cyanosis and Other (1+ pitting edema b/l LEs.)
Neuro: AO x 3
Laboratory Results
-
09/19/24 19:42
09/19/24 19:42
Laboratory Results
Lactic Acid Cancelled 09/19/24 23:45
Total Bilirubin 0.3 mg/dl (0.2-1.3) 09/19/24 19:42
AST 58 U/L (17-59) 09/19/24 19:42
ALT 49 U/L (0-50) 09/19/24 19:42
Alkaline Phosphatase 208 U/L (38-126) H 09/19/24 19:42
Impression/Plan
-
A/P: Patient is a 74y M with PMH significant for pancreatic cancer who presents to ED complaining of fevers and SOB.
RLL Pneumonia
Sepsis secondary to the above
Parapneumonic Effusion
- Admit for further evaluation and treatment.
- Fever and dyspneas recurred within 24 hours of completion of abx course (Levaquin).
- CXR today with increased fluid at R base, some evidence of loculation and adjacent pneumonia v atelectasis.
- Patient with SOB and reports intermittent R lower chest RUQ pain.
- Resume abx with Zosyn for now.
- Cultures have been repeated (all negative during recent admission).
- ID re-evaluation.
- Reviewed with patient possibility of diagnostic thoracentesis and he will consider this / review with other providers.
- Continue IV abx, supportive care, etc for now.
Symptomatic Anemia
Anemia of Chronic Disease
Iron Deficiency Anemia
- Hgb 7.3 which is fairly stable from recent visit.
- Transfusion discussed at that time and patient declined - he is now agreeable.
- TSat was 12% on prior labs.
- Follow H&H for changes after transfusion.
- Follow for clinical improvement in fatigue, dyspnea, etc after transfusion.
Chronic HFpEF
- Echo during recent visit with LVEF = 45-50%.
- LE edema appreciated on exam. Increased R effusion (? infectious as noted above).
- Change Lasix to daily for now and follow I/Os, daily weights, etc.
Metastatic Pancreatic Cancer
- Patient has declined further active chemotherapy / treatment.
- His last chemo / GCSF treatment was 08/29. Doubt this is contributing to his current degree of leukocytosis.
- ? fever and leukocytosis primary results of malignancy itself?
- Imaging and symptoms do seem c/w pneumonia so will treat as noted above and follow for effects.
- Continue NSAIDs for fever / symptom management.
- Patient had declined Hospice / Palliative Care eval during last visit.
- No longer wishes for active therapy, but also not interested in end-of-life care and expresses that he would like to remain a full code.
- Goals of care will need to be continually addressed / updated.
DVT Prophylaxis: Lovenox
Code Status: Full
[2024-09-20] VITALS (29 sets, daily range): BP systolic 88–149; BP diastolic 59–78; PULSE 83; O2SAT 98; BMI 21.0; BMI 21.6
[2024-09-20] MEDS: MOTRIN 200 MG PO (00:28)
[2024-09-20] MEDS: ZOSYN 100 IV ×2 (04:44→09:56)
[2024-09-20] MEDS: MOTRIN PO ×2 (07:17→11:31)
[2024-09-20 07:31] LABS: Blood Urea Nitrogen 14 mg/dl (9-20); Calcium 7.5 mg/dl (8.4-10.2); Carbon Dioxide 22 mmol/L (22-30); Chloride 109 mmol/L (98-107); Estimated Creatinine Clearance 58 ml/min; Glucose 119 mg/dl (70-99); Potassium 3.9 mmol/L (3.5-5.1); Sodium 142 mmol/L (135-145); eGFR > 60.00
[2024-09-20 07:38] LABS: Hemoglobin 9.5 g/dL (13.0-18.0); Mean Corp Hgb Conc. 32.8 g/dL (33.0-37.0); Mean Corpuscular Hgb 27.6 pg (27.0-31.0); Mean Corpuscular Volume 84.3 fL (80.0-94.0); Mean Platelet Volume 9.8 fL (7.4-10.4); Platelet Count 261 10^3/uL (130-400); Red Blood Cell Count 3.44 10^6/uL (4.70-6.10); White Blood Cell Count 18.2 10^3/uL (4.8-10.8)
[2024-09-20] MEDS: MIRALAX 17 GRAMS PO (07:54)
[2024-09-20] MEDS: PROTONIX 40 MG PO (07:55)
[2024-09-20] MEDS: ASPIR LOW (ENTERIC COATED) 81 MG PO (07:55)
[2024-09-20] MEDS: ZENPEP DELAYED RELEASE CAPSULE 1 CAPSULE PO ×2 (07:55→11:32)
[2024-09-20] MEDS: LASIX 40 MG PO (07:56)
[2024-09-20] MEDS: TOPROL XL 12.5 MG PO (07:56)
[2024-09-20] MEDS: NEURONTIN 300 MG PO (07:57)
--- NOTE | 2024-09-20 08:10 | W.PN.HOSP.TC ---
Today's Communication/Plan
-
Discharge today
Assessment / Plan
Assessment / Plan
Physical Exam
General: Not in acute distress
HEENT: Moist mucous membranes
Respiratory: CTAB
Cardiac: S1/S2 and Regular Rhythm
GI: Soft, Non Distended, Nontender, Normal Bowel Sounds
Musculoskeletal: No Cyanosis and Other (1+ pitting edema b/l LEs.)
Neuro: AO x 3
Assessment/Plan
Patient is a 74y M with PMH significant for pancreatic cancer who presents to ED complaining of fevers and SOB.
74 y/o male with past medical history significant for metastatic pancreatic cancer and recent hospitalization for fever who presented to the ED complaining of fever and SOB. Patient was recently hospitalized from 09/07/24 - 09/15/24 for fever.
Work-up at that time including imaging and multiple cultures was unrevealing. Patient was maintained on abx during his stay however and he was discharged on oral levofloxacin through 09/18/24. CXR suggested possibility of right base pneumonia;
however, this was somewhat inconclusive. Patient stated that he felt fairly well after discharge. He remained afebrile at home. His monitored his temperature and gave Motrin 200mg if his temp was 99 or higher. The day before presentation to
the ER, patient presented to the hospital for outpatient studies. He walked a fair distance through the parking lots to the building and had no dyspnea, chest pain, etc. Earlier on the day of presentation, patient went to see his PCP and became
significantly SOB after walking through the parking lot. In the office, he was noted to have fever to 102.9. He was initially hypoxemic and was placed on supplemental O2 in the office - but this quickly recovered. He took 200mg of Motrin and
presented to the ED for further evaluation. Patient denied any changes in cough / mucus production / etc. He denied any N/V/D or urinary complaints. He admitted to some pain 'under the R ribs' at times.
Presentation with SOB and Fever 102.9 F - RESOLVED
Recurrence of tumor fever
- Appreciate Infectious Disease consult recommendations: no need for antibiotics, and make sure patient gets ibuprofen 200mg (with food) every 6 hrs around the clock and NOT PRN
- CT Chest PE with no PE
Symptomatic Anemia
Anemia of Chronic Disease
Iron Deficiency Anemia
- Hgb 7.3 which is fairly stable from recent visit.
- Transfusion discussed at that time and patient declined but this admission he agreed to transfusion and received 2 units of PRBCs with good improvement in Hgb
- Follow H&H for changes after transfusion.
- Follow for clinical improvement in fatigue, dyspnea, etc after transfusion.
- I discussed, on 09/20/24, via [place] [facility], patient's case with oncologist Dr. Bronson Giraldo who said patient can be discharged today (and with outpatient follow-up) from his standpoint
Chronic HFpEF
- Echo during recent visit with LVEF = 45-50%.
- LE edema appreciated on exam. Increased R effusion (? infectious as noted above).
Metastatic Pancreatic Cancer
Large Hepatic Metastasis
- Patient has declined further active chemotherapy / treatment.
- His last chemo / GCSF treatment was 08/29. Doubt this is contributing to his current degree of leukocytosis.
- ? fever and leukocytosis primary results of malignancy itself?
- Imaging and symptoms do seem c/w pneumonia so will treat as noted above and follow for effects.
- Continue NSAIDs for fever / symptom management.
- Patient had declined Hospice / Palliative Care eval during last visit.
- No longer wishes for active therapy, but also not interested in end-of-life care and expresses that he would like to remain a full code.
- Goals of care will need to be continually addressed / updated outpatient.
DVT Prophylaxis: Lovenox
Code Status: Full
I spoke extensively with patient's (who is a nurse) and patient today, and they both stated they want patient to go home today since he is doing better and not requiring oxygen.
More than 30 minutes spent in discharge including
Final examination of the patient
Summarizing hospital stay
Instructions for continuing care to all relevant caregivers
Preparation of discharge records, prescriptions, and referral forms
Total time spent (in minutes): 45
Anticipated Discharge: Today
Subjective/Interval History
-
Date of Service: September 20, 2024
Patient was seen and examined. He reported feeling a whole lot better this morning. His (who is a nurse) requested to take patient home as he was doing better now.
Objective Data
-
Labs:
Laboratory Results
09/19/24 09/20/24
19:42 06:30
WBC 21.3 H 18.2 H
Hgb 7.3 L 9.5 L D
Hct 23.1 L 29.0 L
Plt Count 287 D 261
Sodium 137 142
Potassium 4.6 3.9
Chloride 106 109 H
Carbon Dioxide 22 22
BUN 14 14
Creatinine 1.0 1.0
Glucose 110 H 119 H
Calcium 7.2 L 7.5 L
Total Bilirubin 0.3
AST 58
ALT 49
Alkaline Phosphatase 208 H
Vital Signs:
Vital Signs
Temp Pulse Resp BP Pulse Ox
97.7 F 74 15 130/69 96
09/20/24 08:03 09/20/24 08:00 09/20/24 08:00 09/20/24 08:00 09/20/24 08:00
I&O
09/19/24 09/20/24 09/21/24
06:59 06:59 06:59
Intake Total 1000 / 1000
Output Total 450 / 450
Balance 550 / 550
[2024-09-20 09:41] LABS: NT-proBNP 4830 pg/ml; Troponin I < 0.012 ng/ml
--- NOTE | 2024-09-20 11:23 | CM ---
Addendum entered by Vivian Freeman RN 09/20/24 15:37:
[facility] reviewed medical records. Patient is medically ready for discharge. No needs noted.
PLAN: Home no needs.
Original Note:
CM reviewed medical records. Patient was recently discharged to home. As this time, no VN or home services. Patient does not have a history of placement. Patient lives independently with . Patient is active with his PCP. Patient uses [facility] for
medication services.
PLAN: Home vs. Home with VN.
[2024-09-20] MEDS: ZENPEP DELAYED RELEASE CAPSULE PO (11:31)
--- NOTE | 2024-09-20 13:19 | CON.ID ---
Consultation
-
Date/Time Consultation Requested: 09/20/24 0009
Date/Time Consultation Performed: 09/20/24 1230
Requesting Provider: Dr. Edilson Jones
Performing Provider: Dr. Annia Johnson
Reason for Consultation: Fever
Chief Complaint / Past History
Chief Complaint
Fever
History of Present Illness
History obtained from the patient as well as from his at bedside. He is a 74-year-old male with history of COPD, pancreatic cancer diagnosed in 2022 status post mini Whipple's August 2023, develop liver metastases diagnosed March 2024,
chemotherapy started last received August 29 followed by pegfilgrastim on 08/30 recent hospitalization September 07 to September 15, 2024 with fever. Infectious work-up negative. Fever suspected tumor fever which resolved on around the clock ibuprofen
200mg po q6h. Leukocytosis from pegfilgrastim was trending down. He was observed off abx but repeat CXR showed worsening infiltrate. He was discharged on levofloxacin which he completed. Of note, last admission, CT showed progression of pancreatic
CA; pt decided not to pursue further chemo/tx.
He was doing well at home. Yesterday, he had appt with PCP. He was very short winded walking to the car. In PCP office T=102.9. He was therefore sent to ED. HgB 7.3 s/p pRBC transfusion. Afebrile in ED. Per , the Discharge Summary
instruction was to take the ibuprofen 200mg q6h PRN. was not giving it to him around the clock. Pt denies KC, worsening cough, N/V/D, urinary sxs. He feels fine.
Past History
Additional Past Medical History:
Pancreatic cancer s/p mini Whipple (06/2023), with liver mets, progression of disease, last chemo 08/30.
COPD
Port placement 04/2024
Allergy History:
irinotecan Allergy (Verified 09/19/24 17:23)
angioedema
Medications Reviewed: Yes
Current Antibiotics:
Zosyn
Social History
Tobacco: Former Smoker
Alcohol: None
Drug: None
Personal:
Living: With Family
Family History
Family History: Not Pertinent
Review of Systems
Review of Systems
General: Negative Chills
HEENT: Negative Sinus Problems or Headache
Cardiovascular: Negative Chest Pain
Respiratory: Cough (chronic)
Gasteroenterology: Negative Nausea, Vomiting or Diarrhea
Genital / Urological: Negative Dysuria
Endocrine: Weakness
Skin / Hair / Nails: Negative Rash
Neurological: Negative Dizziness
All systems: All other systems were reviewed and were negative
Vital Signs
Temp Pulse Resp BP Pulse Ox
98.2 F 72 20 149/77 98
09/20/24 11:24 09/20/24 12:00 09/20/24 12:00 09/20/24 12:00 09/20/24 12:00
Physical Exam
Physical Exam
Constitutional: No Acute Distress and Comfortable
Eyes: No Conjunctival Hemorrhage and Sclera Anicteric
Oral: Other (2 small clear blisters roof of mouth)
Pulmonary: Other (decreased BS at bases)
Gastrointestinal: Soft, Non Tender and Non Distended
Extremities: Edema (trace ankle edema)
Neurological: AO x 3
Lines: Port (LCW port intact without erythema)
Lab / Diagnostic Study Results
09/20/24 06:30
09/20/24 06:30
Abs Immat Gran (auto) 0.6 10^3/uL (0-0.05) H 09/19/24 19:42
Absolute Neuts (auto) 17.6 10^3/uL (1.4-6.5) H 09/19/24 19:42
Absolute Lymphs (auto) 0.8 10^3/uL (1.2-3.4) L 09/19/24 19:42
Absolute Monos (auto) 1.9 10^3/uL (0.1-0.6) H 09/19/24 19:42
Absolute Basos (auto) 0.2 10^3/uL (0-0.2) 09/19/24 19:42
Immature Gran % 2.9 % (0-0.5) H 09/19/24 19:42
Neutrophils % 82.5 % (42.2-75.2) H 09/19/24 19:42
Lymphocytes % 3.5 % (20.5-51.1) L 09/19/24 19:42
Monocytes % 9.1 % (1.7-9.3) 09/19/24 19:42
Eosinophils % 1.3 % (0-6) 09/19/24 19:42
Basophils % 0.7 % (0-2) 09/19/24 19:42
Lactic Acid Cancelled 09/19/24 23:45
Microbiology Results
Micro:
09/19/24 20:10 Urine Culture - Pending
Urine
09/19/24 19:42 Blood Culture - Pending
Blood/Venous
09/19/24 19:42 Blood Culture - Pending
Blood/Venous
09/20/24 CT a/p: No evidence of pulmonary embolism or thoracic aortic dissection.
2. Small bilateral pleural effusions, right greater than left. Right basilar airspace consolidation which may represent subsegmental atelectasis or pneumonia. No significant change compared to prior CT.
3. Large hepatic metastasis, also unchanged.
Assessment / Plan
#Recurrence of tumor fever
-Instructed pt and that he should be taking the ibuprofen 200mg (with food) every 6 hrs around the clock and NOT PRN.
-DC Zosyn.
#Leukocytosis,from recent pegfilgrastim (08/29)
-Continues to trend down
# Pancreatic CA with hepatic mets and progression of disease chemo, last received chemo 08/29.
- Pt no longer wants further tx.
- Continue palliative care
Can dc home from ID standpoint.
Care Review
Plan reviewed with: Physician (Dr. Jones)
[2024-09-20 15:26] LABS: Troponin I < 0.012 ng/ml
== END 2024-09-20 16:17 | disposition home or self-care (01) | DRG 436 ==
LOC: ED 23:42
PROVIDERS: Clinical Nurse Specialist Family Health; ADMITTING PHYSICIAN Hospitalist; ATTENDING PHYSICIAN Hospitalist; EMERGENCY PHYSICIAN Emergency Medicine; FAMILY PHYSICIAN Family Medicine; OTHER PHYSICIAN Internal Medicine Infectious Disease
PROC: 30233N1 Transfusion of Nonautologous Red Blood Cells into Peripheral Vein, Percutaneous Approach (ICD-10-PCS; 2024-09-20)
DX: C25.9 Malignant neoplasm of pancreas, unspecified (principal); C78.7 Secondary malignant neoplasm of liver and intrahepatic bile duct; I50.32 Chronic diastolic (congestive) heart failure; J90 Pleural effusion, not elsewhere classified; D63.8 Anemia in other chronic diseases classified elsewhere; J43.8 Other emphysema; J44.9 Chronic obstructive pulmonary disease, unspecified; D50.9 Iron deficiency anemia, unspecified; E83.51 Hypocalcemia; R50.81 Fever presenting with conditions classified elsewhere; R09.02 Hypoxemia; R73.9 Hyperglycemia, unspecified; Z79.899 Other long term (current) drug therapy; Z87.891 Personal history of nicotine dependence; Z88.8 Allergy status to other drugs, medicaments and biological substances
CPT/HCPCS: 36430; 71046; 71275; 80048; 80053; 81003; 81015; 83605; 83880; 84484; 85025; 85027; 86850; 86900; 86901; 86920; 87040; 87086; 93005; 96361; 96365; 96366; 96367; 97161; 97165; 99285; P9016; Q9967

== ENCOUNTER → 2024-10-01 14:22 | Outpatient (REF) | payer MEDICARE, SELFPAY ==
[2024-10-01 16:46] LABS: Hematocrit 34.5 % (39.0-52.0); Hemoglobin 10.9 g/dL (13.0-18.0); Mean Corp Hgb Conc. 31.6 g/dL (33.0-37.0); Mean Corpuscular Hgb 26.3 pg (27.0-31.0); Mean Corpuscular Volume 83.3 fL (80.0-94.0); Mean Platelet Volume 9.8 fL (7.4-10.4); Platelet Count 239 10^3/uL (130-400); Red Blood Cell Count 4.14 10^6/uL (4.70-6.10); White Blood Cell Count 25.8 10^3/uL (4.8-10.8)
[2024-10-01 16:49] LABS: ALT (SGPT) 33 U/L (0-50); AST (SGOT) 40 U/L (17-59); Alkaline Phosphatase 271 U/L (38-126); Blood Urea Nitrogen 19 mg/dl (9-20); Carbon Dioxide 23 mmol/L (22-30); Chloride 102 mmol/L (98-107); Glucose 119 mg/dl (70-99); Potassium 4.5 mmol/L (3.5-5.1); Sodium 138 mmol/L (135-145); Total Bilirubin 0.8 mg/dl (0.2-1.3); Total Protein 6.4 g/dl (6.3-8.2); eGFR > 60.00
[2024-10-01 17:21] LABS: % Basophils 0.6 % (0-2); % Eosinophils 5.3 % (0-6); % Immature Granulocytes 0.8 % (0-0.5); % Lymphocytes 5.5 % (20.5-51.1); % Monocytes 9.5 % (1.7-9.3); % Neutrophils 78.3 % (42.2-75.2); Absolute Basophils 0.2 10^3/uL (0-0.2); Absolute Eosinophils 1.4 10^3/uL (0-0.7); Absolute Immature Granulocytes 0.2 10^3/uL (0-0.05); Absolute Lymphocytes 1.4 10^3/uL (1.2-3.4); Absolute Monocytes 2.4 10^3/uL (0.1-0.6); Absolute Neutrophils 20.2 10^3/uL (1.4-6.5); Nucleated Red Blood Cells % 0 % (-)
== END ==
LOC: REG 14:22
PROVIDERS: ATTENDING PHYSICIAN Nurse Practitioner Family; FAMILY PHYSICIAN Family Medicine
DX: D58.2 Other hemoglobinopathies (principal); E83.51 Hypocalcemia
CPT/HCPCS: 36415; 80053; 85025

== ENCOUNTER 2024-10-26 21:52 | Inpatient (IN) | payer MEDICARE, SELFPAY ==
[2024-10-26] VITALS (16 sets, daily range): BP systolic 78–117; BP diastolic 44–92; BMI 18.9; BMI 20.3
--- NOTE | 2024-10-26 18:24 | ED.GENMED ---
History of Present Illness
<Lili Brown MD, Resident - Last Filed: 10/26/24 22:33>
General
Chief Complaint: Abdominal Pain
Time Seen by Provider: 10/26/24 18:08
History of Present Illness
History of Present Illness:
This is a 74 year old male patient with PMH of pancreatic cancer with mets to liver on palliative care who presented to the ED with a concern of abdominal pain and is accompanied by his . History is mostly obtained from his due to patient
being in pain and unable to answer questions. states that today early afternoon patient started to have bloating in his abdomen along with nausea and an episode of vomiting. He is currently on oxycodone for pain management from palliative care
but states that this did not help relieve his pain. She admits that he did chills and had one bowel movement today but has not urinated in over 24 hours. She denies fevers, headaches or chest pain.
Past History
<Lili Brown MD, Resident - Last Filed: 10/26/24 22:33>
Past History
ED Past Medical History: Cancer (Pancreatic cancer), CHF, NM and Other (Emphysema, PNA, Anemia, )
ED Past Surgical History: Cholecystectomy and Other (Whipple procedure, pilonidal cyst removed, hernia)
Social History
Tobacco: Former smoker
Alcohol: None
Drug: None
Personal:
Living: with family
Review of Systems
<Lili Brown MD, Resident - Last Filed: 10/26/24 22:33>
Review of Systems
Constitutional: Reports chills; Denies fever
Cardiac: Denies chest pain
ABD/GI: Reports abdominal pain, nausea and vomiting
: Reports other (anuria)
Phy Exam
<Lili Brown MD, Resident - Last Filed: 10/26/24 22:33>
General Physical Exam
General Presentation: moderate distress
General Habitus: cachetic
Cardiovascular Exam
Cardiovascular Exam: regular rate/rhythm and no murmur
Heart Sounds: normal
Pulmonary Exam
Pulmonary Exam: lungs clear, no respiratory distress and no crackles
Gastrointestinal Exam
Gastrointestinal Exam: soft, non distended and tender (generalized)
Neurological Exam
Neurological Exam: other (not oriented )
Musculoskeletal Exam
Musculoskeletal Exam: no edema
Skin Exam
Skin Exam: warm/dry
Course
<Lili Puja Brown MD, Resident - Last Filed: 10/26/24 22:33>
Orders/Labs/Results
Orders:
Orders
10/26/24 18:25
Complete Blood Count/With Diff Urgent
Comprehensive Metabolic Panel Urgent
Lactic Acid Q4H
Comment: ON ICE, CANCEL 2ND ORDER IF FIRST LACTIC ACID LEVEL <2
Lipase Urgent
Manual Differential Urgent
Blood Culture Urgent
MARY GRACE Source: Blood/Venous
Specimen Description:
10/26/24 18:28
Type+Screen Urgent
10/26/24 18:40
Ondansetron Injectable [Zofran] 4 mg .ROUTE .STK-MED ONE
10/26/24 18:41
HYDROmorphone [Dilaudid] 1 mg .ROUTE .STK-MED ONE
HYDROmorphone [Dilaudid] 1 mg IV NOW STA
Ondansetron Injectable [Zofran] 4 mg IV NOW STA
10/26/24 18:43
Bladder Scan- Treatment ONCE
10/26/24 19:03
HYDROmorphone [Dilaudid] 1 mg IV NOW STA
10/26/24 19:10
CT Abd/pel Without Iv Or Oral Urgent
Comment:
Reason For Exam: gen abd pain hx of pancreatic ca w/ mets
10/26/24 19:20
0.9% Sodium Chloride 1000 ml [Nss] 1,000 ml IV BOLUS
Fentanyl Citrate/Pf [Sublimaze] 50 mcg IV NOW STA
10/26/24 19:23
Add On- LAB Urgent
Tests Added?: ammonia level
10/26/24 19:24
Amiodarone [Cordarone] 150 mg .ROUTE .STK-MED ONE
10/26/24 19:26
Amiodarone [Cordarone] 150 mg Dextrose 5%/Water 100 ml [D5w] 100 ml IV NOW
10/26/24 19:28
Electrocardiogram (*1) Urgent
Reason for Study: Tachycardia
EKG- Treatment ONCE
10/26/24 19:30
Diltiazem HCl [Cardizem] 10 mg IV NOW STA
10/26/24 19:35
Ammonia Urgent
10/26/24 19:39
CR Chest Portable - 1 View Urgent
Comment:
Reason For Exam: sob
Reason Study Needs to be Portable: Patient Unstable
10/26/24 20:00
Cefepime HCl [Maxipime] 2,000 mg IV NOW STA
10/26/24 20:01
0.9% Sodium Chloride 1000 ml [Nss] 1,000 ml IV BOLUS
10/26/24 20:32
Sterile Water [Sterile Water For Injection] 10 ml .ROUTE .STK-MED ONE
10/26/24 20:33
Vancomycin [Vancocin] 1,500 mg 0.9% Sodium Chloride 500 ml [Nss] 500 ml IV NOW
10/26/24 21:26
Admit/Transfer Patient As Directed
Co-Sign Provider:
Level of Care: Inpatient admission
Assign to:: ICU
Physician / Group: Remy
Diagnosis: Multisystem Organ Failure, Lactic Acidosis, Metastatic Pancreatic Cancer
Reason for Hospitalization: Multisystem Organ Failure, Lactic Acidosis, Metastatic Pancreatic Cancer
Expected length of stay greater than two midnights?: Yes
ELOS- Estimated Length of Stay in days: 3
I certify the patient meets the requirements for IP care: Yes
10/26/24 21:36
PRN Pain Medication Management As Directed
May give lesser potent ordered pain med per pt: Yes
preference::
Protocol:: Medication orders for pain may be administered in a
manner that supports deferring to patient preference
when the pt is:
- Requesting an ordered lesser potent pain medication.
Least to most potent pain medications are defined
as: acetaminophen < NSAID < tramadol < opioids
(morphine, oxycodone, hydromorphone).
- Requesting a lesser dose of the same medication IF
ORDERED.
- Requesting a less intrusive route of administration
if both routes are prescribed by the provider (PO <
IV).
10/26/24 21:38
Code Status As Directed
Resuscitation Status: Limited DNR
Limited DNR: -No intubation
Reached after discussion with pt or family/Healthcare POA: Yes
10/26/24 21:52
Blood Culture Urgent
MARY GRACE Source: Blood/Venous
Specimen Description:
10/26/24 22:36
Lactic Acid Q4H
Comment: ON ICE, CANCEL 2ND ORDER IF FIRST LACTIC ACID LEVEL <2
10/26/24 22:51
Acetaminophen [Tylenol] 650 mg PO Q4HPRN PRN
Dextrose 5%/Water 1000 ml [D5w] 1,000 ml Sodium Bicarbonate 150 meq IV 150 mls/hr
Morphine Sulfate 2 mg IV Q2HPRN PRN
Ondansetron Injectable [Zofran] 4 mg IV Q6HPRN PRN
VANCOMYCIN Pharmacy to Dose [VANCOCIN Pharmacy to Dose] 1 each Pharmacy To Prepare [Call Pharmacy To Prepare] 0 ml IV PER PROTOCOL
10/26/24 22:51
Case Management Consult ONCE
Case Management Consult: Hospice
Hospice: Evaluation and treat
Activity As Directed
Activity Level: Bedrest
Bladder Scan As Directed
Follow Bladder Retention/Intermittent Cath Algorithm?: Yes
PRN if no void in __ hours: 6
Frequency: Per Retention Algorithm
If Bladder Scan Result >: 400
then:: Straight cath
I/O [Intake/ Output] As Directed
Frequency: Per unit guidelines
Straight Cath As Directed
Frequency: Per Retention Algorithm
Additional Instructions: straight cath as needed per acute urinary retention algorithm for 24 hrs
Additional Instructions: for bladder scan greater than 400 mL
Vital Signs As Directed
Frequency: Per unit guidelines
Weight As Directed
Frequency: Daily
Oxygen Therapy [O2 Therapy] [RESP] Routine
Titrate/Wean O2 to maintain O2 sat greater than (%): 94
DX Deep Vein Thrombosis Video Routine
10/27/24 04:20
Complete Blood Count/No Diff IN AM
Magnesium IN AM
Phosphorus IN AM
10/27/24 08:00
Pantoprazole [Protonix IV] 40 mg IV DAILY
10/27/24 20:00
Cefepime HCl [Maxipime] 1,000 mg IV Q24H
Abnormal Lab Results
10/26/24
18:25
WBC 58.2 H* 10^3/uL
(4.8-10.8)
RBC 4.65 L 10^6/uL
(4.70-6.10)
Hgb 12.3 L g/dL
(13.0-18.0)
MCH 26.5 L pg
(27.0-31.0)
MCHC 31.1 L g/dL
(33.0-37.0)
RDW 19.8 H %
(11.5-14.5)
Plt Count 91 L 10^3/uL
(130-400)
Abs Neuts (Manual) 48.3 H 10^3/uL
(1.4-6.5)
Segmented Neutrophils 79 H %
(42-75)
Band Neutrophils 4 H %
(0-3)
Lymphocytes (Manual) 8 L %
(20-51)
Potassium 5.7 H mmol/L
(3.5-5.1)
Carbon Dioxide 6 L* mmol/L
(22-30)
BUN 70 H mg/dl
(9-20)
Creatinine 5.1 H* mg/dL
(0.7-1.3)
Lactic Acid 11.4 H* mmol/L
(0.7-2.0)
Calcium 7.7 L mg/dl
(8.4-10.2)
Total Bilirubin 3.9 H mg/dl
(0.2-1.3)
AST 69 H U/L
(17-59)
ALT 63 H U/L
(0-50)
Alkaline Phosphatase 568 H U/L
(38-126)
Total Protein 5.7 L g/dl
(6.3-8.2)
Albumin 2.7 L g/dl
(3.5-5.0)
10/26/24 18:25
10/26/24 18:25
Vital Signs
Initial and Last Documented VS:
Initial Vital Signs
Pulse Resp BP Pulse Ox
99 18 117/92 100
10/26/24 18:06 10/26/24 18:06 10/26/24 18:06 10/26/24 18:06
Last Documented Vital Signs
Temp Pulse Resp BP Pulse Ox
98.0 F 132 8 73/41 94
10/27/24 18:31 10/27/24 18:31 10/27/24 18:31 10/27/24 18:31 10/27/24 11:43
<Viktoria Davala, DO - Last Filed: 10/28/24 09:10>
Orders/Labs/Results
Orders:
Orders
10/26/24 18:25
Complete Blood Count/With Diff Urgent
Comprehensive Metabolic Panel Urgent
Lactic Acid Q4H
Comment: ON ICE, CANCEL 2ND ORDER IF FIRST LACTIC ACID LEVEL <2
Lipase Urgent
Manual Differential Urgent
Blood Culture Urgent
MARY GRACE Source: Blood/Venous
Specimen Description:
10/26/24 18:28
Type+Screen Urgent
10/26/24 18:40
Ondansetron Injectable [Zofran] 4 mg .ROUTE .STK-MED ONE
10/26/24 18:41
HYDROmorphone [Dilaudid] 1 mg .ROUTE .STK-MED ONE
HYDROmorphone [Dilaudid] 1 mg IV NOW STA
Ondansetron Injectable [Zofran] 4 mg IV NOW STA
10/26/24 18:43
Bladder Scan- Treatment ONCE
10/26/24 19:03
HYDROmorphone [Dilaudid] 1 mg IV NOW STA
10/26/24 19:10
CT Abd/pel Without Iv Or Oral Urgent
Comment:
Reason For Exam: gen abd pain hx of pancreatic ca w/ mets
10/26/24 19:20
0.9% Sodium Chloride 1000 ml [Nss] 1,000 ml IV BOLUS
Fentanyl Citrate/Pf [Sublimaze] 50 mcg IV NOW STA
10/26/24 19:23
Add On- LAB Urgent
Tests Added?: ammonia level
10/26/24 19:24
Amiodarone [Cordarone] 150 mg .ROUTE .STK-MED ONE
10/26/24 19:26
Amiodarone [Cordarone] 150 mg Dextrose 5%/Water 100 ml [D5w] 100 ml IV NOW
10/26/24 19:28
Electrocardiogram (*1) Urgent
Reason for Study: Tachycardia
EKG- Treatment ONCE
10/26/24 19:30
Diltiazem HCl [Cardizem] 10 mg IV NOW STA
10/26/24 19:35
Ammonia Urgent
10/26/24 19:39
CR Chest Portable - 1 View Urgent
Comment:
Reason For Exam: sob
Reason Study Needs to be Portable: Patient Unstable
10/26/24 20:00
Cefepime HCl [Maxipime] 2,000 mg IV NOW STA
10/26/24 20:01
0.9% Sodium Chloride 1000 ml [Nss] 1,000 ml IV BOLUS
10/26/24 20:32
Sterile Water [Sterile Water For Injection] 10 ml .ROUTE .STK-MED ONE
10/26/24 20:33
Vancomycin [Vancocin] 1,500 mg 0.9% Sodium Chloride 500 ml [Nss] 500 ml IV NOW
10/26/24 21:26
Admit/Transfer Patient As Directed
Co-Sign Provider:
Level of Care: Inpatient admission
Assign to:: ICU
Physician / Group: Remy
Diagnosis: Multisystem Organ Failure, Lactic Acidosis, Metastatic Pancreatic Cancer
Reason for Hospitalization: Multisystem Organ Failure, Lactic Acidosis, Metastatic Pancreatic Cancer
Expected length of stay greater than two midnights?: Yes
ELOS- Estimated Length of Stay in days: 3
I certify the patient meets the requirements for IP care: Yes
10/26/24 21:36
PRN Pain Medication Management As Directed
May give lesser potent ordered pain med per pt: Yes
preference::
Protocol:: Medication orders for pain may be administered in a
manner that supports deferring to patient preference
when the pt is:
- Requesting an ordered lesser potent pain medication.
Least to most potent pain medications are defined
as: acetaminophen < NSAID < tramadol < opioids
(morphine, oxycodone, hydromorphone).
- Requesting a lesser dose of the same medication IF
ORDERED.
- Requesting a less intrusive route of administration
if both routes are prescribed by the provider (PO <
IV).
10/26/24 21:38
Code Status As Directed
Resuscitation Status: Limited DNR
Limited DNR: -No intubation
Reached after discussion with pt or family/Healthcare POA: Yes
10/26/24 21:52
Blood Culture Urgent
MARY GRACE Source: Blood/Venous
Specimen Description:
10/26/24 22:36
Lactic Acid Q4H
Comment: ON ICE, CANCEL 2ND ORDER IF FIRST LACTIC ACID LEVEL <2
10/26/24 22:51
Acetaminophen [Tylenol] 650 mg PO Q4HPRN PRN
Dextrose 5%/Water 1000 ml [D5w] 1,000 ml Sodium Bicarbonate 150 meq IV 150 mls/hr
Morphine Sulfate 2 mg IV Q2HPRN PRN
Ondansetron Injectable [Zofran] 4 mg IV Q6HPRN PRN
VANCOMYCIN Pharmacy to Dose [VANCOCIN Pharmacy to Dose] 1 each Pharmacy To Prepare [Call Pharmacy To Prepare] 0 ml IV PER PROTOCOL
10/26/24 22:51
Case Management Consult ONCE
Case Management Consult: Hospice
Hospice: Evaluation and treat
Activity As Directed
Activity Level: Bedrest
Bladder Scan As Directed
Follow Bladder Retention/Intermittent Cath Algorithm?: Yes
PRN if no void in __ hours: 6
Frequency: Per Retention Algorithm
If Bladder Scan Result >: 400
then:: Straight cath
I/O [Intake/ Output] As Directed
Frequency: Per unit guidelines
Straight Cath As Directed
Frequency: Per Retention Algorithm
Additional Instructions: straight cath as needed per acute urinary retention algorithm for 24 hrs
Additional Instructions: for bladder scan greater than 400 mL
Vital Signs As Directed
Frequency: Per unit guidelines
Weight As Directed
Frequency: Daily
Oxygen Therapy [O2 Therapy] [RESP] Routine
Titrate/Wean O2 to maintain O2 sat greater than (%): 94
DX Deep Vein Thrombosis Video Routine
10/27/24 04:20
Complete Blood Count/No Diff IN AM
Magnesium IN AM
Phosphorus IN AM
10/27/24 08:00
Pantoprazole [Protonix IV] 40 mg IV DAILY
10/27/24 20:00
Cefepime HCl [Maxipime] 1,000 mg IV Q24H
Abnormal Lab Results
10/26/24
18:25
WBC 58.2 H* 10^3/uL
(4.8-10.8)
RBC 4.65 L 10^6/uL
(4.70-6.10)
Hgb 12.3 L g/dL
(13.0-18.0)
MCH 26.5 L pg
(27.0-31.0)
MCHC 31.1 L g/dL
(33.0-37.0)
RDW 19.8 H %
(11.5-14.5)
Plt Count 91 L 10^3/uL
(130-400)
Abs Neuts (Manual) 48.3 H 10^3/uL
(1.4-6.5)
Segmented Neutrophils 79 H %
(42-75)
Band Neutrophils 4 H %
(0-3)
Lymphocytes (Manual) 8 L %
(20-51)
Potassium 5.7 H mmol/L
(3.5-5.1)
Carbon Dioxide 6 L* mmol/L
(22-30)
BUN 70 H mg/dl
(9-20)
Creatinine 5.1 H* mg/dL
(0.7-1.3)
Lactic Acid 11.4 H* mmol/L
(0.7-2.0)
Calcium 7.7 L mg/dl
(8.4-10.2)
Total Bilirubin 3.9 H mg/dl
(0.2-1.3)
AST 69 H U/L
(17-59)
ALT 63 H U/L
(0-50)
Alkaline Phosphatase 568 H U/L
(38-126)
Total Protein 5.7 L g/dl
(6.3-8.2)
Albumin 2.7 L g/dl
(3.5-5.0)
10/26/24 18:25
10/26/24 18:25
Vital Signs
Initial and Last Documented VS:
Initial Vital Signs
Pulse Resp BP Pulse Ox
99 18 117/92 100
10/26/24 18:06 10/26/24 18:06 10/26/24 18:06 10/26/24 18:06
Last Documented Vital Signs
Temp Pulse Resp BP Pulse Ox
98.0 F 132 8 73/41 94
10/27/24 18:31 10/27/24 18:31 10/27/24 18:31 10/27/24 18:31 10/27/24 11:43
<Lili Puja Brown MD, Resident - Last Filed: 10/26/24 22:33>
MDM/Problems Addressed
Differential Diagnosis Includes:
Metastatic Pancreatic Cancer, Sepsis, MARCOS
MDM/Problems Addressed:
CBC/CMP ordered showing highly increased WBC count of 58, Plt 91, K 5.7, Cr 5.1, lactic acid 11, ALP 568. Patient appeared very uncomfortable on exam and met criteria of SIRS then septic shock after obtain bloodwork and vitals. Pt had unsustain
Vtach and was given amiodarone and then later shifted to Afib with RVR so was given diltiazem. With lactic acid high and pt meeting criteria for septic shock, was started on IV fluids and antibiotics. CT abd showing large right sided pleural
effusion. Patient will be admitted on hospitalist service on basis of large pleural effusion and sepsis.
<Viktoria Flores DO - Last Filed: 10/28/24 09:10>
*Critical Care Note
Total Time (30-74mins, 75-104mins- exclusive of procedures): 62
comment:
The high probability of a clinically significant, sudden or life threatening deterioration, sepsis, required my full and direct attention, intervention and personal management. The aggregate critical care time was 62 minutes. This time is in
addition to time spent performing reported procedures but includes the following:
[x] Data Review and interpretation
[x] Patient assessment and monitoring of vital signs
[x] Documentation
[x] Medication orders and management
ED Attending Note
<Lili Brown MD, Resident - Last Filed: 10/26/24 22:33>
-
Portions of this chart may have been created with voice recognition software.� Occasional wrong word or��sound alike� substitutions may have occurred due to the inherent limitations of voice recognition software.
<Viktoria Flores DO - Last Filed: 10/28/24 09:10>
ED Attending Note
Patient seen and examined by attending physician: Yes
I performed the substantive portion of visit, reviewed & personally made and approve the management plan that is documented in note by myself or HUMPHREY.: Yes
I performed a history and physical exam of patient and discussed management with resident, I reviewed resident's note and agree with documented findings and plan of care.: Yes
ED Attending Note:
74-year-old male with history of metastatic pancreatic cancer currently on palliative care presenting to the emergency department with increased abdominal pain. Patient arrives with who notes in the past few days he has been having some
abdominal pain bloating, has seemed also more confused. She gave her oxycodone for the pain, however did not seem to help. She also reports that his blood pressure has been low. Patient was in increased pain, prompting him to ask to come to the
hospital. Patient has also had decreased urination in the past 24 hours. Last bowel movement was today. Patient limited story and given clinical condition.
Vital signs on arrival significant for hypothermia and tachycardia. On exam, patient is very unwell in appearance, appears very uncomfortable with an tender abdomen. Concern for worsening metastatic process and/or complication including bowel
obstruction versus perforation versus underlying infection. Patient is meeting SIRS criteria with plan for laboratory analysis, cultures, lactic acid. Will start IV fluids. Will obtain CT abdominal imaging. Patient given Dilaudid for pain.
19:35 - Patient is uncomfortable, given additional dose of Dilaudid and fentanyl. Patient went into unsustained V. tach, given 150 of amiodarone. Patient now in A-fib with RVR, given 10 mg of diltiazem.
20:00 - Patient's lactic acid is greater than 11. Patient meeting criteria for septic shock. Will continue 30 cc/kg fluid bolus and administer broad-spectrum antibiotics
20:20 -CT shows a large pleural effusion and/or consolidation. Patient again meeting septic shock, starting antibiotics. would prefer the patient stay in the hospital given his level of pain and despite palliative care status. Suspected poor
prognosis, recommending comfort care/hospice. Will discuss with hospitalist.
Discharge Plan
Departure
Patient Disposition: Admit
Date of Disposition: 10/26/24
Time of Disposition: :29
Presentation/result/management discussed w/ accepting MD/DO: Hospitalist
Patient with high blood pressure during this ER visit?: No
Condition: Critical
Discharge Problem:
Septic shock, Hypothermia
Interventions
Interventions:
*Risk Screen - Suicide Last Done: 10/26/24 23:19
*General Assessment Last Done: 10/26/24 18:06
*Neglect/Abuse Screening Last Done: 10/26/24 18:06
ED- Fall Risk Assessment Last Done: 10/26/24 22:59
*ED COVID-19 Vaccine History Last Done: 10/26/24 22:59
*Nursing Disposition Last Done: 10/26/24 22:59
AE-Ogtvod-Icbzbytuxu Assessment Last Done: 10/26/24 18:18
Discharge Date and Time
Discharge Date/Time: 10/26/24 22:50
[2024-10-26] MEDS: ZOFRAN 4 MG IV (18:45)
[2024-10-26] MEDS: DILAUDID 1 MG IV ×2 (18:45→19:05)
[2024-10-26 18:48] LABS: Hematocrit 39.6 % (39.0-52.0); Hemoglobin 12.3 g/dL (13.0-18.0); Mean Corp Hgb Conc. 31.1 g/dL (33.0-37.0); Mean Corpuscular Hgb 26.5 pg (27.0-31.0); Mean Corpuscular Volume 85.2 fL (80.0-94.0); Platelet Count 91 10^3/uL (130-400); Red Blood Cell Count 4.65 10^6/uL (4.70-6.10); Red Cell Dist. Width 19.8 % (11.5-14.5); White Blood Cell Count 58.2 10^3/uL (4.8-10.8)
[2024-10-26 19:03] LABS: AST (SGOT) 69 U/L (17-59); Albumin 2.7 g/dl (3.5-5.0); Alkaline Phosphatase 568 U/L (38-126); Blood Urea Nitrogen 70 mg/dl (9-20); Calcium 7.7 mg/dl (8.4-10.2); Carbon Dioxide 6 mmol/L (22-30); Chloride 104 mmol/L (98-107); Estimated Creatinine Clearance 11 ml/min; Glucose 86 mg/dl (70-99); Lipase 48 U/L (23-300); Potassium 5.7 mmol/L (3.5-5.1); Sodium 139 mmol/L (135-145); Total Bilirubin 3.9 mg/dl (0.2-1.3); Total Protein 5.7 g/dl (6.3-8.2); eGFR 11.25
--- NOTE | 2024-10-26 19:26 | EDRN ---
Pt with [address] Flores at the bedside. Verbal order for Amiodarone 150mg IV push.
[2024-10-26] MEDS: SUBLIMAZE 50 MCG IV (19:29)
[2024-10-26] MEDS: NSS 1000 IV ×2 (19:30→20:56)
[2024-10-26 19:33] LABS: Lactic Acid 11.4 mmol/L (0.7-2.0)
[2024-10-26 19:36] LABS: ALT (SGPT) 63 U/L (0-50)
[2024-10-26] MEDS: CARDIZEM 10 MG IV (19:36)
[2024-10-26 19:56] LABS: Absolute Neutrophils -Man Diff 48.3 10^3/uL (1.4-6.5); Anisocytosis 2+; Band Neutrophils 4 % (0-3); Eosinophils 1 % (0-6); Lymphocytes 8 % (20-51); Monocytes 8 % (2-9); Normal RBC Morphology No; Platelets Checked Yes; Segmented Neutrophils 79 % (42-75)
[2024-10-26 20:00] LABS: Ammonia 19 umol/L (9-30)
[2024-10-26 20:00] LABS: Acanthocytes 1+; Hypochromasia 1+
[2024-10-26 20:01] LABS: Microcytosis 2+
[2024-10-26 20:02] LABS: Target Cells 1+; Total Cells Counted 100
[2024-10-26] MEDS: MAXIPIME 2000 MG IV (20:40)
[2024-10-26] MEDS: VANCOCIN 530 MG IV (20:51)
--- NOTE | 2024-10-26 21:57 | HPS.HSE ---
Addendum entered and electronically signed by Gary Alberto DO 10/26/24 22:40:
Continued discussions with at the bedside while patient in the ED.
Given his multiple system failure and dismal prognosis, is now agreeable to DNR status.
Will continue current plan of care, abx, IVFs, etc - but no resuscitation efforts in the event of arrest.
Original Note:
Family Physician
-
Family Physician: lAex Gunn
Chief Complaint
-
Abd Pain
History of Present Illness
Patient is a 74y M with PMH significant for metastatic pancreatic cancer having exhausted all available therapies who presents to ED complaining of abdominal pain, fatigue, weakness. History obtained primarily from at the bedside. Patient
has metastatic pancreatic cancer and is currently on Palliative Care at home. He started to complain of RUQ abdominal discomfort > 1 week ago. called and obtained a Rx for oxycodone - which was effective in improving his pain for a time.
Over the past 2-3 days he has significantly declined. He has not been eating or drinking. He has been very weak and unable to ambulate steadily. Today patient complained of abdominal pain that was much more severe than his usual. asked him
if he would like to come to the ED for pain control and he said yes. He had declined this same suggestion multiple times in the past few days.
In the ED, patient began to complain of severe back pain as well. He had nausea with multiple episodes of emesis. Both are new issues since arrival here.
At the time of my examination, patient is extremely ill-appearing and unable to significantly contribute to this history.
Medical History
Past Medical History
Past Medical History: Reports Other
Additional Past Medical History:
Metastatic Pancreatic Cancer
Chronic HFpEF
Anemia of Chronic Disease
Past Surgical History: Reports Other
Additional Past Surgical History:
Cholecystectomy
Whipple
Social History
Tobacco: Non-smoker
Alcohol: None
Drug: None
Personal:
Living: With Family
Employment: Retired
Family History
Family History: Not pertinent
Allergies / Home Medications
Allergies reflects when Allergies were last updated in [facility].
Home Medications with original date entered in [facility]
Allergy/Medication List:
Allergies
Allergy/AdvReac Type Severity Reaction Status Date / Time
irinotecan Allergy angioedema Verified 09/19/24 17:23
Home Medications
votqgm-cjpzafwa-uykaqyw 24,000-76,000-120,000 unit capsule,delayed rel (Creon) 1 cap PO AC digestion 04/06/24
pantoprazole 40 mg tablet,delayed release (Protonix) 40 mg PO DAILY Gastrointestinal Issue 05/17/24
cholecalciferol (vitamin D3) 25 mcg (1,000 unit) tablet (Vitamin D3) 25 mcg PO DAILY Supplement 09/07/24
glucosamine sulf dipot chlr,msm,chond 550 mg-C 30 mg-jeffrey 1 mg capsule (Glucosamine Chondroitin) 1 cap PO DAILYPRN PRN supplement 09/07/24
psyllium 1 packet PO DAILYPRN PRN Constipation 09/07/24
aspirin 81 mg tablet,delayed release 81 mg PO DAILY Arrhythmia 30 days #30 tabs 09/15/24
atorvastatin 40 mg tablet 40 mg PO QPM hyperlipidemia 30 days #30 tabs 09/15/24
Lactobac no.2-Bifidobac no.1-S. thermo 112.5 billion cell capsule (Visbiome) 1 cap PO DAILY probiotic 09/19/24
furosemide 20 mg tablet 20 mg PO DAILYPRN PRN edema 09/19/24
albuterol sulfate 90 mcg/actuation aerosol inhaler 2 puff inhalation R Q6HPRN PRN shortness of breath or wheezing #0 grams 09/20/24
metoprolol succinate 25 mg tablet,extended release 24 hr 12.5 mg PO HS 10/26/24
oxycodone 5 mg tablet 5 - 10 mg PO Q4HPRN PRN severe pain 10/26/24
Review of Systems
-
History Source: Family
A 12 point ROS was completed and negative except as noted: Yes
Constitutional: Reports Weight Loss and Fatigue; Denies Fever
Respiratory: Reports Trouble Breathing; Denies Cough
Cardiac: Denies Chest Pain
Abdomen/GI: Reports Abdominal Pain, Nausea, Vomiting, Diarrhea and Anorexia; Denies Bloody Stools or Black Stools
: Reports Other (Decreased urination - notes no urine in past 28 hours or so.)
Musculoskeletal: Denies Edema
Neurological: Denies Dizzy or Headache
Psych: Denies Depression or Anxiety
Physical Exam
Vital Signs
Vital Signs
Temp Pulse Resp BP Pulse Ox
93.2 F L 110 27 98/63 100
10/26/24 20:50 10/26/24 19:36 10/26/24 19:00 10/26/24 19:36 10/26/24 19:00
Physical Exam
General: Other (Ill-appearing, pale 74y M in moderate distress at times due to pain.)
HEENT: Other (Very dry MM. Bitemporal muscle wasting.)
Respiratory: Other (Decreased BS at R base with dullness to percussion. No focal wheezes / rhonchi.)
Cardiac: S1/S2 and Regular Rhythm; No Murmur
GI: Other (Pos diffuse tenderness and voluntary guarding. Bowel sounds are diminished throughout. No rebound.)
Musculoskeletal: No Clubbing, No Cyanosis and No Edema
Neuro: Other (Somnolent / confused. Will focus when prompted and maintain brief focus before falling back to sleep. Restless at times.)
Laboratory Results
-
10/26/24 18:25
10/26/24 18:25
Laboratory Results
Lactic Acid 11.4 mmol/L (0.7-2.0) H* 10/26/24 18:25
Total Bilirubin 3.9 mg/dl (0.2-1.3) H 10/26/24 18:25
AST 69 U/L (17-59) H 10/26/24 18:25
ALT 63 U/L (0-50) H 10/26/24 18:25
Alkaline Phosphatase 568 U/L (38-126) H 10/26/24 18:25
Lipase 48 U/L (23-300) 10/26/24 18:25
Impression/Plan
-
A/P: Patient is a 74y M with PMH significant for metastatic pancreatic cancer currently on Palliative Care who presents to ED for evaluation of abdominal pain / clinical decline.
Multisystem Organ Failure
Lactic Acidosis
Acute TME secondary to the above
MARCOS
Leukocytosis
- Admit to ICU for further evaluation and treatment.
- Suspect that presentation is primarily due to underlying malignancy, hypovolemia / hypoperfusion, etc.
- MARCOS with no urine output in > 24 hours and no significant bladder distention / retention noted on CT.
- Lactic acid level > 11. Borderline BP in the ED - and has been very low at home as well per .
- IVF support with supplemental bicarb.
- Will continue current IV abx for now - though it is not clear that there is acute infectious process here (see below).
- Dismal prognosis reviewed in great detail with patient's at the bedside.
- Follow for clinical improvement and improvement in labs / lytes with IVF support.
Right Pleural Effusion
RLL Consolidation
- This is a chronic issue and does not appear significantly changed from prior.
- No recent respiratory complaints / issues / etc.
- Continue abx for now as noted above.
- Could consider thoracentesis if patient improves / stabilizes clinically - and if this is in line with plan of care.
Metastatic Pancreatic Cancer
- Patient not on active therapy as he has exhausted all available options with no improvement in his disease.
- Patient / family aware that this is a terminal diagnosis - though patient has thus far remained reluctant to consider Hospice, end-of-life discussions, etc.
- Pain is very likely due to his underlying malignancy +/- ischemia due to poor perfusion, etc.
- Pain control as needed with PRN medications for now.
- Consider continuous morphine infusion if needed for pain control.
- Case Management / Hospice evaluation to discuss options with patient / family.
Anemia of Chronic Disease
- Hgb at present is well above baseline, likely reflective of degree of hypovolemia.
- Follow for changes.
Chronic HFpEF
- As noted, patient extremely hypovolemic at present.
- Hold diuretics. Aggressive IVF replacement as noted above.
DVT Prophylaxis: SCDs
Code Status: Long conversation with in the ED at the time of admission. She understands patient's current clinical situation, terminal diagnosis and dismal prognosis. However, she notes that patient had clearly stated he wanted CPR in the
event of cardiopulmonary arrest. She is quite hesitant to over-rule his stated wishes in this regard; though, she does understand that they are incongruous with his clinical reality. Will require ongoing discussions with family and patient (if
able) regarding plan of care, possible Hospice, code status, etc.
[2024-10-26 23:03] LABS: Lactic Acid 9.3 mmol/L (0.7-2.0)
[2024-10-26] MEDS: MORPHINE SULFATE 2 MG IV (23:35)
[2024-10-27] VITALS (22 sets, daily range): BP systolic 70–108; BP diastolic 39–70; BMI 20.4
--- NOTE | 2024-10-27 00:11 | PTCARENOTE ---
Addendum entered by Jean Rivera RN 10/27/24 02:41:
Pt SBP starting to stabilize. Pt still appears in pain and will continue w/ tx plan. See MAR
Original Note:
Pt received from ED. Pt is AAOx0, drowsy forgetful and confuse. At times restless. at bedside. was informed about the outcome and what the plan is. If pt appears uncomfortable, it was mentioned comfortable care measure will be started per
. IVF will be initiated. Pt appears in pain, See MAR. Pt was informed the morphine care drop BP. Pt is in the nuha hugger, temp 95.6 F. Q2 turn. Pt unable to swallow. Will contuen w/ tx plan.
[2024-10-27] MEDS: SODIUM BICARBONATE 1150 MEQ IV ×2 (00:24→09:01)
[2024-10-27] MEDS: MORPHINE SULFATE 2 MG IV ×2 (01:36→03:49)
[2024-10-27] MEDS: NSS (PRESERVATIVE FREE) 0.125 ML IV (04:24)
[2024-10-27] MEDS: ATIVAN 0.25 MG IV (04:25)
[2024-10-27 05:00] LABS: Hematocrit 32.4 % (39.0-52.0); Hemoglobin 10.4 g/dL (13.0-18.0); Mean Corp Hgb Conc. 32.1 g/dL (33.0-37.0); Mean Corpuscular Hgb 26.7 pg (27.0-31.0); Mean Corpuscular Volume 83.3 fL (80.0-94.0); Platelet Count 65 10^3/uL (130-400); Red Blood Cell Count 3.89 10^6/uL (4.70-6.10); Red Cell Dist. Width 18.9 % (11.5-14.5); White Blood Cell Count 48.9 10^3/uL (4.8-10.8)
[2024-10-27 05:10] LABS: Lactic Acid 4.3 mmol/L (0.7-2.0)
[2024-10-27 05:34] LABS: ALT (SGPT) 51 U/L (0-50); AST (SGOT) 109 U/L (17-59); Alkaline Phosphatase 399 U/L (38-126); Blood Urea Nitrogen 75 mg/dl (9-20); Calcium 6.2 mg/dl (8.4-10.2); Carbon Dioxide 13 mmol/L (22-30); Chloride 108 mmol/L (98-107); Estimated Creatinine Clearance 12 ml/min; Glucose 149 mg/dl (70-99); Magnesium 1.8 mg/dl (1.6-2.3); Sodium 140 mmol/L (135-145); Total Bilirubin 3.9 mg/dl (0.2-1.3)
[2024-10-27] MEDS: NOVOLIN R 5 UNITS IV (07:29)
[2024-10-27] MEDS: CALCIUM GLUCONATE 1000 MG IV (07:29)
[2024-10-27] MEDS: PROTONIX IV 40 MG IV (07:30)
[2024-10-27] MEDS: NSS (PRESERVATIVE FREE) 10 ML IV (07:30)
[2024-10-27] MEDS: DEXTROSE 50% SYRINGE 25 GRAMS IV (07:31)
[2024-10-27] MEDS: SODIUM BICARBONATE 50 MEQ IV (07:31)
[2024-10-27 07:33] LABS: Glucose - Point of Care 161 mg/dl (70-99)
--- NOTE | 2024-10-27 08:04 | PHA.VAN.IN ---
Assessment
- Assessment
Renal Function: Appears elevated from baseline
Concomitant Antimicrobials: cefepime
- Previous Dosing Experience
Previous Regimen: 1250mg q24h
Date of Regimen: 08/2024
Provided Trough of: n/a
Provided AUC of: n/a
Patient's SCR is: Elevated compared to previous dosing experience
Patient's weight is: Similar to previous dosing experience
AUC Dosing Plan
- Dosing Variables
Dosing Weight (kg): 62.641
Dosing CrCl (ml/min): 12
Vd coefficient (L/kg): 0.7
Plan
- Plan
Initial / Loading Dose: 1500mg - 10/26
Maintenance Regimen: prn by level
Monitoring: random 10/28 in am
MRSA Screen: Ordered per protocol
Pharmacokinetics Vancomycin I
- -
Patient Age: 74
Patient Sex: Male
Vancomycin Day #: 1
Indication: Pulmonary/Respiratory
Requesting Provider: Dr. Alberto
Height / Weight:
Height 5 ft 9 in
Actual Weight 62.641 kg
IBW in k.7
- Vital Signs / Lab Results
Temp Pulse Resp BP Pulse Ox
96.7 F L 94 13 92/50 92
10/27/24 07:23 10/27/24 07:00 10/27/24 07:00 10/27/24 07:00 10/27/24 07:00
Lab Results - Hematology
10/26/24 10/27/24
18:25 04:20
WBC 58.2 H* 48.9 H*
Band Neutrophils 4 H
Lab Results - Chemistry
10/26/24 10/27/24
18:25 04:20
BUN 70 H 75 H
Creatinine 5.1 H* 4.8 H*
Estimated Creat Clear 11 12
Albumin 2.7 L 2.0 L
10/26/24 10/26/24 10/27/24
18:25 22:36 04:20
Lactic Acid 11.4 H* 9.3 H* 4.3 H*
--- NOTE | 2024-10-27 08:49 | HOSPNOTE ---
Hospice referral received. Will follow up with family today.
--- NOTE | 2024-10-27 09:04 | W.PN.HOSP.TC ---
Today's Communication/Plan
-
comfort care
passing likely to be imminent
can consider hospice GIP if patient appears to be more stable
Assessment / Plan
Assessment / Plan
Limited Physical Exam
General: appears to be in active process of dying
Pulm: Agonal breathing
Neuro: nonresponsive nonverbal
A/P: Patient is a 74y M with PMH significant for metastatic pancreatic cancer on Palliative Care prior admission who presents to ED for evaluation of abdominal pain / clinical decline.
Multisystem Organ Failure
Lactic Acidosis
Acute TME secondary to the above
MARCOS
Leukocytosis
Right Pleural Effusion
RLL Consolidation
Metastatic Pancreatic Cancer not on active therapy as he has exhausted all available options with no improvement in his disease.
Anemia of Chronic Disease
Chronic HFpEF
Patient appears to be in active process of dying
Discussed with patient's Kennedi COLLIER at bedside poor prognosis, likely to be imminent, further active treatment likely to be futile, potential benefits of comfort care.
, aware of patient's poor prognosis, verbalized her agreement with pursuing comfort measures, care updated accordingly.
dilaudid prn with transition to gtt if necessary
would keep in current room for now, passing likely to be soon, hospice eval in case patient appears to be more stable.
I spent a total of 50 minutes with the patient or on the floor. More than 50% of this time involved counseling and coordination of care.
Anticipated Discharge: Within 24 hours
Subjective/Interval History
-
Date of Service: October 27, 2024
Agonal breathing, nonverbal, nonresponsive. Appears to be in the active process of dying. Kennedi present during evaluation.
Objective Data
-
Labs:
Laboratory Results
10/27/24 10/27/24
04:20 08:14
WBC 48.9 H*
Hgb 10.4 L
Hct 32.4 L
Plt Count 65 L D
Sodium 140
Potassium 7.0 H* Cancelled
Chloride 108 H
Carbon Dioxide 13 L*
BUN 75 H
Creatinine 4.8 H*
Glucose 149 H
Calcium 6.2 L* D
Total Bilirubin 3.9 H
AST 109 H
ALT 51 H
Alkaline Phosphatase 399 H
Vital Signs:
Vital Signs
Temp Pulse Resp BP Pulse Ox
96.6 F L 101 12 95/54 90
10/27/24 08:00 10/27/24 08:00 10/27/24 08:00 10/27/24 08:00 10/27/24 08:00
[2024-10-27 09:10] LABS: Glucose - Point of Care 208 mg/dl (70-99)
[2024-10-27] MEDS: DILAUDID 0.5 MG IV ×4 (09:12→15:43)
--- NOTE | 2024-10-27 09:32 | PTCARENOTE ---
attending rounded with at bedside. Pt's seems accepting. Pt responsive only to painful stimuli and is having periods of apnea, RR 8-11. occasional sighing/moaning. See MAR. Tillman now at bedside with . Pt downgraded to [facility]sur[facility].
[2024-10-27] MEDS: ROBINUL 0.2 MG IV ×2 (10:09→18:10)
--- NOTE | 2024-10-27 13:27 | PTCARENOTE ---
, dtr and LILIANE at bedside. pt appears comfortable. No signs of distress or discomfort.
--- NOTE | 2024-10-27 14:31 | CM ---
CM following re: discharge planning.
Reviewed pt's chart, met with pt. pt's spouse, daughter and son -in law at bedside. Emotional support offered and provided.
Pt is a 74 year old male, admitted with primary dx of Multisystem Organ Failure.
Pt lives with spouse 2SH, 5 steps to enter, has supportive daughter. Pt ambulates with a walker at baseline.
Per MD, pt is comfort care. documentation liaison following. Referral to hospice made this morning.
D/C plan: comfort care.
[2024-10-27] MEDS: HALDOL 0.5 MG IV (15:38)
--- NOTE | 2024-10-27 16:05 | CHAP ---
Addendum entered by Rell Busch 10/27/24 16:09:
Prayer blanket also provided.
Original Note:
Paged by ICU staff for Varun and his very supportive of 48 years, Kennedi. Emotional and spiritual support provided. We offered prayers commending Varun to God, asking blessings of peace for all, and giving thanks for Varun's life and love.
Assurance given of our on-going availability.
[2024-10-27] MEDS: ATIVAN 0.5 MG IV ×2 (16:26→18:12)
[2024-10-27] MEDS: DILAUDID 0.25 MG IV ×5 (16:36→18:36)
[2024-10-27] MEDS: DILAUDID 50 IV (17:40)
--- NOTE | 2024-10-27 19:00 | PTCARENOTE ---
While rounding with dayshift RN, patients Dilaudid gtt was increased to step 2 together.
--- NOTE | 2024-10-27 20:00 | PTCARENOTE ---
Addendum entered by Chance Bradley RN 10/27/24 21:12:
Patient's came to doorway upset because patient appeared to pass. HENRY Jacobs was advised. HENRY Jcaobs came to bedside and pronounced patient passed at 2019. Condolences offered.
Original Note:
Patient's called this RN to check on patient. Patient assessed. Patient's respirations slow and irregular but patient still breathing. Patient comfortable and in no apparent distress. Patient's in room with patient. Spouse provided
privacy.
--- NOTE | 2024-10-27 20:25 | W.PN.DEATH ---
Pronouncement of
-
Called to see patient to pronounce.
No spontaneous heart tones or respirations noted.
Patient not responsive to verbal stimuli.
Patient is pronounced .
Time of : 20:19
Date of : 10/27/24
Cause of : multisystem organ failure, metastatic pancreatic cancer
Family Notified: Yes ( Kennedi at bedside)
--- NOTE | 2024-10-27 21:48 | PTCARENOTE ---
This RN Chance and KAREN Beyer wasted the Dilaudid gtt remaining (46 mls) in the Pyxis. Note: the Green sheet from the ICU was not available from the ICU as the medication had been pulled from the Pyxis. Advised nursing sheet metal duct worker supervisor Mirella about this and
read back this note.
--- NOTE | 2024-10-28 06:52 | W.DCSUMMARY ---
Discharge Summary
Discharge Data
Date of Admission: 10/26/24
Date of Discharge: 10/28/24
-
Pending Results: No
Discharge Plan
-
Patient Disposition:
Date/Time
Date/Time: 10/27/24 20:19
Discharge Date and Time
Discharge Date/Time: 10/27/24 20:19
Print Language: CITIZEN [place]
== END 2024-10-27 20:19 | disposition expired | DRG 435 ==
LOC: 2 NORTH 21:52
PROVIDERS: ADMITTING PHYSICIAN Hospitalist; ATTENDING PHYSICIAN Internal Medicine; EMERGENCY PHYSICIAN Student in an Organized Health Care Education/Training Program; FAMILY PHYSICIAN Family Medicine
DX: C25.9 Malignant neoplasm of pancreas, unspecified (principal); G92.8 Other toxic encephalopathy; E87.20 Acidosis, unspecified; N17.9 Acute kidney failure, unspecified; J90 Pleural effusion, not elsewhere classified; I50.32 Chronic diastolic (congestive) heart failure; Z87.891 Personal history of nicotine dependence; Z51.5 Encounter for palliative care; D63.8 Anemia in other chronic diseases classified elsewhere
CPT/HCPCS: 51798; 71045; 74176; 80053; 82140; 82248; 82962; 83605; 83690; 83735; 84100; 85025; 85027; 86850; 86900; 86901; 87040; 93005; 96361; 96365; 96375; 99291